=== PATIENT | male | born 1965 | race Caucasian/White ===

== ENCOUNTER 2017-12-05 06:31 | Observation (INO) | payer OTHER ==
[2017-12-05] MEDS ORDERED: LIDOCAINE 1% 2 ML INJ ONE (06:54)
[2017-12-05] MEDS ORDERED: ONDANSETRON 4 MG/2 ML VIAL IVP ONE (07:02)
[2017-12-05] MEDS ORDERED: DEXAMETHASONE 4 MG/ML VIAL IVP ONE (07:02)
[2017-12-05] MEDS ORDERED: ceFAZolin 2 GM/SWFI 2 GM/20 ML SYR IVP ONE (07:02)
[2017-12-05] MEDS ORDERED: LIDOCAINE 1% 2 ML INJ ID PRN (07:47)
[2017-12-05] MEDS: LR 1,000 ML IV SCH ×2 (07:48→11:07)
--- NOTE | 2017-12-05 11:00 | PDHPUP ---
History & Physical Update H&P update statement: This history and physical update is based on an assessment of the patient which was completed after admission or registration (within 24 hours), but prior to the surgery/procedure. H&P update: H&P reviewed & patient examined, no change in patient's condition since H&P completed
--- NOTE | 2017-12-05 11:26 | PDANEPAE ---
ANE Past Medical History - Cardiovascular History Hx Hypertension: No Hx Arrhythmias: No Hx Chest Pain: No Hx Coronary Artery / Peripheral Vascular Disease: No Hx CHF / Valvular Disease: No Hx Palpitations: No - Pulmonary History Hx COPD: No Hx Asthma/Reactive Airway Disease: No Hx Recent Upper Respiratory Infection: No Hx Oxygen in Use at Home: No Hx Sleep Apnea: No Sleep Apnea Screening Result - Last Documented: Negative - Neurologic History Hx Cerebrovascular Accident: No Hx Seizures: No Hx Dementia: No - Endocrine History Hx Diabetes: No - Renal History Hx Renal Disorders: No - Liver History Hx Hepatic Disorders: No - Neurological & Psychiatric Hx Hx Neurological and Psychiatric Disorders: No - Cancer History Hx Cancer: Yes Cancer History Comment: melanoma umbilicus - Congenital Disorder History Hx Congenital Disorders: No - GI History Hx Gastrointestinal Disorders: No - Other Health History Other Health History: lesion umbilicus - Chronic Pain History Chronic Pain: No - Surgical History Prior Surgeries: tonsillectomy age 5 ANE Review of Systems Review of Systems: - Exercise capacity METS (RN): 6 METS ANE Patient History - Allergies Allergies/Adverse Reactions: codeine Allergy (Verified 12/03/17 12:00) "VIOLENT NIGHTMARES" - Home Medications Home Medications: Herbals/Supplements -Info Only 1 ea PO DAILY 12/03/17 [Last Taken Unknown] - NPO status NPO Since - Liquids (Date): 12/05/17 NPO Since - Liquids (Time): 06:00 NPO Since - Solids (Date): 12/04/17 NPO Since - Solids (Time): 19:00 - Smoking Hx Smoking Status: Never smoked - Family Anes Hx Family Hx Anesthesia Complications: none ANE Labs/Vital Signs - Vital Signs Blood Pressure: 122/83 Heart Rate: 69 Respiratory Rate: 12 O2 Sat (%): 92 Height: 182.88 cm Weight: 90.718 kg ANE Physical Exam - Airway Neck exam: FROM Mallampati Score: Class 1 Mouth exam: normal dental/mouth exam - Pulmonary Pulmonary: no respiratory distress - Cardiovascular Cardiovascular: regular rate and rhythym - ASA Status ASA Status: II ANE Anesthesia Plan Anesthesia Plan: general endotracheal anesthesia
[2017-12-05] MEDS ORDERED: BUPIVACAINE 0.25% 30 ML SDV ONE (11:53)
[2017-12-05] MEDS ORDERED: fentaNYL 250 MCG/5 ML INJ ONE (12:11)
[2017-12-05] MEDS ORDERED: MIDAZOLAM 2 MG/2 ML VIAL ONE (12:13)
[2017-12-05] MEDS ORDERED: MIDAZOLAM 2 MG/2 ML VIAL IVP ONE (12:14)
[2017-12-05] MEDS ORDERED: PROPOFOL/EMULSION 500 MG/50 ML BOTTLE IV ONE (12:18)
[2017-12-05] MEDS ORDERED: LIDOCAINE 2% 5 ML SDV ONE (14:05)
[2017-12-05] MEDS ORDERED: ONDANSETRON 4 MG/2 ML VIAL ONE (14:05)
[2017-12-05] MEDS ORDERED: DEXAMETHASONE 4 MG/ML VIAL ONE (14:05)
[2017-12-05] MEDS ORDERED: fentaNYL 100 MCG/2 ML INJ IVP PRN (14:28)
[2017-12-05] MEDS ORDERED: LR 500 ML IV PRN (14:28)
[2017-12-05] MEDS ORDERED: PROMETHAZINE HCL 25 MG/ML INJ IVP PRN (14:28)
[2017-12-05] MEDS ORDERED: OXYCODONE/APAP 5/325 TAB PO PRN ×2 (14:28→14:41)
[2017-12-05] MEDS ORDERED: NALOXONE HCL 0.4 MG/ML INJ IVP PRN (14:28)
--- NOTE | 2017-12-05 14:29 | POSTANESTH ---
Post Anesthetic Evaluation Cardiovascular Status: Normal, Stable Respiratory Status: Normal, Stable Level of Consciousness/Mental Status: Can Participate in Eval Pain Control: Adequate, Prn Tx Ordered Nausea/Vomiting Control: Adequate, Prn Tx Ordered Complications Possibly Related to Anesthesia: None Noted
--- NOTE | 2017-12-05 14:40 | POSTOPPROG ---
Post Op Note Date of Operation: 12/05/17 Surgeon: Alexis Mcdonald (, FACS) Pre-op Diagnosis: T3 melanoma umbilicus Post-op Diagnosis: same Procedure: wide excision/repair ventral hernia/adjacent tissue transfer/R ILND Findings: 2/2 sentinel nodes positive Inf/Abcess present in the surg proc area at time of surgery?: No EBL: Minimal (35ml) Drains: Gurmeet Nielsen Specimen(s): umbilicus with >2cm margins right inguinal sentinel node x 2 superficial right inguinal node dissection
[2017-12-05] MEDS ORDERED: TEMAZEPAM 15 MG CAP PO PRN (14:41)
[2017-12-05] MEDS ORDERED: LR 1,000 ML IV SCH (15:00)
[2017-12-05] MEDS ORDERED: fentaNYL 100 MCG/2 ML INJ ONE (15:15)
[2017-12-05] MEDS: ONDANSETRON 4 MG/2 ML VIAL IVP PRN ×2 (15:49→21:30)
[2017-12-05 20:21] VITALS: RESP 18
[2017-12-06] MEDS ORDERED: ENOXAPARIN 40 MG/0.4 ML SYR SC SCH (09:00)
--- NOTE | 2017-12-06 09:09 | SOAPPROG ---
FRANTZ Progress Note Assessment/Plan: Assessment:s/p wide excision of umbilical melanoma with right inguinal sentinel node biopsy/inguinal lymph node dissection current clinical stage has changed to T4N1 He is recovering after surgery and will be referred to [facility] for further work up (PET-CT) and adjuvant treatment recommendations Plan: we discussed wound care, drain care, activity and pain medications He will call my office Friday if drain output is at or less than 30ml/day for drain removal I will call him with pathology results when they are available 12/06/17 09:06 Subjective: resting comfortably, mild nausea last night Objective: Vital Signs Temp Pulse Resp BP Pulse Ox 36.6 C 78 18 118/62 94 12/06/17 04:07 12/06/17 04:07 12/06/17 04:07 12/06/17 04:07 12/06/17 04:07 12/05/17 12/06/17 12/07/17 05:59 05:59 05:59 Intake Total 2516 Output Total 672 Balance 1844 - Pending Discharge Pending Discharge Within 24 Hours: Yes Pending Discharge Date: 12/06/17 Pending Discharge Time: 13:00 Physical Exam - Physical Exam General Appearance: alert, no apparent distress Cardiac/Chest: regular rate, rhythm Abdomen: normal bowel sounds, soft, other (incisions healing well/EVAN serosanguinous) Extremities: non-tender, other (intact sensation) ICD10 Worksheet Patient Problems: Problems Problem Status Onset Melanoma 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 - ICD10 Problem Qualifiers (1) Melanoma Qualifiers: Melanoma location: torso excluding breast Qualified Code(s): C43.59 - Malignant melanoma of other part of trunk (2) Metastasis to groin lymph node
[2017-12-06] MEDS ORDERED: ACETAMINOPHEN 500 MG TAB PO PRN (09:17)
[2017-12-06] MEDS ORDERED: IBUPROFEN 600 MG TAB PO PRN (09:17)
[2017-12-06 09:18] VITALS: BP 115/70; PULSE 82; TEMP 98; O2SAT 93
[2017-12-06] MEDS ORDERED: oxyCODONE IR 5 MG TAB PO PRN (09:18)
[2017-12-06] MEDS ORDERED: SENNOSIDES/DOCUSATE SODIUM TAB PO SCH (09:30)
--- NOTE | 2017-12-06 10:04 | GOP ---
[f rep st] OPERATIVE REPORT DATE OF OPERATION: 12/05/2017 SURGEON: Alexis Mcdonald MD, FACS ANESTHESIA: General endotracheal. ANESTHESIOLOGIST: Robin Matta MD. 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 POSTOPERATIVE DIAGNOSIS: 1. T4 melanoma of the umbilicus. 2. 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 PROCEDURE PERFORMED: FINDINGS: 2/2 sentinel lymph nodes positive for metastatic melanoma with superficial right inguinal lymph node dissection, submitted for permanent section, including the transitional lymph node of [place]. ESTIMATED BLOOD LOSS: 35 mL. DESCRIPTION OF PROCEDURE: After informed consent was obtained, the patient was brought to the operating room and placed under general anesthesia. The abdomen and both groins were prepped and draped in the usual fashion. The preoperative lymphoscintigram revealed activity in the right groin. Before proceeding, a time-out and identification of the patient were performed. The sentinel nodes were interrogated with the gamma probe and increased activity was noted in the right inguinal region. The point of maximum activity was identified, marked on the skin with a marking pen, and this area was infiltrated with 0.25% Marcaine. An oblique incision was made just above the groin crease and carried through the skin and subcutaneous tissues. The first of 2 sentinel nodes was encountered in the deep subcutaneous plane and measured approximately 1.5 cm. It was dissected from the surrounding fibrofatty tissue of the groin, lymphovascular structures were hemoclipped and divided, and the node was removed from the field. A second sentinel node, measuring approximately 1 cm in maximum diameter, was also identified and retrieved in a similar fashion and submitted as sentinel lymph node #2. Hemostasis appeared secure within the groin. While we were waiting for the results of the sentinel node frozen section, I proceeded with a wide excision of the melanoma as follows. The previously biopsied melanoma was at the superior rim of the umbilicus and 2 cm were marked in all directions from the center point of the melanoma and the planned incision was marked on the abdominal wall to include 4 cm width laterally to create an ellipse. This was infiltrated with 0.25% Marcaine and incised circumferentially in elliptical fashion creating a defect that was approximately 6 x 10 cm. As the dissection was carried out through the subcutaneous tissues using cautery, the umbilical stalk was from the surrounding fascia at the level of the abdominal wall, including the underlying peritoneum. This was excised en bloc and removed from the field. It was tagged for orientation with a short suture superiorly and a long suture laterally. This was submitted for permanent section. The resulting defect left a 2 cm fascial defect in the center of the linea Alba as well as a 6 x 10 cm defect of the skin and subcutaneous tissues. The fascia was closed with 2 layers of interrupted 0 Nurolon sutures to create a transverse repair. The superficial wound was closed with adjacent tissue transfer of subcutaneous fat, elevating a plane of tissue anterior to the fascia circumferential to the defect for a distance of 2 to 3 cm. This allowed for primary closure without significant tension. The deep subcutaneous tissues were approximated with 3-0 Monocryl suture and the skin was closed with 4-0 Monocryl suture followed by ana m. Subsequently, the report of the sentinel nodes came back positive and we proceeded with inguinal lymph node dissection as follows. The contents of the inguinal canal were dissected cephalad to the external ring and external oblique fascia inferiorly to below the saphenofemoral junction medially to the pubic tubercle and laterally well beyond the femoral vein. Dissection was carried out with hemostasis secured with cautery, medium hemoclips, and suture ligatures. The deepest lymph node found at the deep femoral canal overlying the femoral vein was approximately 4 to 5 mm in diameter and was labeled the lymph node of [place]. The specimen was removed from the field and submitted for permanent section. Hemostasis appeared secure within the cavity. A 10 mm flat Gurmeet-Nielsen drain was brought through a separate stab wound and placed into the wound. Subcutaneous tissues were approximated with 3-0 Monocryl suture and the skin was closed with 4-0 Monocryl suture in a subcuticular fashion. Topical and sterile dressings were applied. The patient was returned extubated to the recovery room in satisfactory condition. Needle, sponge, and instrument count were correct. PROCEDURE PERFORMED: 1. Wide excision of umbilical melanoma (embolectomy) and reconstruction with repair of ventral hernial defect and adjacent tissue transfer. 2. [place] lymph node biopsy and subsequent right inguinal lymph node dissection. COMPLICATIONS: None. /[id number]/MODL MTDD
--- NOTE | 2017-12-06 10:19 | ASMTLACE ---
LACE Length of stay for Answers: Less than 1 day current admission Acuity / Level of Answers: No Care: Did the patient have an inpatient admission? Comorbidities - select Answers: Other Notes: melanoma all that apply # of Emergency department Answers: 0 visits in the last 6 months Score: 1 Date Signed: 12/06/2017 10:18 AM Electronically Signed By:LILY Henriquez
--- NOTE | 2017-12-06 11:48 | ASDISCHSUM ---
Discharge Information Plan Status:Home with No Needs Medically Cleared to Leave:12/06/2017 Discharge Date:12/06/2017 CM D/C Disposition:Home, Routine, Self-Care ADT D/C Disposition: Projected Discharge Date:12/06/2017 Transportation at D/C:Family Discharge Delay Reason: Follow-Up Date:12/06/2017 Discharge Slot: Final Diagnosis: Placement Information Patient Contact Information Contact Name:CECILE Relationship: Address:[address] Work Phone: City:[place] Alternate Phone: [facility]/Zip Code:[place] [address] Email: Financial Information Financial Class:[facility] Primary Plan Desc:[employer] OPEN [employer] LOCAL Primary Plan Number:[id number] Secondary Plan Desc: Secondary Plan Number: Assessment Information LACE LACE Length of stay for Answers: Less than 1 day current admission Acuity / Level of Answers: No Care: Did the patient have an inpatient admission? Comorbidities - select Answers: Other Notes: melanoma all that apply # of Emergency department Answers: 0 visits in the last 6 months Score: 1 Date Signed: 12/06/2017 10:18 AM Electronically Signed By:LILY Henriquez Intervention Information
== END 2017-12-06 11:48 | disposition home or self-care (01) ==
LOC: F3E 06:31 → F1N 15:40
PROVIDERS: ADMIT Surgery; ATTEND Surgery
PROC: 0JB80ZZ Excision of Abdomen Subcutaneous Tissue and Fascia, Open Approach (ICD-10-PCS; principal; 2017-12-05 11:00)
PROC: 0JQ80ZZ Repair Abdomen Subcutaneous Tissue and Fascia, Open Approach (ICD-10-PCS; principal; 2017-12-05 11:00)
PROC: 07TH0ZZ Resection of Right Inguinal Lymphatic, Open Approach (ICD-10-PCS; principal; 2017-12-05 11:00)
PROC: 3E0W3HZ Introduction of Radioactive Substance into Lymphatics, Percutaneous Approach (ICD-10-PCS; 2017-12-05 11:00)
DX: C43.59 Malignant melanoma of other part of trunk (principal); C77.4 Secondary and unspecified malignant neoplasm of inguinal and lower limb lymph nodes
CPT/HCPCS: 11606; 12034; 38760; 78195; A9520; G0378; J0690; J1100; J1650; J2250; J2405; J2704; J3010

== ENCOUNTER 2017-12-25 17:19 | Inpatient (IN) | payer OTHER ==
[2017-12-25] MEDS ORDERED: ACETAMINOPHEN 500 MG TAB PO PRN (17:36)
[2017-12-25] MEDS ORDERED: oxyCODONE IR 5 MG TAB PO PRN (17:37)
--- NOTE | 2017-12-25 17:55 | PDGENHP ---
History and Physical - Chief Complaint right groin pain - History of Present Illness 52 y/o male 3 weeks s/p wide excision of umbilical melanoma and right inguinal node dissection. Final stage was T4N1. He has seen Dr. Bragg who recommended chemotherapy. He had his drain removed a week ago and presents today with fever, pain and redness in the right groin. 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 Review of Systems Review of Systems: Constitutional: Reports: chills, fever Physical Exam Physical Exam: Constitutional: uncomfortable Eyes: anicteric sclera Cardiovascular: tachycardia Respiratory: no respiratory distress Gastrointestinal: soft, non-tender abdomen, other (transverse midabdominal incision healing without signs of infection) Skin: other (erythema right groin and anterior medial thigh, incision o.k./12 ml seroma fluid aspirated and sent for culture) Psychiatric: interacting appropriately Lymph, Heme, Immunologic: no cervical LAD Assessment & Plan Assessment: right groin cellulitis Stage T4N1 melanoma s/p wide excision and right inguinal node dissection Plan: Admit [facility] for IV Abx/Hospitalist consult requested and discussed with Dr. Garcia
[2017-12-25] MEDS: VANCOMYCIN HCL/NORMAL SALINE 250 ML IV SCH (19:00)
[2017-12-25] MEDS ORDERED: ONDANSETRON DISINTEGRATING 4 MG TAB PO PRN (19:10)
[2017-12-25] MEDS ORDERED: ONDANSETRON 4 MG/2 ML VIAL IVP PRN (19:10)
[2017-12-25 19:12] LABS: PLATELET COUNT 229 10^3/uL (150-400)
[2017-12-25] MEDS ORDERED: NS 1,000 ML IV ONE ×2 (19:15→21:10)
[2017-12-25 20:03] LABS: INR 1.04 (0.83-1.16); PROTIME(PATIENT) 13.8 SEC (12.0-15.0)
[2017-12-25] MEDS: IBUPROFEN 800 MG TAB PO SCH (21:11)
[2017-12-25] MEDS: ceFAZolin 2 GM/SWFI 2 GM/20 ML SYR IVP SCH (21:11)
[2017-12-25] MEDS ORDERED: cefTRIAXone 2 GM in STERILE WATER INJ 20 ML IV ONE (22:20)
[2017-12-26] MEDS: NS 1,000 ML IV SCH ×4 (00:07→23:32)
--- NOTE | 2017-12-26 04:30 | GCON ---
[f rep st] CONSULTATION DATE OF CONSULTATION: 12/25/2017 REASON FOR CONSULTATION: I was asked by Dr. Mcdonald to see the patient in regard to his right groin valery lulitis. HISTORY OF PRESENT ILLNESS: 52-year-old man with a recent diagnosis of melanoma who underwent an exc ision near his umbilicus on 12/05/2017. He also had sentinel lymph node biopsy with 2 lymph nodes re turning positive for melanoma. He was seen in clinic today by Dr. Mcdonald for a followup. He notes nicanor t this morning he started to feel febrile. He also notes that he was healing very well up until toda y, when he noticed some erythema and pain at the right inguinal node resection site. He has not had any dizziness, lightheadedness, or confusion. He has never had any severe infection before. He was otherwise healthy until finding melanoma. PAST MEDICAL/SURGICAL HISTORY: Melanoma, status post resection very recently. MEDICATIONS: Please see medication reconciliation. ALLERGIES: Codeine. FAMILY HISTORY: No melanoma. SOCIAL HISTORY: He is accompanied by his . He rarely drinks. He does not smoke. REVIEW OF SYSTEMS: Ten-point review of systems is conducted and is negative except per HPI. PHYSICAL EXAM: VITAL SIGNS: Initial blood pressure 106/79, heart rate 108, respiration rate 18, sat urating 90% on room air, temperature 38.6. GENERAL: The patient is a pleasant man who is resting co mfortably. He is not confused. He is in no acute distress. HEENT: Normocephalic, atraumatic. CAR DIOVASCULAR: Tachycardic. There are no murmurs, rubs, or gallops. PULMONARY: Lungs clear to auscu ltation bilaterally. ABDOMEN: Soft, nontender, nondistended. He has a midline horizontal incision that is well healing. His groin exam shows an area of erythema which I marked over the right groin. He has a fluctuant area at the superior aspect of this. The erythema is darker in the intertriginou s area. He has no extension into the perineum or onto the scrotum or penis. It is warm and tender t o palpation. SKIN: No rash. : No [place]. NEUROLOGIC: Alert and oriented x3. He is moving all extremities. PSYCHIATRIC: Normal mood and affect. LABS: White count is 20.1. DATA: 1. I discussed this with Dr. Mcdonald. 2. I reviewed his chart including his brief postop note on 12/05/2017, with a wide excision repair o f ventral hernia, adjacent tissue, right inguinal lymph node dissection. IMPRESSION AND PLAN: 1. Right groin cellulitis: This is at the previous operative site. Suspect that this is a gram-pos itive infection, either streptococcus or staphylococcus. Seroma fluid was aspirated by Dr. Mcdonald, moisés gisell I am not seeing a wound culture at this point. Blood cultures have been drawn. Dr. Mcdonald had o rdered vancomycin, as well as Ancef. I will not stop these, though I am not sure that we need dual g beryl-positive coverage at this point. I placed a call to Dr. Mcdonald. Will attempt to discuss this with him tonight. 2. Sepsis as evidenced by leukocytosis, fever, and tachycardia due to right groin cellulitis: Still awaiting labs to assess for end-organ damage. These have been ordered. I will give him 1 L normal saline bolus now. He does not have any evidence of septic shock. 3. Recent diagnosis of melanoma: He is going to follow with Dr. Bragg for ongoing treatment optio ns. Workup including PET scan and brain MRI are still in progress. Thank you for involving Hospital Medicine in the care of the patient. We will continue to follow sukumar rick. /[id number]/MODL
[2017-12-26 04:37] LABS: PLATELET COUNT 184 10^3/uL (150-400)
[2017-12-26] MEDS: ceFAZolin 2 GM/SWFI 2 GM/20 ML SYR IVP SCH ×2 (05:16→13:52)
[2017-12-26] MEDS: IBUPROFEN 800 MG TAB PO SCH ×3 (05:16→21:30)
[2017-12-26] MEDS: VANCOMYCIN HCL/NORMAL SALINE 250 ML IV SCH (05:52)
--- NOTE | 2017-12-26 10:05 | ASMTCMCOM ---
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 Pt is being followed by Dr Bragg s/p removal of an umbilical melanoma, upon removal of a EVAN drain, pt developed R groin cellulitis. Unclear if will need IV abx, if not, I anticipate pt will dc home w/support of when medically stable. CM available for any changes. DC Plan: Independent Date Signed: 12/26/2017 10:04 AM Electronically Signed By:Jimena Chávez RN
[2017-12-26] MEDS: ACETAMINOPHEN 325 MG TAB PO PRN ×2 (11:55→23:32)
--- NOTE | 2017-12-26 12:03 | SOAPPROG ---
SOAP Progress Note Assessment/Plan: Assessment: Right groin cellulitis/seroma fluid culture pending Plan: continue IV Abx/check culture results supportive care. Hospitalist consult appreciated Cayetano Mcdonald MD, FACS 12/26/17 12:01 Subjective: feeling rigor again/felt better last night Objective: Vital Signs Temp Pulse Resp BP Pulse Ox 37.0 C 101 H 18 146/87 H 95 12/26/17 11:42 12/26/17 11:42 12/26/17 11:42 12/26/17 11:42 12/26/17 11:42 Laboratory Results 12/26/17 04:31 12/26/17 04:31 12/25/17 12/26/17 12/27/17 05:59 05:59 05:59 Intake Total 1851 Balance 1851 PT 13.8 SEC (12.0-15.0) 12/25/17 19:33 INR 1.04 (0.83-1.16) 12/25/17 19:33 - Pending Discharge Pending Discharge Within 24 Hours: No Pending Discharge Within 48 Hours: No Physical Exam - Physical Exam General Appearance: WD/WN, alert, mild distress Skin: other (erythema right groin slightly improved/persistant swelling) ICD10 Worksheet Patient Problems: Problems Problem Status Onset Melanoma 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
--- NOTE | 2017-12-26 16:06 | HOSPPROG ---
Hospitalist Progress Note Assessment/Plan: 52y male with c/o right groin pain. D/W Dr Mcdonald. First encounter, chart reviewed. #Right groin cellulitis -on abx therapy, adjust per ID -sample drawn in clinic, not in lab currently, cont to try to locate- #Sepsis -cont supportive care -ID consulted, D/W Dr Veliz -febrile, tachy, cont ivf #Leukocytosis -improved since yesterday -cont to follow -BC pending #Dispo -unclear -will need cont IV abx therapy and further in hospital treatment -change to inpt status Subjective: Still feeling ill. Shaking and cold. Pain continues. Objective: Vital Signs Temp Pulse Resp BP Pulse Ox 37.1 C 100 14 117/82 H 94 12/26/17 15:12 12/26/17 15:12 12/26/17 15:12 12/26/17 15:12 12/26/17 15:12 Laboratory Results 12/26/17 04:31 12/26/17 04:31 12/25/17 12/26/17 12/27/17 05:59 05:59 05:59 Intake Total 1851 Balance 1851 PT 13.8 SEC (12.0-15.0) 12/25/17 19:33 INR 1.04 (0.83-1.16) 12/25/17 19:33 - Physical Exam Constitutional: appears nourished, uncomfortable, No obese Eyes: PERRL, anicteric sclera, EOMI Ears, Nose, Mouth, Throat: moist mucous membranes, hearing normal, ears appear normal Cardiovascular: tachycardia, No irregularly irregular, No JVD Respiratory: no respiratory distress, no rales or rhonchi, clear to auscultation Gastrointestinal: No tenderness, No ascites, No guarding Skin: warm, erythema, fluctuance Musculoskeletal: no joint effusions, pain with ROM, generalized weakness Neurologic: AAOx3 Psychiatric: interacting appropriately, not anxious, not encephalopathic, thought process linear ICD10 Worksheet Patient Problems: Problems Problem Status Onset Melanoma 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
[2017-12-26] MEDS: VANCOMYCIN 1.5 GM in D5W 250 ML IV SCH (17:47)
--- NOTE | 2017-12-26 18:04 | GCON ---
[f rep st] CONSULTATION DATE OF CONSULTATION: 12/26/2017 REQUESTING PROVIDER: Lise Segura NP. REASON FOR CONSULTATION: Right inguinal cellulitis. HISTORY OF PRESENT ILLNESS: The patient is a 52-year-old male with a recent diagnosis of melanoma, w julio I am asked to see in consultation for right inguinal cellulitis. The patient underwent melanoma excision around the umbilical region with right inguinal lymph node dissection on 12/05/2017. The pa tient subsequently had an inguinal drain in place until approximately 1 week ago. The patient was do ing well until yesterday when he developed onset of pain in the right inguinal region. This was foll owed by development of erythema, fever, and shaking chills. He did not have erythema or tenderness i nvolving the genitalia. He did not note any extension onto the abdominal wall. He did have some mil d nausea, but no vomiting or diarrhea. Prior to his melanoma excision, he did have the area of melan trenton cultured in late October, which showed growth of MSSA and group C strep. He was treated at that time with cephalexin. Based on his clinical symptoms yesterday, he was seen by Dr. Mcdonald in followup , at which point in time he was noted to have a right inguinal cellulitis. The inguinal region was a spirated yielding 12 mL of ceruminous appearing fluid which was sent for culture. Based on his clini isaiah findings, he was referred for admission to [facility]. He has been started empiric ally on vancomycin and received a dose of ceftriaxone yesterday, which was subsequently transitioned to cefazolin today. Blood cultures have been obtained and are currently pending, as is a culture of the patient's groin aspirate. Today, the patient did have some recurrent rigors. Currently, he stat es he feels significantly improved over the last hour. At the time of presentation yesterday, his te mperature was noted to be 38.6. The patient has not noted any spontaneous drainage from his inguinal incision. His umbilical incision has been healing well. Given the above findings, I am now asked t o assist in his ongoing management. PAST MEDICAL HISTORY: Recent diagnosis of melanoma, as outlined above. PAST SURGICAL HISTORY: Melanoma excision and lymph node dissection as above. CURRENT MEDICATIONS: Vancomycin 1 g IV q.12 hours, Ancef 2 g IV q.8 hours, Motrin 800 mg p.o. q.8 ho urs, Oxy IR as needed. ALLERGIES: Codeine associated with [employer] symptoms. SOCIAL HISTORY: Patient does not smoke. He drinks approximately 1 glass of wine or beer per day. N o drug use. 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 Pet dog at home, but no contact with dog at surgical inci sions. FAMILY HISTORY: Diabetes mellitus. REVIEW OF SYSTEMS: Outside that noted in the HPI, the remainder of a 10-system review is unremarkabl e. PHYSICAL EXAMINATION: VITAL SIGNS: Temperature maximum 38.6, temperature current 37.1, heart rate 1 00, respiratory rate 14, blood pressure 117/82, oxygen saturation 94% on room air. GENERAL: Patient is well nourished, well developed, in no acute distress. He appears nontoxic. HEENT: There is no scleral icterus, conjunctival injection, or conjunctival petechiae. Oropharynx shows moist mucous me mbranes without lesions. There is no nasal discharge. There is no tenderness over the frontal, maxi llary or mastoid area. NECK: Supple without palpable lymphadenopathy or thyromegaly. CHEST: Clear to auscultation bilaterally without adventitious sounds. Respiratory effort is normal. CARDIOVASCU LAR: Regular rate and rhythm without murmurs, gallops, or rubs. ABDOMEN: Soft, nontender, nondiste nded. There is no palpable organomegaly. Bowel sounds are present. The periumbilical abdominal inc ision is healing well with faint erythema at the margins, which is consistent with wound healing. Th ere is no drainage present. : The right inguinal region shows edema, erythema, warmth and tendern ess localized over the right inguinal region without significant extension over the abdominal wall; t here is mild extension onto the medial thigh; the penis and scrotum do not show involvement; there is no expressible drainage or palpable fluctuance; there are no areas of necrosis; there are no bulla n oted. MUSCULOSKELETAL: No cyanosis, clubbing, or edema. SKIN: See exam; there are no stigmata of endocarditis. The skin is warm and dry to touch. NEUROLOGIC: The patient is alert and interacts appropriately with examiner. Cranial nerves 2-12 are grossly intact. Muscle tone and bulk are norm al. LYMPHATICS: No cervical or supraclavicular adenopathy. LABORATORY DATA: White blood cell count 14.5, hematocrit 39.7, platelets 184, neutrophils 87%. Seru m creatinine 0.9, bicarbonate 23. Venous lactate is 1.3. Blood cultures x2 sets are pending. Cultu re from the patient's right inguinal region (I think this was a swab obtained of the aspirated seroma tous fluid) is pending in the microbiology lab. IMPRESSION: Right inguinal cellulitis: Clinical findings consistent with right inguinal cellulitis with question of superinfected seroma underlying area of cellulitis. Given the presence of rigors, c oncomitant bacteremia is of consideration. Most likely, this will be due to beta-hemolytic streptoco cci or Staphylococcus aureus. Given recent isolation of methicillin-sensitive Staphylococcus aureus, suspect he will have lower risk of methicillin-resistant Staphylococcus aureus, but given recent ope rative procedure, this does remain consideration. Based on his cellulitis being present in the ingui nal region, microbiologic etiology could also potentially include enteric gram-negative rods, althoug h suspect these will be less likely. Will observe clinical response to antibiotic therapy and review further with Dr. Mcdonald. RECOMMENDATIONS: 1. Agree with empiric vancomycin. Will increase dose to 1.5 g IV q.12 hours based on weight. 2. Ceftriaxone 2 g IV daily. 3. Discontinue cefazolin. 4. Follow up blood and seroma cultures as available. 5. Will review findings with Dr. Mcdonald and follow the patient's clinical exam as antibiotic therapy i s administered. 6. Thank you for this consultation. We will continue to follow the patient with you. /[id number]/MODL
[2017-12-26] MEDS: cefTRIAXone 2 GM in STERILE WATER INJ 20 ML IV SCH (19:34)
[2017-12-27] MEDS: IBUPROFEN 800 MG TAB PO SCH ×3 (05:27→21:00)
[2017-12-27] MEDS: VANCOMYCIN 1.5 GM in D5W 250 ML IV SCH ×2 (05:27→18:33)
--- NOTE | 2017-12-27 07:54 | SOAPPROG ---
SOAP Progress Note Assessment/Plan: Assessment: Right groin cellulitis/seroma fluid culture pending not clinically improving as quickly as I would have expected we discussed possibility of surgical drainage, which I would recommend if the seroma fluid cultures are positive Plan: continue IV Abx/check culture results later today, if positive: to OR for incision and drainage supportive care Hospitalist consult appreciated ID consult appreciated Cayetano Mcdonald MD, FACS 12/26/17 12:01 12/27/17 07:51 12/27/17 08:12 Subjective: feeling better/last fever shortly before midnight Objective: Vital Signs Temp Pulse Resp BP Pulse Ox 36.3 C 83 18 119/84 H 95 12/27/17 07:16 12/27/17 07:16 12/27/17 07:16 12/27/17 07:16 12/27/17 07:16 Laboratory Results 12/26/17 04:31 12/26/17 04:31 12/26/17 12/27/17 12/28/17 05:59 05:59 05:59 Intake Total 1851 4002 Balance 1851 4002 PT 13.8 SEC (12.0-15.0) 12/25/17 19:33 INR 1.04 (0.83-1.16) 12/25/17 19:33 - Pending Discharge Pending Discharge Within 24 Hours: No Pending Discharge Within 48 Hours: No Physical Exam - Physical Exam General Appearance: no apparent distress Abdomen: other (right groin erythema and swelling persist/no extension of erythema-improved anteromedial thigh erythema) ICD10 Worksheet Patient Problems: Problems Problem Status Onset Melanoma 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
[2017-12-27] MEDS: NS 1,000 ML IV SCH ×2 (09:46→18:51)
[2017-12-27] MEDS: cefTRIAXone 2 GM in STERILE WATER INJ 20 ML IV SCH (10:24)
--- NOTE | 2017-12-27 10:27 | SOAPPROG ---
Downtime Inpatient MD Late Entry SOAP Note: Cultures are no growth at 18 hours reported today/I recommended holding off on surgery for now and continuing IV Rocephin and Vanco
--- NOTE | 2017-12-27 11:18 | HOSPPROG ---
Hospitalist Progress Note Assessment/Plan: 52y male with c/o right groin pain. D/W Dr Mcdonald. #Right groin cellulitis -on abx therapy, adjust per ID -cx NGTD x18 hours #Sepsis -resolved -cont supportive care -appreciate ID consult -fever once last night #Leukocytosis -improved -cont to follow -BC pending #Dispo -unclear -will need cont IV abx therapy and further in hospital treatment Subjective: Feeling better today. Slept well. Still having pain. Objective: Vital Signs Temp Pulse Resp BP Pulse Ox 36.3 C 83 18 119/84 H 95 12/27/17 07:16 12/27/17 07:16 12/27/17 07:16 12/27/17 07:16 12/27/17 07:16 Laboratory Results 12/26/17 04:31 12/26/17 04:31 12/26/17 12/27/17 12/28/17 05:59 05:59 05:59 Intake Total 1851 4002 Balance 1851 4002 PT 13.8 SEC (12.0-15.0) 12/25/17 19:33 INR 1.04 (0.83-1.16) 12/25/17 19:33 - Physical Exam Constitutional: no apparent distress, appears nourished, uncomfortable Eyes: PERRL, anicteric sclera, EOMI Ears, Nose, Mouth, Throat: moist mucous membranes, hearing normal, ears appear normal Cardiovascular: No JVD, No tachycardia, No edema Respiratory: no respiratory distress, no rales or rhonchi, reduced air movement Gastrointestinal: normoactive bowel sounds, No tenderness, No ascites Skin: warm, erythema, fluctuance Musculoskeletal: full muscle strength, normal joint ROM, muscular tenderness Neurologic: AAOx3 Psychiatric: interacting appropriately, not anxious, not encephalopathic, thought process linear ICD10 Worksheet Patient Problems: Problems Problem Status Onset Melanoma 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
--- NOTE | 2017-12-27 13:30 | PCMIDPN ---
Assessment/Plan: Assessment/Plan: 1. Right lower abd/inguinal cellulitis with possible superinfected seroma: - cultures from office visit 12/25/17 labeled as 12/26/17 still in progress, but currently ngtd -blood cx ngtd -Currently on Vanco, Ceftriaxone -wbc elevated but had started to trend down. -repeat labs in Am. - updated patient on current cultures. Meds vanco 1.5gm q12- 12/26/17 ceftraixone 2g daily- 12/26/17 Subjective: afebrile now. had temp spike yesterday evening. denies sob, abd pain,or diarrhea. denies scrotal pain or swelling. less pain involving right lower abd, groin since yesterday. still taking ibuprofen. Objective: Vital Signs Temp Pulse Resp BP Pulse Ox 36.7 C 76 15 116/81 H 96 12/27/17 11:18 12/27/17 11:18 12/27/17 11:18 12/27/17 11:18 12/27/17 11:18 Laboratory Results 12/26/17 04:31 12/26/17 04:31 12/26/17 12/27/17 12/28/17 05:59 05:59 05:59 Intake Total 1851 4002 Balance 1851 4002 - Physical Exam General Appearance: alert, no apparent distress Respiratory: lungs clear Cardiac/Chest: regular rate, rhythm Extremities: No swelling Abdomen: normal bowel sounds, soft, No distended Skin: erythema (right lower abdomen, groin with erythema that has receded from lines of demarcation. indurated and tender in spots. 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
[2017-12-27] MEDS: ACETAMINOPHEN 325 MG TAB PO PRN (17:13)
[2017-12-28] MEDS ORDERED: diphenhydrAMINE 25 MG CAP PO PRN (04:51)
[2017-12-28] MEDS: VANCOMYCIN 1.5 GM in D5W 250 ML IV SCH ×2 (04:59→19:13)
[2017-12-28] MEDS: IBUPROFEN 800 MG TAB PO SCH ×3 (05:09→21:11)
[2017-12-28 05:26] LABS: PLATELET COUNT 203 10^3/uL (150-400)
[2017-12-28] MEDS ORDERED: SODIUM CL NASAL 45 ML BTL EACHNARE PRN (05:56)
--- NOTE | 2017-12-28 07:10 | SOAPPROG ---
SOAP Progress Note Assessment/Plan: Assessment: Right groin cellulitis/seroma fluid culture no growth so far clinically worsening erythema past 24 hours Plan: to OR for incision and drain placement informed consent was obtained Cayetano Mcdonald MD, FACS 12/26/17 12:01 12/27/17 07:51 12/27/17 08:12 12/28/17 07:14 Subjective: resting comfortably Objective: Vital Signs Temp Pulse Resp BP Pulse Ox 37.3 C 97 16 122/87 H 94 12/28/17 04:00 12/28/17 04:00 12/28/17 04:00 12/28/17 04:00 12/28/17 04:00 Laboratory Results 12/28/17 04:21 12/28/17 04:21 12/27/17 12/28/17 12/29/17 05:59 05:59 05:59 Intake Total 4002 550 Balance 4002 550 PT 13.8 SEC (12.0-15.0) 12/25/17 19:33 INR 1.04 (0.83-1.16) 12/25/17 19:33 Physical Exam - Physical Exam General Appearance: alert Abdomen: other (area of erythema has doubled overnight/persistant swellling at incision site) ICD10 Worksheet Patient Problems: Problems Problem Status Onset Melanoma 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
[2017-12-28] MEDS ORDERED: oxyCODONE IR 5 MG TAB PO PRN (07:36)
[2017-12-28] MEDS ORDERED: ALBUTEROL 3 ML DEYVIAL IH PRN (07:36)
[2017-12-28] MEDS ORDERED: ONDANSETRON 4 MG/2 ML VIAL IVP PRN (07:36)
[2017-12-28] MEDS ORDERED: HYDROmorphONE/DILAUDID 1 MG/ML INJ IVP PRN (07:36)
[2017-12-28] MEDS ORDERED: NALOXONE HCL 0.4 MG/ML INJ IVP PRN (07:36)
[2017-12-28] MEDS ORDERED: fentaNYL 100 MCG/2 ML INJ IVP PRN (07:36)
--- NOTE | 2017-12-28 07:36 | PDANEPAE ---
ANE History of Present Illness Groin I&D ANE Past Medical History - Cardiovascular History Hx Hypertension: No Hx Arrhythmias: No Hx Chest Pain: No Hx Coronary Artery / Peripheral Vascular Disease: No Hx CHF / Valvular Disease: No Hx Palpitations: No - Pulmonary History Hx COPD: No Hx Asthma/Reactive Airway Disease: No Hx Recent Upper Respiratory Infection: No Hx Oxygen in Use at Home: No Hx Sleep Apnea: No Sleep Apnea Screening Result - Last Documented: Negative - Neurologic History Hx Cerebrovascular Accident: No Hx Seizures: No Hx Dementia: No - Endocrine History Hx Diabetes: No - Renal History Hx Renal Disorders: No - Liver History Hx Hepatic Disorders: No - Neurological & Psychiatric Hx Hx Neurological and Psychiatric Disorders: No - Cancer History Hx Cancer: Yes Cancer History Comment: melanoma umbilicus - Congenital Disorder History Hx Congenital Disorders: No - GI History Hx Gastrointestinal Disorders: No - Other Health History Other Health History: lesion umbilicus - Chronic Pain History Chronic Pain: No - Surgical History Prior Surgeries: tonsillectomy age 5 ANE Review of Systems Review of Systems: - Exercise capacity Exercise capacity: limited by disability ANE Patient History - Allergies Allergies/Adverse Reactions: codeine Allergy (Verified 12/03/17 12:00) "VIOLENT NIGHTMARES" - Home Medications Home Medications: Herbals/Supplements -Info Only 1 ea PO DAILY 12/03/17 [Last Taken Unknown] - NPO status NPO Since - Liquids (Date): 12/28/17 NPO Since - Liquids (Time): 04:00 NPO Since - Solids (Date): 12/27/17 NPO Since - Solids (Time): 20:00 - Smoking Hx Smoking Status: Never smoked - Alcohol Use Alcohol Use: Occasionally - Family Anes Hx Family Hx Anesthesia Complications: none ANE Labs/Vital Signs - Labs Result Diagrams: 12/28/17 04:21 12/28/17 04:21 - Vital Signs Blood Pressure: 122/87 Heart Rate: 97 Respiratory Rate: 16 O2 Sat (%): 94 Height: 182.88 cm Weight: 89.811 kg ANE Physical Exam - Airway Neck exam: FROM Mallampati Score: Class 2 Mouth exam: normal dental/mouth exam - Pulmonary Pulmonary: clear to auscultation - Cardiovascular Cardiovascular: regular rate and rhythym - ASA Status ASA Status: II, E ANE Anesthesia Plan Anesthesia Plan: GA w LMA
[2017-12-28] MEDS ORDERED: BUPIVACAINE 0.25% 30 ML SDV ONE (07:41)
[2017-12-28] MEDS ORDERED: PROPOFOL 200 MG/20 ML VIAL ONE (07:42)
[2017-12-28] MEDS ORDERED: PROPOFOL/EMULSION 500 MG/50 ML BOTTLE IV ONE (07:42)
[2017-12-28] MEDS ORDERED: fentaNYL 100 MCG/2 ML INJ ONE (07:45)
[2017-12-28] MEDS ORDERED: ONDANSETRON 4 MG/2 ML VIAL ONE (07:46)
[2017-12-28] MEDS ORDERED: RANITIDINE 50 MG/2 ML VIAL ONE (07:46)
[2017-12-28] MEDS ORDERED: DEXAMETHASONE 4 MG/ML VIAL ONE (07:46)
[2017-12-28] MEDS ORDERED: METOCLOPRAMIDE 10 MG/2 ML VIAL ONE (07:47)
--- NOTE | 2017-12-28 08:29 | POSTANESTH ---
Post Anesthetic Evaluation Cardiovascular Status: Normal, Stable Respiratory Status: Normal, Stable Level of Consciousness/Mental Status: Can Participate in Eval, Mildly Sleepy, Arousable Pain Control: Adequate, Prn Tx Ordered Nausea/Vomiting Control: Adequate, Prn Tx Ordered Complications Possibly Related to Anesthesia: None Noted
--- NOTE | 2017-12-28 08:29 | POSTOPPROG ---
Post Op Note Date of Operation: 12/28/17 Surgeon: Alexis Mcdonald (, facs) Anesthesiologist: Alex Bird DO Anesthesia: GET(General Endotracheal) Pre-op Diagnosis: right groin infected seroma Post-op Diagnosis: same Procedure: incision and drainage right groin seroma Inf/Abcess present in the surg proc area at time of surgery?: Yes Depth: Deep Incisional (Fascial) EBL: Minimal (5ml) Drains: Gurmeet Nielsen Specimen(s): culture for aerobes, anaerobes, fungi and stat gram stain
--- NOTE | 2017-12-28 08:54 | GOP ---
[f rep st] OPERATIVE REPORT DATE OF OPERATION: 12/28/2017 SURGEON: Alexis Mcdonald MD, FACS ANESTHESIA: General endotracheal. ANESTHESIOLOGIST: Alex Bird D.O. PREOPERATIVE DIAGNOSIS: 1. Stage III melanoma, status post wide excision, right inguinal lymph node dissection, 12/05/2017. 2. Right groin cellulitis/infected seroma. POSTOPERATIVE DIAGNOSIS: 1. Stage III melanoma, status post wide excision, right inguinal lymph node dissection, 12/05/2017. 2. Right groin cellulitis/infected seroma. PROCEDURE PERFORMED: Incision and drainage of right groin seroma. FINDINGS: Cloudy seroma fluid in the right inguinal region, consistent with infected seroma, submitted for aerobes, anaerobes, fungi and stat Gram stain. No foul odor associated with the fluid. No cassandra purulence. ESTIMATED BLOOD LOSS: Less than 10 cc. DESCRIPTION OF PROCEDURE: After informed consent was obtained, the patient was brought to the operating room and placed under general anesthesia. The right groin was prepped and draped in usual fashion. Before proceeding, a time-out and identification of the patient was performed. The old incision was incised and dissection carried out bluntly into the seroma cavity. Approximately 50 mL of fluid was drained that had a slight cloudy tinge to it, but no odor and no cassandra purulence. The seroma cavity was thoroughly irrigated and aspirated, and hemostasis secured along the incision site with cautery. A 10 mm fluted Gurmeet-Nielsen drain was brought through a separate stab wound lateral to the seroma and secured to the skin with 3-0 nylon suture. The subcutaneous tissues were approximated with 3-0 Monocryl suture and the skin was closed with ana m. Sterile dressings were applied. The patient was returned to the recovery room in satisfactory condition. Needle , sponge, and instrument count were correct. COMPLICATIONS: None. /[id number]/MODL MTDD
[2017-12-28] MEDS: cefTRIAXone 2 GM in STERILE WATER INJ 20 ML IV SCH (09:19)
--- NOTE | 2017-12-28 10:44 | HOSPPROG ---
Hospitalist Progress Note Assessment/Plan: 52y male with c/o right groin pain. #POD #0 -right groin I&D -EVAN drain placed #Right groin cellulitis -on abx therapy, adjust per ID -cx NGTD #Sepsis -resolved -cont supportive care -appreciate ID consult #Leukocytosis -improved -cont to follow -BC ngtd #Dispo -unclear -will need cont IV abx therapy and further in hospital treatment Subjective: Feeling a bit better today. Pain 5/10. Objective: Vital Signs Temp Pulse Resp BP Pulse Ox 36.6 C 80 16 110/70 94 12/28/17 10:04 12/28/17 10:04 12/28/17 10:04 12/28/17 10:04 12/28/17 10:04 Microbiology 12/28/17 08:08 Gram Stain - Final Groin - Eswab Laboratory Results 12/28/17 04:21 12/28/17 04:21 12/27/17 12/28/17 12/29/17 05:59 05:59 05:59 Intake Total 4002 550 Balance 4002 550 PT 13.8 SEC (12.0-15.0) 12/25/17 19:33 INR 1.04 (0.83-1.16) 12/25/17 19:33 - Physical Exam Constitutional: no apparent distress, appears nourished, uncomfortable Eyes: PERRL, anicteric sclera, EOMI Ears, Nose, Mouth, Throat: moist mucous membranes, hearing normal, ears appear normal Cardiovascular: No JVD, No tachycardia, No edema Respiratory: no respiratory distress, no rales or rhonchi, clear to auscultation Gastrointestinal: normoactive bowel sounds, No tenderness, No ascites Skin: warm, erythema, No mottled Musculoskeletal: normal joint ROM, no joint effusions, generalized weakness Neurologic: AAOx3 Psychiatric: interacting appropriately, not anxious, not encephalopathic, thought process linear ICD10 Worksheet Patient Problems: Problems Problem Status Onset Melanoma 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
--- NOTE | 2017-12-28 12:37 | PCMIDPN ---
Assessment/Plan: Assessment/Plan: 1. Right lower abd/inguinal cellulitis with possible superinfected seroma: - cultures from office visit 12/25/17 labeled as 12/26/17, but currently ngtd -blood cx ngtd -Cultures from OR today: with GPC on GS., culture pending. Reviewed all culture results with patient. -Currently on Vanco, Ceftriaxone. hope to narrow down atbx soon. -wbc elevated but had started to trend down. -repeat labs in Am. -vanco trough 7.6 - care coordinated with RAYMUNDO. Luzma vanco 1.5gm q12- 12/26/17 ceftraixone 2g daily- 12/26/17 Subjective: afebrile. went to OR today for I & D and drain placement. denies sob, abd pain or diarrhea. had normal stool yesterday. Objective: Vital Signs Temp Pulse Resp BP Pulse Ox 37.1 C 81 14 113/71 93 12/28/17 12:02 12/28/17 12:02 12/28/17 12:02 12/28/17 12:02 12/28/17 12:02 Microbiology 12/28/17 08:08 Gram Stain - Final Groin - Eswab Laboratory Results 12/28/17 04:21 12/28/17 04:21 12/27/17 12/28/17 12/29/17 05:59 05:59 05:59 Intake Total 4002 550 Output Total 700 Balance 4002 550 -700 - Physical Exam General Appearance: alert, no apparent distress Respiratory: lungs clear Cardiac/Chest: regular rate, rhythm Extremities: No swelling Abdomen: normal bowel sounds, soft, other (mild tenderness right lower quadrant just above dressing), No distended Skin: other (right inguinal region with drressing in place and drain. i did not take down dressing given jsut back from OR. no erythema involving scrotum. 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
--- NOTE | 2017-12-28 16:27 | ASMTCMCOM ---
CM Note CM Note Notes: Pt is s/p an I&D today. Spoke with ID - anticipate pt will still be able to transition to po ABX and d/c independent. CM will continue to follow for any change in d/c needs. Date Signed: 12/28/2017 04:27 PM Electronically Signed By:LILY Henriquez
[2017-12-28] MEDS: NS 1,000 ML IV SCH (19:24)
[2017-12-29] MEDS: IBUPROFEN 800 MG TAB PO SCH ×3 (06:13→22:31)
[2017-12-29] MEDS: VANCOMYCIN 1.5 GM in D5W 250 ML IV SCH ×2 (06:14→18:11)
--- NOTE | 2017-12-29 07:36 | SOAPPROG ---
SOAP Progress Note Assessment/Plan: Assessment: s/p incision and drainage right groin seroma clinically improved Plan: check cultures/patient would like to transition to home abx or outpatient infusion/will defer choice of abx to ID discussed activity and wound care Cayetano Mcdonald MD, FACS 12/26/17 12:01 12/27/17 07:51 12/27/17 08:12 12/28/17 07:14 12/29/17 07:33 Subjective: feeling better/mild nausea last night-resolved Objective: Vital Signs Temp Pulse Resp BP Pulse Ox 36.6 C 73 16 120/70 96 12/29/17 04:00 12/29/17 04:00 12/29/17 04:00 12/29/17 04:00 12/29/17 04:00 Microbiology 12/28/17 08:08 Gram Stain - Final Groin - Eswab Laboratory Results 12/28/17 04:21 12/28/17 04:21 12/28/17 12/29/17 12/30/17 05:59 05:59 05:59 Intake Total 550 550 Output Total 740 Balance 550 -190 PT 13.8 SEC (12.0-15.0) 12/25/17 19:33 INR 1.04 (0.83-1.16) 12/25/17 19:33 - Pending Discharge Pending Discharge Within 24 Hours: Yes Pending Discharge Date: 12/30/17 Pending Discharge Time: 11:00 Physical Exam - Physical Exam General Appearance: alert, no apparent distress Abdomen: non-tender, soft, other (right groin erythema improved/seroma drainage sero-sang) Male Genitalia: other (no scrotal swelling/erythema) Rectal: deferred ICD10 Worksheet Patient Problems: Problems Problem Status Onset Melanoma 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
--- NOTE | 2017-12-29 07:58 | HOSPPROG ---
Hospitalist Progress Note Assessment/Plan: # inguinal cellulitis/infected seroma s/p I&D yesterday; GPC on Gram Stain - cont rocephin and vanc - taper abx soon per ID # sepsis (fever, tachycardia, leukocytosis) d/t cellulitis - resolved # malignant melanoma - will follow up with Dr Bragg for outpatient management # dispo - ok for discharge from IM perspective pending decision on abx by ID; no PICC yet Subjective: feels well this morning; afebrile Objective: Vital Signs Temp Pulse Resp BP Pulse Ox 36.6 C 73 16 120/70 96 12/29/17 04:00 12/29/17 04:00 12/29/17 04:00 12/29/17 04:00 12/29/17 04:00 Microbiology 12/28/17 08:08 Gram Stain - Final Groin - Eswab Laboratory Results 12/28/17 04:21 12/28/17 04:21 12/28/17 12/29/17 12/30/17 05:59 05:59 05:59 Intake Total 550 550 Output Total 740 Balance 550 -190 PT 13.8 SEC (12.0-15.0) 12/25/17 19:33 INR 1.04 (0.83-1.16) 12/25/17 19:33 chart reviewed operative note reviewed - Physical Exam Constitutional: no apparent distress, appears nourished Cardiovascular: regular rate and rhythym, no murmur, rub, or gallop Respiratory: no respiratory distress, clear to auscultation Gastrointestinal: normoactive bowel sounds, soft, non-tender abdomen Genitourinary: other (R inguinal cellulitis much improved; ana m and EVAN drain in place) ICD10 Worksheet Patient Problems: Problems Problem Status Onset Melanoma 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
[2017-12-29] MEDS: cefTRIAXone 2 GM in STERILE WATER INJ 20 ML IV SCH (08:53)
--- NOTE | 2017-12-29 14:59 | PCMIDPN ---
Assessment/Plan: Assessment/Plan: * Right inguinal cellulitis/possible infected seroma status post incision and drainage: Cultures remain negative although seroma culture from operative specimen is young. Initial Gram stain read as 2+ GPC now corrected to no organisms. Marked improvement versus exam on 12/26/2017. Think he needs at least another 24 hr of IV antibiotics with possible transition to oral therapy with Augmentin and doxycycline tomorrow to complete course unless additional guidance provided by cultures. Clinical findings and plan reviewed with Drs. Mcdonald and Radha. 12/29/17 14:57 Subjective: Patient feels better with significant decrease in right inguinal pain. Objective: Vital Signs Temp Pulse Resp BP Pulse Ox 36.6 C 83 14 121/83 H 94 12/29/17 08:00 12/29/17 08:00 12/29/17 08:00 12/29/17 08:00 12/29/17 08:00 Microbiology 12/28/17 08:08 Gram Stain - Final Groin - Eswab Laboratory Results 12/28/17 04:21 12/28/17 04:21 12/28/17 12/29/17 12/30/17 05:59 05:59 05:59 Intake Total 550 550 Output Total 740 Balance 550 -190 Vancomycin # 4 Ceftriaxone # 4 Blood and seroma cultures no growth to date - Physical Exam General Appearance: alert, no apparent distress Abdomen: non-tender, No distended Male Genitalia: No erythema, No scrotal edema Skin: other (Right inguinal region with significant decrease in erythema with faint residual and inguinal canal and dependent area of right thigh; bloody output in EVAN drain; tenderness markedly decreased) ICD10 Worksheet Patient Problems: Problems Problem Status Onset Melanoma 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
[2017-12-30 05:28] LABS: PLATELET COUNT 234 10^3/uL (150-400)
[2017-12-30] MEDS: IBUPROFEN 800 MG TAB PO SCH ×2 (06:20→14:14)
[2017-12-30] MEDS: VANCOMYCIN 1.5 GM in D5W 250 ML IV SCH (06:20)
--- NOTE | 2017-12-30 07:34 | PDDCSUM ---
Discharge Summary Discharge Summary: DOA 12/25/17 DOD 01/29/18 DC Dx: right groin cellulitis stage III melanoma (T4N1) s/p wide excision/R ing LN dissection 12/03 Procedures: 12/28/17 incision and drainage right groin seroma Course:Mr Do was admitted on 12/25 with sudden onset of rigors and chills and erythema around his right groin and thigh. A post op drain had been removed the week before and he had a seroma that I drained and submitted for culture before admitting him to the hospital. He was started on Ancef and Vanco and the hospitalist and ID services were consulted. He was switched to Rocephin and Vanco. Cultures remained negative. He had improved initially and then worsened clinically on 12/28 and I recommended formally draining the seroma. After this antibiotics were continued and he began to improve dramatically. His cultures remained no growth at the time of discharge and Dr. Veliz recommended continuing oral Augmentin/Doxycycline as an outpatient. His incision was healing well at the time of discharge and he will follow up in my office in two days for wound and drain check DC Meds: Augmentin 875 #20 Doxycycline 100 #20 med reconciliation completed. Cayetano Mcdonald MD, FACS
--- NOTE | 2017-12-30 08:30 | HOSPPROG ---
Hospitalist Progress Note Assessment/Plan: # inguinal cellulitis/infected seroma s/p I&D 12/28; GS corrected - negative - changed to PO abx today # sepsis (fever, tachycardia, leukocytosis) d/t cellulitis - resolved # malignant melanoma - will follow up with Dr Bragg for outpatient management # dispo - ok for discharge from IM perspective; changing to PO abx Subjective: eating; feels well; feels the infection is improving Objective: Vital Signs Temp Pulse Resp BP Pulse Ox 36.6 C 74 16 133/93 H 95 12/30/17 07:47 12/30/17 07:47 12/30/17 07:47 12/30/17 07:47 12/30/17 07:47 Microbiology 12/28/17 08:08 Gram Stain - Final Groin - Eswab Laboratory Results 12/30/17 04:31 12/30/17 04:31 12/29/17 12/30/17 12/31/17 05:59 05:59 05:59 Intake Total 550 2000 Output Total 740 Balance -190 2000 PT 13.8 SEC (12.0-15.0) 12/25/17 19:33 INR 1.04 (0.83-1.16) 12/25/17 19:33 - Physical Exam Constitutional: no apparent distress, appears nourished Eyes: anicteric sclera Ears, Nose, Mouth, Throat: hearing normal Cardiovascular: No edema Respiratory: no respiratory distress Gastrointestinal: No distension Genitourinary: other (decreased eythema and induration in groin area) Skin: warm Musculoskeletal: full muscle strength Neurologic: AAOx3 ICD10 Worksheet Patient Problems: Problems Problem Status Onset Melanoma 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
[2017-12-30] MEDS ORDERED: AMOXICILLIN/CLAVULANATE POT 875/125 MG TAB PO SCH ×2 (09:00→21:00)
[2017-12-30] MEDS ORDERED: DOXYCYCLINE HYCLATE 100 MG CAP/TAB PO SCH ×2 (09:00→21:00)
[2017-12-30] MEDS: cefTRIAXone 2 GM in STERILE WATER INJ 20 ML IV SCH (09:43)
[2017-12-30 10:59] VITALS: BP 131/88
--- NOTE | 2017-12-30 14:13 | PCMIDPN ---
Assessment/Plan: Assessment/Plan: 1. Right lower abd/inguinal cellulitis with possible superinfected seroma: - cultures from office visit 12/25/17 labeled as 12/26/17, but currently ngtd. -blood cx ngtd -Cultures from OR today:., culture ngtd. Reviewed all culture results with patient. -Currently on Vanco, Ceftriaxone. switch to oral augmentin + doxy x 10 days. Side effects of therapy reviewed with patient. - signs and symptoms to monitor for were reviewed with patient. -wbc improved - will have patient f/u in office next office. - care coordinated with RAYMUNDO. Luzma vanco 1.5gm q12- 12/26/17 ceftraixone 2g daily- 12/26/17 Subjective: afebrile. feels much better. denies sob, diarrhea. Objective: Vital Signs Temp Pulse Resp BP Pulse Ox 36.6 C 78 16 131/88 H 94 12/30/17 10:57 12/30/17 10:57 12/30/17 10:57 12/30/17 10:57 12/30/17 10:57 Microbiology 12/28/17 08:08 Gram Stain - Final Groin - Eswab Laboratory Results 12/30/17 04:31 12/30/17 04:31 12/29/17 12/30/17 12/31/17 05:59 05:59 05:59 Intake Total 550 2000 Output Total 740 25 Balance -190 1999 - Physical Exam General Appearance: alert, no apparent distress Extremities: No swelling Abdomen: non-tender, soft, No distended Skin: erythema (right lower abdomen: ana m noted. erythema noted medial aspect with some swelling and induraiton. mildly tender. not warm. drain noted. 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
--- NOTE | 2018-01-02 15:58 | PQFORM ---
PHYSICIAN QUERY FORM Needs Your Response This query form is being sent to you to assure this patient record is coded properly. Please respond to the question below: [employer]A FOUNTAIN MANAGER QUESTION: Dr Mcdonald Sepsis was listed in the Progress Notes but not listed on the Discharge Summary. Did this patient have Sepsis ? ___ Yes _x__ No ___ Other (Please Specify ) ___ Unable to determine Thank You Anh MANCINI Hemodialysis Technician INSTRUCTIONS FOR RESPONSE: Answer question by clicking on the "Edit Document" button. Move cursor to area below the stars. When complete, hit "Save." Click on the "Sign" button, then click "Sign" again. Type in your PIN and hit "Enter." MTDD
--- NOTE | 2018-01-02 16:00 | PQFORM ---
PHYSICIAN QUERY FORM Needs Your Response This query form is being sent to you to assure this patient record is coded properly. Please respond to the question below: PYROGLAZER QUESTION: INSTRUCTIONS FOR RESPONSE: Dr Mcdonald Do you consider this Patients Cellulitis/Seroma a complication of his previous inguinal node dissection ? __x_ Yes ___ No ___ Other (Please Specify ) ___ Unable to determine Thank You Anh MANCINI Photogrammetrist Answer question by clicking on the "Edit Document" button. Move cursor to area below the stars. When complete, hit "Save." Click on the "Sign" button, then click "Sign" again. Type in your PIN and hit "Enter." MTDD
== END 2017-12-30 14:35 | disposition home or self-care (01) | DRG 920 ==
LOC: F3E 17:51 → OBSVTOIN 17:51 → F3E 12-30 01:30
PROVIDERS: ADMIT Surgery; ATTEND Surgery
PROC: 0Y953ZZ Drainage of Right Inguinal Region, Percutaneous Approach (ICD-10-PCS; principal; 2017-12-28 07:50)
DX: L76.33 Postprocedural seroma of skin and subcutaneous tissue following a dermatologic procedure (principal); L03.314 Cellulitis of groin; Z85.820 Personal history of malignant melanoma of skin
CPT/HCPCS: G0378; J0690; J0696; J1100; J2405; J2704; J2765; J2780; J3010; J3370

== ENCOUNTER → 2018-01-01 | Outpatient (CLI) | payer OTHER ==
[~2018-01-01] MED LIST: GADOBUTROL 10 ML VIAL IVP ONE
== END ==
LOC: FIMAGING 06:44
PROVIDERS: ATTEND Internal Medicine Hematology & Oncology
DX: C43.59 Malignant melanoma of other part of trunk (principal); J01.00 Acute maxillary sinusitis, unspecified
CPT/HCPCS: A9585

== ENCOUNTER → 2018-06-18 | Outpatient (CLI) | payer OTHER | LOC: FIMAGING 12:49 | PROVIDERS: ATTEND Internal Medicine Hematology & Oncology | DX: C43.59 Malignant melanoma of other part of trunk (principal); C77.4 Secondary and unspecified malignant neoplasm of inguinal and lower limb lymph nodes; J01.00 Acute maxillary sinusitis, unspecified | CPT/HCPCS: A9585 ==

== ENCOUNTER 2018-07-12 10:14 | Inpatient (IN) | payer OTHER ==
[2018-07-12] MEDS ORDERED: PROPOFOL/EMULSION 1,000 MG/100 ML BOTTLE IV ONE (12:12)
[2018-07-12] MEDS ORDERED: PROPOFOL/EMULSION 100 ML IV SCH (12:15)
[2018-07-12] MEDS ORDERED: REPL FLUID TYPE D RXY 1 EA, SODIUM CITRATE 4% 375 ML, SODIUM Cl 3% 519 ML in WATER FOR ... DIAL SCH (13:00)
[2018-07-12] MEDS ORDERED: ONDANSETRON DISINTEGRATING 4 MG TAB PO PRN (14:34)
[2018-07-12] MEDS ORDERED: NS 1,000 ML IV SCH (14:45)
[2018-07-12] MEDS: VASOPRESSIN 25 UNIT in D5W 250 ML IV SCH ×2 (14:51→22:19)
[2018-07-12] MEDS: NOREPINEPHRINE BITARTRATE 16 MG in NS 250 ML IV SCH (14:51)
[2018-07-12] MEDS: SODIUM BICARBONATE 150 MEQ in WATER FOR INJECTION,STERILE 1,000 ML IV SCH ×2 (15:15→22:19)
[2018-07-12] MEDS ORDERED: INSULIN REGULAR HUMAN 100 UNIT in NS 100 ML IV SCH (16:00)
[2018-07-12 16:52] LABS: INR 2.18 (0.83-1.16); PROTIME(PATIENT) 24.3 SEC (12.0-15.0)
--- NOTE | 2018-07-12 16:58 | GHP ---
DATE OF ADMISSION: 07/12/2018 CHIEF COMPLAINT: Shock. HISTORY OF PRESENT ILLNESS: This is a 53-year-old man who was transferred from [facility] to [facility] for ongoing shock. History is notable for having malignant melanoma followed by Dr. Bragg. He has been treated with Tafinlar and Mekinist for his melanoma. Since starting Tafinlar, he has had ongoing fevers. He also developed adrenal insufficiency as well as hypothyroid on these medications. Yesterday, he was very confused. He had a small episode of diarrhea. His was unable to get him to the car. Thus, she called the ambulance. He was taken to [facility] and admitted to the ICU there. He was intubated shortly thereafter. He has been treated for septic shock, has been on Levophed as well as vasopressin and broad-spectrum antibiotics. Notably, he also had a troponin which bumped from normal to 9 today. Echocardiogram there showed normal ejection fraction with no wall motion abnormalities. PAST MEDICAL/PAST SURGICAL HISTORY: Malignant melanoma diagnosed this year. MEDICATIONS: Please see medication reconciliation. ALLERGIES: Codeine. FAMILY HISTORY: Reviewed and noncontributory. SOCIAL HISTORY: He is . His is at his bedside. REVIEW OF SYSTEMS: A 10-point review of systems is conducted and is negative except per HPI. PHYSICAL EXAM: VITAL SIGNS: Heart rate 101, blood pressure is about 100/60 on pressors, respiratory rate is 35, saturating at 97% on a humidified ventilator at 40% FiO2. GENERAL: The patient is a sedated man who is intubated. HEENT: Shows him to have an endotracheal tube in place. NECK: Shows him to have a right triple-lumen in place. EXTREMITIES: Shows multiple IVs in his left arm as well as one in his right arm. CARDIOVASCULAR: Shows him to be tachycardic. There are no murmurs, rubs, or gallops. CHEST: Shows a maculopapular rash on his chest. PULMONARY: Shows coarse breath sounds bilaterally. ABDOMEN: Shows him to have very diminished bowel sounds. He has a central surgical scar. He has a soft, nonrigid, nonperitoneal abdominal exam overall. : Shows a Saldivar. SKIN: Shows some mottling in his extremities, as well as a rash as above. PSYCHIATRIC: Unobtainable. NEUROLOGIC: Shows him to be moving all extremities. His pupils are reactive bilaterally. LABS: ABG here shows pH of 7.2, pCO2 of 21, bicarb of 9, PO2 of 97. Labs reviewed from this morning at [facility] show sodium 138, potassium 4.8, chloride 102, bicarb 11, BUN 31, creatinine of 5, with a glucose of 283. White count this morning was 49, hemoglobin 11, platelets are 79. INR was 2.3. DATA: 1. I reviewed his chart from [facility]. 2. His echo showed an EF of 55% with no wall motion abnormalities. 3. Blood cultures have shown no growth to date. 4. Ultrasound of his abdomen showed some nonspecific gallbladder wall thickening. 5. Nuclear stress test from the end of May showed no evidence of ischemia or infarct. 6. EKG, which I personally viewed and interpreted, showed ST elevations in leads V5 and V6. IMPRESSION AND PLAN: A 53-year-old man treated for metastatic melanoma presents with cardiovascular collapse. 1. Shock: Suspect that this is distributive shock. Cannot rule out cardiogenic shock. Mekinist may cause a cardiomyopathy. We will continue treating for septic shock with vancomycin as well as Zosyn. We will check a CT of his abdomen as well as chest to rule out any source for sepsis. He does have a significant amount of disease in his abdomen. Also concerned for cytokine release syndrome. Plan to give tocilizumab per Oncology, which is an anti-IL6 antibody. He currently is on Levophed, as well as vasopressin. Will continue these. Will also provide stress dose steroids given his history of adrenal insufficiency. 2. Renal failure: This is due to shock. Given his severe acidosis, he will get dialysis today. A femoral HD catheter is being placed now. 3. Yzp-EK-cprzznwaf myocardial infarction: His echocardiogram is reassuring. Cardiology will be involved. We will await further recommendations from Dr. Tobin. Certainly catheterization is not possible with his renal failure. 4. Hyperglycemia: This may be steroid induced. We will start him on an insulin drip. 5. Respiratory failure: This is most likely metabolic in nature. He is currently intubated and oxygenating well on the ventilator. 6. Neurologic: He is currently off sedation, though will likely need additional sedation. He was requiring high doses of fentanyl at [facility], [facility]. 7. Metastatic melanoma: Receiving treatment per HPI. Oncology is involved. 8. Coagulopathy: This is due to sepsis. He certainly is a concern for thrombosis. We will provide deep vein thrombosis prophylaxis noting his low platelets at 79, as well as his coagulopathy. This has been discussed with Oncology. I spent 60 minutes of CC time managing multi-organ failure. /[id number]/MODL MTDD
[2018-07-12 17:26] LABS: PLATELET COUNT 53 10^3/uL (150-400)
[2018-07-12] MEDS ORDERED: NS IV ONE ×2 (18:00)
[2018-07-12] MEDS ORDERED: TOCILIZUMAB IV ONE ×2 (18:00)
--- NOTE | 2018-07-12 18:04 | GOP ---
DATE OF OPERATION: 07/12/2018 SURGEON: Alex aSenz MD PREOPERATIVE DIAGNOSIS: Acute renal failure requiring dialysis. POSTOPERATIVE DIAGNOSIS: Acute renal failure requiring dialysis. PROCEDURE PERFORMED: Placement of a 20 cm dialysis catheter in the left femoral vein. FINDINGS: Acute renal failure requiring dialysis. DESCRIPTION OF PROCEDURE: This patient is undergoing chemotherapy for metastatic melanoma. He developed acute renal failure and sepsis. He was admitted to [facility] and transferred to [facility] for dialysis. He has a right supraclavicular triple lumen. I have been asked to place a catheter for dialysis. As I would like to do this as a straight shot in the right subclavian vein , but the triple lumen is in that position and it is needed for pressors, this leaves me only the femoral veins for an approach. He had a right femoral iva dissection. For this reason, I opted to go to the left femoral vein. The left groin was carefully clipped, prepped, and clipped. An ultrasound was used to confirm the location of the left femoral vein. This was carefully marked. The groin was now prepped and draped. A timeout was carried out, and agreed to by the nurse and me. A 22-gauge needle was used as a finder needle. I immediately accessed the vein. I placed the thin wall needle parallel to the finder needle and unfortunately accessed the left femoral artery. I removed the larger catheter and held pressure. A second approach yielded the femoral vein. Guidewire was easily advanced. The needle was removed over the wire. The skin was incised. Dilators were carefully passed over the guidewire. They were removed. The previously flushed dialysis catheter was now carefully passed over the guidewire. Note 2 of the 3 lumens had been flushed. The guidewire was removed. Good blood flow was returned. That third lumen was now capped and flushed. The catheter was sutured in position. A Biopatch was placed. A sterile dressing was applied. /[id number]/MODL MTDD
--- NOTE | 2018-07-12 18:46 | GCON ---
CARDIOLOGY CONSULTATION DATE OF CONSULTATION: 07/12/2018 REFERRING PHYSICIAN: Bandar Benz MD PRIMARY ONCOLOGIST: Dr. Jevon Bragg. CHIEF COMPLAINTS: Positive troponin. Shock. HISTORY OF PRESENT ILLNESS: We were asked by Dr. Benz and Dr. Kurtz to visit with the patient. Th e patient is a 53-year-old male, with no known cardiovascular history. He was diagnosed with an umbi lical melanoma with metastases to inguinal lymph nodes earlier this year. He has had surgical remova l and started on therapy with oral trametinib and dabrafenib, both kinase inhibitors, about 3 or 4 we eks ago. Over the past 4 days, he has had fevers and diarrhea. He presented to [facility] yesterday, fee ling very poorly, with fever of 105. He was hypotensive and required pressor support. He was also i ntubated and admitted to the ICU. Initial troponin was negative, and then, this morning, increased to 9.5. A limited echocardiogram by report shows normal LV systolic function, with no regional wall motion abnormalities. He is also in acute renal failure. Because of his need for renal replacement therapy and further ICU management, he was transferred to [facility]. I have spoken with his at the bedside. The patient is intubated, sedated, and therefore unable to give a history. She corroborates that he has no cardiac problems. He did have a normal stress te st at this hospital last month. He exercises regularly, when he is feeling well, without cardiovascu lar complaints. ALLERGIES: Codeine. REVIEW OF SYSTEMS: As per History of Present Illness, the patient has been having diarrhea and fever s over the past few days. PAST MEDICAL HISTORY: 1. Metastatic melanoma. 2. Hypothyroidism. 3. Pituitary insufficiency. OUTPATIENT MEDICATIONS: Tylenol, dabrafenib, Cortef, Synthroid, trametinib, pantoprazole, niacinamid e. SOCIAL HISTORY: The patient is . His is at bedside. No tobacco use. He is very active . FAMILY HISTORY: Not applicable to the current case. PHYSICAL EXAM: VITAL SIGNS: Current blood pressure 99/60, on Levophed and vasopressin. Heart rate 102. He is on the ventilator. GENERAL: Intubated and sedated. Not responsive at this time. HEART : Regular rate and rhythm, without murmur or gallop. LUNGS: Occasional rhonchi, anteriorly and lat erally. ABDOMEN: Soft, with decreased bowel sounds. No obvious masses or hepatosplenomegaly. EXTR EMITIES: Warm, with 2+ DP pulses bilaterally. His toes are slightly mottled bilaterally. NEUROLOGI C: Intubated and sedated. No posturing. LABORATORY/IMAGING: Reviewed from [facility]. Pertinents are noted to be troponin of 9.5. White count of 49. Creatinine 5.3. INR 2.3. Acidotic with a pH of 7.2. AST 270, ALT 78, and alkaline phosphat ase 137. EKG from yesterday at [facility] reviewed: Sinus rhythm, with minimal inferolateral ST elevation. Chest x-ray, by report, from July 11: Appropriate endotracheal tube placement. No acute cardio pulmonary findings. Echocardiogram, by report, as detailed in History of Present Illness. ASSESSMENT/PLAN: A 53-year-old male with metastatic melanoma, now presents with distributive shock. Differential diagnosis includes infection, chemotherapeutic reaction. Given his normal ejection fra ction, this does not appear to be cardiogenic; however, I am concerned that his elevated troponin may be directly related to his chemotherapy: 1. Shock: Continue supportive care per Dr. Benz's and Dr. Garcia's ICU management. He is on broa d-spectrum antibiotics. Vasopressin and Levophed are appropriate at this point. He is also receivin g stress-dose steroids. Continue bacteriological surveillance, as well. 2. Positive troponin: This is likely related to hypertension and tachycardia, or possibly a direct effect of his chemotherapy. Cycle troponins. Repeat EKG. If he does not clinically improve, low th reshold to repeat echocardiogram. He is not a candidate for coronary angiography given his renal leena lure, elevated INR, nor do I think that coronary angiography is necessary given my low clinical suspi cion that this is related to obstructive coronary disease. 3. Melanoma: He has been seen by Oncology. His primary oncologist is Dr. Bragg. Thank you for allowing me to participate in the patient's care. We will follow with you. Greater than 45 minutes was spent in chart review, patient contact, discussion with family, and discu ssion with Demar Olvera, and Tessie. /[id number]/MODL
[2018-07-12] MEDS: methylPREDNISolone SOD SUCC 125 MG/2 ML VIAL IVP SCH (18:47)
--- NOTE | 2018-07-12 19:55 | ECHO ---
[email or web address] [address] [address] Main: [phone] Fax: Transthoracic Echocardiogram Name: AXEL MARTINEZ MR#: [id number] Study Date: 07/12/2018 Study Time: 06:15 PM Date of : 1965 Age: 53 year(s) Height: 182.9 cm (72 in.) Weight: 97.52 kg (215 lb.) BSA: 2.2 m2 Gender: Male Examination: Echo Indication: Hypotension/increased troponin Image Quality: Good Contrast: Requested by: Bandar Benz BP: / Heart Rate: Rhythm: Indication: Hypotension/increased troponin Procedure Staff Stretcher Helper: Rica Leon [facility] Reading Physician: Dominga Tobin MD Requesting Provider: Conclusions: Normal size left ventricle. No LV hypertrophy. Low normal left ventricular systolic function. The ejection fraction is visually estimated to be 55 %. No regional wall motion abnormality. Mildly dilated right ventricle. Normal RV function. The left atrium is mildly dilated. Moderate to severe mitral regurgitation. Mild tricuspid regurgitation is present. The pulmonary artery pressure is normal. No pericardial effusion. There is no previous echocardiogram for comparison. Measurements: Chambers Valvular Assessment AV/MV Valvular Assessment TV/PV Normal Normal Normal Name Value Range Name Value Range Name Value Range Ao Sabina (MM): 4.2 cm (2.2 cm-3.7 AV Vmax: 0.95 m/s (1 m/s-1.7 TR Vmax: 2.39 mm/s ( - ) cm) m/s) TR PGmax: 23 mmHg ( - ) IVSd (2D): 0.8 cm (0.6 cm-1.1 AV meanP mmHg ( - ) syst. PAP: 28 mmHg ( - ) cm) BARBARA (VTI): 3.2 cm ( - ) LVDd (2D): 5.5 cm (4.2 cm-5.9 MV E Vmax: 0.86 m/s ( - ) cm) MV A Vmax: 0.35 m/s ( - ) LVDs (2D): 3.6 cm (2.1 cm-4 MV E/A: 2.46 ( - ) cm) MV meanP mmHg ( - ) LVPWd (2D): 0.8 cm (0.6 cm-1 cm) MVA (Vmax): 2.4 m/s ( - ) LVOTd 2.3 cm 2.3 cm mm Visual EF: 55 % Patient: AXEL MARTINEZ Study Date: 07/12/2018 Page 1 of 2 06:15 PM Continued Measurements: Chambers Valvular Assessment AV/MV Valvular Assessment TV/PV Name Value Name Value Name Value LADs: 3.7 cm MV Annulus: 3.7 cm CVP (est.): 5 mmHg LADs Lon.9 cm MV E' Septal: 0.08 m/s LA Area: 25.6 cm2 MV E/E' Septal: 10.40 LA Volume: 83 ml MV E/E' Lateral: 9.10 LA Volume Index: 37.7 ml/m2 MV VTI: 18.20 cm MR Vena Contracta: 0.4 cm MR ERO: 0.240 cm2 MR PISA radius: 7 mm MR Reg. Volume: 23 ml MR Reg. Fraction: 12 % Findings: Left Ventricle: Normal size left ventricle. No LV hypertrophy. Low normal left ventricular systolic function. The ejection fraction is visually estimated to be 55 %. No regional wall motion abnormality. Diastolic dysfunction is indeterminate.. Right Ventricle: Mildly dilated right ventricle. Normal RV function. Left Atrium: The left atrium is mildly dilated. Right Atrium: The right atrium is normal in size. Eustachian valve discernible in right atrium. Mitral Valve: The mitral valve is normal in appearance and function. Moderate to severe mitral regurgitation. MR ERO is 0.24cm2.. Aortic Valve: The aortic valve is normal in appearance and function. The aortic valve is tri-leaflet. Mildly calcified NCC of the aortic valve.. Tricuspid Valve: The tricuspid valve is normal in appearance and function. Mild tricuspid regurgitation is present. The pulmonary artery pressure is normal. Pulmonic Valve: The pulmonic valve is normal in appearance and function. Aorta: The aorta is normal. Pericardium: No pericardial effusion. Left side pleural effusion. (No Signature Object) Patient: AXEL MARTINEZ Study Date: 07/12/2018 Page 2 of 2 06:15 PM [id number]
[2018-07-12] MEDS: D5W 1,000 ML IV SCH (19:56)
[2018-07-12] MEDS: B22GK4/0 PRISMASATE 5,000 ML DIAL SCH ×2 (19:57→22:25)
[2018-07-12] MEDS: REPL FLUID TYPE D CAPS 1 EA in WATER FOR INJECTION,STERILE 4,000 ML DIAL SCH ×2 (19:57→22:19)
[2018-07-12] MEDS: NS 1,000 ML MISC SCH (19:58)
[2018-07-12] MEDS: CALCIUM CHLORIDE 5.7 GM in NS 1,000 ML IV SCH (19:58)
[2018-07-12] MEDS: ACCESSORY DRAIN 1 EA BAG MISC PRN ×2 (20:20→20:21)
--- NOTE | 2018-07-12 20:46 | GCON ---
CRITICAL CARE CONSULTATION DATE OF CONSULTATION: 07/12/2018 HPI: This patient is a 53-year-old male who has a recently diagnosed malignant melanoma. He has bee n treated with immunotherapy, including , which was started just a few weeks ago. In the l ast several days, however, he developed a significantly high fever as well as diarrhea, and yesterday his found him to be very lethargic and difficult to arouse so brought him to the emergency depa rtment at [facility]. He was admitted there and was with severe hypotension, requiring multiple pressors, and thought to have septic shock due to a white count of about 12.3. He also had acute ki dney injury thought to be due to his hypotension and was given IV fluids. Because of the severity of the hypotension and respiratory distress associated with the severe acidosis, he was also intubated. Overnight he did get stress dose steroids for a known adrenal insufficiency and chronic hydrocortis one, and his white blood cell count increased to 49,000. His creatinine remained at about 5.3 with a severe metabolic acidosis. He had minor increased transaminitis as well, but because of the need fo r CRRT, was transferred to [facility]. According to his , he did have high fevers at home and the diarrhea but no other abdominal compla ints. Did not have any cough, shortness of breath or hemoptysis, purulent sputum, and no known sick contacts. He did have an admission for chest pain 06/16 where his laboratory values were essentially normal as well as an EKG and a stress test. On arrival here, he was relatively normotensive with a mean arterial pressure of about 74 using an arterial line, was on a ventilator, appeared to be in no distress, was lightly sedated and otherwise without any other obvious abnormalities. REVIEW OF SYSTEMS: Otherwise negative. PAST MEDICAL HISTORY: Includes: 1. Malignant melanoma as described above. 2. Adrenal insufficiency thought to be related to his immunotherapy. 3. Hypothyroidism. PAST SURGICAL HISTORY: Includes a remote lymph node dissection as well as cellulitis. He has had ex cisional biopsies of his abdomen in the past and one again in May of this year. He has had a t onsillectomy in the past as well, moles removed in May from his back. SOCIAL HISTORY: He is a nonsmoker. Occasional alcohol. 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 FAMILY HISTORY: Significant for diabetes and coronary disease. MEDICATIONS: At this time include Pepcid, subcu heparin, hydrocortisone 100 mg IV q.8, Synthroid, ma gnesium, norepinephrine at about 21, Zofran, Zosyn, Protonix, propofol, bicarb drip, vancomycin, vaso pressin. PHYSICAL EXAM: VITAL SIGNS: Here his T-max is 36.4. Blood pressure 91/60 with a MAP of 72. Heart rate 102, sinus tachycardia. Respirations 35. Oxygen saturation 100% on 40% FiO2. GENERAL: He is sedated, in no apparent distress, is not using accessory muscles for breathing. HEENT: Pupils equal ly round, react to light. Nonicteric and noninjected. Mucous membranes are difficult to evaluate, b ut may have had lesions in his mouth by report from the intubation. NECK: Supple without adenopathy or jugular vein distention. LUNGS: Breath sounds are clear to auscultation bilaterally without whe ezes, rubs, or rales. HEART: A regular rate and rhythm without murmurs, rubs, gallops. ABDOMEN: S oft, nontender, nondistended without hepatosplenomegaly. He has clean lateral incisions in his upper abdomen that are well healed. EXTREMITIES: No clubbing, cyanosis, or edema. NEUROLOGICAL: Appear s to be nonfocal. SKIN: Warm and dry without evidence of rash. OBJECTIVE DATA: From today at [facility], his white count was 49,000, hematocrit of 34.5, platelets of 1 20. Sodium was 134, potassium 4.6, chloride 101, bicarb of 9, BUN 30, creatinine 5.2. An arterial b lood gas showed a pH 7.20, PCO2 of 21, PO2 of 74, bicarb of 8, and oxygen saturation 91%. Lipase was 220. INR was 2.3. Lactate went from 8.7 to 11. Troponin went from 0.04 to 9.5. EKG may show some ST elevation in V5 and V6 but only nonspecific changes. LFTs show an AST of 278, ALT 78, alk phos 137, total bili 3.9, albumin 2.0, total protein 4.8. ASSESSMENT/PLAN: 1. 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 The hypotension is quite severe at this time and is likely what may be involved in his renal failure as well. I think at this point both a cytokine release syndrome as well as sepsis have to be treated co ncurrently. Oncology is involved, and he will be getting tocilizumab shortly from the farner. Kamini rodriguez is getting stress dose steroids as well, which, of course, is appropriate. Some literature suggest s concomitant treatment with high-dose Solu-Medrol as well at 2 mg/kg per day. His stress dose stero ids are only producing 60 mg of Solu-Medrol daily, and a discussion with Oncology is pending at this time considering adding additional Solu-Medrol given the severity of his illness at this time. For t he septic shock, however, he is getting broad-spectrum antibiotics, which we certainly will continue at this time; and a CT of his chest, abdomen, and pelvis without contrast is also pending and I think is important to look for potential infectious sources. Serial lactates as well as the rest of the s epsis protocol is certainly important at this time though difficult to interpret in the setting of hi s acute kidney injury. 2. Acute kidney injury. He had normal kidneys previously but has a very high creatinine and refract ory acidosis with hypotension. I agree with dialysis. Renal consult has already been obtained, and a dialysis catheter has been placed in his groin at this time, and we will proceed with continuous re nal replacement therapy. 3. Respiratory failure with hypoxemia. I think this is due to the metabolic issues that he is faced with and less from an infectious perspective. His chest x-ray looks stable at this time. The endot elder tube is in a reasonable position. We will look at the CT once that is done and proceed from there. The ventilator settings are appropriate in doing what we can to help with the pH. Once the b icarbonate returns closer to normal, we will have to change the ventilator settings to avoid a respir atory alkalosis. 4. Elevated troponins in the setting of hypotension and renal failure. The change in troponin is qu ite dramatic, and there are some subtle changes on the EKG. An echocardiogram was performed at [facility] that suggested an ejection fraction of 55% with mild to moderate mitral regurgitation but no wall m otion abnormalities. Cardiology has been consulted as well, and I will continue to follow those trop onins, though he is at somewhat low risk. There is no obvious direct cardiomyopathy or pericarditis related to his monoclonal antibody therapy either. 5. His adrenal insufficiency again related to the chemotherapy that he previously received. He is g etting stress dose steroids for this, and that ought to be adequate to cover that component of it. A total of about 90 minutes of critical care time was required, of which at least 50% was at the beds stacey. I discussed this case in detail with the hospitalist, the patient's family, nursing staff, the small parts shaper operator at [facility], as well as multiple other physicians involved. /[id number]/MODL
--- NOTE | 2018-07-12 21:03 | PDMN ---
Medical Necessity Medical necessity: MCG: GRG resp failure, M326 ARF, M160 sepsis and other febrile illness-- pt t-fered from [facility]- shock- suspect distributive shock, adrenal insufficiency. , currently intubated, and in need of Dialysis, Non STEMI , hyperglycemia, Pt with PMH Met. Melanoma,
[2018-07-12] MEDS: FAMOTIDINE 20 MG/NACL 50 ML IV SCH (21:40)
[2018-07-12] MEDS: PIPERACILLIN/TAZO 2.25 GM/DEX 50 ML IV SCH (22:22)
[2018-07-12] MEDS: HEPARIN 5,000 UNIT/0.5 ML INJ SC SCH (22:22)
[2018-07-12] MEDS: CHLORHEXIDINE GLUCONATE 15 ML UDL PO SCH (22:30)
[2018-07-12] MEDS: HYDROCORTISONE 100 MG/2 ML VIAL IVP SCH (22:32)
[2018-07-12] MEDS: MAGNESIUM SULF 2 GM/WATER 50 ML IV PRN (23:30)
--- NOTE | 2018-07-12 23:59 | SOAPPROG ---
SOAP Progress Note Assessment/Plan: Assessment: See consultation done earlier today at [facility]. Labs reviewed. Hemodynamics stable. On CRRT and bicarb drip. Monitoring q 4h labs. 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
[2018-07-13] MEDS: methylPREDNISolone SOD SUCC 125 MG/2 ML VIAL IVP SCH ×4 (00:20→17:49)
[2018-07-13] MEDS: NS 1,000 ML MISC SCH ×5 (01:00→22:24)
[2018-07-13] MEDS: B22GK4/0 PRISMASATE 5,000 ML DIAL SCH ×6 (02:13→21:47)
[2018-07-13] MEDS: REPL FLUID TYPE D CAPS 1 EA in WATER FOR INJECTION,STERILE 4,000 ML DIAL SCH ×6 (02:13→22:23)
[2018-07-13 04:28] LABS: PLATELET COUNT 45 10^3/uL (150-400)
[2018-07-13] MEDS: HEPARIN 5,000 UNIT/0.5 ML INJ SC SCH (04:34)
[2018-07-13 04:40] LABS: INR 1.65 (0.83-1.16); PROTIME(PATIENT) 19.6 SEC (12.0-15.0)
[2018-07-13] MEDS: PIPERACILLIN/TAZO 2.25 GM/DEX 50 ML IV SCH ×3 (05:43→21:46)
[2018-07-13] MEDS: HYDROCORTISONE 100 MG/2 ML VIAL IVP SCH ×3 (05:43→21:46)
[2018-07-13] MEDS ORDERED: LEVOTHYROXINE 150 MCG TAB PO SCH (06:00)
[2018-07-13] MEDS ORDERED: SODIUM CL 0.9% IVP SCH (06:00)
[2018-07-13] MEDS ORDERED: LEVOTHYROXINE IVP SCH (06:00)
[2018-07-13] MEDS: CALCIUM CHLORIDE 5.7 GM in NS 1,000 ML IV SCH ×2 (06:27→18:02)
[2018-07-13] MEDS: SODIUM BICARBONATE 150 MEQ in WATER FOR INJECTION,STERILE 1,000 ML IV SCH (06:27)
[2018-07-13] MEDS ORDERED: SODIUM BICARBONATE 150 MEQ in WATER FOR INJECTION,STERILE 1,000 ML IV SCH (07:00)
[2018-07-13] MEDS: NOREPINEPHRINE BITARTRATE 16 MG in NS 250 ML IV SCH (07:48)
[2018-07-13] MEDS: FAMOTIDINE 20 MG/NACL 50 ML IV SCH (08:12)
--- NOTE | 2018-07-13 08:33 | SOAPPROG ---
SOAP Progress Note Assessment/Plan: [facility] overnight Dr Clemons to see pt today Dr Bragg aware of pt's admission 07/13/18 08:31 07/13/18 08:32 Objective: Vital Signs Temp Pulse Resp BP Pulse Ox 36.6 C 98 27 H 94/65 L 100 07/13/18 08:00 07/13/18 08:00 07/13/18 08:00 07/13/18 08:00 07/13/18 08:00 Laboratory Results 07/13/18 04:00 07/13/18 07:50 07/12/18 07/13/18 07/14/18 05:59 05:59 05:59 Intake Total 607.3 Output Total 215 Balance 392.3 PT 19.6 SEC (12.0-15.0) H 07/13/18 04:00 INR 1.65 (0.83-1.16) H 07/13/18 04:00 ICD10 Worksheet Patient Problems: Problems Problem Status Onset Melanoma 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
[2018-07-13] MEDS ORDERED: PANTOPRAZOLE SODIUM 40 MG TAB PO SCH (09:00)
--- NOTE | 2018-07-13 09:14 | SOAPPROG ---
SOAP Progress Note Assessment/Plan: Assessment/Plan: 53 y/o M with metastatic melanoma on chemotherapy with sepsis transfer from [facility] for CONSUELO requiring CRRT. CONSUELO on CRRT -on CVVHDF with citrate protocol -currently 1.5/1.5, net even -monitor ionized calciums -still oliguric, paz in place -avoid nephrotoxins/contrast (getting CT head today) Septic shock -unclear source -keep MAP>65, currently on 2 pressors -renally dose abx for CRRT per pharmacy Metabolic acidosis -may be lactic as well as MARIANA given diarrhea x 3 days -bicarb still <20 -gtt at 75cc/hr, if SOB or increased FiO2 would hold drip -may turn off once bicarb >18 Leukocytosis and thrombocytopenia -likely 2/2 to chemo -oncology following -no acute indication for TPE at this time however trop >18 (await cardiology input) -holding heparin BMD -monitor phos -NPO -calciums as above 07/13/18 10:22 Subjective: Patient off sedation and still unresponsive. at bedside. No current issues with CRRT per nursing. Objective: Vital Signs Temp Pulse Resp BP Pulse Ox 36.6 C 96 22 H 84/57 L 100 07/13/18 08:00 07/13/18 09:00 07/13/18 09:00 07/13/18 09:00 07/13/18 09:00 Laboratory Results 07/13/18 04:00 07/13/18 07:50 07/12/18 07/13/18 07/14/18 05:59 05:59 05:59 Intake Total 607.3 Output Total 215 Balance 392.3 PT 19.6 SEC (12.0-15.0) H 07/13/18 04:00 INR 1.65 (0.83-1.16) H 07/13/18 04:00 Physical Exam - Physical Exam General Appearance: WD/WN, unresponsive EENT: PERRL/EOMI Neck: non-tender, full range of motion, supple Respiratory: chest non-tender, lungs clear, normal breath sounds, other ( intubated) Cardiac/Chest: normal peripheral pulses, regular rate, rhythm Abdomen: normal bowel sounds, non-tender, soft Skin: normal color, warm/dry, other (fingers cyanotic) Neuro/Psych: no motor/sensory deficits ICD10 Worksheet Patient Problems: Problems Problem Status Onset Melanoma 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
--- NOTE | 2018-07-13 09:22 | PDCARPN ---
Cardiology Progress Note Assessment/Plan: Assessment/plan: 53-year-old male with metastatic melanoma transferred from a [place] yesterday with shock, positive troponin, acute renal failure. On echo he has low normal ejection fraction without regional wall motion abnormalities and moderate to severe mitral regurgitation. 1. Shock. Clinically this is most likely distributive shock related to his oral chemotherapy with kinase inhibitors. He is being seen by Oncology. He did receive IL-6 blockade last night. Cardiogenic seems much less likely given his preserved ejection fraction. However, his mitral regurgitation may be contributing. Depending on the results of his head CT this morning we will proceed with AVELINA. Risks benefits alternatives were discussed with the patient' s who is at the bedside. 2. Positive troponin. His peak is 20. He also has inferolateral ST elevation. My clinical suspicion is that he may have a focal myocarditis and probably not obstructive coronary disease. There is also some component of troponin LINQ simply related to his hypotension and renal failure. He is being treated with steroids. Coronary angiogram is contraindicated at this time given his renal failure. 3. Acute renal failure: He is now on CRRT. 4. Moderate to severe MR: AVELINA as per #1. Need to understand if this is hemodynamically mediated vs a primary mitral valve problem. 5. Melanoma: Per Oncology. Greater than 30 min spent in chart review, patient contact, discussion with other physicians and the patient's . 07/13/18 09:24 Subjective: Intubated. Not responding. Reviewed/Discussed With: hospitalist, other (Dr. Benz and Dr. Kurtz) Objective: Vital Signs (8 Hrs) Temp Pulse Resp BP Pulse Ox 07/13/18 08:00 36.6 C 98 27 H 94/65 L 100 07/13/18 07:37 97 31 H 100 07/13/18 07:00 97 28 H 88/60 L 100 07/13/18 06:00 97 27 H 87/59 L 100 07/13/18 05:00 98 27 H 84/60 L 100 07/13/18 04:00 37.5 C 97 25 H 88/63 L 100 07/13/18 03:00 97 27 H 88/62 L 100 07/13/18 02:00 97 30 H 96/68 L 100 07/13/18 01:00 97 32 H 102/71 100 Intake/Output (24 Hrs) 07/12/18 07/13/18 07/14/18 05:59 05:59 05:59 Intake Total 607.3 Output Total 215 Balance 392.3 Intake: IV Infused (ml) 607.3 Norepinephrine Bitartrate 89.3 16 mg In Ns 250 ml @ Per Protocol IV CONT MEG Rx# :[id number] Sodium Bicarbonate 150 505 meq In Water For Injection,Sterile 1,000 ml @ 150 mls/hr IV AD MEG Rx#:[id number] Vasopressin 25 unit In 13 D5w 250 ml @ 24 mls/hr IV CONT MEG Rx#:[id number] Output: Urine (ml) 115 Catheter 115 Liquid Stool (ml) 50 Incontinence 50 Dialysis Fluid Removed 0 OG Tube Output (ml) 50 Large Bore (>12 German) 50 Non-weighted Stomach Haywood Sump Other: Weight 96.9 kg Number of Stools Incontinence 1 Intubated. Not responding. Regular rate and rhythm without murmur rub or gallop Lungs clear anteriorly and laterally Abdomen soft. Positive bowel sounds Acrocyanosis. Extremities are warm. 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
[2018-07-13] MEDS: CHLORHEXIDINE GLUCONATE 15 ML UDL PO SCH ×2 (09:35→21:47)
--- NOTE | 2018-07-13 09:57 | ASMTCMCOM ---
CM Note CM Note Notes: 53yo male admitted from [facility] for Severe sepsis, Melanoma, Mets to groin lymph node. He has been being tx for CA which has caused fevers, adrenal insufficiency and hypothyroid. Patient is presently vented. Patient lives with his . CM to follow for possible discharge needs. Date Signed: 07/13/2018 09:56 AM Electronically Signed By:Mariel Mariano LCSW
[2018-07-13] MEDS: VASOPRESSIN 25 UNIT in D5W 250 ML IV SCH ×2 (10:34→21:57)
[2018-07-13] MEDS: MAGNESIUM SULF 2 GM/WATER 50 ML IV PRN (10:38)
--- NOTE | 2018-07-13 10:40 | PDINTPN ---
Fine Artist Progress Note Assessment/Plan: 53 M with relatively recent diagnosis of malignant melanoma, treated with Tafinlar and Mekinist oral chemotherapy complicated by fever and diarrhea. He was admitted to [facility] 07/11/18 with severe lethargy as well as CONSUELO with severe hypotension requiring pressors (levophed, alhaji, vasopressin) and intubation after arrival in the ICU. The intubation was reported as difficult, requiring at first a small airway followed by upsizing the ETT to 7.5 with a tube exchanger. He was also treated with multiple antibiotics including both po and IV vanco, Zosyn, micafungin, and flagyl. He was reportedly aggressively hydrated with up to 8 liters of IVF, but his renal function and acidosis remained severely abnormal so he was transferred to [facility] for CRRT. He was sedated on a versed drip prior to transfer as well, but this was not continued as he was quite sedated. An HD catheter was placed in the right CFV by surgery without complication and a CT of his chest/abdomen/pelvis did not reveal any significant pathology. Concern was raised by heme/onc about possible cytokine release syndrome, which has been documented with various newer generation chemo agents. * Severe septic shock- presumed diagnosis since his echocardiograms have not shown WMAs and his syndrome reflects sepsis. No organism has been identified to date, and blood and urine cultures from [facility] (drawn 07/11) remain negative as of this writing. Will continue with sepsis protocol including abx (IV vanco and Zosyn). C. Diff was negative and diarrhea is a common side effect of his chemo. Cytokine release syndrome is another possibility and requires specific treatment including Tacilizumab and high dose solumedrol. As a result he is getting both solumedrol and hydrocortisone to treat both CRS and adrenal insufficiency- he was on hydrocortisone as an outpatient. Levophed is down to 11 mcg today which is reduced compared to 07/12. WBC peaked at 54; down to 51. * CONSUELO presumably related to hypotensive related ATN and/or his chemo. Tolerating CRRT and HCO3 drip with subsequent rise in serum HC3. Would favor continuing drip overnight since no evidence of pulmonary edema and serum only at 15. Discussed with renal. Citrate used for CRRT (instead of heparin). Potassium normalized. Some, as opposed to none, UOP * Troponin- peaked at 20, down to [address] elevation in inferior/lateral leads. Doubt CAD with few CRFs and cath contraindicated at this time given CONSUELO and low yield. MR is moderate to severe on echo from [facility] so cards considering AVELINA. No evidence of endocarditis, but may have myocarditis. No Takotsubo and EF 55% * Altered MS- he has very little movement today though his exam is non focal. I suspect toxic-metabolic ecephalopathy, but will check non contrast head CT today. RAAS is -4 at the moment but should continue to hold sedation for now. If needed, use propofol alone and monitor pain scales. * Acute respiratory failure with hypoxia- he has minimal bilateral lower lobe atelectasis and pleural effusion which are not consistent with acute PNA in my opinion. No BAL indicated at this time. Continue vent support today and as acidosis continues to improve can try PS weans * Pericholic fluid- abdominal US shows some GB sludge and GB thickening without stones. Doubt this is the source of sepsis and no PCT indicated. Continue to follow LFTs which are more reflective of his chemo and/or shock liver. * Cyanosis- likely related to high dose pressors, complicated by right radial art line. DC art line and apply topical NTG in attempt to spare his digits. Check NICOM though I suspect he had an adequate volume resuscitation. * Thrombocytopenia- likely related to sepsis/DIC. Holding SC heparin and monitor. No obvious bleeding. Doubt HIT * INR reduced from 2.18 to 1.65 * DVT/GI prophylaxis- on SCDs and pepcid (change to PPI 2/2 low chance H2 is effecting platelets). * DNR status- full code. * * critical care time 65 minutes Subjective: stabilized overnight with CRRT and reduced pressor requirement Objective: Vital Signs Temp Pulse Resp BP Pulse Ox 36.6 C 96 22 H 84/57 L 100 07/13/18 08:00 07/13/18 09:00 07/13/18 09:00 07/13/18 09:00 07/13/18 09:00 Laboratory Results 07/13/18 04:00 07/13/18 07:50 07/12/18 07/13/18 07/14/18 05:59 05:59 05:59 Intake Total 607.3 Output Total 215 Balance 392.3 PT 19.6 SEC (12.0-15.0) H 07/13/18 04:00 INR 1.65 (0.83-1.16) H 07/13/18 04:00 Physical Exam - Physical Exam General Appearance: no apparent distress, obtunded EENT: ET tube, other (2-3 mm equal pupils with minimal response), No scleral icterus (R), No scleral icterus (L) Neck: supple, No lymphadenopathy (R), No lymphadenopathy (L), No thyromegaly Respiratory: lungs clear, normal breath sounds, decreased breath sounds, No respiratory distress, No accessory muscle use, No rales, No rhonchi, No wheezing Cardiac/Chest: regular rate, rhythm, No edema, No gallop Abdomen: non-tender, soft, No organomegaly, No distended, No guarding, No rebound Skin: normal color, warm/dry, other (severe distal cyanosis in all extremities, worst in RUE), No cyanosis, No jaundice, No rash, No embolic lesions Extremities: normal inspection, No pedal edema, No swelling Neuro/Psych: no motor/sensory deficits, cognition abnormalities, other (slugish corneal reflexes), No abnormal manager management II-XII ICD10 Worksheet Patient Problems: Problems Problem Status Onset Melanoma 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
--- NOTE | 2018-07-13 11:14 | HOSPPROG ---
Hospitalist Progress Note Assessment/Plan: # shock - likely distributive from cytokine release syndrome; also consider cardiogenic vs septic vs HLH - cont pressor support; check nicom today to optimize vol status # possible cytokine release syndrome - onc following - received tocilizumab, cont high dose steroids # acute renal failure - d/t shock - currently on CRRT # neuro - not responding, off sedation - suspect metabolic; will check CT head today # cardiac - severe MR, markedly elevated trop and abn ECG - not a candidate for cath given renal failure - consider AVELINA at some point # [facility], resp failure from metabolic abnormalities # endo - hyperglycemic, had AI from melanoma tx - insulin gtt - hydrocort # metastatic melanoma - treated with Taflinar and Mekinist # dvt ppx - hold with low plts today Subjective: received CRRT overnight; very little movement, has not awakened Objective: Vital Signs Temp Pulse Resp BP Pulse Ox 36.6 C 98 30 H 92/74 L 99 07/13/18 08:00 07/13/18 11:00 07/13/18 11:00 07/13/18 11:00 07/13/18 11:00 Laboratory Results 07/13/18 04:00 07/13/18 07:50 07/12/18 07/13/18 07/14/18 05:59 05:59 05:59 Intake Total 607.3 Output Total 215 Balance 392.3 PT 19.6 SEC (12.0-15.0) H 07/13/18 04:00 INR 1.65 (0.83-1.16) H 07/13/18 04:00 60 mins CC time - Physical Exam Constitutional: other (non-responsive) Cardiovascular: regular rate and rhythym, no murmur, rub, or gallop Respiratory: no respiratory distress, no rales or rhonchi Gastrointestinal: soft, non-tender abdomen, no palpable masses, No guarding, No rebound, No distension Neurologic: other (bilat pinpointpupils; delayed corneal; non-responsive) ICD10 Worksheet Patient Problems: Problems Problem Status Onset Melanoma 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
[2018-07-13] MEDS: PANTOPRAZOLE SODIUM 40 MG VIAL IVP SCH (11:26)
[2018-07-13] MEDS: NITROGLYCERIN 2% 1 GM PACKET TP SCH ×2 (11:26→17:49)
--- NOTE | 2018-07-13 11:35 | SOAPPROG ---
SOAP Progress Note Assessment/Plan: Assessment: 1. Metastatic melanoma, responding to BRAF inhibitor 2. Multiorgan failure, characterized by acute renal failure, hypotension, altered mental status, fever, abnormal LFTs (t bili 6.0) 3. Severe neutrophilia Pt with acute critical illness of unclear etiology. Sepsis certainly a possibility though no focal findings of infection. Cytokine release syndrome ( SRS) has been described after Rx with BRAF inhibitors but is more typically associated with T cell therapy. His symptoms do fit that condition, however. Hemophagocytic lymphohistiocytosis (HLH) is another possibility - he meets some criteria (splenomegaly, fever) and has some typical findings (altered mental status) but lacks other features (most notably cytopenia in 2-3 lines). Plan: - continue high dose steroids - got tocilizumab (for CRS) last night; can consider another dose tomorrow if no improvement - consider MRI brain and LP if his condition stabilizes but still altered 45 min spent w/ patient and in coordination of care. D/w Kyleigh Sellers and Demar (ICU). 07/13/18 11:31 Subjective: pt intubated, sedated Objective: gen: on gentilator Lungs CTAB CV RRR no MGR Abd: +BS NT nD Ext: 1+ edema Skin; no petechie, purpura Neuro: not responsive Vital Signs Temp Pulse Resp BP Pulse Ox 36.6 C 98 30 H 92/74 L 99 07/13/18 08:00 07/13/18 11:00 07/13/18 11:00 07/13/18 11:00 07/13/18 11:00 Laboratory Results 07/13/18 04:00 07/13/18 07:50 07/12/18 07/13/18 07/14/18 05:59 05:59 05:59 Intake Total 607.3 Output Total 215 Balance 392.3 PT 19.6 SEC (12.0-15.0) H 07/13/18 04:00 INR 1.65 (0.83-1.16) H 07/13/18 04:00 ICD10 Worksheet Patient Problems: Problems Problem Status Onset Melanoma 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
[2018-07-13] MEDS: SODIUM CITRATE 4% 5 ML in SYRINGE 0 ML DIAL PRN ×2 (11:42→11:53)
[2018-07-13] MEDS ORDERED: VANCOMYCIN 1 GM in NS 250 ML IV ONE (12:30)
[2018-07-13] MEDS ORDERED: VANCOMYCIN HCL/NORMAL SALINE 250 ML IV SCH (12:30)
[2018-07-13] MEDS ORDERED: VANCOMYCIN HCL/NORMAL SALINE 250 ML IV ONE (12:30)
[2018-07-14] MEDS: methylPREDNISolone SOD SUCC 125 MG/2 ML VIAL IVP SCH ×4 (00:20→18:32)
[2018-07-14] MEDS: NITROGLYCERIN 2% 1 GM PACKET TP SCH ×4 (00:20→18:34)
[2018-07-14] MEDS: MAGNESIUM SULF 2 GM/WATER 50 ML IV PRN (00:57)
[2018-07-14] MEDS: PROPOFOL/EMULSION 100 ML IV SCH ×2 (01:29→22:51)
[2018-07-14] MEDS: CALCIUM CHLORIDE 5.7 GM in NS 1,000 ML IV SCH ×2 (02:55→09:30)
[2018-07-14] MEDS ORDERED: LEVOTHYROXINE IVP SCH (06:00)
[2018-07-14] MEDS ORDERED: SODIUM CL 0.9% IVP SCH (06:00)
[2018-07-14] MEDS: PIPERACILLIN/TAZO 2.25 GM/DEX 50 ML IV SCH ×2 (07:31→18:34)
[2018-07-14] MEDS: HYDROCORTISONE 100 MG/2 ML VIAL IVP SCH ×3 (07:31→21:20)
--- NOTE | 2018-07-14 07:31 | PDINTPN ---
Trace Clerk Progress Note Assessment/Plan: 53 M with relatively recent diagnosis of malignant melanoma, treated with Tafinlar and Mekinist oral chemotherapy complicated by fever and diarrhea. He was admitted to [facility] 07/11/18 with severe lethargy as well as CONSUELO with severe hypotension requiring pressors (levophed, alhaji, vasopressin) and intubation after arrival in the ICU. The intubation was reported as difficult, requiring at first a small airway followed by upsizing the ETT to 7.5 with a tube exchanger. He was also treated with multiple antibiotics including both po and IV vanco, Zosyn, micafungin, and flagyl. He was reportedly aggressively hydrated with up to 8 liters of IVF, but his renal function and acidosis remained severely abnormal so he was transferred to [facility] for CRRT. He was sedated on a versed drip prior to transfer as well, but this was not continued as he was quite sedated. An HD catheter was placed in the right CFV by surgery without complication and a CT of his chest/abdomen/pelvis did not reveal any significant pathology. Concern was raised by heme/onc about possible cytokine release syndrome, which has been documented with various newer generation chemo agents. * Severe septic shock- presumed diagnosis since his echocardiograms have not shown WMAs and his syndrome reflects sepsis. No organism has been identified to date, and blood and urine cultures from [facility] (drawn 07/11) remain negative as of 10 AM. Will continue with sepsis protocol including abx (IV vanco and Zosyn). C. Diff was negative and diarrhea is a common side effect of his chemo. Cytokine release syndrome is another possibility and requires specific treatment including Tacilizumab and high dose solumedrol. As a result he is getting both solumedrol and hydrocortisone to treat both CRS and adrenal insufficiency- he was on hydrocortisone as an outpatient. Levophed dose continues to fall. WBC peaked at 54; todays CBC pending. HLH is also in the differential but lack of cytopenias on admission makes this less likely. * CONSUELO presumably related to hypotensive related ATN and/or his chemo. Tolerating CRRT and HCO3 drip with subsequent rise in serum HC3. Citrate used for CRRT (instead of heparin). Potassium normalized. Some, as opposed to none, UOP. DC HCO3 drip today * Troponin- peaked at 20, down to [address] elevation in inferior/lateral leads. Doubt CAD with few CRFs and cath contraindicated at this time given CONSUELO and low yield. MR is moderate to severe on echo from [facility] so cards considering AVELINA. No evidence of endocarditis, but may have focal myocarditis. No Takotsubo and EF 55% * Altered MS- I suspect toxic-metabolic ecephalopathy, and his head CT shows only improved sinusitis compared to MRI on 06/18/18 (which was normal except sinusitis). * Acute respiratory failure with hypoxia- he has minimal bilateral lower lobe atelectasis and pleural effusion which are not consistent with acute PNA in my opinion. No BAL indicated at this time. Continue vent support. Propofol held this AM and should attempt PS weans today. * LFTs- pericholic fluid- abdominal US shows some GB sludge and GB thickening without stones. Doubt this is the source of sepsis and no PCT indicated. Continue to follow LFTs which are more reflective of his chemo and/or shock liver. Recheck in AM * Cyanosis- likely related to high dose pressors, complicated by right radial art line. DC art line and apply topical NTG in attempt to spare his digits. Check NICOM though I suspect he had an adequate volume resuscitation. Iscemia looks much better though not normal yet. Continue current therapy and titration of drips as tolerated. * Thrombocytopenia- likely related to sepsis/DIC. Platelets were normal 06/01/18 and 120 on admission at [facility]. Holding SC heparin and monitor. No obvious bleeding. Doubt HIT. Today's repeat pending at this time * INR reduced from 2.18 to 1.65 * DVT/GI prophylaxis- on SCDs and pepcid (change to PPI 2/2 low chance H2 is effecting platelets). * DNR status- full code. * * critical care time 45 minutes 07/14/18 07:21 Subjective: Stable overnight with increased wakening and required propofol. Objective: Vital Signs Temp Pulse Resp BP Pulse Ox 35.9 C L 78 17 87/71 L 99 07/13/18 22:00 07/14/18 05:00 07/14/18 05:00 07/14/18 05:00 07/14/18 05:00 Laboratory Results 07/13/18 04:00 07/14/18 04:10 07/13/18 07/14/18 07/15/18 05:59 05:59 05:59 Intake Total 607.3 250 Output Total 215 134 Balance 392.3 116 PT 19.6 SEC (12.0-15.0) H 07/13/18 04:00 INR 1.65 (0.83-1.16) H 07/13/18 04:00 Physical Exam - Physical Exam General Appearance: no apparent distress, obtunded, unresponsive, other ( minimal spontaneous movement, but propofol off about 20 minutes) EENT: PERRL/EOMI, ET tube, No scleral icterus (R), No scleral icterus (L) Neck: supple, No lymphadenopathy (R), No lymphadenopathy (L) Respiratory: lungs clear, normal breath sounds, decreased breath sounds, No respiratory distress, No accessory muscle use, No rales, No rhonchi, No wheezing Cardiac/Chest: regular rate, rhythm, No edema, No JVD Abdomen: non-tender, soft, No organomegaly, No distended, No guarding, No rebound, No rigid, No ascites Skin: warm/dry, cyanosis (improved cyanosis, especially right hand), No diaphoresis, No jaundice, No rash Lymphatic: no adenopathy Extremities: No pedal edema Neuro/Psych: no motor/sensory deficits, cognition abnormalities ICD10 Worksheet Patient Problems: Problems Problem Status Onset Melanoma 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
[2018-07-14] MEDS ORDERED: PANTOPRAZOLE SODIUM 40 MG VIAL IVP SCH (09:00)
--- NOTE | 2018-07-14 09:16 | SOAPPROG ---
SOAP Progress Note Assessment/Plan: Assessment: 1. Metastatic melanoma, responding to BRAF inhibitor 2. Multiorgan failure, characterized by acute renal failure, hypotension, altered mental status, fever, abnormal LFTs (t bili 6.0) 3. Severe neutrophilia Apparent cytokine release syndrome. This has been described in patients who received anti-PD1 therapy followed by BRAF/MEK inhibitors for melanoma. Pt still critically ill but improving. Recs: - continue high dose steroids - as patient is improving (lowering pressor requirement, etc) can hold off on an additional dose of tocilizumab for now - consider brain MRI / LP if neurological status is not improving 30 min spent w/ pt and in coordination of care. Subjective: unresponsive. 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
--- NOTE | 2018-07-14 09:21 | SOAPPROG ---
SOAP Progress Note Assessment/Plan: Assessment/Plan: 53 y/o M with metastatic melanoma on chemotherapy with sepsis transfer from [facility] for CONSUELO requiring CRRT. CONSUELO on CRRT -on CVVHDF with citrate protocol -currently 1.5/1.5, net even but may start to pull fluid once off pressors if needed to wean vent -monitor ionized calciums, repletion this am -still oliguric, paz in place -avoid nephrotoxins/contrast Shock -likely cytokine storm 2/2 to chemotherapy -cultures negative -keep MAP>65, weaning pressors -renally dose abx for CRRT per pharmacy Metabolic acidosis -may be lactic as well as MARIANA given diarrhea x 3 days -bicarb up to 21, stop gtt -continue to monitor Leukocytosis and thrombocytopenia -likely 2/2 to chemo -oncology following -no acute indication for TPE, CT negative and troponin trending down BMD -monitor phos for goal>3 on CRRT -NPO 07/14/18 10:34 Subjective: Patient starting to get agitated. Weaning off pressors. at bedside. Still < 20cc UO overnight. Objective: Vital Signs Temp Pulse Resp BP Pulse Ox 35.5 C L 85 12 99/74 L 99 07/14/18 06:00 07/14/18 08:00 07/14/18 08:00 07/14/18 06:00 07/14/18 08:00 Laboratory Results 07/14/18 08:20 07/13/18 07/14/18 07/15/18 05:59 05:59 05:59 Intake Total 607.3 250 Output Total 215 134 Balance 392.3 116 PT 19.6 SEC (12.0-15.0) H 07/13/18 04:00 INR 1.65 (0.83-1.16) H 07/13/18 04:00 Physical Exam - Physical Exam General Appearance: mild distress, unresponsive EENT: PERRL/EOMI Neck: non-tender, full range of motion, supple Respiratory: chest non-tender, decreased breath sounds Cardiac/Chest: normal peripheral pulses, regular rate, rhythm Abdomen: normal bowel sounds, non-tender, soft Skin: warm/dry, cyanosis (fingers) Extremities: normal range of motion, non-tender (agitated) ICD10 Worksheet Patient Problems: Problems Problem Status Onset Melanoma 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
[2018-07-14] MEDS: VASOPRESSIN 25 UNIT in D5W 250 ML IV SCH (09:30)
[2018-07-14 09:59] LABS: INR 1.48 (0.83-1.16); PROTIME(PATIENT) 18.1 SEC (12.0-15.0)
[2018-07-14 10:13] LABS: PLATELET COUNT 33 10^3/uL (150-400)
[2018-07-14] MEDS ORDERED: BISACODYL 10 MG SUPP PR PRN (10:28)
[2018-07-14] MEDS ORDERED: LACTULOSE 20 GM/30 ML UDCUP PO PRN (10:28)
[2018-07-14] MEDS ORDERED: POLYETHYLENE GLYCOL 3350 17 GM PKT PO PRN (10:28)
[2018-07-14] MEDS: REPL FLUID TYPE D CAPS 1 EA in WATER FOR INJECTION,STERILE 4,000 ML DIAL SCH ×3 (10:30→22:18)
[2018-07-14] MEDS: SODIUM CL 0.9% IVP SCH (10:50)
[2018-07-14] MEDS: CHLORHEXIDINE GLUCONATE 15 ML UDL PO SCH ×2 (10:50→21:19)
[2018-07-14] MEDS: D5W 1,000 ML IV SCH (10:50)
[2018-07-14] MEDS: LEVOTHYROXINE IVP SCH (10:50)
[2018-07-14] MEDS: POTASSIUM Cl (KCl) 50 ML IV PRN ×4 (10:51→22:19)
[2018-07-14] MEDS: PANTOPRAZOLE SODIUM 40 MG VIAL IVP SCH (10:51)
[2018-07-14] MEDS ORDERED: LACTULOSE 20 GM/30 ML UDCUP TUBE PRN (11:30)
[2018-07-14] MEDS ORDERED: ONDANSETRON DISINTEGRATING 4 MG TAB TUBE PRN (11:30)
[2018-07-14] MEDS ORDERED: POLYETHYLENE GLYCOL 3350 17 GM PKT TUBE PRN (11:30)
[2018-07-14] MEDS ORDERED: VANCOMYCIN 1.25 GM in NS 250 ML IV ONE (11:30)
[2018-07-14] MEDS: B22GK4/0 PRISMASATE 5,000 ML DIAL SCH ×3 (12:00→22:18)
--- NOTE | 2018-07-14 12:43 | PDCARPN ---
Cardiology Progress Note Assessment/Plan: Assessment/plan: 53-year-old male with metastatic melanoma transferred from [facility] 07/12 with shock, positive troponin, acute renal failure. On echo he has low normal ejection fraction without regional wall motion abnormalities and moderate to severe mitral regurgitation. 1. Shock. Overall improving, on less pressor support. Clinically this is most likely distributive shock related to his oral chemotherapy with kinase inhibitors/cytokine release. He is being seen by Oncology. He did receive IL- 6 blockade 07/12. Cardiogenic seems much less likely given his preserved ejection fraction. However, his mitral regurgitation may be contributing. Holding off on AVELINA as hemodynamics are improving and he does not have pulmonary edema or evidence of endocarditis. 2. Positive troponin. His peak is 20. He also has inferolateral ST elevation. My clinical suspicion is that he may have a focal myocarditis and probably not obstructive coronary disease. There is also some component of troponin leak related to his hypotension, renal failure. and cytokine mediated picture. He is being treated with steroids. Coronary angiogram is contraindicated at this time given his renal failure. 3. Acute renal failure: He is now on CRRT. 4. Moderate to severe MR: AVELINA could be performed at any time for further evaluation. Likely will improve as his hemodynamics improve. 5. Melanoma: Per Oncology. Discussed on ICU multidisciplinary rounds and patient's . 07/14/18 12:40 Subjective: Intubated and sedated. He is apparently responding to family. Reviewed/Discussed With: multidisciplinary team Objective: Vital Signs (8 Hrs) Temp Pulse Resp BP Pulse Ox 07/14/18 11:52 88 21 H 91 L 07/14/18 11:20 90 87/61 L 07/14/18 11:00 35.8 C L 90 20 98/59 L 92 07/14/18 10:00 90 22 H 101/75 92 07/14/18 09:00 89 18 96/70 L 07/14/18 08:00 35.5 C L 89 18 101/77 96 07/14/18 06:00 35.5 C L 85 22 H 99/74 L 100 07/14/18 05:00 78 17 87/71 L 99 Intake/Output (24 Hrs) 07/13/18 07/14/18 07/15/18 05:59 05:59 05:59 Intake Total 607.3 250 Output Total 215 134 Balance 392.3 116 Intake: IV Infused (ml) 607.3 Norepinephrine Bitartrate 89.3 16 mg In Ns 250 ml @ Per Protocol IV CONT MEG Rx# :[id number] Sodium Bicarbonate 150 505 meq In Water For Injection,Sterile 1,000 ml @ 150 mls/hr IV AD MEG Rx#:[id number] Vasopressin 25 unit In 13 D5w 250 ml @ 24 mls/hr IV CONT MEG Rx#:[id number] Tube Feeding (ml) 150 Tube Flush (ml) 100 Output: Urine (ml) 115 68 Catheter 115 53 Incontinence 15 Liquid Stool (ml) 50 10 Incontinence 50 10 Dialysis Fluid Removed 0 6 OG Tube Output (ml) 50 50 Large Bore (>12 Thai) 50 50 Non-weighted Stomach Tariq Harden Other: Weight 96.9 kg 101.4 kg Number of Stools Catheter 1 Incontinence 1 1 Intubated and sedated. He is moving spontaneously. Regular rate and rhythm without murmur or gallop Lungs clear anterior and laterally Decreased bowel sounds abdomen is soft Acrocyanosis. No significant edema Result Diagrams: 07/14/18 08:20 07/14/18 12:05 Cardiac Labs: Cardiac Lab Results (72 Hrs) 07/14/18 07/13/18 07/12/18 08:20 07:50 22:00 Troponin I 5.790 H 18.200 H 20.100 H 07/12/18 15:45 Troponin I 17.000 H Telemetry: Sinus rhythm. Occasional ventricular triplets. 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
[2018-07-14] MEDS: SENNOSIDES 17.6 MG/10 ML UDL TUBE SCH ×2 (13:37→21:19)
--- NOTE | 2018-07-14 15:59 | ASMTCMCOM ---
CM Note CM Note Notes: Met with , brother and [id number] for "Family Meeting". Patient is an avid outdoors person. Loves to bike, ski. 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 Patient is to Marissa and they have 3 children 17, 14, and 11. They have been very grateful for the communication with the MD's and think that the RN's have been excellent in their care. Patient continues on the vent hasn't started working with therapies as yet. Date Signed: 07/14/2018 03:59 PM Electronically Signed By:Mariel Mariano LCSW
[2018-07-14] MEDS ORDERED: SODIUM CITRATE 4% 5 ML in SYRINGE 0 ML DIAL PRN (18:00)
[2018-07-14] MEDS: SODIUM CITRATE 4% 5 ML in SYRINGE 0 ML DIAL PRN (18:01)
[2018-07-14] MEDS: DEXMEDETOMIDINE HCL 400 MCG in NS 100 ML IV SCH ×2 (19:24→22:16)
[2018-07-14] MEDS ORDERED: SENNOSIDES/DOCUSATE SODIUM TAB PO SCH (21:00)
[2018-07-14] MEDS: NS 1,000 ML MISC SCH (22:19)
--- NOTE | 2018-07-14 22:50 | HOSPPROG ---
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 Per Onc, anti-PD1 therapy followed by BRAF /MEK inhibitors can result in multisystem organ failure from diffuse inflammatory mechanism of action -s/p tocilizumab, cont current high dose hydrocortisone q8 -appreciate ongoing oncology consult -d/w family, they are concerned b/c patient received significant response from his melanoma tx prior to onset and they are wondering about his possible therapeutic options for melanoma if he is to recover # Ischemic digits. Acute, 2/2 pressors, cont nitro paste # Shock. Likely distributive from cytokine release syndrome, but, given severity of illness, cover for potential septic shock w/ IV Abx -cont Levo, off Vaso -cont Vanc/Zosyn, all Cx data negative thus far -hold on further IVF given overt CHF # ATN. 2/2 shock, resulting in hypervolemia from anuria -cont CRRT w/ goal of slow volume removal -appreciate ongoing renal consult # Acute metabolic encephalopathy. Evidenced by poor cog response when sedation weaned, likely 2/2 metabolic effects of uremia and acidosis -HCT unremarkable, will get brain MRI if remains unresponsive after metabolic derangements resolved # NSTEMI. Suspect Type II w/ trop 20, but no focal wall motion abnl on Echo -hold on cath given renal failure and unclear whether he will have recoverable functional status -will require cardiac risk strat prior to DC if he otherwise recovers # Severe mitral regurgitation. Recommend repeat Echo after recovery from critical illness # Acute metabolic acidosis. 2/2 lactic acid (shock) and uremia (ATN), stopped bicarb gtt now that he is on CRRT # Acute diastolic CHF exacerbation. Evidenced by bilat pleural effusion on CXR, visible hypervolemia s/p IVF resuscitation -cont vol removal w/ CRRT # Hyperglycemia. 2/2 stress response from above, will d/w Dr. Kurtz stopping insulin gtt/D5 and placing on ISS q6 to reduce total volume infusion # Acute hypoxic respiratory failure. 2/2 shock and metabolic derangements above w/ resultant effusions, currently requiring vent support # Metastatic melanoma. S/p Taflinar and Mekinist, currently holding given current condition Diet. TF tolerated PPx. High risk, hep SC Code. Full Dispo. ADD uncertain, remains critically ill 30 minutes of critical care time spent w/ patient at bedside, on team rounds w/ family, and coordinating care w/ Drs. Kurtz/Crista, specifically addressing his ongoing shock, renal failure, CHF, and NSTEMI as above, which render him critically ill w/ high risk for worsening morbidity and mortality. Subjective: patient sedated, intubated Objective: Vital Signs Temp Pulse Resp BP Pulse Ox 36.7 C 90 27 H 93/57 L 95 07/14/18 20:30 07/14/18 22:00 07/14/18 22:00 07/14/18 22:00 07/14/18 22:00 Laboratory Results 07/14/18 08:20 07/14/18 20:20 07/13/18 07/14/18 07/15/18 05:59 05:59 05:59 Intake Total 607.3 250 Output Total 215 134 99 Balance 392.3 116 -99 PT 18.1 SEC (12.0-15.0) H 07/14/18 09:40 INR 1.48 (0.83-1.16) H 07/14/18 09:40 - Physical Exam Constitutional: no apparent distress, not in pain, No uncomfortable Eyes: icteric sclera, other (constricted pupils) Cardiovascular: systolic murmur (III/ at apex), JVD, edema (1+ bilat LE), other (2+ bilat dorsalis pedis pulses), No irregularly irregular Respiratory: reduced air movement (bilat bases), inspiratory crackles (bilat bases laterally), other (on vent), No expiratory wheeze, No bronchial breath sounds Skin: other (mottled bilat LE digits, dusky/necrotic bilat UE digitis) ICD10 Worksheet Patient Problems: Problems Problem Status Onset Melanoma 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
[2018-07-14] MEDS: PRE-DILUTION FILTER SET 100 MISC PRN (23:00)
[2018-07-15] MEDS: ACCESSORY DRAIN 1 EA BAG MISC PRN ×2 (00:43→22:06)
[2018-07-15] MEDS: PIPERACILLIN/TAZO 2.25 GM/DEX 50 ML IV SCH ×4 (00:47→17:31)
[2018-07-15] MEDS: methylPREDNISolone SOD SUCC 125 MG/2 ML VIAL IVP SCH ×4 (00:47→17:31)
[2018-07-15] MEDS: NITROGLYCERIN 2% 1 GM PACKET TP SCH ×4 (00:47→17:31)
[2018-07-15] MEDS: CALCIUM CHLORIDE 5.7 GM in NS 1,000 ML IV SCH ×3 (01:09→13:00)
[2018-07-15] MEDS: REPL FLUID TYPE D CAPS 1 EA in WATER FOR INJECTION,STERILE 4,000 ML DIAL SCH ×8 (01:51→21:26)
[2018-07-15] MEDS: B22GK4/0 PRISMASATE 5,000 ML DIAL SCH ×7 (02:45→20:28)
[2018-07-15 04:51] LABS: INR 1.43 (0.83-1.16); PROTIME(PATIENT) 17.6 SEC (12.0-15.0)
[2018-07-15] MEDS: NS 1,000 ML MISC SCH ×4 (05:14→22:15)
[2018-07-15] MEDS: HYDROCORTISONE 100 MG/2 ML VIAL IVP SCH ×3 (05:14→21:17)
[2018-07-15] MEDS: NOREPINEPHRINE BITARTRATE 16 MG in NS 250 ML IV SCH (05:15)
[2018-07-15 06:57] LABS: PLATELET COUNT 32 10^3/uL (150-400)
--- NOTE | 2018-07-15 07:13 | PDINTPN ---
[employer] Progress Note Assessment/Plan: 53 M with relatively recent diagnosis of malignant melanoma, treated with Tafinlar and Mekinist oral chemotherapy complicated by fever and diarrhea. He was admitted to [facility] 07/11/18 with severe lethargy as well as CONSUELO with severe hypotension requiring pressors (levophed, alhaji, vasopressin) and intubation after arrival in the ICU. The intubation was reported as difficult, requiring at first a small airway followed by upsizing the ETT to 7.5 with a tube exchanger. He was also treated with multiple antibiotics including both po and IV vanco, Zosyn, micafungin, and flagyl. He was reportedly aggressively hydrated with up to 8 liters of IVF, but his renal function and acidosis remained severely abnormal so he was transferred to [facility] for CRRT. He was sedated on a versed drip prior to transfer as well, but this was not continued as he was quite sedated. An HD catheter was placed in the right CFV by surgery without complication and a CT of his chest/abdomen/pelvis did not reveal any significant pathology. Concern was raised by heme/onc about possible cytokine release syndrome, which has been documented with various newer generation chemo agents. * Severe septic shock- presumed diagnosis since his echocardiograms have not shown WMAs and his syndrome reflects sepsis. No organism has been identified to date, and blood and urine cultures from [facility] (drawn 07/11) remain negative as of 07/14 AM. Cytokine release syndrome is another possibility and requires specific treatment including Tacilizumab and high dose solumedrol. HLH is also in the differential but lack of cytopenias on admission makes this less likely. Will continue with sepsis protocol including abx (IV vanco and Zosyn). C. Diff was negative and diarrhea is a common side effect of his chemo. As a result he is getting both solumedrol and hydrocortisone to treat both CRS and adrenal insufficiency- he was on hydrocortisone as an outpatient. Levophed dose continues to fall but remains at 5 mcg this am. WBC peaked at 54; and continues to fall slowly. Trial of albumin boluses today in effort to spare significant digit ischemia by reducing levophed dose. * CONSUELO presumably related to hypotensive related ATN and/or his chemo. Tolerating CRRT. Citrate used for CRRT (instead of heparin). 5-10/hr UOP per night RN. * Troponin- peaked at 20, down to [address] elevation in inferior/lateral leads. Doubt CAD with few CRFs and cath contraindicated at this time given CONSUELO and low yield. MR is moderate to severe on echo from [facility] so cards considering AVELINA, but waiting for now. No evidence of endocarditis, but may have focal myocarditis. No Takotsubo and EF 55% * Altered MS- I suspect toxic-metabolic ecephalopathy, and his head CT shows only improved sinusitis compared to MRI on 06/18/18 (which was normal except sinusitis). Continue efforts to normalize sleep-wake cycle and avoid benzos. * Acute respiratory failure with hypoxia- he has minimal bilateral lower lobe atelectasis and pleural effusion which are not consistent with acute PNA in my opinion. No BAL indicated at this time. Continue vent support. Pleural effusions were minimal and not a significant contributor to his respiratory failure. Therefore would NOT pursue aggressive volume removal and keep even given state of his digits and current success with weaning. Wean today 10/5 as tolerated. * LFTs- pericholic fluid- abdominal US shows some GB sludge and GB thickening without stones. Doubt this is the source of sepsis and no PCT indicated. Continue to follow LFTs which are more reflective of his chemo and/or shock liver. Continues to improve as does coagulopathy * Cyanosis- likely related to high dose pressors, complicated by right radial art line. Continue to apply topical NTG in attempt to spare his digits.See above concerning albumin. RUE still looks concerning distally * Thrombocytopenia- likely related to sepsis/DIC. Platelets were normal 06/01/18 and 120 on admission at [facility]. Holding SC heparin and monitor. No obvious bleeding. Doubt HIT. Still in low 30's but appears to have reached a plateau. * INR reduced from 2.18 to 1.65 to 1.43 * DVT/GI prophylaxis- on SCDs and protonix * DNR status- full code. * * critical care time 45 minutes, including discussion with both night and day shift nursing staff, charge nurse, and RT. Discussed with at bedside last PM 07/14/18 07:21 07/15/18 07:04 Subjective: more awake yesterday and required sedation. Attempted precedex at RN request, but this was unsuccessful so changed back to propofol overnight. He slept well and is slightly agitated this AM on minimal propofol. Started wean at 0530 on PS 10 and tolerating well. Still on 5 levophed. Objective: Vital Signs Temp Pulse Resp BP Pulse Ox 36.7 C 92 28 H 110/63 95 07/15/18 05:00 07/15/18 06:00 07/15/18 06:00 07/15/18 06:00 07/15/18 06:00 Laboratory Results 07/15/18 04:20 07/15/18 04:20 07/14/18 07/15/18 07/16/18 05:59 05:59 05:59 Intake Total 250 Output Total 134 99 Balance 116 -99 PT 17.6 SEC (12.0-15.0) H 07/15/18 04:20 INR 1.43 (0.83-1.16) H 07/15/18 04:20 Physical Exam - Physical Exam General Appearance: mild distress, obtunded EENT: PERRL/EOMI, ET tube, No scleral icterus (R), No scleral icterus (L) Neck: supple Respiratory: lungs clear, normal breath sounds, No respiratory distress, No accessory muscle use, No rales, No rhonchi, No wheezing Cardiac/Chest: regular rate, rhythm, edema, No JVD Abdomen: non-tender, soft, No organomegaly, No distended, No guarding, No rebound, No rigid Skin: normal color, warm/dry, cyanosis (all four extremities but clearly worse in RUE) Lymphatic: no adenopathy Extremities: No pedal edema, No calf tenderness Neuro/Psych: no motor/sensory deficits, cognition abnormalities, No abnormal tipple greaser II-XII ICD10 Worksheet Patient Problems: Problems Problem Status Onset Melanoma 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
[2018-07-15] MEDS: ALBUMIN 5% 250 ML IV SCH ×2 (08:00→08:29)
[2018-07-15] MEDS: PANTOPRAZOLE SODIUM 40 MG VIAL IVP SCH (08:31)
[2018-07-15] MEDS: CHLORHEXIDINE GLUCONATE 15 ML UDL PO SCH ×2 (08:31→21:17)
[2018-07-15] MEDS: SENNOSIDES 17.6 MG/10 ML UDL TUBE SCH ×2 (08:31→18:29)
[2018-07-15] MEDS: LEVOTHYROXINE IVP SCH (08:51)
[2018-07-15] MEDS: SODIUM CL 0.9% IVP SCH (08:51)
--- NOTE | 2018-07-15 08:57 | SOAPPROG ---
SOAP Progress Note Assessment/Plan: Assessment: CONSUELO due to shock from sepsis-vs- cytokine storm after chemotherapy respiratory failure on vent shock, continues to require pressors for bp support metastatic melanoma, s/p chemotherapy edema, mild/mod volume up Plan: continue CRRT continue antibiotics continue vent support, FiO2 0.4 try for some volume removal, will start at 50cc/hr net off and see how things go discussed with staff discussed with who was at bedside, all questions answered 07/15/18 08:51 Subjective: not communicative remains sedated on vent discussed situation with pt Objective: Vital Signs Temp Pulse Resp BP Pulse Ox 36.7 C 94 35 H 109/70 91 L 07/15/18 05:00 07/15/18 07:00 07/15/18 07:00 07/15/18 07:00 07/15/18 07:00 Laboratory Results 07/15/18 04:20 07/15/18 08:00 07/14/18 07/15/18 07/16/18 05:59 05:59 05:59 Intake Total 250 Output Total 134 99 Balance 116 -99 PT 17.6 SEC (12.0-15.0) H 07/15/18 04:20 INR 1.43 (0.83-1.16) H 07/15/18 04:20 Physical Exam - Physical Exam General Appearance: other (sedated on vent) Respiratory: other (coarse bs bilaterally, on vent, occas wh) Cardiac/Chest: regular rate, rhythm, edema, No gallop, No friction rub Abdomen: other (quiet, nt,nd, soft) Skin: other (ischemic appearing digits) Neuro/Psych: other (sedated) ICD10 Worksheet Patient Problems: Problems Problem Status Onset Melanoma 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
[2018-07-15] MEDS: POTASSIUM Cl (KCl) 50 ML IV PRN ×4 (09:02→19:44)
[2018-07-15] MEDS ORDERED: D50W 25 GM/50 ML SYR IVP PRN (10:20)
[2018-07-15] MEDS ORDERED: INSULIN REGULAR HUMAN 100 UNIT/ML UNIT SC SCH (10:30)
--- NOTE | 2018-07-15 11:20 | SOAPPROG ---
SOAP Progress Note Assessment/Plan: Assessment: 1. Metastatic melanoma, responding to BRAF inhibitor 2. Multiorgan failure, characterized by acute renal failure, hypotension, altered mental status, fever, abnormal LFTs (t bili 6.0) 3. Severe neutrophilia Apparent cytokine release syndrome. This has been described in patients who received anti-PD1 therapy followed by BRAF/MEK inhibitors for melanoma. Pt still critically ill but improving. Recs: - continue high dose steroids - as patient is improving (lowering pressor requirement, etc) can hold off on an additional dose of tocilizumab for now 07/15/18 11:20 Subjective: sedated. Objective: exam: intubated, sedated Lungs CTAB CV RRR no mGR abd: +BS NT ND Ext: 1+ edema. 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
--- NOTE | 2018-07-15 12:29 | PDCARPN ---
Cardiology Progress Note Assessment/Plan: Assessment/plan: 53-year-old male with metastatic melanoma transferred from [facility] 07/12 with shock, positive troponin, acute renal failure. On echo he has low normal ejection fraction without regional wall motion abnormalities and moderate to severe mitral regurgitation. 1. Shock. Overall improving, on less pressor support. Clinically this is most likely distributive shock related to his oral chemotherapy with kinase inhibitors/cytokine release. He is being seen by Oncology. He did receive IL- 6 blockade 07/12. Cardiogenic seems much less likely given his preserved ejection fraction. However, his mitral regurgitation may be contributing. Holding off on AVELINA as hemodynamics are improving and he does not have pulmonary edema or evidence of endocarditis. 2. Positive troponin. His peak is 20. He also has inferolateral ST elevation. My clinical suspicion is that he may have a focal myocarditis and probably not obstructive coronary disease. There is also some component of troponin leak related to his hypotension, renal failure, and cytokine mediated picture. In May he was treated with an immune checkpoint inhibitor, but this would be very late onset to be attributed to myocarditis specifically related to immune checkpoint inhibitor therapy. He is being treated with steroids. Coronary angiogram is contraindicated at this time given his renal failure. 3. Acute renal failure: He is now on CRRT. 4. Moderate to severe MR: AVELINA could be performed at any time for further evaluation. Likely will improve as his hemodynamics improve. Recommend repeat transthoracic echo once he is off pressors. 5. Elevated white count, low platelets, low hematocrit: No active bleeding. 6. Acrocyanosis: Related to pressors. Topical nitroglycerin. 7. Melanoma: Per Oncology. 07/15/18 12:26 Subjective: Intubated and sedated. Family reports that he was responding to them yesterday Reviewed/Discussed With: family, multidisciplinary team, other (Dr. Kurtz) Objective: Vital Signs (8 Hrs) Temp Pulse Resp BP Pulse Ox 07/15/18 11:00 95 27 H 114/77 96 07/15/18 10:00 36.1 C 98 24 H 112/67 95 07/15/18 09:00 92 21 H 101/66 96 07/15/18 08:00 93 25 H 103/62 95 07/15/18 07:00 94 35 H 109/70 91 L 07/15/18 06:00 92 28 H 110/63 95 07/15/18 05:20 87 96 07/15/18 05:00 36.7 C 87 28 H 97/68 L 96 Intake/Output (24 Hrs) 07/14/18 07/15/18 07/16/18 05:59 05:59 05:59 Intake Total 250 Output Total 134 99 Balance 116 -99 Intake: Tube Feeding (ml) 150 Tube Flush (ml) 100 Output: Urine (ml) 68 Catheter 53 Incontinence 15 Liquid Stool (ml) 10 Incontinence 10 Dialysis Fluid Removed 6 99 OG Tube Output (ml) 50 Large Bore (>12 Amharic) 50 Non-weighted Stomach [place] Sump Other: Weight 101.4 kg Number of Stools Catheter 1 Incontinence 1 1 Intubated and sedated. Is moving spontaneously. Regular rate and rhythm with soft early diastolic murmur at the left lower sternal border. No rub or gallop Lungs clear anteriorly and laterally Abdomen is soft. Positive bowel sounds Cyanosis of digits in all 4 extremities. Extremities are warm. 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
[2018-07-15] MEDS: PROPOFOL/EMULSION 100 ML IV SCH ×2 (13:17→19:42)
[2018-07-15] MEDS: INSULIN REGULAR HUMAN 100 UNIT/ML UNIT SC SCH ×3 (13:22→20:33)
[2018-07-15] MEDS: SODIUM PHOS 20 MM in D5W 250 ML IV PRN (15:29)
--- NOTE | 2018-07-15 21:01 | HOSPPROG ---
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 Per Onc, anti-PD1 therapy followed by BRAF /MEK inhibitors can result in multisystem organ failure from diffuse inflammatory mechanism of action -s/p tocilizumab, cont current high dose hydrocortisone q8 -appreciate ongoing oncology consult # Ischemic digits. Acute, 2/2 pressors, cont nitro paste # Shock. Likely distributive from cytokine release syndrome, but, given severity of illness, cover for potential septic shock w/ IV Abx -cont Levo, off Vaso -cont Vanc/Zosyn given critical illenss, all Cx data negative thus far -hold on further IVF given overt CHF, did receive two doses of albumin today in an effort to wean pressors # ATN. 2/2 shock, resulting in hypervolemia from anuria -cont CRRT w/ goal of slow volume removal, currently 70ml/hr -appreciate ongoing renal consult # Acute metabolic encephalopathy. Evidenced by poor cog response when sedation weaned, likely 2/2 metabolic effects of uremia and acidosis -HCT unremarkable, will get brain MRI if remains unresponsive after metabolic derangements resolved -counseled family that sedation lingers w/ ATN, but will continue to lighten and gauge effect # NSTEMI. Suspect Type II w/ trop 20, but no focal wall motion abnl on Echo -hold on cath given renal failure and unclear whether he will have recoverable functional status -will require cardiac risk strat prior to DC if he otherwise recovers # Severe mitral regurgitation. Recommend repeat Echo after recovery from critical illness # Acute metabolic acidosis. 2/2 lactic acid (shock) and uremia (ATN), on CRRT # Acute diastolic CHF exacerbation. Evidenced by bilat pleural effusion on CXR and worsening air space disease on today's CXR -cont vol removal w/ CRRT # Hyperglycemia. 2/2 stress response from above, stopped insulin gtt and ordered q4h checks # Acute hypoxic respiratory failure. 2/2 shock and metabolic derangements above w/ resultant effusions, currently requiring vent support -with worsening air space disease on CXR, unlikely to safely wean today # Diarrhea. Check CDiff PCR # Metastatic melanoma. S/p Taflinar and Mekinist, currently holding given current condition Diet. TF w/ residual on rounds, holding PPx. High risk, hep SC Code. Full Dispo. ADD uncertain, remains critically ill 35 minutes of critical care time spent w/ patient at bedside, on team rounds w/ family, and coordinating care w/ Dr. Kurtz, specifically addressing his ongoing shock, renal failure, CHF w/ resp failure as above, which render him critically ill w/ high risk for worsening morbidity and mortality. Subjective: moving head when sedation lightened, not opening eyes Objective: Vital Signs Temp Pulse Resp BP Pulse Ox 36.7 C 106 H 28 H 98/55 L 94 07/15/18 18:00 07/15/18 20:00 07/15/18 20:00 07/15/18 20:00 07/15/18 20:00 Laboratory Results 07/15/18 04:20 07/15/18 20:25 07/14/18 07/15/18 07/16/18 05:59 05:59 05:59 Intake Total 250 0 Output Total 134 99 731 Balance 116 -99 -731 PT 17.6 SEC (12.0-15.0) H 07/15/18 04:20 INR 1.43 (0.83-1.16) H 07/15/18 04:20 - Physical Exam Constitutional: no apparent distress, not in pain, No uncomfortable Eyes: other (constricted pupils) Cardiovascular: systolic murmur (I/ at all valves), edema (1+ biltal LE), other (2+ pulses bilat radialis/dorsalis pedis), No irregularly irregular Respiratory: reduced air movement (bilat bases), inspiratory crackles (mid lateral segs), other (on vent) Gastrointestinal: normoactive bowel sounds, No distension Genitourinary: paz in urethra Skin: other (dusky/necrotic fingers bilat) Psychiatric: other (non-responsive to tactile stimuli) ICD10 Worksheet Patient Problems: Problems Problem Status Onset Melanoma 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
[2018-07-15] MEDS: MAGNESIUM SULF 2 GM/WATER 50 ML IV PRN (21:16)
[2018-07-16] MEDS: B22GK4/0 PRISMASATE 5,000 ML DIAL SCH ×5 (00:10→22:28)
[2018-07-16] MEDS: REPL FLUID TYPE D CAPS 1 EA in WATER FOR INJECTION,STERILE 4,000 ML DIAL SCH ×8 (00:10→22:30)
[2018-07-16] MEDS: PIPERACILLIN/TAZO 2.25 GM/DEX 50 ML IV SCH ×5 (00:13→23:25)
[2018-07-16] MEDS: NITROGLYCERIN 2% 1 GM PACKET TP SCH ×5 (00:14→23:25)
[2018-07-16] MEDS: methylPREDNISolone SOD SUCC 125 MG/2 ML VIAL IVP SCH ×5 (00:15→23:25)
[2018-07-16] MEDS: INSULIN REGULAR HUMAN 100 UNIT/ML UNIT SC SCH ×6 (01:20→22:45)
[2018-07-16] MEDS: POTASSIUM Cl (KCl) 50 ML IV PRN ×4 (01:37→19:19)
[2018-07-16] MEDS: fentaNYL 100 MCG/2 ML INJ IVP PRN ×4 (01:39→16:54)
[2018-07-16] MEDS: SODIUM PHOS 20 MM in D5W 250 ML IV PRN (01:57)
[2018-07-16] MEDS: PROPOFOL/EMULSION 100 ML IV SCH ×3 (02:00→22:29)
[2018-07-16] MEDS: CALCIUM CHLORIDE 5.7 GM in NS 1,000 ML IV SCH ×4 (02:00→22:29)
[2018-07-16] MEDS: NS 1,000 ML MISC SCH ×4 (02:21→22:30)
[2018-07-16] MEDS: SODIUM CITRATE 4% 5 ML in SYRINGE 0 ML DIAL PRN (05:05)
[2018-07-16] MEDS: HYDROCORTISONE 100 MG/2 ML VIAL IVP SCH ×3 (05:20→22:45)
[2018-07-16 06:02] LABS: PLATELET COUNT 36 10^3/uL (150-400)
[2018-07-16] MEDS: PRE-DILUTION FILTER SET 100 MISC PRN ×2 (07:13→22:28)
[2018-07-16] MEDS: SENNOSIDES 17.6 MG/10 ML UDL TUBE SCH ×2 (07:17→22:16)
[2018-07-16] MEDS: PANTOPRAZOLE SODIUM 40 MG VIAL IVP SCH (08:23)
[2018-07-16] MEDS: CHLORHEXIDINE GLUCONATE 15 ML UDL PO SCH ×2 (08:23→22:46)
[2018-07-16] MEDS: ACCESSORY DRAIN 1 EA BAG MISC PRN (08:28)
[2018-07-16] MEDS: LEVOTHYROXINE IVP SCH (08:50)
[2018-07-16] MEDS: SODIUM CL 0.9% IVP SCH (08:50)
--- NOTE | 2018-07-16 09:00 | CPEKG ---
Test Reason : OPEN Blood Pressure : / mmHG Vent. Rate : 099 BPM Atrial Rate : 097 BPM P-R Int : 172 ms QRS Dur : 100 ms QT Int : 375 ms P-R-T Axes : 014 066 031 degrees QTc Int : 482 ms Sinus rhythm Low voltage, extremity leads ST elevation, consider lateral injury Borderline prolonged QT interval Confirmed by Jevon Main ([id number]) on 07/16/2018 8:59:54 AM Referred By: Confirmed By:Jevon Main
--- NOTE | 2018-07-16 09:05 | CPEKG ---
Test Reason : OPEN Blood Pressure : / mmHG Vent. Rate : 098 BPM Atrial Rate : 098 BPM P-R Int : 164 ms QRS Dur : 083 ms QT Int : 379 ms P-R-T Axes : 046 069 000 degrees QTc Int : 484 ms Sinus rhythm Lateral infarct, acute (LAD) Confirmed by Jevon Main ([id number] on 07/16/2018 9:04:48 AM Referred By: Confirmed By:Jevon Main
[2018-07-16] MEDS ORDERED: FUROSEMIDE 40 MG/4 ML VIAL IVP ONE ×2 (09:36→13:17)
--- NOTE | 2018-07-16 10:37 | SOAPPROG ---
SOAP Progress Note Assessment/Plan: Assessment: 1. Metastatic melanoma, responding to BRAF inhibitor 2. Multiorgan failure, characterized by acute renal failure, hypotension, altered mental status, fever, abnormal LFTs (t bili 6.0) 3. Severe neutrophilia Apparent cytokine release syndrome. This has been described in patients who received anti-PD1 therapy followed by BRAF/MEK inhibitors for melanoma. Pt still critically ill but improving. Off pressors, making urine, LFTs trending down. Still with significant encephalopathy. Recs: - continue high dose steroids - no need for further tocilizumab right now, as that drug does not penetrate the EQUIPMENT INSPECTOR well, and the encephalopathy is the only organ system where there does not appear to be major improvement - consider LP +/- MRI if neurological condition does not improve. Although this syndrome seems more consistent w/ cytokine release (rather than hemophagocytic lymphohistiocytosis), there is some overlap, and one could consider EQUIPMENT INSPECTOR-directed therapy (eg intrathecal methotrexate) if there are EQUIPMENT INSPECTOR findings indicative of HLH. 35 min spent w/ pt and in coordination of care. 07/15/18 11:20 07/16/18 10:34 Subjective: sedated. Objective: exam: intubated, sedated lungs CTAB CV RRR no MGR Abd: quiet BS. 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
[2018-07-16] MEDS: PETROLAT,WHT/MIN OIL/SOD CHL 3.5 GM OPHT.OINT EACHEYE PRN ×2 (11:07→22:46)
[2018-07-16] MEDS ORDERED: VANCOMYCIN 1.25 GM in NS 250 ML IV ONE (12:30)
--- NOTE | 2018-07-16 12:31 | PDINTPN ---
Behavioral Therapist Progress Note Assessment/Plan: 53 M with relatively recent diagnosis of malignant melanoma, treated with Tafinlar and Mekinist oral chemotherapy complicated by fever and diarrhea. He was admitted to [facility] 07/11/18 with severe lethargy as well as CONSUELO with severe hypotension requiring pressors (levophed, alhaji, vasopressin) and intubation after arrival in the ICU. The intubation was reported as difficult, requiring at first a small airway followed by upsizing the ETT to 7.5 with a tube exchanger. He was also treated with multiple antibiotics including both po and IV vanco, Zosyn, micafungin, and flagyl. He was reportedly aggressively hydrated with up to 8 liters of IVF, but his renal function and acidosis remained severely abnormal so he was transferred to [facility] for CRRT. He was sedated on a versed drip prior to transfer as well, but this was not continued as he was quite sedated. An HD catheter was placed in the right CFV by surgery without complication and a CT of his chest/abdomen/pelvis did not reveal any significant pathology. Concern was raised by heme/onc about possible cytokine release syndrome, which has been documented with various newer generation chemo agents. * Severe septic shock- presumed diagnosis since his echocardiograms have not shown WMAs and his syndrome reflects sepsis. No organism has been identified to date, and blood and urine cultures from [facility] (drawn 07/11) remain negative as of 10 AM. Cytokine release syndrome is another possibility and requires specific treatment including Tacilizumab and high dose solumedrol. HLH is also in the differential but lack of cytopenias on admission makes this less likely. Will continue with sepsis protocol including abx (IV vanco and Zosyn). C. Diff was negative and diarrhea is a common side effect of his chemo. As a result he is getting both solumedrol and hydrocortisone to treat both CRS and adrenal insufficiency- he was on hydrocortisone as an outpatient. Levophed off. WBC peaked at 54; and continues to fall slowly. CRP falling as well and aferile. Lungs are clearly worse by CXR which may indicate PNA. Check sputum cx (low yield) but no bronch for now. * CONSUELO presumably related to hypotensive related ATN and/or his chemo. Tolerating CRRT. Citrate used for CRRT (instead of heparin). substatial increase in UOP today before lasix * Troponin- peaked at 20, down to [address] elevation in inferior/lateral leads. Doubt CAD with few CRFs and cath contraindicated at this time given CONSUELO and low yield. MR is moderate to severe on echo from [facility] so cards considering AVELINA, but waiting for now. No evidence of endocarditis, but may have focal myocarditis. No Takotsubo and EF 55% * Altered MS- I suspect toxic-metabolic ecephalopathy, and his head CT shows only improved sinusitis compared to MRI on 06/18/18 (which was normal except sinusitis). Continue efforts to normalize sleep-wake cycle and avoid benzos. * Acute respiratory failure with hypoxia- significant change in CXR infiltrates - PNA vs CHF and/or capillary leak related to CRS. Responded well to lasix 40 mg this am- likely to repeat this afternoon despite slight rise in Creatinine. Await renal input. * LFTs- pericholic fluid- abdominal US shows some GB sludge and GB thickening without stones. Doubt this is the source of sepsis and no PCT indicated. Continue to follow LFTs which are more reflective of his chemo and/or shock liver. Continues to improve as does coagulopathy * Cyanosis- likely related to high dose pressors, complicated by right radial art line. Continue to apply topical NTG in attempt to spare his digits.See above concerning albumin. RUE still looks concerning distally. Continue NTG topical * Thrombocytopenia- likely related to sepsis/DIC. Platelets were normal 06/01/18 and 120 on admission at [facility]. Holding SC heparin and monitor. No obvious bleeding. Doubt HIT. Still in low 30's but appears to have reached a plateau and rising * INR reduced from 2.18 to 1.65 to 1.43 * DVT/GI prophylaxis- on SCDs and protonix * DNR status- full code. * * critical care time 45 minutes, including discussion with both night and day shift nursing staff, charge nurse, and RT. Discussed with at bedside Subjective: stable overnight, ps weans for about 3 hours Objective: Vital Signs Temp Pulse Resp BP Pulse Ox 36.5 C 80 23 H 98/64 L 95 07/16/18 07:00 07/16/18 12:00 07/16/18 12:00 07/16/18 12:00 07/16/18 12:00 Laboratory Results 07/16/18 04:15 07/15/18 07/16/18 07/17/18 05:59 05:59 05:59 Intake Total 301 Output Total 99 2124 Balance -99 -1823 PT 17.6 SEC (12.0-15.0) H 07/15/18 04:20 INR 1.43 (0.83-1.16) H 07/15/18 04:20 Physical Exam - Physical Exam General Appearance: mild distress EENT: PERRL/EOMI, ET tube Neck: supple Respiratory: decreased breath sounds, rhonchi, No respiratory distress, No accessory muscle use Cardiac/Chest: regular rate, rhythm, edema Abdomen: non-tender, soft, No distended Skin: normal color, warm/dry, cyanosis Lymphatic: no adenopathy Extremities: No pedal edema Neuro/Psych: cognition abnormalities ICD10 Worksheet Patient Problems: Problems Problem Status Onset Melanoma 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
--- NOTE | 2018-07-16 13:27 | SOAPPROG ---
SOAP Progress Note Assessment/Plan: Assessment: CONSUELO due to shock like from cytokine storm after chemotherapy respiratory failure on vent shock, now off pressors metastatic melanoma, s/p chemotherapy volume up on exam and significant pulmonary edema on CXR UOP has increased, so may be starting to have some renal recovery though do not think patient is having any significant renal clearance at this point with Cr still 2.4 despite CRRT Plan: -continue CRRT until morning. Once clots in the morning will plan to stop, monitor for renal recovery, and then do iHD as needed -will increase UF rate on CRRT 10 100-150mL/hr, discussed with nursing, if BP drops or UOP decreases (has picked up), will plan to back off -patient responded to dose of 40mg IV lasix this morning, fine with giving another dose this afternoon (order placed) -RLE more edematous than LLE, discussed with Dr. Kurtz, will continue to monitor and consider dopplers if persists -should consider transitioning to IJ temp catheter if continues to need dialysis >1 week after femoral line placement Discussed with Dr. Kurtz and bedside nursing Subjective: Off pressors, has started making some urine. Remains on low vent settings but CXR with significant pulmonary edema. Cultures remain negative. Objective: Vital Signs Temp Pulse Resp BP Pulse Ox 36.5 C 80 23 H 98/64 L 95 07/16/18 07:00 07/16/18 12:00 07/16/18 12:00 07/16/18 12:00 07/16/18 12:00 Laboratory Results 07/16/18 04:15 07/16/18 11:50 07/15/18 07/16/18 07/17/18 05:59 05:59 05:59 Intake Total 301 Output Total 99 2124 Balance -99 -1823 PT 17.6 SEC (12.0-15.0) H 07/15/18 04:20 INR 1.43 (0.83-1.16) H 07/15/18 04:20 Exam: General- intubated, sedated HEENT: ET tube in place, MMM Pulm: intubated on ventilator, anterior lung tong clear CV: NRRR, no g/m/r Abd: soft, non-tender, non-distended Extrem: 2+ RLE edema, trace-1+ LLE, L femoral temp dialysis catheter Skin: ischemic-appearing digits, otherwise no rashes or bruises Psych: sedated ICD10 Worksheet Patient Problems: Problems Problem Status Onset Melanoma 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
[2018-07-16] MEDS ORDERED: IOPAMIDOL (ISOVUE-300) 100 ML BTL ONE (16:05)
--- NOTE | 2018-07-16 17:52 | PDCARPN ---
Cardiology Progress Note Assessment/Plan: Assessment/plan: 53-year-old male with metastatic melanoma transferred from [facility] 07/12 with shock, positive troponin, acute renal failure. On echo he has low normal ejection fraction without regional wall motion abnormalities and moderate to severe mitral regurgitation. 1. Shock. Overall improving, now off pressors. Clinically this is most likely distributive shock related to his oral chemotherapy with kinase inhibitors/ cytokine release. He is being seen by Oncology. He did receive IL-6 blockade 07/12. Cardiogenic seems much less likely given his preserved ejection fraction. However, his mitral regurgitation may be contributing. Holding off on AVELINA as hemodynamics are improving and he does not have pulmonary edema or evidence of endocarditis. Will repeat TTE tomorrow 2. Positive troponin. His peak is 20. He also has inferolateral ST elevation. My clinical suspicion is that he may have a focal myocarditis and probably not obstructive coronary disease. There is also some component of troponin leak related to his hypotension, renal failure, and cytokine mediated picture. In May he was treated with an immune checkpoint inhibitor, but this would be very late onset to be attributed to myocarditis specifically related to immune checkpoint inhibitor therapy. He is being treated with steroids. Coronary angiogram is contraindicated at this time given his renal failure. 3. Acute renal failure: He is now on CRRT. Did have some urine output today in response to Lasix. 4. Moderate to severe MR: Likely will improve as his hemodynamics improve. TTE tomorrow 5. Elevated white count, low platelets, low hematocrit: No active bleeding. 6. Acrocyanosis: Related to pressors. Topical nitroglycerin. 7. Melanoma: Per Oncology. 8. Abnormal CXR: CHF vs pna. On abx. Lasix given today with good UOP 07/16/18 17:53 Subjective: Intubated and sedated. Family reports that he did turn his head when his name was called. Reviewed/Discussed With: family, multidisciplinary team Objective: Vital Signs (8 Hrs) Temp Pulse Resp BP Pulse Ox 07/16/18 17:00 77 21 H 98/66 L 96 07/16/18 16:00 77 29 H 97/66 L 100 07/16/18 15:30 75 20 98 07/16/18 15:00 79 25 H 99/68 L 99 07/16/18 14:00 36.0 C 79 21 H 99/60 L 99 07/16/18 13:00 35.9 C L 78 23 H 97/66 L 97 07/16/18 12:00 80 23 H 98/64 L 95 07/16/18 11:45 84 29 H 95 07/16/18 11:00 83 32 H 103/68 96 07/16/18 10:00 77 20 99/66 L 99 Intake/Output (24 Hrs) 07/15/18 07/16/18 07/17/18 05:59 05:59 05:59 Intake Total 301 Output Total 99 2124 Balance -99 -1828 Intake: IV Intake (ml) 56 IV Infused (ml) 245 Calcium Chloride 5.7 gm 64 In Ns 1,000 ml @ Per Protocol IV AD MEG Rx#: [id number] D5w 1,000 ml @ 25 mls/hr 0 IV CONT MEG Rx#: [id number] Insulin Regular Human 100 0 unit In Ns 100 ml @ Per Protocol IV CONT MEG Rx#: [id number] Norepinephrine Bitartrate 0 16 mg In Ns 250 ml @ Per Protocol IV CONT MEG Rx# :[id number] POTASSIUM Cl (KCl) 50 ml 45 @ 25 mls/hr IV PRN PRN Rx #:[id number] Propofol/Emulsion 100 ml 24 @ Titrate IV CONT MEG Rx# :[id number] Sodium Phos 20 mm In D5w 112 250 ml @ 64.167 mls/hr IV PRN PRN Rx#:[id number] Output: Urine (ml) 525 Catheter 525 Liquid Stool (ml) 300 Incontinence 300 Dialysis Fluid Removed 99 1299 Other: Number of Stools Incontinence 1 2 Intubated and sedated Regular rate and rhythm without obvious murmur Diffuse rhonchi Absent bowel sounds Ongoing acrocyanosis. 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
--- NOTE | 2018-07-16 18:08 | HOSPPROG ---
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 Per Onc, anti-PD1 therapy followed by BRAF /MEK inhibitors can result in multisystem organ failure from diffuse inflammatory mechanism of action -s/p tocilizumab, cont current high dose hydrocortisone q8 -appreciate ongoing oncology consult # Ischemic digits. Acute, 2/2 pressors, cont nitro paste # Shock. Likely distributive from cytokine release syndrome, but, given severity of illness, cover for potential septic shock w/ IV Abx -off pressors -cont Vanc/Zosyn given critical illenss, all Cx data negative thus far # ATN. 2/2 shock, resulting in hypervolemia from anuria -ongoing CRRT, experiencing some e/o renal recovery today w/ 400ml UOP s/p lasix , cont dosing -monitor lytes closely as may begin experiencing post-ATN diuresis -appreciate ongoing renal consult # Acute metabolic encephalopathy. Evidenced by poor cog response when sedation weaned, likely 2/2 metabolic effects of uremia and acidosis -HCT unremarkable, will get brain MRI if remains unresponsive after metabolic derangements resolved -counseled family that sedation lingers w/ ATN, but will continue to intermittently lighten and gauge effect # NSTEMI. Suspect Type II w/ trop 20, but no focal wall motion abnl on Echo -hold on cath given renal failure and unclear whether he will have recoverable functional status -will require cardiac risk strat prior to DC if he otherwise recovers # Severe mitral regurgitation. Recommend repeat Echo after recovery from critical illness # Acute metabolic acidosis. 2/2 lactic acid (shock) and uremia (ATN), on CRRT # Acute diastolic CHF exacerbation. Evidenced by bilat pleural effusion on CXR and worsening air space disease on today's CXR -cont CRRT w/ increase in vol removal 2/2 worsening infiltrates on CXR # Hyperglycemia. 2/2 stress response from above, stopped insulin gtt and ordered q4h checks # Acute hypoxic respiratory failure. 2/2 shock and metabolic derangements above w/ resultant effusions, currently requiring vent support -1hr wean trial demonstrating tachypnea w/ RR 30s, expected w/ his degree of pulmonary vascular congestion # Diarrhea. Neg CDiff # Metastatic melanoma. S/p Taflinar and Mekinist, currently holding given current condition Diet. TF w/ residual on rounds, holding PPx. High risk, hep SC Code. Full Dispo. ADD uncertain, remains critically ill 30 minutes of critical care time spent w/ patient at bedside, on team rounds w/ family, and coordinating care w/ Dr. Kurtz, specifically addressing his ongoing shock, renal failure, CHF w/ resp failure as above, which render him critically ill w/ high risk for worsening morbidity and mortality. Subjective: TF w/ residuals, rectal tube placed for ongoing stool output Objective: Vital Signs Temp Pulse Resp BP Pulse Ox 36.0 C 77 21 H 98/66 L 96 07/16/18 14:00 07/16/18 17:00 07/16/18 17:00 07/16/18 17:00 07/16/18 17:00 Microbiology 07/16/18 15:30 - Final Sputum, Expectorated Laboratory Results 07/16/18 04:15 07/16/18 15:45 07/15/18 07/16/18 07/17/18 05:59 05:59 05:59 Intake Total 301 Output Total 99 2124 550 Balance -99 -1823 -550 PT 17.6 SEC (12.0-15.0) H 07/15/18 04:20 INR 1.43 (0.83-1.16) H 07/15/18 04:20 - Physical Exam Constitutional: not in pain, No uncomfortable Eyes: other (constricted pupils) Cardiovascular: systolic murmur (II/ at base), edema (trace all extremities), other (2+ radialis/dorsalis pedis), No irregularly irregular, No tachycardia Respiratory: inspiratory crackles (bilat but improved air movement from day prior), No expiratory wheeze, No bronchial breath sounds, No respiratory distress Gastrointestinal: other (rectal tube in place), No normoactive bowel sounds ( hypoactive bowel sounds), No distension Skin: other (necrosis bilat fingers) Psychiatric: other (sedated) ICD10 Worksheet Patient Problems: Problems Problem Status Onset Melanoma 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
[2018-07-16] MEDS: MAGNESIUM SULF 2 GM/WATER 50 ML IV PRN (22:45)
[2018-07-17] MEDS: REPL FLUID TYPE D CAPS 1 EA in WATER FOR INJECTION,STERILE 4,000 ML DIAL SCH ×5 (00:03→13:57)
[2018-07-17] MEDS: NS 1,000 ML MISC SCH ×3 (00:03→09:45)
[2018-07-17] MEDS: B22GK4/0 PRISMASATE 5,000 ML DIAL SCH ×6 (00:03→17:25)
[2018-07-17] MEDS: INSULIN REGULAR HUMAN 100 UNIT/ML UNIT SC SCH ×6 (01:01→21:41)
[2018-07-17] MEDS: PROPOFOL/EMULSION 100 ML IV SCH ×2 (03:20→05:59)
[2018-07-17 04:09] LABS: PLATELET COUNT 76 10^3/uL (150-400)
[2018-07-17] MEDS: NITROGLYCERIN 2% 1 GM PACKET TP SCH ×3 (06:03→17:22)
[2018-07-17] MEDS: CALCIUM CHLORIDE 5.7 GM in NS 1,000 ML IV SCH (06:04)
[2018-07-17] MEDS: HYDROCORTISONE 100 MG/2 ML VIAL IVP SCH ×3 (06:04→21:26)
[2018-07-17] MEDS: methylPREDNISolone SOD SUCC 125 MG/2 ML VIAL IVP SCH ×3 (06:04→17:22)
[2018-07-17] MEDS: PIPERACILLIN/TAZO 2.25 GM/DEX 50 ML IV SCH ×3 (06:04→19:15)
--- NOTE | 2018-07-17 08:47 | SOAPPROG ---
SOAP Progress Note Assessment/Plan: A/P: 1. Metastatic melanoma, responding to BRAF inhibitor. 2. Multiorgan failure, characterized by acute renal failure, hypotension, altered mental status, fever, abnormal LFTs. 3. Severe neutrophilia Apparent cytokine release syndrome. This has been described in patients who received anti-PD1 therapy followed by BRAF/MEK inhibitors for melanoma. Pt still critically ill but improving. Off pressors, mental status showing signs of improvement. Tocilizumab received 07/13. Recs: - continue high dose steroids (hydrocortisone, methylpred) - no indication for additional tocilizumab right now (does not have good HELP DESK ADMINISTRATOR penetration and encephalopathy is the remaining issue to show improvement) - consider LP +/- MRI if mental status does not continue to improve. Although this syndrome seems more consistent w/ CRS (cytokine release syndrome), there is some overlap with HLH ((rather than hemophagocytic lymphohistiocytosis), and one could consider HELP DESK ADMINISTRATOR-directed therapy (eg intrathecal methotrexate) if there are HELP DESK ADMINISTRATOR findings indicative of HLH. Reviewed with family, Dr. Kurtz, RN, and pharmacy 07/17/18 08:43 Subjective: Intubated, sedated. improving MS per nursing. O: VS reviewed. >900 cc UO Gen: intubated, sedated. Lungs: mechanical BS. CV: RRR, diffuse edema. Abd: soft. Ext: vascular changes toes (likely post-pressor), good perfusion. Neuro: sedated. Labs: Laboratory Tests 07/15/18 07/17/18 07/17/18 21:56 04:00 04:00 WBC 19.71 H Hgb 9.0 L Plt Count 76 L Sodium 137 Potassium 3.9 Chloride 106 Carbon Dioxide 22 BUN 43 H Creatinine 2.0 H Glucose 131 H C. 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
--- NOTE | 2018-07-17 09:23 | SOAPPROG ---
SOAP Progress Note Assessment/Plan: Assessment: CONSUELO due to ATN (cytokine storm after chemotherapy causing shock) -has been on CRRT and tolerating 150cc/hour net negative currently-- plans to transition to intermittent HD later this afternoon or early am (will continue CRRT this morning- ok to stop when clots or this evening whichever first). While his UOP is increasing, I want to get more volume off to help with resp status and thus will HD tonight or in morning. -if still needing HD by Friday, we should ask IR to place new line (has femoral line in now) Acute hypoxic respiratory failure on vent- pulm edema and pleural effusion on CXR, on 40%FIO2 -volume up and continue to UF on dialysis as tolerates shock, now off pressors metastatic melanoma, s/p chemotherapy I discussed with ICU MD/RN and family and manager of learning Dr. Tejeda business development professional for weekend Marissa Patiño MD [facility] pager [phone] 07/17/18 10:14 Subjective: Seen on CRRT- getting 150 cc net off per hour and tolerating well. Remains off pressors. On 40% FIO2, CXR improved. Awake. UOP picking up. Family at bedside and I updated them on status. Objective: Vital Signs Temp Pulse Resp BP Pulse Ox 36.2 C 80 28 H 121/90 H 100 07/17/18 07:00 07/17/18 07:47 07/17/18 07:47 07/17/18 07:00 07/17/18 07:47 Microbiology 07/16/18 15:30 - Final Sputum, Expectorated Laboratory Results 07/17/18 04:00 07/17/18 08:20 07/16/18 07/17/18 07/18/18 05:59 05:59 05:59 Intake Total 301 Output Total 2124 1870 1722 Balance -1823 -1870 -1722 PT 17.6 SEC (12.0-15.0) H 07/15/18 04:20 INR 1.43 (0.83-1.16) H 07/15/18 04:20 Physical Exam - Physical Exam General Appearance: other (intubated, awake) Respiratory: other (coarse bs on vent bilat) Cardiac/Chest: regular rate, rhythm, other (no rub) Abdomen: normal bowel sounds, non-tender, soft Skin: warm/dry Extremities: other (+edema, +mottling of toes bilat) Neuro/Psych: other (awake) ICD10 Worksheet Patient Problems: Problems Problem Status Onset Melanoma 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
[2018-07-17] MEDS: fentaNYL 100 MCG/2 ML INJ IVP PRN ×2 (09:40→21:26)
[2018-07-17] MEDS: SODIUM CL 0.9% IVP SCH (09:45)
[2018-07-17] MEDS: CHLORHEXIDINE GLUCONATE 15 ML UDL PO SCH ×2 (09:45→21:27)
[2018-07-17] MEDS: PANTOPRAZOLE SODIUM 40 MG VIAL IVP SCH (09:45)
[2018-07-17] MEDS: LEVOTHYROXINE IVP SCH (09:45)
[2018-07-17] MEDS ORDERED: FUROSEMIDE 40 MG/4 ML VIAL IVP ONE ×2 (10:17→15:21)
[2018-07-17] MEDS: SENNOSIDES 17.6 MG/10 ML UDL TUBE SCH (11:04)
--- NOTE | 2018-07-17 12:40 | PDCARPN ---
Cardiology Progress Note Assessment/Plan: Assessment/plan: 53-year-old male with metastatic melanoma transferred from [facility] 07/12 with shock, positive troponin, acute renal failure. Echo with mildly reduced ejection fraction, subtle inferior hypokinesis and moderate mitral regurgitation. 1. Shock. Overall improving, now off pressors. Clinically this is most likely distributive shock related to his oral chemotherapy with kinase inhibitors/ cytokine release. He is being seen by Oncology. He did receive IL-6 blockade 07/12. Cardiogenic seems much less likely. However, his mitral regurgitation may be contributing. Holding off on AVELINA as hemodynamics are improving and he is now responding to lasix. 2. Positive troponin. His peak is 20. He also has inferolateral ST elevation. My clinical suspicion is that he may have a focal myocarditis (with possible papillary muscle involvement and resultant MR) and probably not obstructive coronary disease. There is also some component of troponin leak related to his hypotension, renal failure, and cytokine mediated picture. In May he was treated with an immune checkpoint inhibitor, but this would be very late onset to be attributed to myocarditis specifically related to immune checkpoint inhibitor therapy. He is being treated with steroids. Coronary angiogram is contraindicated at this time given his renal failure. 3. Acute renal failure: He is now on CRRT, but this will likely be stopped this evening. Good UOP with lasix. 4. Moderate MR: maybe papillary muscle dysfunction combined with volume overload. Follow with TTE. No clinical evidence of endocarditis. 5. Elevated white count, low platelets, low hematocrit: No active bleeding. 6. Acrocyanosis: Related to pressors. Topical nitroglycerin. 7. Melanoma: Per Oncology. 8. Abnormal CXR: CHF vs pna. On abx. Agree with continued lasix. 07/17/18 12:36 Subjective: Intubated. Reviewed/Discussed With: family (Dr. Kurtz), multidisciplinary team Objective: Vital Signs (8 Hrs) Temp Pulse Resp BP Pulse Ox 07/17/18 12:00 35.9 C L 74 20 114/95 H 98 07/17/18 11:00 82 28 H 126/79 H 99 07/17/18 10:00 75 20 116/74 98 07/17/18 09:00 82 24 H 124/84 H 100 07/17/18 07:47 80 28 H 100 07/17/18 07:00 36.2 C 83 32 H 121/90 H 100 07/17/18 06:00 36.5 C 79 29 H 118/84 H 100 07/17/18 05:00 74 21 H 112/81 H 100 07/17/18 04:50 80 30 H 100 Intake/Output (24 Hrs) 07/16/18 07/17/18 07/18/18 05:59 05:59 05:59 Intake Total 301 Output Total 0415 3048 9706 Balance -4560 -3221 -6921 Intake: IV Intake (ml) 56 IV Infused (ml) 245 Calcium Chloride 5.7 gm 64 In Ns 1,000 ml @ Per Protocol IV AD MEG Rx#: [id number] D5w 1,000 ml @ 25 mls/hr 0 IV CONT MEG Rx#: [id number] Insulin Regular Human 100 0 unit In Ns 100 ml @ Per Protocol IV CONT MEG Rx#: [id number] Norepinephrine Bitartrate 0 16 mg In Ns 250 ml @ Per Protocol IV CONT MEG Rx# :[id number] POTASSIUM Cl (KCl) 50 ml 45 @ 25 mls/hr IV PRN PRN Rx #:[id number] Propofol/Emulsion 100 ml 24 @ Titrate IV CONT MEG Rx# :[id number] Sodium Phos 20 mm In D5w 112 250 ml @ 64.167 mls/hr IV PRN PRN Rx#:[id number] Output: Urine (ml) 525 900 Catheter 525 900 Liquid Stool (ml) 300 Incontinence 300 Dialysis Fluid Removed 2589 952 3805 Other: Weight 96.9 kg Number of Stools Incontinence 2 Turns had an open size when his name is said. 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
--- NOTE | 2018-07-17 14:01 | PDINTPN ---
Aviation Safety Officer Progress Note Assessment/Plan: 53 M with relatively recent diagnosis of malignant melanoma, treated with Tafinlar and Mekinist oral chemotherapy complicated by fever and diarrhea. He was admitted to [facility] 07/11/18 with severe lethargy as well as CONSUELO with severe hypotension requiring pressors (levophed, alhaji, vasopressin) and intubation after arrival in the ICU. The intubation was reported as difficult, requiring at first a small airway followed by upsizing the ETT to 7.5 with a tube exchanger. He was also treated with multiple antibiotics including both po and IV vanco, Zosyn, micafungin, and flagyl. He was reportedly aggressively hydrated with up to 8 liters of IVF, but his renal function and acidosis remained severely abnormal so he was transferred to [facility] for CRRT. He was sedated on a versed drip prior to transfer as well, but this was not continued as he was quite sedated. An HD catheter was placed in the right CFV by surgery without complication and a CT of his chest/abdomen/pelvis did not reveal any significant pathology. Concern was raised by heme/onc about possible cytokine release syndrome, which has been documented with various newer generation chemo agents. * Severe septic shock versus cytokine release syndrome (vs HLH variant)- he is clearly better from most perspectives today- his mental status is dramatically better with following commands, etc. His respiratory status has imp[roved with diuresis and his renal function appears to be recovering with good oup. I have found no clear guidelines about tapering steroids for this disease, other than "as quickly as possible." He is getting 240 mg/d of solumedrol at this point, so I would taper this over about a week- eg reduce to 60 bid for about 2 days, then 60/d x 2, then 40 x2, then 20 x 2, then dc. His adrenal insufficiency will be well covered by the hydrocortisone, which I would reduce to his outpatient dose at the completion of the taper. * * CONSUELO presumably related to hypotensive related ATN and/or his chemo. his uop has picked up quite a bit, perhaps from lasix but suspect recovery. Agree with renal plans for transition to intermittent HD and hope to avoid additional catheter. * * Troponin- peaked at 20, down to [address] elevation in inferior/lateral leads. Doubt CAD with few CRFs and cath contraindicated at this time given CONSUELO and low yield. is moderate to severe on echo from [facility] so cards considering AVELINA, but waiting for now. No evidence of endocarditis, but may have focal myocarditis. No Takotsubo and EF 55%. Repeat TTE results pending. * * Altered MS- I suspect toxic-metabolic ecephalopathy, and his head CT shows only improved sinusitis compared to MRI on 06/18/18 (which was normal except sinusitis). MUCH better today. Doubt LP or intrathecal therapy is needed * * Acute respiratory failure with hypoxia- significant change in CXR infiltrates - PNA vs CHF and/or capillary leak related to CRS. Responded well to lasix 40 mg. Agree with ongoing diuresis as tolerated. Creatinine down and CXR better. * * LFTs- pericholic fluid- abdominal US shows some GB sludge and GB thickening without stones. Doubt this is the source of sepsis and no PCT indicated. Continue to follow LFTs which are more reflective of his chemo and/or shock liver. Continues to improve as does coagulopathy * * Cyanosis- likely related to high dose pressors, complicated by right radial art line. Continue to apply topical NTG in attempt to spare his digits.See above concerning albumin. RUE still looks concerning distally and feet look a bit worse today. Continue NTG topical * * Thrombocytopenia- likely related to sepsis/DIC. Platelets were normal 06/01/18 and 120 on admission at [facility]. Holding SC heparin and monitor. No obvious bleeding. Doubt HIT. Continues to improve. * * INR reduced from 2.18 to 1.65 to 1.43 * DVT/GI prophylaxis- on SCDs and protonix * DNR status- full code. * * critical care time 35 minutes, including discussion with both night and day shift nursing staff, charge nurse, and RT. Discussed with at bedside. Dr. Kurtz will assume primary critical care attending as of 07/18/18. 07/17/18 13:43 Subjective: Stable overnight with improved mental status Objective: Vital Signs Temp Pulse Resp BP Pulse Ox 35.9 C L 76 27 H 124/82 H 96 07/17/18 12:00 07/17/18 13:00 07/17/18 13:00 07/17/18 13:00 07/17/18 13:00 Microbiology 07/16/18 15:30 - Final Sputum, Expectorated Laboratory Results 07/17/18 04:00 07/16/18 07/17/18 07/18/18 05:59 05:59 05:59 Intake Total 301 Output Total 6204 4916 1725 Balance -1823 -1870 -1722 PT 17.6 SEC (12.0-15.0) H 07/15/18 04:20 INR 1.43 (0.83-1.16) H 07/15/18 04:20 Physical Exam - Physical Exam General Appearance: alert, no apparent distress EENT: PERRL/EOMI, ET tube Neck: supple Respiratory: lungs clear, normal breath sounds, decreased breath sounds, No respiratory distress, No accessory muscle use, No rhonchi Cardiac/Chest: regular rate, rhythm, edema Abdomen: non-tender, soft, No distended Skin: warm/dry, cyanosis (RUE about the same, but bilateral LE cyanosis a bit worse) Lymphatic: no adenopathy Extremities: pedal edema Neuro/Psych: alert, cognition abnormalities, No abnormal colored liquid plastic applier II-XII ICD10 Worksheet Patient Problems: Problems Problem Status Onset Melanoma 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
--- NOTE | 2018-07-17 15:45 | ECHO ---
[email or web address] [address] [address] Main: [phone] Fax: Transthoracic Echocardiogram Name: AXEL MARTINEZ MR#: [id number] Study Date: 07/17/2018 Study Time: 07:58 AM Date of : 1965 Age: 53 year(s) Height: 182.9 cm (72 in.) Weight: 101.15 kg (223 lb.) BSA: 2.23 m2 Gender: Male Examination: Echo Indication: re-evaluate LV systolic function and MR Image Quality: Adequate Contrast: Requested by: Dominga Tobin BP: 126 mmHg/82 mmHg Heart Rate: Rhythm: Indication: re-evaluate LV systolic function and MR Procedure Staff Diagrammer And Seamer: Estefania Horne [facility] Reading Physician: Dominga Tobin MD Requesting Provider: Conclusions: Left ventricle upper limits of normal. No LV hypertrophy. Mildly reduced systolic LV function. EF is 42 %. Subtle inferior hypokinesis. Normal size right ventricle. Normal RV function. The left atrium is normal in size. The right atrium is borderline dilated. Moderate mitral valve regurgitation is present. Trivial to mild tricuspid valve regurgitation. Right ventricular systolic pressure measures 34mmHg. Mild pulmonic valve regurgitation is noted. Compared directly to prior study dated 07/12/2018 LV systolic function is slightly reduced. Subtle inferior hypokinesis is more pronounced. Degree of mitral regurgitation is mildly improved. Measurements: Chambers Valvular Assessment AV/MV Valvular Assessment TV/PV Normal Normal Normal Name Value Range Name Value Range Name Value Range Ao Sabina (MM): 3.8 cm (2.2 cm-3.7 AV Vmax: 0.81 m/s (1 m/s-1.7 TR Vmax: 2.45 mm/s ( - ) cm) m/s) TR PGmax: 24 mmHg ( - ) IVSd (2D): 1.0 cm (0.6 cm-1.1 AV maxP mmHg ( - ) syst. PAP: 34 mmHg ( - ) cm) AV meanP mmHg ( - ) PV Vmax: 0.65 m/s (0.6 m/s-0.9 LVDd (2D): 5.6 cm (4.2 cm-5.9 BARBARA (VTI): 2.7 cm ( - ) m/s) cm) MV E Vmax: 0.76 m/s ( - ) PV PGmax: 2 mmHg ( - ) LVDs (2D): 4.3 cm (2.1 cm-4 MV A Vmax: 0.41 m/s ( - ) cm) MV E/A: 1.85 ( - ) LVPWd (2D): 1.2 cm (0.6 cm-1 cm) MV meanP mmHg ( - ) MVA (Vmax): 5.2 m/s ( - ) Patient: AXEL MARTINEZ Study Date: 07/17/2018 Page 1 of 2 07:58 AM LVOTd 2.3 cm 2.3 cm mm LVEF (BP): 42 % (>=55 %) RVDd(2D): 3.9 cm (1.9 cm-3.8 cmmm) Continued Measurements: Chambers Valvular Assessment AV/MV Valvular Assessment TV/PV Name Value Name Value Name Value LADs: 3.4 cm MV Annulus: 3.9 cm CVP (est.): 10 mmHg LADs Lon.7 cm MV DecTime: 141 m/s LA Area: 24.1 cm2 MV E' Septal: 0.06 m/s LA Volume: 60 ml MV E/E' Septal: 11.90 LA Volume Index: 26.9 ml/m2 MV E/E' Lateral: 8.30 TAPSE: 2.2 cm MV VTI: 9.42 cm RA Area: 18.8 cm2 MR Vena Contracta: 0.5 cm MR ERO: 0.200 cm2 MR PISA radius: 7 mm MR Reg. Volume: 35 ml MR Reg. Fraction: 31 % Findings: Left Ventricle: Left ventricle upper limits of normal. No LV hypertrophy. Mildly reduced systolic LV function. EF is 42 %. Subtle inferior hypokinesis. Right Ventricle: Normal size right ventricle. Normal RV function. Left Atrium: The left atrium is normal in size. Right Atrium: The right atrium is borderline dilated. Mitral Valve: There is mild thickening of the mitral valve leaflets. Moderate mitral valve regurgitation is present. No mitral stenosis is present. ERO = .20cm2 Aortic Valve: The aortic valve is tri-leaflet. There is mild thickening of the aortic cusps. Trivial aortic valve regurgitation. No aortic valve stenosis is present. Tricuspid Valve: The tricuspid valve is normal in appearance and function. Trivial to mild tricuspid valve regurgitation. Right ventricular systolic pressure measures 34mmHg. The pulmonary artery pressure is normal. Pulmonic Valve: Pulmonary valve not well visualized. Mild pulmonic valve regurgitation is noted. Aorta: Normal size aortic root measuring 3.8 cm. Ascending aorta not well visualized. IVC: The IVC is dilated. Patient is on a ventilator. (No Signature Object) Patient: AXEL MARTINEZ Study Date: 07/17/2018 Page 2 of 2 07:58 AM [id number]
--- NOTE | 2018-07-17 16:58 | HOSPPROG ---
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 Per Onc, anti-PD1 therapy followed by BRAF /MEK inhibitors can result in multisystem organ failure from diffuse inflammatory mechanism of action -s/p tocilizumab, cont current high dose hydrocortisone q8 -appreciate ongoing oncology consult # Acute diastolic CHF exacerbation. Evidenced by bilat pleural effusion on CXR, improving w/ increased CRRT vol removal (150/hr o/n) + diuresis -cont vol removal on HD # Acute hypoxic respiratory failure. 2/2 shock, dCHF, and cytokine release -air movement on exam improving today w/ net neg 1.9 o/n -mentation also improving, will cont trial weans and lightened sedation daily # Shock. Likely distributive from cytokine release syndrome, but, given severity of illness, cover for potential septic shock w/ IV Abx -cont Vanc/Zosyn given critical illenss, all Cx data negative thus far # ATN. 2/2 shock, resulting in hypervolemia from anuria, demonstrating e/o renal recovery w/ increasing UOP -appreciate ongoing renal consult, recommending finish CRRT today and adjust to HD given stable BPs off pressors -cont dosing IV lasix # NSTEMI. Suspect Type II w/ trop 20, per Dr. Tobin, subtle wall motion abnl on Echo, does not recommend cath (given ATN) -will require cardiac risk strat prior to DC if he otherwise recovers # Acute metabolic encephalopathy. 2/2 metabolic effects of uremia and acidosis, improving today when sedation lightened w/ some directability # Ischemic digits. Acute, 2/2 pressors, cont nitro paste # Moderate mitral regurgitation. TTE d/w Dr. Tobin, does not recommend AVELINA given that his hemodynamics are currently responding to lasix # Acute metabolic acidosis. 2/2 lactic acid (shock) and uremia (ATN), on CRRT # Hyperglycemia. 2/2 stress response from above, stopped insulin gtt and ordered q4h checks # Diarrhea. Neg CDiff, rectal tube in, getting CT abd today to eval for ileus, may start reglan if (+) # Metastatic melanoma. S/p Taflinar and Mekinist, currently holding given current condition Diet. Holding TF, planning extubation over next 24-48hrs PPx. High risk, hep SC Code. Full Dispo. ADD uncertain, remains critically ill 35 minutes of critical care time spent w/ patient at bedside, on team rounds w/ family, and coordinating care w/ Dr. Kurtz, specifically addressing his ongoing shock, renal failure, CHF w/ resp failure as above, which render him critically ill w/ high risk for worsening morbidity and mortality. Subjective: patient tracking some when sedation lightened Objective: Vital Signs Temp Pulse Resp BP Pulse Ox 36.1 C 82 24 H 114/75 97 07/17/18 14:00 07/17/18 15:57 07/17/18 15:57 07/17/18 15:00 07/17/18 15:57 Microbiology 07/16/18 15:30 - Final Sputum, Expectorated Laboratory Results 07/17/18 04:00 07/16/18 07/17/18 07/18/18 05:59 05:59 05:59 Intake Total 301 Output Total 2124 1870 1722 Balance -1823 -1870 -1722 PT 17.6 SEC (12.0-15.0) H 07/15/18 04:20 INR 1.43 (0.83-1.16) H 07/15/18 04:20 - Physical Exam Constitutional: not in pain, No uncomfortable Eyes: other (spontaneously opening eyes, pupils less constricted) Cardiovascular: systolic murmur (I/ at base), edema (trace bilat LE), No irregularly irregular, No tachycardia Respiratory: inspiratory crackles (bilat, with better air movment than day prior ), other (on vent), No expiratory wheeze, No bronchial breath sounds, No respiratory distress Gastrointestinal: No normoactive bowel sounds (hypoactive), No tenderness, No distension Skin: other (dusky/necrosing bilat fingers) Neurologic: other (follows some one-step commands w/ hand squeeze) Psychiatric: other (sedated, somnolent, but arousable to tactile stimuli) ICD10 Worksheet Patient Problems: Problems Problem Status Onset Melanoma 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
[2018-07-17] MEDS: SODIUM CITRATE 4% 5 ML in SYRINGE 0 ML DIAL PRN (17:21)
[2018-07-17] MEDS: POTASSIUM Cl (KCl) 50 ML IV PRN (17:21)
[2018-07-18] MEDS: methylPREDNISolone SOD SUCC 125 MG/2 ML VIAL IVP SCH ×5 (00:51→23:31)
[2018-07-18] MEDS: NITROGLYCERIN 2% 1 GM PACKET TP SCH ×3 (00:51→12:24)
[2018-07-18] MEDS: PROPOFOL/EMULSION 100 ML IV SCH (00:52)
[2018-07-18] MEDS: PIPERACILLIN/TAZO 2.25 GM/DEX 50 ML IV SCH ×5 (00:52→23:32)
[2018-07-18] MEDS: INSULIN REGULAR HUMAN 100 UNIT/ML UNIT SC SCH ×4 (01:06→12:25)
[2018-07-18 05:31] LABS: PLATELET COUNT 133 10^3/uL (150-400)
[2018-07-18] MEDS: HYDROCORTISONE 100 MG/2 ML VIAL IVP SCH ×3 (06:29→21:30)
--- NOTE | 2018-07-18 08:26 | PDINTPN ---
Route Delivery Driver Progress Note Assessment/Plan: Assessment/plan: 53 M with relatively recent diagnosis of malignant melanoma, treated with Tafinlar and Mekinist oral chemotherapy complicated by fever and diarrhea. He was admitted to [facility] 07/11/18 with severe lethargy as well as CONSUELO with severe hypotension requiring pressors (levophed, alhaji, vasopressin) and intubation after arrival in the ICU. The intubation was reported as difficult, requiring at first a small airway followed by upsizing the ETT to 7.5 with a tube exchanger. He was also treated with multiple antibiotics including both po and IV vanco, Zosyn, micafungin, and flagyl. He was reportedly aggressively hydrated with up to 8 liters of IVF, but his renal function and acidosis remained severely abnormal so he was transferred to [facility] for CRRT. He was sedated on a versed drip prior to transfer as well, but this was not continued as he was quite sedated. An HD catheter was placed in the right CFV by surgery without complication and a CT of his chest/abdomen/pelvis did not reveal any significant pathology. Concern was raised by heme/onc about possible cytokine release syndrome, which has been documented with various newer generation chemo agents. * Severe septic shock versus cytokine release syndrome (vs HLH variant)- he is clearly better from most perspectives today- his mental status is dramatically better with following commands, etc. His respiratory status has improved with diuresis and his renal function appears to be recovering with good oup. I have found no clear guidelines about tapering steroids for this disease, other than "as quickly as possible." He is getting 240 mg/d of solumedrol at this point, we will taper over about a week to 60 bid for about 2 days, then 60/d x 2, then 40 x2, then 20 x 2, then dc. His adrenal insufficiency will be well covered by the hydrocortisone, which I would reduce to his outpatient dose at the completion of the taper. * CONSUELO presumably related to hypotensive related ATN and/or his chemo. his uop has picked up quite a bit, perhaps from lasix but suspect recovery. -Now on hemodialysis. * Troponin- peaked at 20, down to [address] elevation in inferior/lateral leads. Doubt CAD with few CRFs and cath contraindicated at this time given CONSUELO and low yield. MR is moderate to severe on echo from [facility] so cards considering AVELINA, but waiting for now. No evidence of endocarditis, but may have focal myocarditis. No Takotsubo and EF 55%. Repeat TTE results pending. * Altered MS- awake and alert * Acute respiratory failure with hypoxia- chest x-ray continues to improve with fluid removal from dialysis as well as Lasix -will likely extubate later on this morning * Abdominal distention/diarrhea-no evidence of ileus or obstruction on CT scan. Output per NG tube is diminished. Diarrhea has diminished as well. * Nutrition-will hold off until after extubation * LFTs- pericholic fluid- abdominal US shows some GB sludge and GB thickening without stones. Doubt this is the source of sepsis and no PCT indicated. Continue to follow LFTs which are more reflective of his chemo and/or shock liver. Gallbladder is increased in distension on recent CT scan -follow * Cyanosis- likely related to high dose pressors, complicated by right radial art line. Continue to apply topical NTG in attempt to spare his digits. RUE still looks concerning distally and feet look a bit worse today. Continue NTG topical -consider hand consult * Thrombocytopenia- resolved * INR -improving * DVT/GI prophylaxis- on SCDs and protonix * DNR status- full code. Overall markedly improved. 07/18/18 08:28 Subjective: Awake and alert. Answering yes and no questions. Comfortable on mechanical ventilation. Objective: Vital Signs Temp Pulse Resp BP Pulse Ox 36.5 C 79 22 H 116/81 H 96 07/18/18 07:00 07/18/18 07:00 07/18/18 07:00 07/18/18 07:00 07/18/18 07:00 Microbiology 07/16/18 15:30 - Final Sputum, Expectorated Laboratory Results 07/18/18 04:45 07/18/18 04:45 07/17/18 07/18/18 07/19/18 05:59 05:59 05:59 Intake Total 309 Output Total 1630 1522 Balance -1870 -4399 PT 17.6 SEC (12.0-15.0) H 07/15/18 04:20 INR 1.43 (0.83-1.16) H 07/15/18 04:20 - Time Spent With Patient Time Spent With Patient: 45 min of critical care time spent with patient Case discussed with respiratory therapy and nursing. Physical Exam - Physical Exam General Appearance: alert, no apparent distress EENT: PERRL/EOMI, ET tube Neck: non-tender, full range of motion, supple Respiratory: crackles (Bilateral), No respiratory distress, No wheezing Cardiac/Chest: systolic murmur Abdomen: normal bowel sounds, non-tender, soft Male Genitalia: deferred Rectal: deferred Skin: cyanosis, other ( tips of fingers right greater than left and toes equally. 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
[2018-07-18] MEDS ORDERED: SODIUM CITRATE 4% 4 ML in SYRINGE 0 ML DIAL ONE (08:30)
--- NOTE | 2018-07-18 09:17 | PDCARPN ---
Cardiology Progress Note Chief Complaint: No cardiovascular complaints this morning, however, possible mild chest discomfort is noted. Assessment/Plan: Assessment: Patient is a 53 y/o male with metastatic melanoma s/p chemotherapy (kinase inhibitors) with presentation from OSH in shock (thought secondary to therapies and cytokine release), with mild reduction in LVEF noted (echocardiography from JUL 09 estimating LVEF to 42%) and moderate mitral regurgitation. Troponin peak to 20, at the time of transfer with inferolateral ST elevation, which is now thought to be a focal myocarditis (which aligns, albeit late presentation, with immune checkpoint inhibitor use). Acute renal insufficiency noted, and initial treatment was CRRT. This treatment reportedly ended last night, and at present, the patient is undergoing HD with intent to remove 2 liters of fluid. Further plans, per staff report, for extubation later today. Pressors have been stopped (this has also allowed the removal of excess fluids by HD). Staff reporting that the patient is more responsive than he has been (this being my first day on service with the patient). Digital necrosis is noted secondary to pressor need given hypotension in shock presentation. Patient has not been taken to the cardiac labor and employment paralegal given the more pressing need for supportive measures and the acute renal insufficiency necessitating CRRT and HD. Plan: (1) From a cardiovascular perspective, no procedures are currently indicated (2) Would continue with plans for fluid dialysis and hopeful extubation (3) Cardiology will continue to follow patient with hospitalization (4) Further discussion with patient, family, and ashlyn care team, about what further information (coronary artery assessment) would be of use, without compromising the patient's forward momentum Subjective: Patient is awake and communicative (as much as possible with ET tube in place). Mild chest discomfort (?) is noted. Overall, patient is feeling fair. Reviewed/Discussed With: family, hospitalist, multidisciplinary team Objective: Vital Signs (8 Hrs) Temp Pulse Resp BP Pulse Ox 07/18/18 08:00 80 20 117/78 95 07/18/18 07:00 36.5 C 79 22 H 116/81 H 96 07/18/18 06:00 82 126/76 H 07/18/18 04:20 89 96 07/18/18 04:00 92 18 121/82 H 98 07/18/18 02:00 85 18 119/70 98 Intake/Output (24 Hrs) 07/17/18 07/18/18 07/19/18 05:59 05:59 05:59 Intake Total 309 Output Total 1870 4743 Balance -0750 -2508 Intake: IV Intake (ml) 309 Output: Urine (ml) 900 1200 Catheter 900 1200 Liquid Stool (ml) 100 Catheter 100 Dialysis Fluid Removed 970 3158 Emesis (ml) 150 OG Tube Output (ml) 100 Large Bore (>12 Cambodian) 100 Non-weighted Stomach [place] Sump Other: Weight 96.9 kg Result Diagrams: 07/18/18 04:45 07/18/18 04:45 Telemetry: normal sinus rhythm at 70-75 bpm Echocardiogram: LVEF at 42% with moderate MR - Physical Exam Constitutional: other (Intubated and with relative comfort. No cassandra pains noted) Eyes: PERRL, EOMI Ears, Nose, Mouth, Throat: moist mucous membranes Cardiovascular: regular rate and rhythm, systolic murmur, pulses symmetric bilat , No jugular vein distention Peripheral Pulses: 2+: dorsalis-pedis (R), dorsalis-pedis (L) Respiratory: other (course breath sounds. 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
--- NOTE | 2018-07-18 09:30 | HOSPPROG ---
Hospitalist Progress Note Assessment/Plan: # shock - likely distributive from cytokine release syndrome; also consider cardiogenic vs septic vs HLH - off pressors - will wean abx today as septic seems less likely - mild increaser in leukocytosis - otherwise clinically improving # likely cytokine release syndrome, possible HLH - received tocilizumab, cont high dose steroids (weaning plan per Dr Benz's note) # acute renal failure - d/t shock; making urine - on intermittent HD # neuro, toxic metabolic encephalopathy - much improved # ischemic digits - d/t hypotension, pressors # cardiac - severe MR, markedly elevated trop and abn ECG - no procedures currently planned # pulm - remains intubated - wean today, possible extubation # endo - hyperglycemic, had AI from melanoma tx - currently on SC insulin - hydrocort # metastatic melanoma - treated with Taflinar and Mekinist # dvt ppx - start heparin sc Subjective: alert, responding appropriately Objective: Vital Signs Temp Pulse Resp BP Pulse Ox 36.5 C 80 20 117/78 95 07/18/18 07:00 07/18/18 08:00 07/18/18 08:00 07/18/18 08:00 07/18/18 08:00 Microbiology 07/16/18 15:30 - Final Sputum, Expectorated Laboratory Results 07/18/18 04:45 07/18/18 04:45 07/17/18 07/18/18 07/19/18 05:59 05:59 05:59 Intake Total 309 Output Total 1870 4708 Balance -1870 -4399 PT 17.6 SEC (12.0-15.0) H 07/15/18 04:20 INR 1.43 (0.83-1.16) H 07/15/18 04:20 40 mins CC time - Physical Exam Constitutional: other (intubated) Ears, Nose, Mouth, Throat: hearing normal Cardiovascular: regular rate and rhythym, no murmur, rub, or gallop Respiratory: no rales or rhonchi, clear to auscultation Gastrointestinal: soft, non-tender abdomen, no palpable masses, No guarding, No rebound, No distension ICD10 Worksheet Patient Problems: Problems Problem Status Onset Melanoma 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
[2018-07-18] MEDS: CHLORHEXIDINE GLUCONATE 15 ML UDL PO SCH ×2 (09:52→21:00)
--- NOTE | 2018-07-18 10:54 | SOAPPROG ---
SOAP Progress Note Assessment/Plan: Assessment/Plan: 53 y/o M with metastatic melanoma on chemotherapy with sepsis transfer from [facility] for CONSUELO requiring CRRT. CONSUELO due to ATN (cytokine storm after chemotherapy causing shock) -off CRRT and did iHD today -continue to monitor UO, 1200ml yesterday -hoping for renal recovery, continue daily assessment -would pull groin catheter, will get IR to place new one if still needs Friday -keep MAP>65, avoid nephrotoxins Acute hypoxic respiratory failure- -extubated -UF as above -would hold diuretics for now BMD -phos low -monitor ionized calcium and replete as needed -renal diet once taking po Acidosis -bicarb stable post HD -continue to monitor Will continue to follow, please contact with ?'s #[phone]. 07/18/18 11:47 Subjective: Patient awake! Family at bedside. States he is doing better. Pulled 2L on HD today. Objective: Vital Signs Temp Pulse Resp BP Pulse Ox 36.4 C 80 22 H 118/81 H 96 07/18/18 10:00 07/18/18 10:50 07/18/18 10:00 07/18/18 10:00 07/18/18 10:50 Microbiology 07/16/18 15:30 - Final Sputum, Expectorated Laboratory Results 07/18/18 04:45 07/18/18 04:45 07/17/18 07/18/18 07/19/18 05:59 05:59 05:59 Intake Total 309 Output Total 1870 4708 Balance -1870 -4399 PT 17.6 SEC (12.0-15.0) H 07/15/18 04:20 INR 1.43 (0.83-1.16) H 07/15/18 04:20 Physical Exam - Physical Exam General Appearance: WD/WN, alert, mild distress EENT: PERRL/EOMI Neck: non-tender, full range of motion, supple Respiratory: decreased breath sounds Cardiac/Chest: regular rate, rhythm Abdomen: normal bowel sounds, non-tender, soft Skin: warm/dry, other (digits necrotic) Extremities: normal range of motion, non-tender Neuro/Psych: normal mood/affect, oriented x 3 ICD10 Worksheet Patient Problems: Problems Problem Status Onset Melanoma 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
[2018-07-18] MEDS: SODIUM CL 0.9% IVP SCH (11:11)
[2018-07-18] MEDS: PANTOPRAZOLE SODIUM 40 MG VIAL IVP SCH (11:11)
[2018-07-18] MEDS: LEVOTHYROXINE IVP SCH (11:11)
--- NOTE | 2018-07-18 11:21 | SOAPPROG ---
SOAP Progress Note Assessment/Plan: Assessment: 1) Metastatic melanoma with recent therapuetic change (immunotherapy ---> BRAF/ MEK inhibition) 2) Cytokine release syndrome Tocilizumab given 07/13 3) Septic shock 4) Acute renal failure 5) Resp failure-- now extubated. Plan: Patient has clearly improved. He is now off of pressors, and was succesfully extubated this AM. His mental status is clearing. He answers simple questions appropriately and is oriented. I agree with Dr. Kurtz, that there are no real guidelines in terms of tapering the methylprednisilone. I think that a taper could be initiated tomorrow. He is on 60 mg Q 6. Perhaps this could be lowered to 40 mg Q6 tomorrow. No indication for a second dose of Tocilizumab given the improvement. Continue supportive care. Intermittant dialysis per renal service. Care plan d/w patient and family. Questions answered. 07/18/18 11:17 07/18/18 11:21 Subjective: Extubated this AM. Family (, brother, sister in law) at bedside. Objective: Vital Signs Temp Pulse Resp BP Pulse Ox 36.4 C 80 22 H 118/81 H 96 07/18/18 10:00 07/18/18 10:50 07/18/18 10:00 07/18/18 10:00 07/18/18 10:50 Microbiology 07/16/18 15:30 - Final Sputum, Expectorated Laboratory Results 07/18/18 04:45 07/18/18 04:45 07/17/18 07/18/18 07/19/18 05:59 05:59 05:59 Intake Total 309 Output Total 1870 1591 Balance -1870 -4399 PT 17.6 SEC (12.0-15.0) H 07/15/18 04:20 INR 1.43 (0.83-1.16) H 07/15/18 04:20 - Time Spent With Patient Time Spent With Patient: 25 minutes Physical Exam - Physical Exam General Appearance: alert EENT: PERRL/EOMI Abdomen: non-tender, soft Extremities: other (several finger tips with evidence of ischemic change) Neuro/Psych: other (Answeres simple questions. 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
[2018-07-18] MEDS ORDERED: NS 1,000 ML IV SCH (12:30)
--- NOTE | 2018-07-18 13:10 | PDCONSULT ---
Milk Route Deliverer Note: Surgery consult requested by Dr. Kurtz 53 y/o male with metastatic melanoma admitted with MSOF felt due to cytokine release syndrome. He was intubated and started on dialysis and required pressors for hemodynamic support. He developed thrombocytopenia which is now resolving. He has developed infarcts of several digits on his hands and feet and surgical consult was requested. PMH: stage III melanoma umbilicus, s/p wide excision and right inguinal lymph node dissection 2018 subsequent local and distant recurrence while on Novilimab non-smoker, non-diabetic no hx vascular disease SH: to [place], 3 sons living at home PE: ill appearing male/recently extubated extemities: ischemia of tips of the index and long finger left hand and index finger right hand distal to the DIP ischemia of several toes both feet without skin break down radial, ulnar, posterior tibial and dorsalis pedis arterial pulses +2/+2 and symmetrical Imp: ischemic infarcts multiple upper/lower extremity digits embolic vs. ischemia due to vasoconstriction, HIT less likely Rec: symptomatic care ASA 325 mg po/pr daily avoid debridement unless infected superficial skin will likely demarcate in the next few weeks protect from cold
[2018-07-18] MEDS: ASPIRIN RECTAL 300 MG SUPP PR SCH (13:53)
[2018-07-18] MEDS: HEPARIN 5,000 UNIT/0.5 ML INJ SC SCH ×2 (14:34→21:30)
--- NOTE | 2018-07-18 15:45 | ASMTCMCOM ---
CM Note CM Note Notes: 07/18/2018 Case Management Note Discussed pt during rounds this morning. Family was present. Planning for extubation today. Pt has been unable to participate in PT or OT yet. Case Management d/c poc: to be determined. Case Management to follow. Date Signed: 07/18/2018 03:44 PM Electronically Signed By:Chantale Her RN
[2018-07-18] MEDS ORDERED: LORazepam 2 MG/ML INJ IVP ONE (23:28)
[2018-07-19 04:12] LABS: PLATELET COUNT 144 10^3/uL (150-400)
[2018-07-19 04:20] LABS: INR 1.55 (0.83-1.16); PROTIME(PATIENT) 18.7 SEC (12.0-15.0)
[2018-07-19] MEDS: methylPREDNISolone SOD SUCC 125 MG/2 ML VIAL IVP SCH ×2 (05:42→20:33)
[2018-07-19] MEDS: HYDROCORTISONE 100 MG/2 ML VIAL IVP SCH ×3 (05:44→20:33)
[2018-07-19] MEDS: PIPERACILLIN/TAZO 2.25 GM/DEX 50 ML IV SCH (05:47)
[2018-07-19] MEDS: HEPARIN 5,000 UNIT/0.5 ML INJ SC SCH ×3 (05:48→20:36)
[2018-07-19] MEDS: PANTOPRAZOLE SODIUM 40 MG VIAL IVP SCH (08:36)
--- NOTE | 2018-07-19 08:56 | SOAPPROG ---
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 Plan: Patient has clearly improved. He is now off of pressors, and was successfully extubated yesterday. His mental status seems near baseline this morning. He answers simple questions appropriately and is oriented. Case d/w Dr. Kurtz. Will begin steroid taper today as was outlined by Dr. Benz in a recent note. During the tapering process, a recurrent fever would represent a concern, and may be an indication to raise the steroid dose. No indication for a second dose of Tocilizumab given the improvement. Continue supportive care. Intermittent dialysis per renal service. Platelets now normal. Overall clinical picture is not c/w HIT. Care plan d/w patient and . Case d/w Dr. Kurtz. Questions answered. Subjective: Mental status improved today. Answers questions appropriately. at bedside. Digital ischemia evaluated by surgery yesterday. Supportive care recommended. Objective: Vital Signs Temp Pulse Resp BP Pulse Ox 36.8 C 73 21 H 112/86 H 93 07/19/18 07:55 07/19/18 07:55 07/19/18 07:55 07/19/18 07:55 07/19/18 07:55 Microbiology 07/16/18 15:30 - Final Sputum, Expectorated Laboratory Results 07/19/18 04:00 07/19/18 04:00 07/18/18 07/19/18 07/20/18 05:59 05:59 05:59 Intake Total 309 1408 Output Total 4708 550 Balance -4399 858 PT 18.7 SEC (12.0-15.0) H 07/19/18 04:00 INR 1.55 (0.83-1.16) H 07/19/18 04:00 - Time Spent With Patient Time Spent With Patient: 25 minutes Physical Exam - Physical Exam General Appearance: alert, no apparent distress EENT: PERRL/EOMI Respiratory: lungs clear Cardiac/Chest: regular rate, rhythm Abdomen: non-tender, soft Skin: other (digital ischemic changes affecting right index finger primarily, and other digits to a lesser degree) Neuro/Psych: alert, other (Answeres questions appropriately) ICD10 Worksheet Patient Problems: Problems Problem Status Onset Melanoma 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
[2018-07-19] MEDS: ASPIRIN RECTAL 300 MG SUPP PR SCH (09:09)
[2018-07-19] MEDS: CHLORHEXIDINE GLUCONATE 15 ML UDL PO SCH (09:09)
--- NOTE | 2018-07-19 09:09 | PDINTPN ---
Plating And Point Assembly Supervisor Progress Note Assessment/Plan: Assessment/plan: 53 M with relatively recent diagnosis of malignant melanoma, treated with Tafinlar and Mekinist oral chemotherapy complicated by fever and diarrhea. He was admitted to [facility] 07/11/18 with severe lethargy as well as CONSUELO with severe hypotension requiring pressors (levophed, alhaji, vasopressin) and intubation after arrival in the ICU. The intubation was reported as difficult, requiring at first a small airway followed by upsizing the ETT to 7.5 with a tube exchanger. He was also treated with multiple antibiotics including both po and IV vanco, Zosyn, micafungin, and flagyl. He was reportedly aggressively hydrated with up to 8 liters of IVF, but his renal function and acidosis remained severely abnormal so he was transferred to [facility] for CRRT. He was sedated on a versed drip prior to transfer as well, but this was not continued as he was quite sedated. An HD catheter was placed in the right CFV by surgery without complication and a CT of his chest/abdomen/pelvis did not reveal any significant pathology. Concern was raised by heme/onc about possible cytokine release syndrome, which has been documented with various newer generation chemo agents. * Severe septic shock versus cytokine release syndrome (vs HLH variant)- mostly resolved. I have found no clear guidelines about tapering steroids for this disease, other than "as quickly as possible." He is getting 240 mg/d of solumedrol at this point, we will taper over about a week to 60 bid for about 2 days, then 60/d x 2, then 40 x2, then 20 x 2, then dc. His adrenal insufficiency will be well covered by the hydrocortisone, which I would reduce to his outpatient dose at the completion of the taper. * CONSUELO presumably related to hypotensive related ATN and/or his chemo. his uop has picked up quite a bit, perhaps from lasix but suspect recovery. BUN creatinine up today -Now on hemodialysis. * Troponin- peaked at 20, down to [address] elevation in inferior/lateral leads. Doubt CAD with few CRFs and cath contraindicated at this time given CONSUELO and low yield. MR is moderate to severe on echo from [facility] so cards considering AVELINA, but waiting for now. No evidence of endocarditis, but may have focal myocarditis. No Takotsubo and EF 55%. Repeat TTE results pending. * Altered MS- awake and alert * Acute respiratory failure with hypoxia- stable off mechanical ventilation * Abdominal distention/diarrhea-no evidence of ileus or obstruction on CT scan. -DC rectal tube * Nutrition-speech to see. Anticipate regular diet today * LFTs- pericholic fluid- abdominal US shows some GB sludge and GB thickening without stones. Doubt this is the source of sepsis and no PCT indicated. Continue to follow LFTs which are more reflective of his chemo and/or shock liver. Gallbladder is increased in distension on recent CT scan -follow * Cyanosis- likely related to high dose pressors, complicated by right radial art line. Continue to apply topical NTG in attempt to spare his digits. RUE still looks concerning distally and feet look a bit worse today. Continue NTG topical -consider hand consult this week -aspirin added yesterday * PT/OT * Thrombocytopenia- resolved * INR -improving * DVT/GI prophylaxis- on SCDs and protonix * DNR status- full code. Continues to improve Subjective: Sitting up in bed. Awake and alert. Comfortable. Hungry. Affect a little flat. Objective: Vital Signs Temp Pulse Resp BP Pulse Ox 36.8 C 73 21 H 112/86 H 93 07/19/18 07:55 07/19/18 07:55 07/19/18 07:55 07/19/18 07:55 07/19/18 07:55 Microbiology 07/16/18 15:30 - Final Sputum, Expectorated Laboratory Results 07/19/18 04:00 07/19/18 04:00 07/18/18 07/19/18 07/20/18 05:59 05:59 05:59 Intake Total 309 1408 Output Total 4708 550 Balance -4399 858 PT 18.7 SEC (12.0-15.0) H 07/19/18 04:00 INR 1.55 (0.83-1.16) H 07/19/18 04:00 Chest [id number] by myself. Marked improvement in pulmonary edema after dialysis. Central line in good position. Some basilar atelectasis on the right. - Time Spent With Patient Time Spent With Patient: 35 min of time spent with patient, over 1/2 involved with coordination of care or counseling. Case discussed with Nursing and Oncology Physical Exam - Physical Exam General Appearance: alert, no apparent distress EENT: PERRL/EOMI Neck: non-tender, full range of motion, supple, normal inspection Respiratory: chest non-tender, lungs clear, normal breath sounds Cardiac/Chest: normal peripheral pulses, regular rate, rhythm Abdomen: normal bowel sounds, non-tender, soft Male Genitalia: deferred Rectal: deferred Skin: cyanosis, other (Digital infarction) Lymphatic: no adenopathy Extremities: normal range of motion, non-tender, normal inspection, normal capillary refill Neuro/Psych: alert, oriented x 3, No normal mood/affect (Flat affect) ICD10 Worksheet Patient Problems: Problems Problem Status Onset Melanoma 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
--- NOTE | 2018-07-19 09:17 | PDCARPN ---
Cardiology Progress Note Chief Complaint: Patient doing well today. Extubation yesterday. No complaints of pains, but mild generalized discomfort is noted. Assessment/Plan: Assessment: 07-19-18 Patient doing better today. Mild throat discomfort noted (and unexpected given the intubation period). No cassandra cardiovascular complaints were voiced today. Ongoing awareness of moderate mitral regurgitation and mild reduction in LVEF ( 40-45%). Further elevation in renal function is being noted, and decisions on dialysis being made by nephrology (actively following the patient). Patient is much more awake and alert today. Surgery saw the patient yesterday for ischaemic digits. 07-18-18 Patient is a 53 y/o male with metastatic melanoma s/p chemotherapy (kinase inhibitors) with presentation from OSH in shock (thought secondary to therapies and cytokine release), with mild reduction in LVEF noted (echocardiography from JUL 09 estimating LVEF to 42%) and moderate mitral regurgitation. Troponin peak to 20, at the time of transfer with inferolateral ST elevation, which is now thought to be a focal myocarditis (which aligns, albeit late presentation, with immune checkpoint inhibitor use). Acute renal insufficiency noted, and initial treatment was CRRT. This treatment reportedly ended last night, and at present, the patient is undergoing HD with intent to remove 2 liters of fluid. Further plans, per staff report, for extubation later today. Pressors have been stopped (this has also allowed the removal of excess fluids by HD). Staff reporting that the patient is more responsive than he has been (this being my first day on service with the patient). Digital necrosis is noted secondary to pressor need given hypotension in shock presentation. Patient has not been taken to the cardiac brine room laborer given the more pressing need for supportive measures and the acute renal insufficiency necessitating CRRT and HD. Plan: (1) Would continue with supportive measures as at present (2) Ongoing steroid taper (3) Would repeat echocardiography with changes in status (4) Would not, at this point, perform AVELINA on this patient (5) Consideration for addition of low dose ACEi and beta blockers given the mild LVEF suppression noted (6) Cardiology will continue to follow this patient while in house Subjective: No cardiovascular complaints. Reviewed/Discussed With: family, hospitalist, multidisciplinary team Objective: Vital Signs (8 Hrs) Temp Pulse Resp BP Pulse Ox 07/19/18 07:55 36.8 C 73 21 H 112/86 H 93 07/19/18 07:00 78 13 112/86 H 95 07/19/18 06:00 72 18 118/87 H 07/19/18 05:00 36.4 C 76 22 H 122/74 H 93 07/19/18 04:00 80 115/80 07/19/18 03:00 36.6 C 79 22 H 114/72 93 07/19/18 02:00 76 18 121/87 H 96 Intake/Output (24 Hrs) 07/18/18 07/19/18 07/20/18 05:59 05:59 05:59 Intake Total 309 1408 Output Total 4708 550 Balance -4399 858 Intake: Oral (ml) 250 IV Intake (ml) 309 735 IV Infused (ml) 423 Ns 1,000 ml @ 75 mls/hr 423 IV CONT MEG Rx#: [id number] Output: Urine (ml) 1200 550 Catheter 1200 550 Liquid Stool (ml) 100 Catheter 100 Dialysis Fluid Removed 3158 Emesis (ml) 150 OG Tube Output (ml) 100 Large Bore (>12 Persian) 100 Non-weighted Stomach Hardy Sump Other: Output Comment Catheter had HD today Result Diagrams: 07/19/18 04:00 07/19/18 04:00 Telemetry: sinus rhythm - Physical Exam Constitutional: no apparent distress, other (patient appears ill) Eyes: PERRL, EOMI Ears, Nose, Mouth, Throat: dry mucous membranes Cardiovascular: regular rate and rhythm, systolic murmur, pulses symmetric bilat , No jugular vein distention Peripheral Pulses: 2+: dorsalis-pedis (R), dorsalis-pedis (L) Respiratory: clear to auscultate bilat, other (course breath sounds continue to be noted) Gastrointestinal: no tenderness Skin: other (digital ischaemia noted) Neurologic: AAOx3, CN II-XII grossly intact Psychiatric: cooperative, interactive, following commands ICD10 Worksheet Patient Problems: Problems Problem Status Onset Melanoma 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
--- NOTE | 2018-07-19 09:35 | HOSPPROG ---
Hospitalist Progress Note Assessment/Plan: 53M presented with shock to [facility]. Suspect d/t cytokine release syndrome. Overall significantly improved. # shock - likely distributive from cytokine release syndrome; also consider cardiogenic vs septic vs HLH - off pressors - would like to continue to wean abx - mild increaser in leukocytosis - otherwise clinically improving # likely cytokine release syndrome, possible HLH - received tocilizumab, cont high dose steroids (weaning plan per Dr Benz's note) # acute renal failure - d/t shock; making urine - on intermittent HD per renal # diarrhea - persistent, dc rectal tube today - start questran today # neuro, toxic metabolic encephalopathy - much improved # ischemic digits - d/t hypotension, pressors - asa started today # cardiac - severe MR, EF 42%, markedly elevated trop and abn ECG - no procedures currently planned - would like to repeat TTE in a few days # pulm - s/p extubation # endo - hyperglycemic, had AI from melanoma tx - currently on SC insulin - hydrocort # metastatic melanoma - treated with Taflinar and Mekinist # dvt ppx - start heparin sc # dispo - SDU today Subjective: s/p extubation yesterday; comfortable Objective: Vital Signs Temp Pulse Resp BP Pulse Ox 36.8 C 73 21 H 112/86 H 93 07/19/18 07:55 07/19/18 07:55 07/19/18 07:55 07/19/18 07:55 07/19/18 07:55 Microbiology 07/16/18 15:30 - Final Sputum, Expectorated Laboratory Results 07/19/18 04:00 07/19/18 04:00 07/18/18 07/19/18 07/20/18 05:59 05:59 05:59 Intake Total 309 1408 Output Total 4708 550 Balance -4399 858 PT 18.7 SEC (12.0-15.0) H 07/19/18 04:00 INR 1.55 (0.83-1.16) H 07/19/18 04:[address] Kurtz CXR personally reviewed - Physical Exam Constitutional: uncomfortable Cardiovascular: regular rate and rhythym, no murmur, rub, or gallop Respiratory: no respiratory distress, no rales or rhonchi, clear to auscultation Gastrointestinal: soft, non-tender abdomen, no palpable masses, No guarding, No rebound, No distension ICD10 Worksheet Patient Problems: Problems Problem Status Onset Melanoma 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
[2018-07-19] MEDS ORDERED: OXYCODONE/APAP 5/325 TAB PO PRN (10:40)
[2018-07-19] MEDS: LEVOTHYROXINE IVP SCH (10:56)
[2018-07-19] MEDS: SODIUM CL 0.9% IVP SCH (10:56)
[2018-07-19] MEDS ORDERED: POLYETHYLENE GLYCOL 3350 17 GM PKT PO PRN (11:00)
[2018-07-19] MEDS ORDERED: ONDANSETRON DISINTEGRATING 4 MG TAB PO PRN (11:00)
[2018-07-19] MEDS ORDERED: LACTULOSE 20 GM/30 ML UDCUP PO PRN (11:00)
[2018-07-19] MEDS: ASPIRIN 325 MG TAB PO SCH (11:12)
[2018-07-19] MEDS: LEVOTHYROXINE 150 MCG TAB PO SCH (11:12)
--- NOTE | 2018-07-19 11:30 | POSTOPPROG ---
Post Op Note Date of Operation: 07/19/18 Surgeon: Ishmael Smith Anesthesia: Local (Specify) (1% lido) Pre-op Diagnosis: kidney failure Post-op Diagnosis: same Procedure: R IJ temp dialysis cath placement Findings: CXR: appropriate placement, no complications. Line was hep locked Inf/Abcess present in the surg proc area at time of surgery?: No EBL: Minimal
[2018-07-19] MEDS: CHOLESTYRAMINE/SUCROSE 4 GM PKT PO SCH ×3 (13:13→20:36)
--- NOTE | 2018-07-19 13:34 | GOP ---
DATE OF OPERATION: 07/19/2018 SURGEON: Ishmael Smith MD DEFENSIVE LINE COACH: None. ANESTHESIA: 1% lidocaine. PREOPERATIVE DIAGNOSIS: Kidney failure. POSTOPERATIVE DIAGNOSIS: Kidney failure. PROCEDURE PERFORMED: Right internal jugular temporary dialysis catheter placement. FINDINGS: Catheter flushed and withdrew appropriately. Postplacement chest x-ray showed appropriate positioning without any apparent complication. SPECIMENS: None. ESTIMATED BLOOD LOSS: 5 cc. DESCRIPTION OF PROCEDURE: The patient was greeted in the intensive care unit. After explaining the risks, benefits, and alternatives to him and his , the consent was signed. After performing a [employer] time-out, the right neck was prepped and draped in typical sterile fashion. The previous triple-lumen catheter was trimmed appropriately and prepped, the remainder of it prepped in. I commenced the procedure by threading my guidewire through one of the lumens of the triple-lumen int o the vein. The previous catheter was then withdrawn and passed off. I did have some ectopy with wi re placement. I anesthetized the area with 1% lidocaine. I then serially dilated and placed a Mahur ankush catheter. Once successfully in the vein, all 3 ports successfully withdrew and flushed appropria tely. All of them were heparin locked to the appropriately volumes at the end of the procedure. The catheter was then attached to the skin with interrupted nylon sutures. A BioPatch and sterile dress ing were placed. A chest x-ray was performed, which showed appropriate placement. Patient tolerated the procedure well without any apparent complications. DRAINS: None. /[id number]/MODL
--- NOTE | 2018-07-19 14:50 | SOAPPROG ---
SOAP Progress Note Assessment/Plan: Assessment/Plan: 53 y/o M with metastatic melanoma on chemotherapy with sepsis transfer from [facility] for CONSUELO requiring CRRT. CONSUELO due to ATN (cytokine storm after chemotherapy causing shock) -off CRRT, last iHD 07/17 -continue to monitor UO with paz -hoping for renal recovery however Cr and BUN still trending up -will dialyze tomorrow, surgery appreciated for new line -keep MAP>65, avoid nephrotoxins Acute hypoxic respiratory failure- -extubated -UF on HD -may decrease fluids if increasing O2 requirements BMD -phos low -give IV calcium today, d/w nursing -renal diet once taking po Acidosis -bicarb >20 -will modulate with HD Will continue to follow, please contact with ?'s #[phone]. 07/19/18 14:49 Subjective: Patient had temp IJ HD catheter placed today. UO decreased but still >500cc. Objective: Vital Signs Temp Pulse Resp BP Pulse Ox 36.8 C 77 18 116/89 H 95 07/19/18 07:55 07/19/18 12:00 07/19/18 12:00 07/19/18 12:00 07/19/18 12:00 Microbiology 07/16/18 15:30 - Final Sputum, Expectorated Sputum Culture - Final [facility] [place] Laboratory Results 07/19/18 04:00 07/19/18 04:00 07/18/18 07/19/18 07/20/18 05:59 05:59 05:59 Intake Total 309 1408 Output Total 4708 550 Balance -4399 858 PT 18.7 SEC (12.0-15.0) H 07/19/18 04:00 INR 1.55 (0.83-1.16) H 07/19/18 04:00 Physical Exam - Physical Exam General Appearance: mild distress EENT: PERRL/EOMI Neck: non-tender, supple Respiratory: accessory muscle use, decreased breath sounds Cardiac/Chest: regular rate, rhythm Abdomen: normal bowel sounds, non-tender, soft Extremities: normal range of motion, non-tender, other (necrotic fingers, IJ in place) Neuro/Psych: depressed affect ICD10 Worksheet Patient Problems: Problems Problem Status Onset Melanoma 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
[2018-07-19] MEDS: MELATONIN 3 MG TAB PO SCH (22:00)
[2018-07-19] MEDS: fentaNYL 100 MCG/2 ML INJ IVP PRN (22:38)
[2018-07-20] MEDS: HEPARIN 5,000 UNIT/0.5 ML INJ SC SCH ×3 (04:48→20:26)
[2018-07-20] MEDS: HYDROCORTISONE 100 MG/2 ML VIAL IVP SCH ×3 (04:48→20:25)
[2018-07-20] MEDS: LEVOTHYROXINE 150 MCG TAB PO SCH (04:51)
[2018-07-20 04:56] LABS: PLATELET COUNT 139 10^3/uL (150-400)
[2018-07-20] MEDS ORDERED: CALCIUM GLUCONATE 1 GM in D5W 50 ML IV ONE (07:00)
--- NOTE | 2018-07-20 09:15 | PDINTPN ---
Poultry Sexer Progress Note Assessment/Plan: Assessment/plan: 53 M with relatively recent diagnosis of malignant melanoma, treated with Tafinlar and Mekinist oral chemotherapy complicated by fever and diarrhea. He was admitted to [facility] 07/11/18 with severe lethargy as well as CONSUELO with severe hypotension requiring pressors (levophed, alhaji, vasopressin) and intubation after arrival in the ICU. The intubation was reported as difficult, requiring at first a small airway followed by upsizing the ETT to 7.5 with a tube exchanger. He was also treated with multiple antibiotics including both po and IV vanco, Zosyn, micafungin, and flagyl. He was reportedly aggressively hydrated with up to 8 liters of IVF, but his renal function and acidosis remained severely abnormal so he was transferred to [facility] for CRRT. He was sedated on a versed drip prior to transfer as well, but this was not continued as he was quite sedated. * Cytokine release syndrome (vs HLH variant)- mostly resolved. I have found no clear guidelines about tapering steroids for this disease, other than "as quickly as possible." He is getting 240 mg/d of solumedrol at this point, we will taper over about a week to 60 bid for about 2 days, then 60/d x 2, then 40 x2, then 20 x 2, then dc. His adrenal insufficiency will be well covered by the hydrocortisone, which I would reduce to his outpatient dose at the completion of the taper. * CONSUELO presumably related to hypotensive related ATN and/or his chemo. his uop has picked up quite a bit, perhaps from lasix but suspect recovery. BUN creatinine up today -Now on hemodialysis. * Troponin- peaked at 20, down to [address] elevation in inferior/lateral leads. Doubt CAD with few CRFs and cath contraindicated at this time given CONSUELO and low yield. MR is moderate No evidence of endocarditis, but may have focal myocarditis. * Altered MS- resolved. Awake and alert * Acute respiratory failure with hypoxia- stable off mechanical ventilation -will wean FiO2 as tolerated * Atelectasis-encourage incentive spirometry * Abdominal distention/diarrhea-resolved * Nutrition-on regular diet. Appetite slowly returning. * LFTs- pericholic fluid- abdominal US shows some GB sludge and GB thickening without stones. Doubt this is the source of sepsis and no PCT indicated. Continue to follow LFTs which are more reflective of his chemo and/or shock liver. Gallbladder is increased in distension on recent CT scan -recheck in morning * Cyanosis- likely related to high dose pressors, complicated by right radial art line. -consider hand consult this week -continue aspirin -will discontinue nitropaste * PT/OT-still very weak. * Thrombocytopenia- resolved * INR -improving * DVT/GI prophylaxis- on SCDs and protonix * DNR status- full code. * Disposition-stable for transfer to oncology floor Continues to improve Subjective: Resting comfortably. He denies any pain or discomfort. Appetite has been improving slowly. He is concerned about his level of weakness. Objective: Vital Signs Temp Pulse Resp BP Pulse Ox 37 C 72 20 130/89 H 96 07/20/18 07:42 07/20/18 07:42 07/20/18 07:42 07/20/18 07:42 07/20/18 07:42 Microbiology 07/16/18 15:30 - Final Sputum, Expectorated Sputum Culture - Final Pat [facility] Laboratory Results 07/20/18 04:45 07/20/18 04:45 07/19/18 07/20/18 07/21/18 05:59 05:59 05:59 Intake Total 1408 2100 Output Total 550 400 350 Balance 858 1700 -350 PT 18.7 SEC (12.0-15.0) H 07/19/18 04:00 INR 1.55 (0.83-1.16) H 07/19/18 04:00 - Time Spent With Patient Time Spent With Patient: 35 min of time spent with patient, over 1/2 involved with coordination of care counseling. Case discussed with nursing and physical therapy Physical Exam - Physical Exam General Appearance: WD/WN, alert, no apparent distress EENT: PERRL/EOMI, normal ENT inspection Neck: non-tender, full range of motion, supple, normal inspection Respiratory: rhonchi (Few in bases), No respiratory distress, No wheezing Cardiac/Chest: normal peripheral pulses, regular rate, rhythm Peripheral Pulses: 2+: carotid (R), carotid (L), femoral (R), femoral (L), dorsalis-pedis (R), dorsalis-pedis (L) Abdomen: normal bowel sounds, non-tender, soft Male Genitalia: deferred Rectal: deferred Skin: normal color, warm/dry, other (Digital ischemia unchanged) Extremities: non-tender, normal inspection Neuro/Psych: no motor/sensory deficits, alert, normal mood/affect, oriented x 3 ICD10 Worksheet Patient Problems: Problems Problem Status Onset Melanoma 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
[2018-07-20] MEDS: PANTOPRAZOLE SODIUM 40 MG TAB PO SCH (09:43)
[2018-07-20] MEDS: methylPREDNISolone SOD SUCC 125 MG/2 ML VIAL IVP SCH ×2 (09:43→20:26)
[2018-07-20] MEDS: ASPIRIN 325 MG TAB PO SCH (09:43)
--- NOTE | 2018-07-20 11:02 | PDCARPN ---
Cardiology Progress Note Chief Complaint: No cardiovascular complaints this morning. Patient was sitting up in chair, eating breakfast Assessment/Plan: Assessment: 07-20-18 No cardiovascular complaints this morning. Patient was sitting up in chair. Surgery with right IJ dialysis catheter placement yesterday, and nephrology with plans for dialysis today. No chest pains or pressure. Mild digit discomfort voiced this morning. 07-19-18 Patient doing better today. Mild throat discomfort noted (and unexpected given the intubation period). No cassandra cardiovascular complaints were voiced today. Ongoing awareness of moderate mitral regurgitation and mild reduction in LVEF ( 40-45%). Further elevation in renal function is being noted, and decisions on dialysis being made by nephrology (actively following the patient). Patient is much more awake and alert today. Surgery saw the patient yesterday for ischaemic digits. 07-18-18 Patient is a 53 y/o male with metastatic melanoma s/p chemotherapy (kinase inhibitors) with presentation from OSH in shock (thought secondary to therapies and cytokine release), with mild reduction in LVEF noted (echocardiography from JUL 09 estimating LVEF to 42%) and moderate mitral regurgitation. Troponin peak to 20, at the time of transfer with inferolateral ST elevation, which is now thought to be a focal myocarditis (which aligns, albeit late presentation, with immune checkpoint inhibitor use). Acute renal insufficiency noted, and initial treatment was CRRT. This treatment reportedly ended last night, and at present, the patient is undergoing HD with intent to remove 2 liters of fluid. Further plans, per staff report, for extubation later today. Pressors have been stopped (this has also allowed the removal of excess fluids by HD). Staff reporting that the patient is more responsive than he has been (this being my first day on service with the patient). Digital necrosis is noted secondary to pressor need given hypotension in shock presentation. Patient has not been taken to the cardiac screedman/laborer given the more pressing need for supportive measures and the acute renal insufficiency necessitating CRRT and HD. Plan: (1) Would continue with supportive measures as at present (2) Ongoing steroid taper (3) Pressures noted today would support the addition of Coreg (3.125 mg twice per day), but would add with caution given patient's schedule for HD today - would also consider low dose ACEi therapy, but given ongoing renal issues, hold on this addition is recommended - cardiology is wanting to have Coreg and Lisinopril additions as allowable by both blood pressures and renal functioning (4) OT/PT (5) Would repeat echocardiography this week (Tomorrow/Friday) as improvements continue to be noted, to determine if there has been any improvement in noted systolic function and/or degree of mitral regurgitation Subjective: No cardiovascular complaints Reviewed/Discussed With: family, hospitalist Objective: Vital Signs (8 Hrs) Temp Pulse Resp BP Pulse Ox 07/20/18 07:42 37 C 72 20 130/89 H 96 07/20/18 03:53 36.9 C 70 22 H 134/88 H 95 Intake/Output (24 Hrs) 07/19/18 07/20/18 07/21/18 05:59 05:59 05:59 Intake Total 1408 2100 240 Output Total 550 400 350 Balance 858 1700 -110 Intake: Oral (ml) 250 700 240 IV Intake (ml) 735 900 IV Infused (ml) 423 500 Ns 1,000 ml @ 75 mls/hr 423 500 IV CONT MEG Rx#: [id number] Output: Urine (ml) 550 400 350 Catheter 550 400 350 Other: Output Comment Catheter had HD today Number of Stools Bedside Commode 1 Bladder Scan Volume (ml) Catheter 409 Result Diagrams: 07/20/18 04:45 07/20/18 04:45 Telemetry: Sinus rhythm - Physical Exam Constitutional: WDWN, no apparent distress Eyes: PERRL, EOMI Ears, Nose, Mouth, Throat: moist mucous membranes Cardiovascular: regular rate and rhythm, systolic murmur, pulses symmetric bilat , No jugular vein distention Peripheral Pulses: 2+: dorsalis-pedis (R), dorsalis-pedis (L) Respiratory: clear to auscultate bilat, no crackles Gastrointestinal: normoactive bowel sounds Skin: other (digital ischaemia) Neurologic: AAOx3, CN II-XII grossly intact Psychiatric: cooperative, interactive, following commands ICD10 Worksheet Patient Problems: Problems Problem Status Onset Melanoma 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
--- NOTE | 2018-07-20 11:44 | SOAPPROG ---
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 Plan: Patient has clearly improved. He is now off of pressors, and was successfully extubated. His mental status seems near baseline this morning. He answers simple questions appropriately and is oriented. Starting steroid taper as was outlined by Dr. Benz in a recent note. During the tapering process, a recurrent fever would represent a concern, and may be an indication to raise the steroid dose. No indication for a second dose of Tocilizumab given the improvement. Continue supportive care. Plan is for dialysis. Platelets now normal. Overall clinical picture is not c/w HIT. Care plan d/w patient and Questions answered. 07/20/18 11:42 Subjective: Tired, oriented Objective: Vital Signs Temp Pulse Resp BP Pulse Ox 98.6 F 72 20 130/89 H 96 07/20/18 07:42 07/20/18 07:42 07/20/18 07:42 07/20/18 07:42 07/20/18 07:42 Microbiology 07/16/18 15:30 - Final Sputum, Expectorated Sputum Culture - Final Pat [facility] Laboratory Results 07/20/18 04:45 07/20/18 04:45 07/19/18 07/20/18 07/21/18 05:59 05:59 05:59 Intake Total 1408 2100 240 Output Total 550 400 350 Balance 858 1700 -110 PT 18.7 SEC (12.0-15.0) H 07/19/18 04:00 INR 1.55 (0.83-1.16) H 07/19/18 04:00 ICD10 Worksheet Patient Problems: Problems Problem Status Onset Melanoma 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
--- NOTE | 2018-07-20 11:54 | SOAPPROG ---
SOAP Progress Note Assessment/Plan: Assessment/Plan: 53 y/o M with metastatic melanoma on chemotherapy with sepsis transfer from [facility] for CONSUELO requiring CRRT. CONSUELO due to ATN (cytokine storm after chemotherapy causing shock) -off CRRT, last iHD 07/17 -continue to monitor UO may remove paz and do PVRs qshift -hoping for renal recovery however Cr and BUN still trending up -will dialyze today, continue daily assessment -IJ line per surgery appreciated -keep MAP>65, avoid nephrotoxins Acute hypoxic respiratory failure- -extubated -UF on HD -may decrease fluids if increasing O2 requirements BMD -phos low -give IV calcium today, d/w nursing and will also use 3.0Ca bath -renal diet once taking po Acidosis -bicarb 16 today, will modulate with HD -ABG prn Will continue to follow, please contact with ?'s #[phone]. 07/20/18 11:46 07/20/18 11:47 Subjective: UO <500 yesterday. BP's holding. Objective: Vital Signs Temp Pulse Resp BP Pulse Ox 37 C 72 20 130/89 H 96 07/20/18 07:42 07/20/18 07:42 07/20/18 07:42 07/20/18 07:42 07/20/18 07:42 Microbiology 07/16/18 15:30 - Final Sputum, Expectorated Sputum Culture - Final Pat [facility] Laboratory Results 07/20/18 04:45 07/20/18 04:45 07/19/18 07/20/18 07/21/18 05:59 05:59 05:59 Intake Total 1408 2100 240 Output Total 550 400 350 Balance 858 1700 -110 PT 18.7 SEC (12.0-15.0) H 07/19/18 04:00 INR 1.55 (0.83-1.16) H 07/19/18 04:00 Physical Exam - Physical Exam General Appearance: mild distress, cachetic EENT: PERRL/EOMI Neck: non-tender, supple Respiratory: decreased breath sounds Cardiac/Chest: regular rate, rhythm Abdomen: normal bowel sounds, non-tender, soft Skin: pallor Extremities: other (necrotic fingers) Neuro/Psych: oriented x 3 ICD10 Worksheet Patient Problems: Problems Problem Status Onset Melanoma 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
[2018-07-20] MEDS: CHOLESTYRAMINE/SUCROSE 4 GM PKT PO SCH ×3 (13:05→20:26)
--- NOTE | 2018-07-20 16:58 | HOSPPROG ---
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 Per Onc, anti-PD1 therapy followed by BRAF /MEK inhibitors can result in multisystem organ failure from diffuse inflammatory mechanism of action -s/p tocilizumab, cont current high dose hydrocortisone q8 + methylpred taper q12 -appreciate ongoing oncology consult # Acute diastolic CHF exacerbation. Evidenced by bilat pleural effusion on CXR, improving on most recent CXR (personally interpreted), improved w/ vol removal -cont vol removal on HD today # Acute hypoxic respiratory failure. 2/2 shock, dCHF, and cytokine release -air movement on exam improving today w/ net neg 1kg LOS -cont on 2lpm NC # Shock. Likely distributive from cytokine release syndrome, off Abx now # ATN. 2/2 shock, resulting in hypervolemia from anuria, demonstrating e/o renal recovery w/ increasing UOP -appreciate ongoing renal consult, recommending repeat HD today given repeat rise of Cr/BUN -hold lasix # Acute urinary retention. Requiring straight cath o/n and today, will hold on placing paz unless ongoing retention tonight # NSTEMI. Suspect Type II w/ trop 20, subtle wall motion abnl on Echo, does not recommend cath (given ATN) -will require cardiac risk strat prior to DC if he otherwise recovers # Acute metabolic encephalopathy. 2/2 metabolic effects of uremia and acidosis, improved # Ischemic digits. Acute, 2/2 pressors, cont to monitor # Moderate mitral regurgitation. Dr. Tobin, does not recommend AVELINA given that his hemodynamics are currently responding to lasix, repeat once euvolemic # Acute metabolic acidosis. 2/2 lactic acid (shock) and uremia (ATN), HD today # Hyperglycemia. 2/2 stress response from above, stopped insulin gtt and ordered ACHS checks # Diarrhea. Cont questran, gauge effect # Metastatic melanoma. S/p Taflinar and Mekinist, currently holding given current condition Diet. As todd PPx. High risk, hep SC Code. Full Dispo. ADD uncertain, remains severely ill High-level medical complexity, high risk for worsening morbidity and/or mortality secondary to the issues as outlined above. Subjective: lethargic s/p working w/ therapy this AM Objective: Vital Signs Temp Pulse Resp BP Pulse Ox 36.6 C 76 24 H 127/92 H 2 L 07/20/18 11:56 07/20/18 11:56 07/20/18 11:56 07/20/18 11:56 07/20/18 11:56 Microbiology 07/16/18 15:30 - Final Sputum, Expectorated Sputum Culture - Final Pat [facility] Laboratory Results 07/20/18 04:45 07/20/18 04:45 07/19/18 07/20/18 07/21/18 05:59 05:59 05:59 Intake Total 1408 2100 240 Output Total 550 400 950 Balance 858 1700 -710 PT 18.7 SEC (12.0-15.0) H 07/19/18 04:00 INR 1.55 (0.83-1.16) H 07/19/18 04:00 - Physical Exam Constitutional: no apparent distress, not in pain, chronically ill appearing, No uncomfortable Cardiovascular: systolic murmur (II/ at apex), No irregularly irregular, No tachycardia, No edema Respiratory: reduced air movement (bilat bases), inspiratory crackles (bilat bases), No expiratory wheeze, No bronchial breath sounds Gastrointestinal: distension (mild), No normoactive bowel sounds (hypoactive bowel sounds), No tenderness, No guarding ICD10 Worksheet Patient Problems: Problems Problem Status Onset Melanoma 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
[2018-07-20] MEDS: MELATONIN 3 MG TAB PO SCH (20:27)
[2018-07-20] MEDS ORDERED: CARBOXYMETHYLCELLULOSE 1% 0.4 ML DROPERETTE EACHEYE PRN (21:09)
[2018-07-20] MEDS: SODIUM CITRATE 4% 4 ML in SYRINGE 0 ML DIAL PRN (23:50)
[2018-07-21 04:13] LABS: PLATELET COUNT 143 10^3/uL (150-400)
[2018-07-21] MEDS: LEVOTHYROXINE 150 MCG TAB PO SCH (06:53)
[2018-07-21] MEDS: HYDROCORTISONE 100 MG/2 ML VIAL IVP SCH ×3 (06:53→22:03)
[2018-07-21] MEDS: HEPARIN 5,000 UNIT/0.5 ML INJ SC SCH ×3 (06:53→21:00)
[2018-07-21] MEDS: ASPIRIN 325 MG TAB PO SCH (08:50)
[2018-07-21] MEDS: methylPREDNISolone SOD SUCC 125 MG/2 ML VIAL IVP SCH ×2 (08:50→21:00)
[2018-07-21] MEDS: PANTOPRAZOLE SODIUM 40 MG TAB PO SCH (08:50)
--- NOTE | 2018-07-21 11:02 | SOAPPROG ---
FRANTZ Progress Note Assessment/Plan: Assessment: 1) Metastatic melanoma with recent therapeutic change (immunotherapy ---> BRAF/ MEK inhibition) 2) Cytokine release syndrome --Tocilizumab given 07/13 3) Septic shock 4) Acute renal failure, status post dialysis. urine output seems to be improving 5) Resp failure-- now extubated. Plan: Patient has clearly improved. He is now off of pressors, and was successfully extubated. His mental status seems near baseline this morning. He answers simple questions appropriately and is oriented. Starting steroid taper as was outlined by Dr. Benz in a recent note. During the tapering process, a recurrent fever would represent a concern, and may be an indication to raise the steroid dose. No indication for a second dose of Tocilizumab given the improvement. Continue supportive care. Plan is for dialysis, urine output better Platelets now normal. Overall clinical picture is not c/w HIT. Care plan d/w patient and Questions answered. 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
--- NOTE | 2018-07-21 11:32 | SOAPPROG ---
SOAP Progress Note Assessment/Plan: Assessment/Plan: 53 y/o M with metastatic melanoma on chemotherapy with sepsis transfer from [facility] for CONSUELO requiring dialysis. CONSUELO due to ATN (cytokine storm after chemotherapy causing shock) -off CRRT, last iHD 07/20 -continue to monitor UO, paz out -hoping for renal recovery, will assess daily -may consider dialysis tomorrow, elevated BUN likely catabolic 2/2 to steroids -IJ line per surgery appreciated -keep MAP>65, avoid nephrotoxins Acute hypoxic respiratory failure- -extubated -UF on HD -holding fluids BMD -phos now >8, started binder -checking uric acid -dialyzed on 3.0Ca bath, continue to replete IV as well -renal diet once taking po Acidosis -bicarb 18 today -started oral supplement and will modulate with HD -ABG prn Will continue to follow, please contact with ?'s #[phone]. 07/21/18 11:31 07/21/18 11:32 Subjective: Tolerated HD ok. Made more urine >1L yesterday. Mental status stable. Objective: Vital Signs Temp Pulse Resp BP Pulse Ox 37.1 C 87 20 135/95 H 94 07/21/18 07:51 07/21/18 09:09 07/21/18 07:51 07/21/18 07:51 07/21/18 07:51 Laboratory Results 07/21/18 04:05 07/21/18 04:05 07/20/18 07/21/18 07/22/18 05:59 05:59 05:59 Intake Total 2100 1540 350 Output Total 400 1450 Balance 1700 90 350 PT 18.7 SEC (12.0-15.0) H 07/19/18 04:00 INR 1.55 (0.83-1.16) H 07/19/18 04:00 Physical Exam - Physical Exam General Appearance: WD/WN, mild distress EENT: PERRL/EOMI Neck: non-tender, full range of motion, supple Respiratory: chest non-tender, lungs clear Cardiac/Chest: normal peripheral pulses, regular rate, rhythm Abdomen: normal bowel sounds, non-tender, soft Skin: pallor Neuro/Psych: alert, normal mood/affect, oriented x 3 ICD10 Worksheet Patient Problems: Problems Problem Status Onset Melanoma 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
[2018-07-21] MEDS: CHOLESTYRAMINE/SUCROSE 4 GM PKT PO SCH ×3 (11:47→22:03)
[2018-07-21] MEDS: CALCIUM ACETATE 667 MG CAP PO SCH ×2 (13:31→18:21)
--- NOTE | 2018-07-21 14:29 | ASMTCMCOM ---
CM Note CM Note Notes: When patient is ready for Acute rehab and still needs dialysis he will need to go to a facilitty that can do both. [facility] Acute rehab does not do dialysis. Patient reports that he still tires easily. Date Signed: 07/21/2018 02:28 PM Electronically Signed By:Mariel Mariano LCSW
--- NOTE | 2018-07-21 14:41 | ASMTCMCOM ---
CM Note CM Note Notes: Called and left message for Amy Greenberg friend in [place] [phone]. She was going to see if she could locate some of his family for the purposes of making medical decisions. Amy has not called back at this time. Date Signed: 07/21/2018 02:40 PM Electronically Signed By:Mariel Mariano LCSW
--- NOTE | 2018-07-21 15:58 | HOSPPROG ---
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 Per Onc, anti-PD1 therapy followed by BRAF /MEK inhibitors can result in multisystem organ failure from diffuse inflammatory mechanism of action -s/p tocilizumab, cont current high dose hydrocortisone + methylpred taper, will d/w oncology re: duration -WBC 22,000, persistent leukocytosis likely 2/2 ongoing steroids # Acute diastolic CHF exacerbation. Evidenced by bilat pleural effusion on CXR, improving on most recent CXR, improved w/ vol removal -likely vol removal w/ HD tomorrow, remains hypervolemic # Acute hypoxic respiratory failure. 2/2 shock, dCHF, and cytokine release -cont on 2lpm NC # Shock. Likely distributive from cytokine release syndrome, off Abx now # ATN. 2/2 shock, resulting in hypervolemia from anuria, demonstrating e/o renal recovery w/ UOP -appreciate ongoing renal consult, recommending likely HD tomorrow -hold lasix -UOP 1.45L o/n # Acute urinary retention. Requiring replacement of paz o/n, continue, receiving accurate I/O # NSTEMI. Suspect Type II w/ trop 20, subtle wall motion abnl on Echo, does not recommend cath (given ATN) -will require cardiac risk strat prior to DC if he otherwise recovers # Acute metabolic encephalopathy. 2/2 metabolic effects of uremia and acidosis, mentating at baseline # Ischemic digits. Acute, 2/2 pressors, ongoing paresthesias # Moderate mitral regurgitation. Dr. Tobin, does not recommend AVELINA given that his hemodynamics are currently responding to lasix, repeat once euvolemic # Acute metabolic acidosis. 2/2 lactic acid (shock) and uremia (ATN),PO bicarb started # Hyperglycemia. 2/2 stress response from above, stopped insulin gtt and ordered ACHS checks # Diarrhea. Cont questran, gauge effect # Metastatic melanoma. S/p Taflinar and Mekinist, currently holding given current condition Diet. As todd PPx. High risk, hep SC Code. Full Dispo. ADD uncertain, remains severely ill High-level medical complexity, high risk for worsening morbidity and/or mortality secondary to the issues as outlined above. Subjective: patient getting a shave, ongoing fatigue, 2 BMs Objective: Vital Signs Temp Pulse Resp BP Pulse Ox 37.1 C 77 18 127/90 H 95 07/21/18 07:51 07/21/18 11:55 07/21/18 11:55 07/21/18 11:55 07/21/18 11:55 Laboratory Results 07/21/18 04:05 07/21/18 04:05 07/20/18 07/21/18 07/22/18 05:59 05:59 05:59 Intake Total 2100 1540 350 Output Total 400 1450 Balance 1700 90 350 PT 18.7 SEC (12.0-15.0) H 07/19/18 04:00 INR 1.55 (0.83-1.16) H 07/19/18 04:00 - Physical Exam Constitutional: no apparent distress, not in pain, No uncomfortable, No cachectic Cardiovascular: regular rate and rhythym, no murmur, rub, or gallop, edema ( trace bilat LE/UE) Respiratory: inspiratory crackles (bilat lateral tong), No reduced air movement, No expiratory wheeze, No bronchial breath sounds, No respiratory distress Gastrointestinal: normoactive bowel sounds, soft, non-tender abdomen, distension (mild) Skin: other (necrosis distal fingers bilat w/ prox blanching redness, non-tender , no ulcerations or flaking) Neurologic: AAOx3 Psychiatric: interacting appropriately, not anxious, not encephalopathic, thought process linear ICD10 Worksheet Patient Problems: Problems Problem Status Onset Melanoma 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
[2018-07-21] MEDS: SODIUM BICARBONATE 650 MG TAB PO SCH (19:31)
[2018-07-21] MEDS: MELATONIN 3 MG TAB PO SCH (21:00)
[2018-07-22 04:31] LABS: PLATELET COUNT 132 10^3/uL (150-400)
[2018-07-22] MEDS: LEVOTHYROXINE 150 MCG TAB PO SCH (06:16)
[2018-07-22] MEDS: HEPARIN 5,000 UNIT/0.5 ML INJ SC SCH (06:16)
[2018-07-22] MEDS: HYDROCORTISONE 100 MG/2 ML VIAL IVP SCH ×3 (06:16→22:08)
[2018-07-22] MEDS: methylPREDNISolone SOD SUCC 125 MG/2 ML VIAL IVP SCH (09:09)
[2018-07-22] MEDS: ASPIRIN 325 MG TAB PO SCH (09:26)
[2018-07-22] MEDS: CALCIUM ACETATE 667 MG CAP PO SCH ×3 (09:26→19:21)
[2018-07-22] MEDS: PANTOPRAZOLE SODIUM 40 MG TAB PO SCH (09:26)
[2018-07-22] MEDS: SODIUM BICARBONATE 650 MG TAB PO SCH ×2 (09:27→20:35)
[2018-07-22] MEDS: CHOLESTYRAMINE/SUCROSE 4 GM PKT PO SCH ×3 (09:27→22:10)
--- NOTE | 2018-07-22 09:38 | ECHO ---
[email or web address] [address] [address] Main: [phone] Fax: Transthoracic Echocardiogram Name: AXEL MARTINEZ MR#: [id number] Study Date: 07/22/2018 Study Time: 09:06 AM Date of : 1965 Age: 53 year(s) Height: 182.9 cm (72 in.) Weight: 89.81 kg (198 lb.) BSA: 2.12 m2 Gender: Male Examination: Limited Echo Indication: reassessment of both systolic function and degree of mitral regurgitation Image Quality: Adequate Contrast: Requested by: Jevon Main BP: 130 mmHg/95 mmHg Heart Rate: Rhythm: Indication: reassessment of both systolic function and degree of mitral regurgitation Procedure Staff Package Dye Stand Loader: Isa Blas [facility] Reading Physician: Jevon Main MD Requesting Provider: Conclusions: Normal size left ventricle. Mildly reduced systolic LV function. EF is 51 %. The mitral valve is normal in appearance and function. Mild mitral valve regurgitation is present. Measurements: Chambers Valvular Assessment AV/MV Valvular Assessment TV/PV Normal Normal Normal Name Value Range Name Value Range Name Value Range LVEF (BP): 51 % (>=55 %) Continued Measurements: Findings: Left Ventricle: Normal size left ventricle. Mildly reduced systolic LV function. EF is 51 %. Right Ventricle: Normal size right ventricle. Normal RV function. Mitral Valve: The mitral valve is normal in appearance and function. Mild mitral valve regurgitation is present. No mitral stenosis is present. Pericardium: No pericardial effusion. Exam Comments: Unable to position patient -- echo done with patient sitting upright in a chair and cannot move due to neck bleed that will not stop. Patient: AXEL MARTINEZ Study Date: 07/22/2018 Page 1 of 2 09:06 AM (No Signature Object) Patient: AXEL MARTINEZ Study Date: 07/22/2018 Page 2 of 2 09:06 AM [id number]
--- NOTE | 2018-07-22 10:26 | PDCARPN ---
Cardiology Progress Note Chief Complaint: No cardiovascular complaints this morning. Issues with IJ site bleeding this morning. Limited echo was performed. Assessment/Plan: Assessment: 07-22-18 Limited echocardiography this morning with low normal LVEF (50-55%), and trace/ mild mitral regurgitation noted. No cardiovascular complaints of chest pains or pressure. was at bedside this morning, and patient was sitting up in chair. BUN and creatinine continue to rise. Nephrology is following patient. Hyperkalemia noted today. Suspect that HD will be performed given the numbers that are noted. 07-20-18 No cardiovascular complaints this morning. Patient was sitting up in chair. Surgery with right IJ dialysis catheter placement yesterday, and nephrology with plans for dialysis today. No chest pains or pressure. Mild digit discomfort voiced this morning. 07-19-18 Patient doing better today. Mild throat discomfort noted (and unexpected given the intubation period). No cassandra cardiovascular complaints were voiced today. Ongoing awareness of moderate mitral regurgitation and mild reduction in LVEF ( 40-45%). Further elevation in renal function is being noted, and decisions on dialysis being made by nephrology (actively following the patient). Patient is much more awake and alert today. Surgery saw the patient yesterday for ischaemic digits. 07-18-18 Patient is a 53 y/o male with metastatic melanoma s/p chemotherapy (kinase inhibitors) with presentation from OSH in shock (thought secondary to therapies and cytokine release), with mild reduction in LVEF noted (echocardiography from JUL 09 estimating LVEF to 42%) and moderate mitral regurgitation. Troponin peak to 20, at the time of transfer with inferolateral ST elevation, which is now thought to be a focal myocarditis (which aligns, albeit late presentation, with immune checkpoint inhibitor use). Acute renal insufficiency noted, and initial treatment was CRRT. This treatment reportedly ended last night, and at present, the patient is undergoing HD with intent to remove 2 liters of fluid. Further plans, per staff report, for extubation later today. Pressors have been stopped (this has also allowed the removal of excess fluids by HD). Staff reporting that the patient is more responsive than he has been (this being my first day on service with the patient). Digital necrosis is noted secondary to pressor need given hypotension in shock presentation. Patient has not been taken to the cardiac cath lab tech given the more pressing need for supportive measures and the acute renal insufficiency necessitating CRRT and HD. Plan: (1) Await nephrology input today (2) Would attempt Coreg therapy, contingent on patient's pressures and need for hemodialysis (3) In the outpatient setting, would have patient seen by cardiology 5-7 days post discharge (4) OT/PT work with patient (5) Cardiology will continue to follow patient while in house Subjective: No cardiovascular complaints today. Issues with bleeding from IJ site this morning Objective: Vital Signs (8 Hrs) Temp Pulse Resp BP Pulse Ox 07/22/18 08:00 36.7 C 72 16 130/95 H 95 07/22/18 04:00 37.1 C 72 18 127/87 H 94 Intake/Output (24 Hrs) 07/21/18 07/22/18 07/23/18 05:59 05:59 05:59 Intake Total 1540 1650 Output Total 1450 920 Balance 90 730 Intake: Oral (ml) 1240 1650 IV Infused (ml) 300 Ns 1,000 ml @ 75 mls/hr 300 IV CONT MEG Rx#: [id number] Output: Urine (ml) 1450 920 Catheter 1450 920 Other: Weight 90.1 kg Intake Quantity Yes Sufficient Number of Stools Bedside Commode 1 1 Catheter 0 Toilet 1 Bladder Scan Volume (ml) Bedside Commode 230 Catheter 350 Result Diagrams: 07/22/18 04:15 07/22/18 04:15 Telemetry: Sinus rhythm - Physical Exam Constitutional: no apparent distress Eyes: PERRL, EOMI Ears, Nose, Mouth, Throat: moist mucous membranes Cardiovascular: regular rate and rhythm, no murmurs, pulses symmetric bilat, No jugular vein distention Peripheral Pulses: 2+: dorsalis-pedis (R), dorsalis-pedis (L) Respiratory: clear to auscultate bilat, no crackles Skin: erythema, induration Neurologic: AAOx3, CN II-XII grossly intact Psychiatric: cooperative, interactive, following commands ICD10 Worksheet Patient Problems: Problems Problem Status Onset Melanoma 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
--- NOTE | 2018-07-22 10:46 | WOCRNPDOC ---
WOCRN Advanced Assessment Note - Skin Integrity Problem, Advanced Assess Forehead Dressing Type: Open to Air Exudate Amount: None Дмитрий Wound Tissue: Erythema (mild to 0.2 cm дмитрий wound ) Wound Bed Color: Black Wound Bed Constitution: Stable Eschar Site Measurement - Head-to-Toe Length X Width X Depth (cm): 0.5x0.3xraised eschar Skin Integrity Problem Comment: Unknown cause. May have been a burn. Unclear how O2 probe could cause a pressure injury so likely the latter. Does not appear to be a skin tear. Ok to leave LENORE. Wound care will sign off.
--- NOTE | 2018-07-22 11:28 | SOAPPROG ---
SOAP Progress Note Assessment/Plan: Assessment/Plan: R temp IJ dialysis catheter - oozing around catheter this am. Held direct pressure and applied surgicel x 30 minutes. Oozing ceased. 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
[2018-07-22 11:30] LABS: HEPATITIS B SURFACE ANTIGEN NEGATIVE (NEGATIVE)
[2018-07-22 11:46] LABS: HEPATITIS B CORE AB IGM NEGATIVE (NEGATIVE)
--- NOTE | 2018-07-22 11:58 | SOAPPROG ---
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 urine output seems to be improving 5) Resp failure-- now extubated. Plan: Patient has clearly improved. He is now off of pressors, and was successfully extubated. He answers questions appropriately and is oriented. Starting steroid taper as was outlined by Dr. Benz in a recent note. During the tapering process, a recurrent fever would represent a concern, and may be an indication to raise the steroid dose. No indication for a second dose of Tocilizumab given the improvement. Continue supportive care. Plan is for dialysis, urine output better, but bun/cr / uric acid po4/k elevated Platelets now normal. Overall clinical picture is not c/w HIT. Will need to consider if he can be rechallenged , difficult decision with little data, there are other BRAF/MEK inhibitor combinations, unclear if they would have the same risk 07/20/18 11:42 07/21/18 11:00 07/22/18 11:43 Subjective: awake, alert Objective: Vital Signs Temp Pulse Resp BP Pulse Ox 98.1 F 72 16 130/95 H 95 07/22/18 08:00 07/22/18 08:00 07/22/18 08:00 07/22/18 08:00 07/22/18 08:00 Laboratory Results 07/22/18 04:15 07/21/18 07/22/18 07/23/18 05:59 05:59 05:59 Intake Total 1540 1650 Output Total 1450 920 Balance 90 730 PT 18.7 SEC (12.0-15.0) H 07/19/18 04:00 INR 1.55 (0.83-1.16) H 07/19/18 04:00 ICD10 Worksheet Patient Problems: Problems Problem Status Onset Melanoma 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
--- NOTE | 2018-07-22 12:57 | ASMTCMCOM ---
CM Note CM Note Notes: Met with patient and his Raquel - they are under the impression that patient might stay at [facility] for the duration of his dialysis. If this is the case, then perhaps he can go to inpatient rehab. If he needs dialysis as an outpatient, he may need other services (SNF v home PT), but it's hard to say at this point. Case Management will continue to follow. Date Signed: 07/22/2018 12:56 PM Electronically Signed By:Bharati Escudero RN
[2018-07-22 13:07] LABS: INR 1.34 (0.83-1.16); PROTIME(PATIENT) 16.8 SEC (12.0-15.0)
--- NOTE | 2018-07-22 13:16 | SOAPPROG ---
SOAP Progress Note Assessment/Plan: Assessment/Plan: 53 y/o M with metastatic melanoma on chemotherapy with sepsis transfer from [facility] [place] for CONSUELO requiring dialysis. CONSUELO due to ATN (cytokine storm after chemotherapy causing shock) -off CRRT since 07/17 -continue to monitor UO, paz replaced due to urinary retention -hoping for renal recovery, will assess daily -plan for dialysis today -keep MAP>65, avoid nephrotoxins -mild oozing at IJ site, however do not think patient is overtly uremic and BUN> 100 2/2 to steroids -coags per primary team and will monitor (no heparin on HD) Acute hypoxic respiratory failure -resolved -UF 1-2 on HD -holding fluids for now, taking decent po BMD -phos now >8, started binder -uric acid >12, consider starting allopurinol vs rasburicase (will d/w hospitalist) -dialyzed on 3.0Ca bath, continue to replete IV as well -renal diet Acidosis -bicarb 16 today -increased oral supplement and will modulate with HD -ABG prn Will continue to follow, please contact with ?'s #[phone]. 07/22/18 13:15 Subjective: Patient up to chair with at bedside. Feeling pretty well and UO>1L yesterday. Having some oozing from IJ catheter this am. Objective: Vital Signs Temp Pulse Resp BP Pulse Ox 36.7 C 72 16 130/95 H 95 07/22/18 08:00 07/22/18 08:00 07/22/18 08:00 07/22/18 08:00 07/22/18 08:00 Laboratory Results 07/22/18 12:45 07/22/18 04:15 07/21/18 07/22/18 07/23/18 05:59 05:59 05:59 Intake Total 1540 1650 Output Total 1450 920 Balance 90 730 PT 16.8 SEC (12.0-15.0) H 07/22/18 12:45 INR 1.34 (0.83-1.16) H 07/22/18 12:45 Physical Exam - Physical Exam General Appearance: WD/WN, alert, thin EENT: PERRL/EOMI Neck: non-tender, supple Respiratory: chest non-tender, normal breath sounds Cardiac/Chest: normal peripheral pulses, regular rate, rhythm, edema Abdomen: normal bowel sounds, non-tender, soft Extremities: normal range of motion, non-tender, pedal edema, other (minoo) Neuro/Psych: no motor/sensory deficits, alert, normal mood/affect, oriented x 3 ICD10 Worksheet Patient Problems: Problems Problem Status Onset Melanoma 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
--- NOTE | 2018-07-22 17:34 | HOSPPROG ---
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 Plan: # Acute hemorrhage. Emergently called to bedside this AM for persistent bleeding at R IJ despite pressure -d/w Dr. Smith, surg to see, will eval whether needs more pressure vs. suturing -d/w Dr. Tejeda, likely 2/2 platelet dysfunction in setting of uremia, will hold on plts/ffp unless does not respond to above -checking Hgb, BP currently 120 # ATN. 2/2 shock, resulting in hypervolemia from anuria, demonstrating e/o renal recovery w/ UOP 900ml 24hrs -d/w Dr. Tejeda, will arrange for urgent HD today -hold lasix # Acute diastolic CHF exacerbation. Evidenced by bilat pleural effusion on CXR, improving on most recent CXR -vol removal w/ HD tomorrow, remains hypervolemic # Possible cytokine release syndrome. Per Onc, anti-PD1 therapy followed by BRAF /MEK inhibitors can result in multisystem organ failure from diffuse inflammatory mechanism of action -s/p tocilizumab -plan to adjust from high dose hydrocortisone to home dosage (PO 20/10) if no hypotension w/ methylpred taper -taper methylpred w/ 60 daily x 2 days, then 40mg daily (starting 07/24), then 20mg daily (starting 07/26), then off -WBC 17,500, persistent leukocytosis likely 2/2 ongoing steroids # NSTEMI. Suspect Type II w/ trop 20, subtle wall motion abnl on Echo, does not recommend cath (given ATN) -will require cardiac risk strat prior to DC if he otherwise recovers # Acute hypoxic respiratory failure. 2/2 shock, dCHF, and cytokine release -extubated, weaned to RA # Shock. Likely distributive from cytokine release syndrome, off Abx now # Acute urinary retention. Requiring replacement of paz o/n, continue, receiving accurate I/O # Acute metabolic encephalopathy. 2/2 metabolic effects of uremia and acidosis, mentating at baseline # Ischemic digits. Acute, 2/2 pressors, ongoing paresthesias # Moderate mitral regurgitation. Dr. Tobin, does not recommend AVELINA given that his hemodynamics are currently responding to lasix, repeat once euvolemic # Acute metabolic acidosis. 2/2 lactic acid (shock) and uremia (ATN),PO bicarb started # Hyperglycemia. 2/2 stress response from above, stopped insulin gtt and ordered ACHS checks # Diarrhea. Cont questran, gauge effect # Metastatic melanoma. S/p Taflinar and Mekinist, currently holding given current condition Diet. As todd PPx. High risk, hold hep SC, SCDs Code. Full Dispo. ADD uncertain, remains severely ill 35 minutes of critical care time spent with this patient/family, specifically addressing his acute hemorrhaging emergently as above, which render him critically ill w/ high risk for worsening morbidity/mortality in setting of high severity of illness outlined above. Subjective: bleeding from R IJ since 7 a.m. this AM, not dizzy Objective: Vital Signs Temp Pulse Resp BP Pulse Ox 36.7 C 72 16 130/95 H 95 07/22/18 08:00 07/22/18 08:00 07/22/18 08:00 07/22/18 08:00 07/22/18 08:00 Laboratory Results 07/22/18 12:45 07/22/18 04:15 07/21/18 07/22/18 07/23/18 05:59 05:59 05:59 Intake Total 1540 1650 Output Total 1450 920 Balance 90 730 PT 16.8 SEC (12.0-15.0) H 07/22/18 12:45 INR 1.34 (0.83-1.16) H 07/22/18 12:45 - Physical Exam Constitutional: not in pain, No uncomfortable Ears, Nose, Mouth, Throat: other (neck wrapped) Cardiovascular: systolic murmur (III/ at apex), edema (trace bilat UE), No irregularly irregular, No tachycardia Respiratory: inspiratory crackles (bilat bases), other (good air movement in neck/upper airway), No reduced air movement, No expiratory wheeze, No bronchial breath sounds, No respiratory distress Gastrointestinal: normoactive bowel sounds, soft, non-tender abdomen, No distension Skin: other (ongoing bleeding R neck) Neurologic: AAOx3 Psychiatric: not encephalopathic, thought process linear, anxious, No agitated ICD10 Worksheet Patient Problems: Problems Problem Status Onset Melanoma 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
[2018-07-22] MEDS: MELATONIN 3 MG TAB PO SCH (20:35)
[2018-07-23] MEDS: HYDROCORTISONE 100 MG/2 ML VIAL IVP SCH ×2 (05:03→20:58)
[2018-07-23] MEDS: LEVOTHYROXINE 150 MCG TAB PO SCH (05:03)
[2018-07-23 05:30] LABS: PLATELET COUNT 131 10^3/uL (150-400)
[2018-07-23] MEDS: ALLOPURINOL 100 MG TAB PO SCH (08:15)
[2018-07-23] MEDS: PANTOPRAZOLE SODIUM 40 MG TAB PO SCH (08:15)
[2018-07-23] MEDS: SODIUM BICARBONATE 650 MG TAB PO SCH ×2 (08:15→20:57)
[2018-07-23] MEDS: CALCIUM ACETATE 667 MG CAP PO SCH ×3 (08:16→20:57)
[2018-07-23] MEDS: methylPREDNISolone SOD SUCC 125 MG/2 ML VIAL IVP SCH (08:17)
--- NOTE | 2018-07-23 09:47 | HOSPPROG ---
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 Plan: # ATN. 2/2 shock, resulting in hypervolemia from anuria, demonstrating e/o renal recovery w/ UOP 1025 ml 24hrs -Nephrology following patient, Dr. Tejeda, s/p HD yesterday, will f/u recommendations -holding lasix # Acute diastolic CHF exacerbation. Evidenced by bilat pleural effusion on CXR, improving on most recent CXR -vol removal s/p HD yesterday, remains hypervolemic, HD per nephrology # Possible cytokine release syndrome. Per Onc, anti-PD1 therapy followed by BRAF /MEK inhibitors can result in multisystem organ failure from diffuse inflammatory mechanism of action -s/p tocilizumab -plan to adjust from high dose hydrocortisone to home dosage (PO 11/07) if no hypotension w/ methylpred taper, will decrease to 100 mg BID today -taper methylpred w/ 60 daily x 2 days, then 40mg daily (starting 07/24), then 20mg daily (starting 07/26), then off -WBC 17,500, persistent leukocytosis likely 2/2 ongoing steroids # NSTEMI. Suspect Type II w/ trop 20, subtle wall motion abnl on Echo, does not recommend cath (given ATN) -will require cardiac risk strat prior to DC if he otherwise recovers # Acute hypoxic respiratory failure. 2/2 shock, dCHF, and cytokine release -extubated, weaned to RA # Acute hemorrhage. Bleeding at R IJ yesterday - Resolved yesterday with pressure and surgicel, however oozing this AM - Surgery to see today # Shock. Likely distributive from cytokine release syndrome, off Abx now # Acute urinary retention. Requiring replacement of paz o/n, receiving accurate I/O, paz d/c today # Acute metabolic encephalopathy. 2/2 metabolic effects of uremia and acidosis, mentating at baseline # Ischemic digits. Acute, 2/2 pressors, ongoing paresthesias # Moderate mitral regurgitation. Dr. Tobin, does not recommend AVELINA given that his hemodynamics are currently responding to lasix, repeat once euvolemic # Acute metabolic acidosis. 2/2 lactic acid (shock) and uremia (ATN),PO bicarb started # Hyperglycemia. 2/2 stress response from above, stopped insulin gtt and ordered ACHS checks # Diarrhea. Will d/c questran, Imodium prn # Metastatic melanoma. S/p Taflinar and Mekinist, currently holding given current condition Diet. As todd PPx. High risk, hold hep SC, SCDs Code. Full Dispo. ADD uncertain, remains severely ill Subjective: Patient reports that he has some more energy this AM Objective: Vital Signs Temp Pulse Resp BP Pulse Ox 37.2 C 78 16 139/95 H 96 07/23/18 07:56 07/23/18 07:56 07/23/18 07:56 07/23/18 07:56 07/23/18 07:56 Laboratory Results 07/23/18 05:05 07/23/18 05:05 07/22/18 07/23/18 07/24/18 05:59 05:59 05:59 Intake Total 1650 1000 Output Total 920 2024 Balance 730 -1025 PT 16.8 SEC (12.0-15.0) H 07/22/18 12:45 INR 1.34 (0.83-1.16) H 07/22/18 12:45 - Physical Exam Constitutional: chronically ill appearing Eyes: PERRL Ears, Nose, Mouth, Throat: dry mucous membranes Cardiovascular: regular rate and rhythym Respiratory: no respiratory distress Gastrointestinal: soft, non-tender abdomen Skin: warm, other (Necrosis at finger tips) Musculoskeletal: generalized weakness Neurologic: AAOx3 Psychiatric: interacting appropriately ICD10 Worksheet Patient Problems: Problems Problem Status Onset Melanoma 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
[2018-07-23] MEDS: CHOLESTYRAMINE/SUCROSE 4 GM PKT PO SCH (10:23)
--- NOTE | 2018-07-23 12:08 | PDCARPN ---
Cardiology Progress Note Chief Complaint: Patient feeling well today. No cardiovascular complaints. Assessment/Plan: Assessment: 07-23-18 Patient doing well today. Dialysis yesterday, and improvement in both BUN and creatinine have been noted. Patient was sitting up in chair today. was at bedside. No Coreg therapy has been started, and would not start/trial ACEi therapy given the renal function noted. 07-22-18 Limited echocardiography this morning with low normal LVEF (50-55%), and trace/ mild mitral regurgitation noted. No cardiovascular complaints of chest pains or pressure. was at bedside this morning, and patient was sitting up in chair. BUN and creatinine continue to rise. Nephrology is following patient. Hyperkalemia noted today. Suspect that HD will be performed given the numbers that are noted. 07-20-18 No cardiovascular complaints this morning. Patient was sitting up in chair. Surgery with right IJ dialysis catheter placement yesterday, and nephrology with plans for dialysis today. No chest pains or pressure. Mild digit discomfort voiced this morning. 07-19-18 Patient doing better today. Mild throat discomfort noted (and unexpected given the intubation period). No cassandra cardiovascular complaints were voiced today. Ongoing awareness of moderate mitral regurgitation and mild reduction in LVEF ( 40-45%). Further elevation in renal function is being noted, and decisions on dialysis being made by nephrology (actively following the patient). Patient is much more awake and alert today. Surgery saw the patient yesterday for ischaemic digits. 07-18-18 Patient is a 53 y/o male with metastatic melanoma s/p chemotherapy (kinase inhibitors) with presentation from OSH in shock (thought secondary to therapies and cytokine release), with mild reduction in LVEF noted (echocardiography from JUL 09 estimating LVEF to 42%) and moderate mitral regurgitation. Troponin peak to 20, at the time of transfer with inferolateral ST elevation, which is now thought to be a focal myocarditis (which aligns, albeit late presentation, with immune checkpoint inhibitor use). Acute renal insufficiency noted, and initial treatment was CRRT. This treatment reportedly ended last night, and at present, the patient is undergoing HD with intent to remove 2 liters of fluid. Further plans, per staff report, for extubation later today. Pressors have been stopped (this has also allowed the removal of excess fluids by HD). Staff reporting that the patient is more responsive than he has been (this being my first day on service with the patient). Digital necrosis is noted secondary to pressor need given hypotension in shock presentation. Patient has not been taken to the cardiac clinical laboratory director given the more pressing need for supportive measures and the acute renal insufficiency necessitating CRRT and HD. Plan: (1) Await nephrology input today (2) Would attempt Coreg therapy, contingent on patient's pressures and need for hemodialysis (3) In the outpatient setting, would have patient seen by cardiology 5-7 days post discharge (4) OT/PT work with patient (5) Cardiology will continue to follow patient while in house Subjective: No cardiovascular complaints Reviewed/Discussed With: family, multidisciplinary team Objective: Vital Signs (8 Hrs) Temp Pulse Resp BP Pulse Ox 07/23/18 07:56 37.2 C 78 16 139/95 H 96 Intake/Output (24 Hrs) 07/22/18 07/23/18 07/24/18 05:59 05:59 05:59 Intake Total 1650 1000 Output Total 920 2025 180 Balance 730 -1025 -180 Intake: Oral (ml) 1650 1000 Output: Urine (ml) 920 1025 180 Catheter 920 1025 180 Dialysis Fluid Removed 1000 Other: Weight 86 kg Intake Quantity Yes Sufficient Number of Voids Toilet 1 Number of Stools Bedside Commode 1 Toilet 1 1 Result Diagrams: 07/23/18 05:05 07/23/18 05:05 Telemetry: sinus rhythm - Physical Exam Constitutional: WDWN, healthy appearing, no apparent distress Eyes: PERRL, EOMI Ears, Nose, Mouth, Throat: moist mucous membranes Cardiovascular: regular rate and rhythm, no murmurs, no rubs, pulses symmetric bilat, No jugular vein distention Peripheral Pulses: 2+: dorsalis-pedis (R), dorsalis-pedis (L) Respiratory: clear to auscultate bilat, no crackles Gastrointestinal: normoactive bowel sounds Skin: other (digit ischaemia) Musculoskeletal: no muscular tenderness Neurologic: AAOx3, CN II-XII grossly intact Psychiatric: cooperative, interactive, following commands ICD10 Worksheet Patient Problems: Problems Problem Status Onset Melanoma 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
--- NOTE | 2018-07-23 12:22 | SOAPPROG ---
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 urine output seems to be improving 5) Resp failure-- now extubated. 6) digital ischemia, possibly secondary to pressors Plan: Patient has clearly improved. He is now off of pressors, and was successfully extubated. He answers questions appropriately and is oriented. Starting steroid taper as was outlined by Dr. Benz in a recent note. During the tapering process, a recurrent fever would represent a concern, and may be an indication to raise the steroid dose. No indication for a second dose of Tocilizumab given the improvement. Continue supportive care. Plan is for dialysis, urine output better, but bun/cr / uric acid po4/k elevated, now on allopurinol Platelets now normal. Overall clinical picture is not c/w HIT. Will need to consider if he can be rechallenged , difficult decision with little data, there are other BRAF/MEK inhibitor combinations, unclear if they would have the same risk 07/20/18 11:42 07/21/18 11:00 07/22/18 11:43 07/23/18 12:20 Subjective: awake alert Objective: Vital Signs Temp Pulse Resp BP Pulse Ox 98.9 F 78 16 139/95 H 96 07/23/18 07:56 07/23/18 07:56 07/23/18 07:56 07/23/18 07:56 07/23/18 07:56 Laboratory Results 07/23/18 05:05 07/23/18 05:05 07/22/18 07/23/18 07/24/18 05:59 05:59 05:59 Intake Total 1650 1000 Output Total 920 2025 180 Balance 730 -1025 -180 PT 16.8 SEC (12.0-15.0) H 07/22/18 12:45 INR 1.34 (0.83-1.16) H 07/22/18 12:45 ICD10 Worksheet Patient Problems: Problems Problem Status Onset Melanoma 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
--- NOTE | 2018-07-23 13:19 | SOAPPROG ---
SOAP Progress Note Assessment/Plan: Assessment: CONSUELO due to shock from sepsis-vs- cytokine storm after chemotherapy respiratory failure off vent, talking and walking metastatic melanoma, s/p chemotherapy edema, mild/mod volume up Plan: HD today HD tomorrow UOP more than a liter today, I expect renal recovery continue therapies/nutrition encouraged up and around with help paz out today discussed with patient and who was at bedside, all questions answered 07/15/18 08:51 07/23/18 13:15 Subjective: up to chair spirits good at bedside no cp sob nausea or vomiting energy slowly improving appetite getting better sleeping OK strength better every day Objective: Vital Signs Temp Pulse Resp BP Pulse Ox 37.2 C 78 16 139/95 H 96 07/23/18 07:56 07/23/18 07:56 07/23/18 07:56 07/23/18 07:56 07/23/18 07:56 Laboratory Results 07/23/18 05:05 07/23/18 05:05 07/22/18 07/23/18 07/24/18 05:59 05:59 05:59 Intake Total 1650 1000 Output Total 920 2024 180 Balance 730 -1025 -180 PT 16.8 SEC (12.0-15.0) H 07/22/18 12:45 INR 1.34 (0.83-1.16) H 07/22/18 12:45 Physical Exam - Physical Exam General Appearance: alert, thin Neck: normal inspection Respiratory: No rhonchi, No wheezing Cardiac/Chest: regular rate, rhythm, edema (trace) Abdomen: normal bowel sounds, non-tender, soft Extremities: other (mild edema, ischemic digits hands and feet) Neuro/Psych: alert, normal mood/affect, oriented x 3 ICD10 Worksheet Patient Problems: Problems Problem Status Onset Melanoma 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
[2018-07-23] MEDS: HEPARIN 5,000 UNIT/0.5 ML INJ SC SCH (15:19)
--- NOTE | 2018-07-23 15:49 | SOAPPROG ---
FRANTZ Progress Note Assessment/Plan: Assessment: 53yo M s/p R IJ Rolandurkar placement for temp dialysis - evaluated yesterday by my partner, bleeding abated with prolonged pressure - bled again this AM, less so - on eval today the dressing placed at 10AM is clean, there is some shadowing but the area is not bleeding. Anticipate that bleeding 2/2 underlying uremia and will resolve with HD which is planned today and tomorrow which I am in agreement with - if continued to bleed would need to explore, but site like is at the IJ stick site and will tamponade with appropriate platelet function. - will monitor. 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
[2018-07-23] MEDS: SODIUM CITRATE 4% 4 ML in SYRINGE 0 ML DIAL PRN (20:09)
[2018-07-23] MEDS: MELATONIN 3 MG TAB PO SCH (20:58)
[2018-07-24] MEDS: LEVOTHYROXINE 150 MCG TAB PO SCH (05:09)
[2018-07-24 05:30] LABS: PLATELET COUNT 113 10^3/uL (150-400)
[2018-07-24] MEDS: HEPARIN 5,000 UNIT/0.5 ML INJ SC SCH ×3 (05:51→23:29)
[2018-07-24] MEDS ORDERED: methylPREDNISolone SOD SUCC 125 MG/2 ML VIAL IVP SCH (08:10)
[2018-07-24] MEDS: SODIUM BICARBONATE 650 MG TAB PO SCH (08:58)
[2018-07-24] MEDS: HYDROCORTISONE 100 MG/2 ML VIAL IVP SCH ×2 (08:58→23:55)
[2018-07-24] MEDS: CALCIUM ACETATE 667 MG CAP PO SCH ×3 (08:58→19:37)
[2018-07-24] MEDS: PANTOPRAZOLE SODIUM 40 MG TAB PO SCH (08:58)
[2018-07-24] MEDS: ASPIRIN 325 MG TAB PO SCH (08:58)
[2018-07-24] MEDS: ALLOPURINOL 100 MG TAB PO SCH (08:58)
[2018-07-24] MEDS: methylPREDNISolone SOD SUCC 40 MG/ML VIAL IVP SCH (09:01)
--- NOTE | 2018-07-24 10:39 | SOAPPROG ---
SOAP Progress Note Assessment/Plan: Assessment: 1) Metastatic melanoma with recent therapeutic change (immunotherapy ---> BRAF/ MEK inhibition) 2) Cytokine release syndrome --Tocilizumab given 07/13 3) Septic shock 4) Acute renal failure, status post dialysis. urine output remains ok 5) Resp failure-- now extubated. 6) digital ischemia, possibly secondary to pressors Plan: Patient has clearly improved. He is now off of pressors, and was successfully extubated. He answers questions appropriately and is oriented. Starting steroid taper as was outlined by Dr. Benz in a recent note. During the tapering process, a recurrent fever would represent a concern, and may be an indication to raise the steroid dose. No indication for a second dose of Tocilizumab given the improvement. Continue supportive care. Plan is for dialysis, urine output better, but bun/cr / uric acid po4/k elevated, now on allopurinol, recheck uric acid today Platelets now normal. Overall clinical picture is not c/w HIT. Will need to consider if he can be rechallenged , difficult decision with little data, there are other BRAF/MEK inhibitor combinations, unclear if they would have the same risk 07/20/18 11:42 07/21/18 11:00 07/22/18 11:43 07/23/18 12:20 07/24/18 10:35 Subjective: rough night, some bleeding from catheter Objective: Vital Signs Temp Pulse Resp BP Pulse Ox 98.8 F 82 16 124/88 H 93 07/24/18 08:00 07/24/18 08:00 07/24/18 08:00 07/24/18 08:00 07/24/18 08:00 Laboratory Results 07/24/18 05:10 07/24/18 05:10 07/23/18 07/24/18 07/25/18 05:59 05:59 05:59 Intake Total 1000 1700 Output Total 2024 2079 200 Balance -1025 -380 -200 PT 16.8 SEC (12.0-15.0) H 07/22/18 12:45 INR 1.34 (0.83-1.16) H 07/22/18 12:45 Physical Exam - Physical Exam General Appearance: alert, no apparent distress Respiratory: normal breath sounds Cardiac/Chest: regular rate, rhythm Abdomen: normal bowel sounds, non-tender Extremities: other (Digital ischemia) ICD10 Worksheet Patient Problems: Problems Problem Status Onset Melanoma 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
--- NOTE | 2018-07-24 11:51 | HOSPPROG ---
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 Plan: # ATN. 2/2 shock, resulting in hypervolemia from anuria, demonstrating e/o renal recovery w/ UOP 980 ml 24hrs -Nephrology following patient, Dr. Tejeda, s/p HD yesterday, plan for HD today -holding lasix # Acute diastolic CHF exacerbation. Evidenced by bilat pleural effusion on CXR, improving on most recent CXR -vol removal s/p HD yesterday, HD per nephrology -Followed by cardiology, recommending starting Coreg, will start low dose this evening # Possible cytokine release syndrome. Per Onc, anti-PD1 therapy followed by BRAF /MEK inhibitors can result in multisystem organ failure from diffuse inflammatory mechanism of action -s/p tocilizumab -plan to adjust from high dose hydrocortisone to home dosage (PO 11/07) if no hypotension w/ methylpred taper, decreased to 100 mg BID yesterday, will continue today and make 100 qd tomorrow then d/c -taper methylpred w/ 60 daily x 2 days, then 40mg daily (starting 07/24), then 20mg daily (starting 07/26), then off -WBC 11.4 this AM, persistent leukocytosis likely 2/2 ongoing steroids # NSTEMI. Suspect Type II w/ trop 20, subtle wall motion abnl on Echo, does not recommend cath (given ATN) -followed by cardiology, recommending f/u for further risk stratification 5-7 days after d/c # Acute hypoxic respiratory failure. 2/2 shock, dCHF, and cytokine release -extubated, weaned to RA # Acute hemorrhage. Bleeding at R IJ yesterday - Resolved yesterday with pressure and surgicel, however continued to ooze overnight - Surgery following, no suture placed, recommend treating underlying uremia to help platelet function # Shock. Likely distributive from cytokine release syndrome, off Abx now # Acute urinary retention. Requiring replacement of paz o/n, receiving accurate I/O, paz d/c yesterday # Acute metabolic encephalopathy. 2/2 metabolic effects of uremia and acidosis, mentating at baseline # Ischemic digits. Acute, 2/2 pressors, ongoing paresthesias # Moderate mitral regurgitation. Dr. Tobin, does not recommend AVELINA, repeat once euvolemic # Acute metabolic acidosis. 2/2 lactic acid (shock) and uremia (ATN),PO bicarb started # Hyperglycemia. 2/2 stress response from above, stopped insulin gtt and ordered ACHS checks # Diarrhea. D/c questran, Imodium prn # Metastatic melanoma. S/p Taflinar and Mekinist, currently holding given current condition Diet. As todd PPx. High risk, hold hep SC, SCDs Code. Full Dispo. ADD uncertain, remains severely ill Subjective: Patient reports oozing from [facility] site overnight Objective: Vital Signs Temp Pulse Resp BP Pulse Ox 37.1 C 82 16 124/88 H 93 07/24/18 08:00 07/24/18 08:00 07/24/18 08:00 07/24/18 08:00 07/24/18 08:00 Laboratory Results 07/24/18 05:10 07/24/18 05:10 07/23/18 07/24/18 07/25/18 05:59 05:59 05:59 Intake Total 1000 1700 Output Total 2024 2079 200 Balance -1025 -380 -200 PT 16.8 SEC (12.0-15.0) H 07/22/18 12:45 INR 1.34 (0.83-1.16) H 07/22/18 12:45 - Physical Exam Constitutional: no apparent distress, chronically ill appearing Eyes: PERRL Ears, Nose, Mouth, Throat: moist mucous membranes Cardiovascular: regular rate and rhythym Respiratory: no respiratory distress Gastrointestinal: No distension Genitourinary: No paz in urethra Skin: other (necrotic changes in fingertips b/l) Musculoskeletal: generalized weakness Neurologic: AAOx3 Psychiatric: interacting appropriately ICD10 Worksheet Patient Problems: Problems Problem Status Onset Melanoma 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
--- NOTE | 2018-07-24 14:16 | SOAPPROG ---
SOAP Progress Note Assessment/Plan: Assessment: CONSUELO due to shock like from cytokine storm after chemotherapy c/b multiorgan failure, now off pressors and extubated. Making urine but no significant renal clearance yesterday. 1. Had HD on 07/23 and again 07/24 due to concern that uremic platelet dysfunction could be contributing to oozing around temp dialysis catheter 2. Plan to hold off on further dialysis over the weekend (tentatively next HD planned for 07/27 if still no signs of renal recovery). Watch UOP and delta Cr over the weekend 3. 1.5L UF with HD on 07/23 and will get another 2.5L UF with HD on 07/24. Making >1L urine. If feel like needs more volume off over the weekend, can try lasix. 4. Expect that patient will recover renal function. Discussed with patient that this could days to weeks to even months. Would keep patient in hospital for now , but discussed with patient that if he doesn't have renal recovery in the next days to week, would plan to start working on outpatient CONSUELO dialysis arrangements 5. Continue renal diet for now. Would limit to 1.5L fluid per day 07/24/18 14:20 Subjective: Issues with continued oozing from dialysis catheter overnight. Patient feeling ok today. He is still weak but feels like he is slowly getting his strength back. Breathing is not too bad but still a little short of breath. He has been getting up and walking around. Continues to have numbness of ischemic digits but feels like the area of ischemia is decreasing. Saw patient on dialysis. Tolerating treatment well. BP has stayed up, increased UF goal to net negative 2.5L. Dialysis catheter is positional. Objective: Vital Signs Temp Pulse Resp BP Pulse Ox 37.1 C 82 16 124/88 H 93 07/24/18 08:00 07/24/18 08:00 07/24/18 08:00 07/24/18 08:00 07/24/18 08:00 Laboratory Results 07/24/18 05:10 07/24/18 05:10 07/23/18 07/24/18 07/25/18 05:59 05:59 05:59 Intake Total 1000 1700 Output Total 2024 2079 200 Balance -1025 -380 -200 PT 16.8 SEC (12.0-15.0) H 07/22/18 12:45 INR 1.34 (0.83-1.16) H 07/22/18 12:45 General- awake, alert, well-appearing, NAD, sitting up in chair on dialysis Eyes- anicteric sclera, no conjunctival injection HEENT- MMM, no gross oral lesions Neck- RIJ temp dialysis catheter with exit site covered by dressing Pulm- Anterior lung tong CTAB, no wheezes or rales CV- NRRR, no g/m/r Abd- soft, non-tender, non-distended, +BS Extrem- ischemia of digits of upper extremities, R hand worst, some improvement over time Psych- pleasant, answers questions appropriately, good insight - Time Spent With Patient Time Spent With Patient: >30min spent on the care of this patient with >50% of time spent on counseling and coordination of care ICD10 Worksheet Patient Problems: Problems Problem Status Onset Melanoma 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
--- NOTE | 2018-07-24 15:14 | ASMTCMCOM ---
CM Note CM Note Notes: Patient had an acute hemorrhage, bleeding at R IJ yesterday, resolved with pressure and surgical. However, the wound continued to ooze overnight. Patient remains severely ill. Discharge plan still uncertain. If patient can complete dialysis, he might be able to pursue inpatient rehab. D/C plan TBD. CM will follow. Date Signed: 07/24/2018 03:14 PM Electronically Signed By:Patricia Madera LCSW
[2018-07-24] MEDS: CARVEDILOL 3.125 MG TAB PO SCH (19:35)
[2018-07-24] MEDS ORDERED: HEPARIN 50,000 UNIT/10 ML VIAL ONE (20:07)
[2018-07-24 22:38] LABS: PLATELET COUNT 110 10^3/uL (150-400)
[2018-07-24] MEDS: MELATONIN 3 MG TAB PO SCH (23:31)
--- NOTE | 2018-07-25 00:10 | SOAPPROG ---
SOAP Progress Note Assessment/Plan: Assessment/Plan: Called to bedside for intractable bleeding at Rt IJ dialysis catheter site Previous notes reviewed. D/W Dr Hernandes Digital pressure over 10 min with sterile gloves insufficient. Area cleansed with Chlorhexidine, 1% lido/0.5% marcaine w/epi infused Double purse string with 3-0 nylon controlled bleeding. Sterile dressing reapplied. 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
[2018-07-25] MEDS: HEPARIN 5,000 UNIT/0.5 ML INJ SC SCH ×3 (01:28→23:01)
[2018-07-25] MEDS: LEVOTHYROXINE 150 MCG TAB PO SCH (04:56)
[2018-07-25] MEDS ORDERED: GUAIFENESIN/DM 10 ML UDCUP PO PRN (05:39)
[2018-07-25] MEDS ORDERED: CEPACOL LOZENGE PO PRN (05:39)
--- NOTE | 2018-07-25 09:52 | SOAPPROG ---
SOAP Progress Note Assessment/Plan: Assessment: continues to bleed from temporary dialysis catheter placement in R neck. Seems to ooze or have overt bleeding more than it is stopped. Ordered ultrasound. May need venogram. May need cutdown. Patient also asked to speak with Dr. Mcdonald with whom he has a longstanding relationship. 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
--- NOTE | 2018-07-25 10:16 | SOAPPROG ---
SOAP Progress Note Assessment/Plan: Assessment: 1. Metastatic melanoma, responding to BRAF inhibitor 2. Cytokine release syndrome, resolved 3. Renal failure, acute. Cr/BUn remain elevaed but making urine 4. R IJ clot associated with dialysis catheter Recs: - no Rx for melanoma right now - may consider rechallenge w/ BRAF inhibitor in the future - no dialysis this weekend - nephrology cautiously optimistic about renal recovery - will refer management of IJ catheter to surgery. I would favor removal of the catheter and continuing low dose lovenox for now (eg not increasing dose to therapeutic given risk of bleeding) 25 min spent w/ pt and in coordination of care. Subjective: feels well aside from persistent bleeding issues from R IJ dialysis catheter. 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
[2018-07-25] MEDS: ALLOPURINOL 100 MG TAB PO SCH (10:42)
[2018-07-25] MEDS: ASPIRIN 325 MG TAB PO SCH (10:43)
[2018-07-25] MEDS: CALCIUM ACETATE 667 MG CAP PO SCH ×3 (10:43→18:40)
[2018-07-25] MEDS: CARVEDILOL 3.125 MG TAB PO SCH ×2 (10:43→18:40)
[2018-07-25] MEDS: HYDROCORTISONE 100 MG/2 ML VIAL IVP SCH (11:13)
[2018-07-25] MEDS: methylPREDNISolone SOD SUCC 40 MG/ML VIAL IVP SCH (11:13)
--- NOTE | 2018-07-25 11:46 | HOSPPROG ---
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 Plan: # ATN. 2/2 shock, resulting in hypervolemia from anuria, demonstrating e/o renal recovery w/ UOP 980 ml 24hrs -Nephrology following patient, Dr. Tejeda, s/p HD yesterday, plan to hold dialysis over the weekend -holding lasix, restart per nephrology for fluid overload over the weekend in abscence of HD - Continue to monitor I/O, BMP qd # Acute diastolic CHF exacerbation. Evidenced by bilat pleural effusion on CXR, improving on most recent CXR -vol removal s/p HD yesterday, HD per nephrology -Followed by cardiology, recommended starting Coreg, 3.125 mg BID started on 07/24 # Possible cytokine release syndrome. Per Onc, anti-PD1 therapy followed by BRAF /MEK inhibitors can result in multisystem organ failure from diffuse inflammatory mechanism of action -s/p tocilizumab -plan to adjust from high dose hydrocortisone to home dosage (PO 11/07) if no hypotension w/ methylpred taper, decreased to 100 mg BID on 07/23, will make 100 qd today then d/c -taper methylpred w/ 60 daily x 2 days, then 40mg daily (starting 07/24), then 20mg daily (starting 07/26), then off -WBC 13.3 this AM, persistent leukocytosis likely 2/2 ongoing steroids # NSTEMI. Suspect Type II w/ trop 20, subtle wall motion abnl on Echo, does not recommend cath (given ATN) -followed by cardiology, recommending f/u for further risk stratification 5-7 days after d/c # Acute hypoxic respiratory failure. 2/2 shock, dCHF, and cytokine release -extubated, weaned to RA # Acute hemorrhage. Bleeding at R IJ yesterday - Continues to ooze overnight, H/H remains stable - Surgery following, plan for vascular study, intervention today #RIJ - Head/Neck U/S performed this AM shows thrombosis of RIJ - Surgery/IR consulted for intervention - Per Hematology, recommend continuing prophylactic anticoagulation to avoid increased bleeding with therapeutic dosing # Shock. Likely distributive from cytokine release syndrome, off Abx now # Acute urinary retention. Requiring replacement of paz o/n, receiving accurate I/O, paz d/c yesterday # Acute metabolic encephalopathy. 2/2 metabolic effects of uremia and acidosis, mentating at baseline # Ischemic digits. Acute, 2/2 pressors, ongoing paresthesias # Moderate mitral regurgitation. Dr. Tobin, does not recommend AVELINA, repeat once euvolemic # Acute metabolic acidosis. 2/2 lactic acid (shock) and uremia (ATN),PO bicarb started # Hyperglycemia. 2/2 stress response from above, stopped insulin gtt and ordered ACHS checks # Diarrhea. D/c questran, Imodium prn # Metastatic melanoma. S/p Taflinar and Mekinist, currently holding given current condition Diet. As todd PPx. High risk, hold hep SC, SCDs Code. Full Dispo. ADD uncertain, remains severely ill Subjective: Patient reports neck discomfort Objective: Vital Signs Temp Pulse Resp BP Pulse Ox 36.5 C 85 16 140/97 H 93 07/25/18 07:51 07/25/18 10:43 07/25/18 07:51 07/25/18 10:43 07/25/18 07:51 Laboratory Results 07/25/18 04:45 07/25/18 04:45 07/24/18 07/25/18 07/26/18 05:59 05:59 04:59 Intake Total 1700 550 Output Total 2080 3900 400 Balance -380 -3350 -400 PT 16.8 SEC (12.0-15.0) H 07/22/18 12:45 INR 1.34 (0.83-1.16) H 07/22/18 12:45 - Physical Exam Constitutional: chronically ill appearing Eyes: PERRL Ears, Nose, Mouth, Throat: moist mucous membranes Cardiovascular: regular rate and rhythym Respiratory: no respiratory distress Gastrointestinal: soft, non-tender abdomen Genitourinary: No paz in urethra Skin: warm Musculoskeletal: generalized weakness Neurologic: AAOx3 Psychiatric: interacting appropriately ICD10 Worksheet Patient Problems: Problems Problem Status Onset Melanoma 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
[2018-07-25] MEDS ORDERED: GLUCAGON HCL 1 MG VIAL IVP PRN (12:00)
[2018-07-25] MEDS ORDERED: FLUMAZENIL 0.5 MG/5 ML MDV IVP PRN (12:00)
[2018-07-25] MEDS ORDERED: HEPARIN 10,000 UNIT/10 ML MDV (1,000 UNIT/ML) IVP PRN (12:00)
[2018-07-25] MEDS ORDERED: NALOXONE HCL 0.4 MG/ML INJ IVP PRN (12:00)
[2018-07-25] MEDS ORDERED: fentaNYL 100 MCG/2 ML INJ IVP PRN (12:00)
[2018-07-25] MEDS ORDERED: NS 1,000 ML IV SCH ×2 (12:00→21:30)
[2018-07-25] MEDS ORDERED: ALTEPLASE 2 MG VIAL IVP PRN (12:00)
[2018-07-25] MEDS ORDERED: MIDAZOLAM 2 MG/2 ML VIAL IVP PRN (12:00)
[2018-07-25] MEDS ORDERED: MEPERIDINE 25 MG/ML SYR IVP PRN (12:00)
[2018-07-25] MEDS ORDERED: PROTAMINE SULFATE 50 MG/5 ML VIAL IVP PRN (12:00)
[2018-07-25] MEDS ORDERED: IOPAMIDOL (ISOVUE-300) 100 ML BTL ONE ×2 (12:20→12:39)
[2018-07-25] MEDS ORDERED: LIDOCAINE 1% 300 MG/30 ML SDV ONE (12:20)
[2018-07-25] MEDS ORDERED: NALOXONE HCL 0.4 MG/ML INJ ONE (13:08)
--- NOTE | 2018-07-25 13:08 | PDCONSULT ---
Senior Cobol Developer Note: Ash has persistent bleeding from around a right IJ dialysis catheter. Dressing was changed. Angio shows no AVF and no IJ thrombosis If bleeding persists will need surgical exploration and repair of vein. Cayetano Mcdonald MD, FACS
[2018-07-25] MEDS ORDERED: MIDAZOLAM 2 MG/2 ML VIAL ONE (13:09)
[2018-07-25] MEDS ORDERED: fentaNYL 100 MCG/2 ML INJ ONE (13:09)
[2018-07-25] MEDS ORDERED: FLUMAZENIL 0.5 MG/5 ML MDV IVP ONE (13:09)
[2018-07-25] MEDS: PANTOPRAZOLE SODIUM 40 MG TAB PO SCH (13:21)
--- NOTE | 2018-07-25 14:39 | PDPROPOC ---
Sedation Plan of Care ASA Classification: ASA 2 Mallampati Score: Class 2 Mallampati Reference Image:
--- NOTE | 2018-07-25 14:41 | PDRADPN ---
Radiology Procedure Note Date of Procedure: 07/25/18 Radiologist: Amilcar Palmer Anesthesia: IV Sedation Pre-op Diagnosis: oozing IJ line Post-op Diagnosis: same Procedure: right carotid angiogram Finding(s): no AVF seen, delayed phase injection performed which showed no flow limiting stenosis in the jugular. Contrast seen extending to the SVC with some stenosis at the IJ line. Inf/Abcess present in the surg proc area at time of surgery?: No
[2018-07-25 16:57] LABS: PLATELET COUNT 108 10^3/uL (150-400)
[2018-07-25] MEDS: MELATONIN 3 MG TAB PO SCH (23:00)
[2018-07-26] MEDS: LEVOTHYROXINE 150 MCG TAB PO SCH (04:14)
[2018-07-26 04:42] LABS: PLATELET COUNT 117 10^3/uL (150-400)
[2018-07-26] MEDS ORDERED: BUPIVACAINE 0.25% 30 ML SDV ONE (07:40)
[2018-07-26] MEDS ORDERED: BACITRACIN ZINC 14.2 GM OINTTUBE TP ONE (07:40)
[2018-07-26] MEDS ORDERED: THROMBIN (BOVINE) 5,000 UNIT VIAL TP ONE (07:40)
[2018-07-26] MEDS: HEPARIN 5,000 UNIT/0.5 ML INJ SC SCH ×3 (07:53→20:52)
--- NOTE | 2018-07-26 08:00 | PDANEPAE ---
ANE History of Present Illness bleeding around dialysis catheter ANE Past Medical History - Cardiovascular History Hx Hypertension: No Hx Arrhythmias: No Hx Chest Pain: No Hx Coronary Artery / Peripheral Vascular Disease: No Hx CHF / Valvular Disease: Yes Hx Palpitations: No - Pulmonary History Hx COPD: No Hx Asthma/Reactive Airway Disease: No Hx Recent Upper Respiratory Infection: No Hx Oxygen in Use at Home: No Hx Sleep Apnea: No Sleep Apnea Screening Result - Last Documented: Negative - Neurologic History Hx Cerebrovascular Accident: No Hx Seizures: No Hx Dementia: No - Endocrine History Hx Diabetes: No Obesity: no - Renal History Hx Renal Disorders: Yes - Liver History Hx Hepatic Disorders: No - Neurological & Psychiatric Hx Hx Neurological and Psychiatric Disorders: No - Cancer History Hx Cancer: Yes Cancer History Comment: melanoma umbilicus - Congenital Disorder History Hx Congenital Disorders: No - GI History Hx Gastrointestinal Disorders: No - Other Health History Other Health History: lesion umbilicus - Chronic Pain History Chronic Pain: No - Surgical History Prior Surgeries: tonsillectomy age 5 ANE Review of Systems Review of systems is: negative Review of Systems: - Exercise capacity Exercise capacity: <4 METS ANE Patient History - Allergies Allergies/Adverse Reactions: codeine Allergy (Verified 12/03/17 12:00) "VIOLENT NIGHTMARES" - Home Medications Home medications: home medication list seen and reviewed Home Medications: Acetaminophen [Mapap] 1,000 mg PO Q8H PRN 07/12/18 [Last Taken Unknown] Dabrafenib Mesylate [Tafinlar] 75 mg PO HS 07/12/18 [Last Taken Unknown] Dabrafenib Mesylate [Tafinlar] 150 mg PO DAILY 07/12/18 [Last Taken Unknown] Hydrocortisone [Cortef 10 mg (*)] 10 mg PO DAILY@14 07/12/18 [Last Taken Unknown ] Hydrocortisone [Cortef 10 mg (*)] 20 mg PO DAILY 07/12/18 [Last Taken Unknown] Levothyroxine [Synthroid 150 mcg (*)] 150 mcg PO DAILY06 07/12/18 [Last Taken Unknown] Niacinamide 500 mg PO DAILY@18 07/12/18 [Last Taken Unknown] Pantoprazole Sodium [Protonix 40mg (*)] 40 mg PO DAILY 07/12/18 [Last Taken Unknown] Trametinib Dimethyl Sulfoxide [Mekinist] 2 mg PO DAILY 10/21/18 [Last Taken Unknown] - NPO status NPO Since - Liquids (Date): 07/26/18 NPO Since - Liquids (Time): 00:00 NPO Since - Solids (Date): 07/26/18 NPO Since - Solids (Time): 00:00 - Anes Hx Anes Hx: post operative nausea - Smoking Hx Smoking Status: Never smoked - Family Anes Hx Family Hx Anesthesia Complications: none ANE Labs/Vital Signs - Labs Result Diagrams: 07/26/18 04:24 07/26/18 04:24 - Vital Signs Blood Pressure: 117/81 Heart Rate: 79 Respiratory Rate: 15 O2 Sat (%): 96 Height: 182.88 cm Weight: 83.1 kg ANE Physical Exam - Airway Neck exam: FROM Mallampati Score: Class 2 Mouth exam: normal dental/mouth exam - Pulmonary Pulmonary: no respiratory distress - Cardiovascular Cardiovascular: regular rate and rhythym - ASA Status ASA Status: III ANE Anesthesia Plan Anesthesia Plan: GA with mask
[2018-07-26] MEDS ORDERED: MIDAZOLAM 2 MG/2 ML VIAL IVP ONE (08:01)
[2018-07-26] MEDS ORDERED: MIDAZOLAM 2 MG/2 ML VIAL ONE (08:02)
[2018-07-26] MEDS ORDERED: PROPOFOL/EMULSION 500 MG/50 ML BOTTLE IV ONE (08:12)
[2018-07-26] MEDS ORDERED: fentaNYL 100 MCG/2 ML INJ ONE (08:12)
[2018-07-26] MEDS ORDERED: LIDOCAINE 2% 5 ML SDV ONE (08:13)
[2018-07-26] MEDS ORDERED: ceFAZolin 1 GM VIAL ONE ×2 (08:35)
[2018-07-26] MEDS ORDERED: ACETAMINOPHEN 500 MG TAB PO PRN (08:46)
[2018-07-26] MEDS ORDERED: HYDROmorphONE/DILAUDID 2 MG/ML INJ IVP PRN (08:46)
[2018-07-26] MEDS ORDERED: ALBUTEROL 3 ML DEYVIAL IH PRN (08:46)
[2018-07-26] MEDS ORDERED: ONDANSETRON 4 MG/2 ML VIAL IVP PRN (08:46)
[2018-07-26] MEDS ORDERED: oxyCODONE IR 5 MG TAB PO PRN (08:46)
[2018-07-26] MEDS ORDERED: fentaNYL 100 MCG/2 ML INJ IVP PRN (08:46)
[2018-07-26] MEDS ORDERED: NALOXONE HCL 0.4 MG/ML INJ IVP PRN (08:46)
[2018-07-26] MEDS ORDERED: HYDROCODONE/APAP 5/325 TAB PO PRN (08:46)
[2018-07-26] MEDS ORDERED: ENOXAPARIN 40 MG/0.4 ML SYR SC SCH (09:00)
--- NOTE | 2018-07-26 09:14 | POSTOPPROG ---
Post Op Note Date of Operation: 07/26/18 Surgeon: Alexis Mcdonald (, FACS) Anesthesiologist: Willie Munguia MD Anesthesia: Other (Specify) (IVG) Pre-op Diagnosis: bleeding right IJ dialysis cath Post-op Diagnosis: same Procedure: exploration and control of bleeding Findings: deep subcutaneous arterial bleeder Inf/Abcess present in the surg proc area at time of surgery?: No Complications: none
--- NOTE | 2018-07-26 10:13 | SOAPPROG ---
SOAP Progress Note Assessment/Plan: Assessment: CONSUELO due to shock like from cytokine storm after chemotherapy c/b multiorgan failure, now off pressors and extubated. 1. CONSUELO - Had HD on 07/23 and again 07/24 due to concern that uremic platelet dysfunction could be contributing to oozing around temp dialysis catheter -Non-oliguric but remains azotemic -Plan for next HD in AM -Vince replaced due to ongoing oozing, concern for AVF but none found in IR, now with hemostasis 2. Anemia - -Some ABL from oozing around cath and R fem access site, now s/p vessel repair, with hemostasis -To get pRBCs today Plan: 07/26/18 10:08 07/26/18 10:10 Subjective: Pt went to OR this morning for continued bleeding from IJ catheter site. Cath replaced. Hemostasis achieved. Pt stable now, no bleeding, no complaints. Objective: Vital Signs Temp Pulse Resp BP Pulse Ox 36.6 C 68 11 L 108/84 H 100 07/26/18 09:02 07/26/18 09:22 07/26/18 09:40 07/26/18 09:33 07/26/18 09:40 Laboratory Results 07/26/18 04:24 07/26/18 04:24 07/25/18 07/26/18 07/27/18 06:59 05:59 05:59 Intake Total 100 Output Total 5 Balance 95 PT 16.8 SEC (12.0-15.0) H 07/22/18 12:45 INR 1.34 (0.83-1.16) H 07/22/18 12:45 Physical Exam - Physical Exam General Appearance: other (mildly sedated from procedure sedation, NAD) Neck: other (R IJ vince in place, dressing with small amount of blood contained) Respiratory: lungs clear Cardiac/Chest: regular rate, rhythm Abdomen: non-tender, soft Extremities: No swelling ICD10 Worksheet Patient Problems: Problems Problem Status Onset Melanoma 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
--- NOTE | 2018-07-26 11:18 | HOSPPROG ---
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 Plan: # ATN. 2/2 shock, resulting in hypervolemia from anuria, demonstrating e/o renal recovery w/ UOP 800 ml 24hrs -Nephrology following patient, Dr. Tejeda, s/p HD on 07/24, plan to hold dialysis over the weekend -holding lasix, restart per nephrology for fluid overload over the weekend in abscence of HD - Continue to monitor I/O, BMP qd # Acute diastolic CHF exacerbation. 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 Per Onc, anti-PD1 therapy followed by BRAF /MEK inhibitors can result in multisystem organ failure from diffuse inflammatory mechanism of action -s/p tocilizumab -plan to adjust from high dose hydrocortisone to home dosage (PO 11/07) if no hypotension w/ methylpred taper, decreased to 100 mg BID on 07/23, then 100 qd on 07/25, then place back on home dose tomorrow -taper methylpred w/ 60 daily x 2 days, then 40mg daily (starting 07/24), then 20mg daily (starting 07/26), then off -WBC 13.3 this AM, persistent leukocytosis likely 2/2 ongoing steroids # NSTEMI. Suspect Type II w/ trop 20, subtle wall motion abnl on Echo, does not recommend cath (given ATN) -followed by cardiology, recommending f/u for further risk stratification 5-7 days after d/c # Acute hypoxic respiratory failure. 2/2 shock, dCHF, and cytokine release -extubated, weaned to RA # Acute hemorrhage. Bleeding at R IJ - Continued to ooze overnight - Neck U/S yesterday showed RIJ thrombosis - IR consulted who performed venogram yesterday which did not show any clot - Surgery took to OR today for vein repair and replaced vasc catheter - H/H decreased to 7.6 this AM, will give 1 unit PRBCs and trend H/H - Will hold AC in setting of bleed # Shock. Likely distributive from cytokine release syndrome, off Abx now # Acute urinary retention. Requiring replacement of paz o/n, receiving accurate I/O, paz d/c yesterday # Acute metabolic encephalopathy. 2/2 metabolic effects of uremia and acidosis, mentating at baseline # Ischemic digits. Acute, 2/2 pressors, ongoing paresthesias # Moderate mitral regurgitation. Dr. Tobin, does not recommend AVELINA, repeat once euvolemic # Acute metabolic acidosis. 2/2 lactic acid (shock) and uremia (ATN),PO bicarb started # Hyperglycemia. 2/2 stress response from above, stopped insulin gtt and ordered ACHS checks # Diarrhea. D/c questran, Imodium prn # Metastatic melanoma. S/p Taflinar and Mekinist, currently holding given current condition Diet. As todd PPx. High risk, hold hep SC, SCDs Code. Full Dispo. ADD uncertain, remains severely ill Subjective: Patient sleepy after procedure, denies complaints Objective: Vital Signs Temp Pulse Resp BP Pulse Ox 35.9 C L 67 11 L 121/87 H 100 07/26/18 10:26 07/26/18 10:26 07/26/18 10:26 07/26/18 10:26 07/26/18 10:26 Laboratory Results 07/26/18 04:24 07/26/18 04:24 07/25/18 07/26/18 07/27/18 06:59 05:59 05:59 Intake Total 100 Output Total 5 Balance 95 PT 16.8 SEC (12.0-15.0) H 07/22/18 12:45 INR 1.34 (0.83-1.16) H 07/22/18 12:45 - Physical Exam Constitutional: chronically ill appearing Eyes: anicteric sclera Ears, Nose, Mouth, Throat: dry mucous membranes Cardiovascular: regular rate and rhythym Respiratory: no respiratory distress Gastrointestinal: soft, non-tender abdomen Skin: warm, normal color Musculoskeletal: generalized weakness Neurologic: AAOx3 Psychiatric: interacting appropriately ICD10 Worksheet Patient Problems: Problems Problem Status Onset Melanoma 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
[2018-07-26] MEDS: HYDROCORTISONE 100 MG/2 ML VIAL IVP SCH (11:25)
[2018-07-26] MEDS: methylPREDNISolone SOD SUCC 40 MG/ML VIAL IVP SCH (11:25)
[2018-07-26] MEDS ORDERED: methylPREDNISolone SOD SUCC 40 MG/ML VIAL IVP SCH (11:36)
[2018-07-26] MEDS: CALCIUM ACETATE 667 MG CAP PO SCH ×3 (11:50→18:08)
[2018-07-26] MEDS: ALLOPURINOL 100 MG TAB PO SCH (11:56)
[2018-07-26] MEDS: PANTOPRAZOLE SODIUM 40 MG TAB PO SCH ×2 (11:56→13:23)
[2018-07-26] MEDS: CARVEDILOL 3.125 MG TAB PO SCH ×2 (11:56→18:08)
[2018-07-26] MEDS: ONDANSETRON 4 MG/2 ML VIAL IVP PRN (14:07)
--- NOTE | 2018-07-26 15:51 | GOP ---
DATE OF OPERATION: 07/26/2018 SURGEON: Alexis Mcdonald MD, FACS ANESTHESIA: IV general. ANESTHESIOLOGIST: Willie Munguia MD. PREOPERATIVE DIAGNOSIS: Bleeding from right internal jugular dialysis catheter. POSTOPERATIVE DIAGNOSIS: Bleeding from right internal jugular dialysis catheter. PROCEDURE PERFORMED: Exploration and control of bleeding right internal jugular dialysis catheter. FINDINGS: Deep subcutaneous arterial bleeder controlled with cautery. No evidence of venous bleeding from the deep tunnel leading to the jugular vein. ESTIMATED BLOOD LOSS: 10 cc for the procedure. DESCRIPTION OF PROCEDURE: After informed consent was obtained, the patient was brought to the operating room and placed supine with the right arm tucked. The neck was prepped and draped in the usual fashion after removing the dressings around the dialysis catheter. The patient was placed under IV general and maintained his airway and was breathing spontaneously during the operation. Before proceeding, a time-out and identification of the patient was performed. 0.25% Marcaine was used to infiltrate the skin and subcutaneous tissues around the dialysis catheter entry site, which entered the neck approximately 3 cm above the clavicle and posterior to the sternocleidomastoid muscle. Bleeding appeared to be coming from the anterior portion of the wound. The skin was incised for a distance of approximately 1 cm anterior to the catheter entry site and in the deep subcutaneous tissues, an arterial bleeder was identified and cauterized. The wound was further explored to ensure that this was the only source of bleeding. The patient was placed in Trendelenburg position to increase venous pressure in the jugular vein and there was no blood coming up from the course of the catheter through the sternocleidomastoid muscle. Having been satisfied that the bleeding was coming from this deep subcutaneous bleeder , I proceeded to close the wound in layers. The deep subcutaneous tissues were approximated with interrupted 4-0 Monocryl suture. Skin was closed with 4-0 Prolene suture and the catheter was resecured to the skin with 4-0 Prolene suture. An antibiotic catheter disk was placed on the exit site followed by sterile dressings. Patient was returned extubated to the recovery room in satisfactory condition. Needle, sponge, and instrument count were correct. COMPLICATIONS: None. /[id number]/MODL MTDD
[2018-07-26] MEDS ORDERED: MBX SOLN 30 ML BOTTLE PO PRN (18:09)
[2018-07-26] MEDS: MELATONIN 3 MG TAB PO SCH (20:52)
[2018-07-27] MEDS: LEVOTHYROXINE 150 MCG TAB PO SCH (06:40)
[2018-07-27] MEDS: HEPARIN 5,000 UNIT/0.5 ML INJ SC SCH ×3 (06:40→20:18)
--- NOTE | 2018-07-27 07:21 | PDCONSULT ---
Exercise Physiologist Certified Note: Ash feels better this AM post transfusion No further bleeding from right IJ cath site/pending HD this AM discussed possible need for additional access or AV fistula Cayetano Mcdonald MD, FACS
--- NOTE | 2018-07-27 10:04 | SOAPPROG ---
SOAP Progress Note Assessment/Plan: Assessment/Plan: 53 y/o M with metastatic melanoma on chemotherapy with sepsis transfer from [facility] for CONSUELO still requiring dialysis. CONSUELO due to ATN (cytokine storm after chemotherapy causing shock) -off CRRT since 07/17, has been on iHD -continue to monitor UO daily -hoping for renal recovery, will assess daily -plan for dialysis today -avoid contrast and nephrotoxins HTN/vol: -will UF on HD -BP's controlled and saturating well on RA -keep MAP>65 BMD -phos 9.1, unclear if some TLS vs CONSUELO -increased binder to 1300mg po TID -uric acid >12, on low dose allopurinol as d/w oncology -renal diet Acidosis -bicarb at goal 21 today -continue oral supplement and HD -ABG prn Anemia -s/p cauterization and 1U PRBC -new cathether appreciated -monitor CBC, holding heparin on HD Will continue to follow, please contact with ?'s #[phone]. 07/27/18 10:04 Subjective: Went to OR and found deep subq arterial bleed now s/p cauterization and transfusion. On for HD today. Still making >500ml UO yesterday. Objective: Vital Signs Temp Pulse Resp BP Pulse Ox 36.6 C 76 14 128/77 H 96 07/26/18 16:00 07/27/18 04:00 07/27/18 04:00 07/27/18 04:00 07/27/18 04:00 Laboratory Results 07/27/18 06:45 07/27/18 06:45 07/26/18 07/27/18 07/28/18 05:59 05:59 05:59 Intake Total 1252 Output Total 705 Balance 547 PT 16.8 SEC (12.0-15.0) H 07/22/18 12:45 INR 1.34 (0.83-1.16) H 07/22/18 12:45 Physical Exam - Physical Exam General Appearance: WD/WN, alert, no apparent distress EENT: PERRL/EOMI Neck: non-tender, full range of motion, supple Respiratory: chest non-tender, lungs clear, normal breath sounds Cardiac/Chest: normal peripheral pulses, regular rate, rhythm Abdomen: normal bowel sounds, non-tender, soft Skin: pallor Extremities: normal range of motion, non-tender, pedal edema Neuro/Psych: alert, normal mood/affect, oriented x 3 ICD10 Worksheet Patient Problems: Problems Problem Status Onset Melanoma 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
--- NOTE | 2018-07-27 11:27 | ASMTCMCOM ---
CM Note CM Note Notes: Patient still needing dialysis. Will be unable to get dialysis in Acute rehab. Date Signed: 07/27/2018 11:25 AM Electronically Signed By:Mariel Mariano LCSW
[2018-07-27] MEDS: CALCIUM ACETATE 667 MG CAP PO SCH ×3 (11:48→18:32)
[2018-07-27] MEDS: CARVEDILOL 3.125 MG TAB PO SCH ×2 (11:57→18:32)
[2018-07-27] MEDS: ALLOPURINOL 100 MG TAB PO SCH (11:57)
[2018-07-27] MEDS: HYDROCORTISONE 10 MG TAB PO SCH ×2 (11:57→20:18)
[2018-07-27] MEDS: PANTOPRAZOLE SODIUM 40 MG TAB PO SCH (11:57)
--- NOTE | 2018-07-27 12:16 | HOSPPROG ---
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 2/2 shock, resulting in hypervolemia from anuria, demonstrating e/o renal recovery w/ UOP 700 ml 24hrs -Nephrology following patient, Dr. Tejeda, s/p HD on 07/24, HD was held over the weekend with uptrending BUN/Cr - Restarted on HD per Nephrology today - Continue to monitor I/O, BMP qd # Acute diastolic CHF exacerbation. 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 Per Onc, anti-PD1 therapy followed by BRAF /MEK inhibitors can result in multisystem organ failure from diffuse inflammatory mechanism of action -s/p tocilizumab -plan to adjust from high dose hydrocortisone to home dosage (PO 20/10) if no hypotension w/ methylpred taper, decreased to 100 mg BID on 07/23, then 100 qd on 07/25, placee back on home dose today (20 qam, 10 mg qpm) -taper methylpred w/ 60 daily x 2 days, then 40mg daily (starting 07/24), then 20mg daily (starting 07/26), then off -WBC 13.3 this AM, persistent leukocytosis likely 2/2 ongoing steroids # NSTEMI. Suspect Type II w/ trop 20, subtle wall motion abnl on Echo, does not recommend cath (given ATN) -followed by cardiology, recommending f/u for further risk stratification 5-7 days after d/c # Acute hypoxic respiratory failure. 2/2 shock, dCHF, and cytokine release -extubated, weaned to RA # Acute hemorrhage. Bleeding at R IJ - Surgery took to OR on 07/26 for vein repair and replaced vasc catheter - Neck U/S on 07/25 showed RIJ thrombosis, IR consulted who performed venogram which did not show any clot - H/H decreased to 7.6 yesterday, s/p 1 unit PRBCs - Continue to trend H/H - Will hold AC in setting of bleed # Shock. Likely distributive from cytokine release syndrome, off Abx now # Acute urinary retention. Requiring replacement of paz o/n, receiving accurate I/O, paz d/c yesterday # Acute metabolic encephalopathy. 2/2 metabolic effects of uremia and acidosis, mentating at baseline # Ischemic digits. Acute, 2/2 pressors, ongoing paresthesias # Moderate mitral regurgitation. Dr. Tobin, does not recommend AVELINA, repeat once euvolemic # Acute metabolic acidosis. 2/2 lactic acid (shock) and uremia (ATN),PO bicarb started # Hyperglycemia. 2/2 stress response from above, stopped insulin gtt and ordered ACHS checks # Diarrhea. D/c questran, Imodium prn # Metastatic melanoma. S/p Taflinar and Mekinist, currently holding given current condition Diet. As todd PPx. High risk, hold hep SC, SCDs Code. Full Dispo. ADD uncertain, remains severely ill Subjective: Patient reports fatigue after HD session today Objective: Vital Signs Temp Pulse Resp BP Pulse Ox 36.6 C 76 14 128/77 H 96 07/26/18 16:00 07/27/18 04:00 07/27/18 04:00 07/27/18 04:00 07/27/18 04:00 Laboratory Results 07/27/18 06:45 07/27/18 06:45 07/26/18 07/27/18 07/28/18 05:59 05:59 05:59 Intake Total 1252 Output Total 705 Balance 547 PT 16.8 SEC (12.0-15.0) H 07/22/18 12:45 INR 1.34 (0.83-1.16) H 07/22/18 12:45 - Physical Exam Constitutional: chronically ill appearing Eyes: PERRL Ears, Nose, Mouth, Throat: moist mucous membranes Cardiovascular: regular rate and rhythym Respiratory: no respiratory distress Gastrointestinal: soft, non-tender abdomen Genitourinary: No paz in urethra Skin: warm, other (Necrotic changes in b/l fingertips ) Musculoskeletal: generalized weakness Neurologic: AAOx3 Psychiatric: interacting appropriately ICD10 Worksheet Patient Problems: Problems Problem Status Onset Melanoma 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
[2018-07-27] MEDS ORDERED: HEPARIN 50,000 UNIT/10 ML VIAL ONE (12:42)
[2018-07-27] MEDS: MELATONIN 3 MG TAB PO SCH (20:18)
[2018-07-27] MEDS ORDERED: MAGNESIUM HYDROXIDE 30 ML UDCUP PO PRN (20:38)
[2018-07-27] MEDS ORDERED: BISACODYL 10 MG SUPP PR PRN (20:38)
[2018-07-27] MEDS ORDERED: POLYETHYLENE GLYCOL 3350 17 GM PKT PO PRN (20:38)
[2018-07-27] MEDS ORDERED: LACTULOSE 20 GM/30 ML UDCUP PO PRN (20:38)
[2018-07-27] MEDS: SENNOSIDES/DOCUSATE SODIUM TAB PO SCH (20:45)
[2018-07-28] MEDS: LEVOTHYROXINE 150 MCG TAB PO SCH (06:06)
[2018-07-28] MEDS: HEPARIN 5,000 UNIT/0.5 ML INJ SC SCH ×3 (06:06→21:24)
[2018-07-28] MEDS: CALCIUM ACETATE 667 MG CAP PO SCH ×3 (07:57→18:45)
[2018-07-28] MEDS: HYDROCORTISONE 10 MG TAB PO SCH ×2 (07:58→21:24)
[2018-07-28] MEDS: PANTOPRAZOLE SODIUM 40 MG TAB PO SCH (07:58)
[2018-07-28] MEDS: CARVEDILOL 3.125 MG TAB PO SCH ×2 (07:58→18:45)
[2018-07-28] MEDS: ALLOPURINOL 100 MG TAB PO SCH (07:58)
[2018-07-28] MEDS: SENNOSIDES/DOCUSATE SODIUM TAB PO SCH ×2 (08:02→21:30)
--- NOTE | 2018-07-28 09:32 | HOSPPROG ---
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 2/2 shock, resulting in hypervolemia from anuria, demonstrating e/o renal recovery w/ UOP 1.475 ml 24hrs - Nephrology following patient, Dr. Tejeda, s/p HD on 07/24, HD was held over the weekend with uptrending BUN/Cr - Restarted on HD per Nephrology yesterday with improvement of BUN/Cr - Continue to monitor I/O, BMP qd # Acute diastolic CHF exacerbation. 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 Per Onc, anti-PD1 therapy followed by BRAF /MEK inhibitors can result in multisystem organ failure from diffuse inflammatory mechanism of action -s/p tocilizumab -plan to adjust from high dose hydrocortisone to home dosage (PO 11/07) if no hypotension w/ methylpred taper, decreased to 100 mg BID on 07/23, then 100 qd on 07/25, placed back on home dose yesterday (20 qam, 10 mg qpm) -taper methylpred w/ 60 daily x 2 days, then 40mg daily (starting 07/24), then 20mg daily (starting 07/26), then off -WBC 12.1 this AM, persistent leukocytosis likely 2/2 ongoing steroids # NSTEMI. Suspect Type II w/ trop 20, subtle wall motion abnl on Echo, does not recommend cath (given ATN) -followed by cardiology, recommending f/u for further risk stratification 5-7 days after d/c # Acute hypoxic respiratory failure. 2/2 shock, dCHF, and cytokine release -extubated, weaned to RA # Acute hemorrhage. Bleeding at R IJ - Surgery took to OR on 07/26 for vein repair and replaced vasc catheter - Neck U/S on 07/25 showed RIJ thrombosis, IR consulted who performed venogram which did not show any clot - H/H decreased to 7.6 yesterday, s/p 1 unit PRBCs - Continue to trend H/H - Will hold AC in setting of bleed # Shock. Likely distributive from cytokine release syndrome, off Abx now # Acute urinary retention. Requiring replacement of paz o/n, receiving accurate I/O, paz d/c yesterday # Acute metabolic encephalopathy. 2/2 metabolic effects of uremia and acidosis, mentating at baseline # Ischemic digits. Acute, 2/2 pressors, ongoing paresthesias # Moderate mitral regurgitation. Dr. Tobin, does not recommend AVELINA, repeat once euvolemic # Acute metabolic acidosis. 2/2 lactic acid (shock) and uremia (ATN),PO bicarb started # Hyperglycemia. 2/2 stress response from above, stopped insulin gtt and ordered ACHS checks # Diarrhea. D/c questran, Imodium prn # Metastatic melanoma. S/p Taflinar and Mekinist, currently holding given current condition Diet. As todd PPx. High risk, hold hep SC, SCDs Code. Full Dispo. ADD uncertain, remains severely ill Subjective: Patient up walking the halls this morning Objective: Vital Signs Temp Pulse Resp BP Pulse Ox 37.1 C 80 16 128/77 H 97 07/28/18 07:23 07/28/18 07:23 07/28/18 07:23 07/28/18 07:23 07/28/18 07:23 Laboratory Results 07/28/18 06:10 07/28/18 06:10 07/27/18 07/28/18 07/29/18 05:59 05:59 05:59 Intake Total 1252 750 Output Total 705 1475 Balance 547 -725 PT 16.8 SEC (12.0-15.0) H 07/22/18 12:45 INR 1.34 (0.83-1.16) H 07/22/18 12:45 - Physical Exam Constitutional: no apparent distress, chronically ill appearing Eyes: PERRL Ears, Nose, Mouth, Throat: dry mucous membranes Cardiovascular: regular rate and rhythym Respiratory: no respiratory distress Gastrointestinal: soft, non-tender abdomen Skin: warm, other (necrotic changes in fingertips b/l ) Musculoskeletal: generalized weakness Neurologic: AAOx3 Psychiatric: interacting appropriately ICD10 Worksheet Patient Problems: Problems Problem Status Onset Melanoma 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
--- NOTE | 2018-07-28 10:03 | SOAPPROG ---
SOAP Progress Note Assessment/Plan: Assessment: 1. CONSUELO HD yesterday. UO gradually increasing. Will assess daily for additional dialysis needs. 2. Severe Sepsis Syndrome Thought to be cytokine storm relating to chemo agent. This has resolved. 3. Anemia Better following transfusion. 4. Line site No further bleeding since intervention by Dr. Mcdonald. Subjective: Alert. in good spirits Objective: Vital Signs Temp Pulse Resp BP Pulse Ox 37.1 C 80 16 128/77 H 97 07/28/18 07:23 07/28/18 07:23 07/28/18 07:23 07/28/18 07:23 07/28/18 07:23 Laboratory Results 07/28/18 06:10 07/28/18 06:10 07/27/18 07/28/18 07/29/18 05:59 05:59 05:59 Intake Total 1252 750 Output Total 705 1475 Balance 547 -725 PT 16.8 SEC (12.0-15.0) H 07/22/18 12:45 INR 1.34 (0.83-1.16) H 07/22/18 12:45 Physical Exam - Physical Exam General Appearance: no apparent distress Neck: other (line site and dsg ok) Respiratory: lungs clear Cardiac/Chest: regular rate, rhythm Extremities: other (Trace pedal edema. Distal digital ischemia noted. 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
[2018-07-28] MEDS: MELATONIN 3 MG TAB PO SCH (21:24)
[2018-07-29] MEDS: ACETAMINOPHEN 325 MG TAB PO PRN ×4 (00:38→22:18)
[2018-07-29 04:58] LABS: PLATELET COUNT 92 10^3/uL (150-400)
[2018-07-29] MEDS: LEVOTHYROXINE 150 MCG TAB PO SCH (06:35)
[2018-07-29] MEDS ORDERED: FUROSEMIDE 20 MG/2 ML VIAL IVP ONE (07:28)
--- NOTE | 2018-07-29 07:32 | SOAPPROG ---
SOAP Progress Note Assessment/Plan: Assessment: CONSUELO due to shock from sepsis-vs- cytokine storm after chemotherapy, still needs intermittant HD, UOP good respiratory failure off vent, talking and walking metastatic melanoma, s/p chemotherapy edema, mild/mod volume up Plan: CXR today Hold on HD today Assess need for HD tomorrow UOP more than a liter today, I expect renal recovery, hopefully soon continue therapies/nutrition encouraged up and around with help discussed with patient and who was at bedside, all questions answered 07/15/18 08:51 07/23/18 13:15 07/29/18 07:29 Subjective: tired eating OK some cough, not productive temp 99.5 earlier no cp nausea or vomiting mild SOB Objective: Vital Signs Temp Pulse Resp BP Pulse Ox 37.2 C 80 16 125/80 H 94 07/29/18 04:39 07/29/18 04:39 07/29/18 04:39 07/29/18 04:39 07/29/18 04:39 Laboratory Results 07/29/18 04:48 07/29/18 04:48 07/28/18 07/29/18 07/30/18 05:59 05:59 05:59 Intake Total 750 925 Output Total 1475 730 Balance -725 195 PT 16.8 SEC (12.0-15.0) H 07/22/18 12:45 INR 1.34 (0.83-1.16) H 07/22/18 12:45 Physical Exam - Physical Exam General Appearance: alert Neck: normal inspection Respiratory: No respiratory distress, No rhonchi, No wheezing, No pleural rub Cardiac/Chest: regular rate, rhythm, No gallop, No friction rub Abdomen: normal bowel sounds, non-tender, soft Skin: warm/dry Extremities: No swelling Neuro/Psych: alert, normal mood/affect, oriented x 3 ICD10 Worksheet Patient Problems: Problems Problem Status Onset Melanoma 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
[2018-07-29] MEDS: HEPARIN 5,000 UNIT/0.5 ML INJ SC SCH ×3 (08:00→22:18)
[2018-07-29] MEDS: CALCIUM ACETATE 667 MG CAP PO SCH ×3 (09:45→19:06)
[2018-07-29] MEDS: PANTOPRAZOLE SODIUM 40 MG TAB PO SCH (09:45)
[2018-07-29] MEDS: ALLOPURINOL 100 MG TAB PO SCH (09:45)
[2018-07-29] MEDS: HYDROCORTISONE 10 MG TAB PO SCH (09:45)
[2018-07-29] MEDS: SENNOSIDES/DOCUSATE SODIUM TAB PO SCH ×2 (09:45→22:18)
[2018-07-29] MEDS: CARVEDILOL 3.125 MG TAB PO SCH ×2 (09:49→19:06)
[2018-07-29 10:04] LABS: PLATELET COUNT 107 10^3/uL (150-400)
--- NOTE | 2018-07-29 11:05 | HOSPPROG ---
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 2/2 shock, resulting in hypervolemia from anuria, demonstrating e/o renal recovery w/ UOP 1>1L ml 24hrs - Nephrology following patient, s/p HD on 07/24, HD was held over the weekend with uptrending BUN/Cr - Restarted on HD per Nephrology 07/27 with improvement of BUN/Cr - Nephrology holding HD today, f/u recommendations - Continue to monitor I/O, BMP qd # Acute diastolic CHF exacerbation. 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 Per Onc, anti-PD1 therapy followed by BRAF /MEK inhibitors can result in multisystem organ failure from diffuse inflammatory mechanism of action -s/p tocilizumab -Adjusted from high dose hydrocortisone to home dosage (PO 11/07) if no hypotension w/ methylpred taper, decreased to 100 mg BID on 07/23, then 100 qd on 07/25, placed back on home dose on 07/27 (20 qam, 10 mg qpm) -taper methylpred w/ 60 daily x 2 days, then 40mg daily (starting 07/24), then 20mg daily (starting 07/26), then off -WBC 12.1 this AM, persistent leukocytosis likely 2/2 ongoing steroids, patient did have temp 37.8 this AM, discussed with on-call oncology, Dr. Anne, who recommended holding off on increasing steroids until >38.0. CXR performed this morning which showed possible PNA vs atelectasis in L base. If patient febrile will likely start abx, and obtain cultures in setting of possible hospital acquired infection # NSTEMI. Suspect Type II w/ trop 20, subtle wall motion abnl on Echo, does not recommend cath (given ATN) -followed by cardiology, recommending f/u for further risk stratification 5-7 days after d/c # Acute hypoxic respiratory failure. 2/2 shock, dCHF, and cytokine release -extubated, weaned to RA # Acute hemorrhage. Bleeding at R IJ - Surgery took to OR on 07/26 for vein repair and replaced vasc catheter, s/p 1 unit PRBC - Neck U/S on 07/25 showed RIJ thrombosis, IR consulted who performed venogram which did not show any clot - H/H decreased to 7.0 this AM, repeat 8.0 - Continue to trend H/H # Shock. Likely distributive from cytokine release syndrome, off Abx now # Acute urinary retention. Requiring replacement of paz o/n, receiving accurate I/O, paz d/c yesterday # Acute metabolic encephalopathy. 2/2 metabolic effects of uremia and acidosis, mentating at baseline # Ischemic digits. Acute, 2/2 pressors, ongoing paresthesias # Moderate mitral regurgitation. Dr. Tobin, does not recommend AVELINA, repeat once euvolemic # Acute metabolic acidosis. 2/2 lactic acid (shock) and uremia (ATN),PO bicarb started # Hyperglycemia. 2/2 stress response from above, stopped insulin gtt and ordered ACHS checks # Diarrhea. D/c questran, Imodium prn # Metastatic melanoma. S/p Taflinar and Mekinist, currently holding given current condition Diet. As todd PPx. High risk, hold hep SC, SCDs Code. Full Dispo. ADD uncertain, remains severely ill Subjective: Patient reports low grade fever this morning Objective: Vital Signs Temp Pulse Resp BP Pulse Ox 36.8 C 104 H 20 118/67 95 07/29/18 10:39 07/29/18 07:42 07/29/18 07:42 07/29/18 09:49 07/29/18 07:42 Laboratory Results 07/29/18 09:50 07/29/18 04:48 07/28/18 07/29/18 07/30/18 05:59 05:59 05:59 Intake Total 750 925 450 Output Total 1475 730 475 Balance -725 195 -25 PT 16.8 SEC (12.0-15.0) H 07/22/18 12:45 INR 1.34 (0.83-1.16) H 07/22/18 12:45 - Physical Exam Constitutional: no apparent distress, chronically ill appearing Eyes: PERRL Ears, Nose, Mouth, Throat: dry mucous membranes Cardiovascular: regular rate and rhythym Respiratory: no respiratory distress Gastrointestinal: soft, non-tender abdomen Skin: warm, other (necrotic changes in fingertips b/l ) Neurologic: AAOx3 Psychiatric: interacting appropriately ICD10 Worksheet Patient Problems: Problems Problem Status Onset Melanoma 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
[2018-07-29] MEDS ORDERED: LIDOCAINE 2% VISCOUS 15 ML UDCUP PO PRN (13:04)
[2018-07-29] MEDS ORDERED: PETROLATUM,WHITE 28.35 GM TUBE TP PRN (13:30)
--- NOTE | 2018-07-29 13:40 | SOAPPROG ---
SOAP Progress Note Assessment/Plan: A/P: Assessment: * Metastatic melanoma, responding to BRAF inhibitor * Cytokine release syndrome, resolved * Renal failure, acute. ATN, recovering. Assessing need for HD daily. 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 * Low grade fever. * ?R IJ clot associated with dialysis catheter - angiogram negative. Recs: - No Rx for melanoma right now - may consider rechallenge w/ BRAF inhibitor in the future. - Steroids tapering. - Dialysis prn - nephrology cautiously optimistic about renal recovery. - Will treat empirically for oral HSV. Disc antiviral dosing with ID. Will use PO given concern re: IV and renal dysfunction. Oral swab (post. pharynx) sent for PCR. Aggressive mouth care, analgesics. - Single low grade fever: CXR with likely LLL atelectasis. Follow for recurrent fever. Disc with pt, , RN. 07/29/18 13:44 Subjective: S: Good day yesterday. Not feeling great today. Significant mouth pain. O: VS reviewed. RN reports Tm 100.1 but I do not see charted. Gen: alert, uncomfortable appearing. HEENT: numerous circular lip lesions, crusted. Posterior palate with multiple erythematous lesions, no vesicles. No exudate, thrush. Lungs: breathing comfortably. Laboratory Tests 07/29/18 07/29/18 04:48 09:50 WBC 11.72 H Hgb 8.0 L Plt Count 107 L Sodium 132 L Potassium 4.4 Chloride 99 Carbon Dioxide 25 BUN 75 H Creatinine 6.8 H Estimated GFR 9 Portable CXR: linear small infiltrate LLL, ?atelectasis. 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
[2018-07-29] MEDS: valACYclovir 500 MG TAB PO SCH (14:33)
[2018-07-29] MEDS ORDERED: NS 2,400 ML IV ONE (15:57)
[2018-07-29] MEDS ORDERED: VANCOMYCIN 1.25 GM in NS 250 ML IV ONE (16:30)
[2018-07-29] MEDS: PIPERACILLIN/TAZO 2.25 GM/DEX 50 ML IV SCH ×2 (16:58→23:24)
[2018-07-29] MEDS ORDERED: DOPamine/DEXTROSE 400 MG/250 ML BAG IV ONE (17:39)
[2018-07-29] MEDS: NOREPINEPHRINE BITARTRATE 4 MG in NS 500 ML IV SCH (17:40)
[2018-07-29] MEDS ORDERED: HYDROCORTISONE 100 MG/2 ML VIAL ONE (17:48)
[2018-07-29] MEDS ORDERED: PIPERACILLIN/TAZO 4.5 GM/DEX 100 ML IV SCH (18:00)
[2018-07-29] MEDS ORDERED: ALBUMIN 5% 250 ML IV ONE (18:01)
[2018-07-29] MEDS ORDERED: ALTEPLASE 2 MG VIAL IVP PRN (18:03)
[2018-07-29] MEDS: HYDROCORTISONE 100 MG/2 ML VIAL IVP SCH (18:03)
[2018-07-29] MEDS: VASOPRESSIN 25 UNIT in NS 250 ML IV SCH (18:10)
[2018-07-29] MEDS: methylPREDNISolone SOD SUCC 125 MG/2 ML VIAL IVP SCH (18:18)
[2018-07-29 19:00] LABS: PLATELET COUNT 87 10^3/uL (150-400)
[2018-07-29] MEDS: MELATONIN 3 MG TAB PO SCH (22:17)
--- NOTE | 2018-07-29 22:24 | ECHO ---
[email or web address] [address] [address] Main: [phone] Fax: Transthoracic Echocardiogram Name: AXEL MARTINEZ MR#: [id number] Study Date: 07/29/2018 Study Time: 07:47 PM Date of : 1965 Age: 53 year(s) Height: 182.9 cm (72 in.) Weight: 80.74 kg (178 lb.) BSA: 2.03 m2 Gender: Male Examination: Echo Indication: sepsis, hypotension Image Quality: Adequate Contrast: Requested by: Sarath Kurtz BP: 115 mmHg/78 mmHg Heart Rate: Rhythm: Indication: sepsis, hypotension Procedure Staff Linux Unix Administrator: Isa Blas RDCS Reading Physician: Sean Schaefer MD Requesting Provider: Conclusions: Normal global systolic LV function. EF is 61 %. No regional wall motion abnormality. Normal diastolic LV function. Mild mitral valve regurgitation is present. Mild aortic cusp calcification is noted. Measurements: Chambers Valvular Assessment AV/MV Valvular Assessment TV/PV Normal Normal Normal Name Value Range Name Value Range Name Value Range Ao Sabina (2D): 3.7 cm (1.4 cm-2.6 AV Vmax: 1.44 m/s (1 m/s-1.7 PV Vmax: 0.95 m/s (0.6 m/s-0.9 cm) m/s) m/s) IVSd (2D): 1.2 cm (0.6 cm-1.1 AV maxP mmHg ( - ) PV PGmax: 4 mmHg ( - ) cm) AV meanP mmHg ( - ) LVDd (2D): 5.0 cm (4.2 cm-5.9 BARBARA (VTI): 3.5 cm ( - ) cm) MV E Vmax: 0.62 m/s ( - ) LVDs (2D): 3.0 cm (2.1 cm-4 MV A Vmax: 0.76 m/s ( - ) cm) MV E/A: 0.82 ( - ) LVPWd (2D): 1.2 cm (0.6 cm-1 cm) MV PHT: 0.060 s ( - ) LVOTd 2.2 cm 2.2 cm mm MVA (PHT): 3.7 s ( - ) LVEF (BP): 61 % (>=55 %) RVDd(2D): 3.3 cm (1.9 cm-3.8 cmmm) Continued Measurements: Chambers Valvular Assessment AV/MV Name Value Name Value Patient: AXEL MARTINEZ Study Date: 07/29/2018 Page 1 of 2 07:47 PM LADs: 3.3 cm MV DecTime: 201 m/s LADs Lon.1 cm MV E' Septal: 0.10 m/s LA Area: 17.9 cm2 MV E/E' Septal: 6.50 LA Volume: 52 ml MV E/E' Lateral: 5.10 LA Volume Index: 25.6 ml/m2 RA Area: 22.3 cm2 Additional Vessels Name Value Ao Ascendin.4 cm Inferior Vena Cava: 1.7 cm Findings: Left Ventricle: Normal size left ventricle. No LV hypertrophy. Normal global systolic LV function. EF is 61 %. No regional wall motion abnormality. Normal diastolic LV function. Right Ventricle: Normal size right ventricle. Normal RV function. Left Atrium: The left atrium is normal in size. Right Atrium: The right atrium is mildly dilated. Mitral Valve: The mitral valve is normal in appearance and function. Mild mitral valve regurgitation is present. No mitral stenosis is present. Aortic Valve: The aortic valve is tri-leaflet. Mild aortic cusp calcification is noted. There is no significant aortic valve regurgitation. No aortic valve stenosis is present. Tricuspid Valve: The tricuspid valve is normal in appearance and function. Trivial tricuspid valve regurgitation. Pulmonic Valve: The pulmonic valve is normal in appearance and function. Trivial pulmonic valve regurgitation. Aorta: The aorta is normal. Normal size aortic root measuring 3.7 cm. Normal size ascending aorta measuring 3.4 cm. IVC: The IVC is normal sized. Pericardium: Trivial pericardial effusion. No pleural effusion. (No Signature Object) Patient: AXEL MARTINEZ Study Date: 07/29/2018 Page 2 of 2 07:47 PM [id number]
[2018-07-30] MEDS: oxyCODONE IR 5 MG TAB PO PRN ×3 (00:09→18:16)
[2018-07-30] MEDS: methylPREDNISolone SOD SUCC 125 MG/2 ML VIAL IVP SCH ×4 (00:09→18:14)
[2018-07-30] MEDS: HEPARIN 5,000 UNIT/0.5 ML INJ SC SCH ×4 (01:41→19:47)
[2018-07-30] MEDS: HYDROCORTISONE 100 MG/2 ML VIAL IVP SCH ×3 (02:43→18:14)
[2018-07-30 03:50] LABS: PLATELET COUNT 72 10^3/uL (150-400)
[2018-07-30] MEDS: PIPERACILLIN/TAZO 2.25 GM/DEX 50 ML IV SCH ×4 (06:06→22:20)
[2018-07-30] MEDS: LEVOTHYROXINE 150 MCG TAB PO SCH (06:06)
--- NOTE | 2018-07-30 08:53 | SOAPPROG ---
SOAP Progress Note Assessment/Plan: Assessment: CONSUELO due to shock from sepsis-vs- cytokine storm after chemotherapy, still needs intermittant HD, UOP good respiratory failure off vent, sleeping today metastatic melanoma, s/p chemotherapy edema, mild/mod volume up hyperkalemia septic picture yesterday, on Zosyn, off pressors today, was on Vaso and Norepi Plan: HD today Assess need for HD tomorrow UOP dropped with septi-looking picture yesterday continue therapies/nutrition 07/15/18 08:51 07/23/18 13:15 07/29/18 07:29 07/30/18 08:50 Subjective: sleeping, asked not to wake him and I think that is a good idea Objective: Vital Signs Temp Pulse Resp BP Pulse Ox 36.8 C 72 22 H 106/55 L 98 07/30/18 07:00 07/30/18 07:00 07/30/18 07:00 07/30/18 07:00 07/30/18 07:00 Laboratory Results 07/30/18 03:40 07/30/18 03:40 07/29/18 07/30/18 07/31/18 05:59 05:59 05:59 Intake Total 925 4150 Output Total 730 815 Balance 195 3335 PT 16.8 SEC (12.0-15.0) H 07/22/18 12:45 INR 1.34 (0.83-1.16) H 07/22/18 12:45 Physical Exam - Physical Exam General Appearance: other (resting) Neck: normal inspection Respiratory: No rhonchi, No wheezing Cardiac/Chest: regular rate, rhythm, edema (mild), No friction rub Abdomen: normal bowel sounds, non-tender, soft Skin: warm/dry (dome edema) Neuro/Psych: other (letting him rest this morning, had a long, difficult day yesterday) ICD10 Worksheet Patient Problems: Problems Problem Status Onset Melanoma 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
[2018-07-30] MEDS: SENNOSIDES/DOCUSATE SODIUM TAB PO SCH ×2 (09:53→22:20)
[2018-07-30] MEDS: CALCIUM ACETATE 667 MG CAP PO SCH ×4 (09:53→19:47)
[2018-07-30] MEDS: CARVEDILOL 3.125 MG TAB PO SCH ×2 (09:54→18:17)
[2018-07-30] MEDS: ALLOPURINOL 100 MG TAB PO SCH (09:54)
[2018-07-30] MEDS: PANTOPRAZOLE SODIUM 40 MG TAB PO SCH (09:54)
[2018-07-30] MEDS: valACYclovir 500 MG TAB PO SCH (09:54)
--- NOTE | 2018-07-30 12:30 | HOSPPROG ---
Hospitalist Progress Note Assessment/Plan: Assessment: 53 yo M p/w possible cytokine release syndrome 2/2 melanoma therapy , resulting in acute hypoxic respiratory failure and ATN # ATN. 2/2 shock, resulting in hypervolemia from anuria, demonstrating e/o renal recovery w/ UOP 1>1L ml 24hrs - Nephrology following patient, s/p HD on 07/24, HD was held over the weekend with uptrending BUN/Cr - Restarted on HD per Nephrology 07/27 with improvement of BUN/Cr - Continue to monitor I/O, BMP qd # Acute diastolic CHF exacerbation. 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 Per Onc, anti-PD1 therapy followed by BRAF /MEK inhibitors can result in multisystem organ failure from diffuse inflammatory mechanism of action -s/p tocilizumab -hydrocortisone and Methylpred. # NSTEMI. Suspect Type II w/ trop 20, subtle wall motion abnl on Echo, does not recommend cath (given ATN) -followed by cardiology, recommending f/u for further risk stratification 5-7 days after d/c -TTE with LVEF of 60%. No wall motion abnormalities # Acute hypoxic respiratory failure. 2/2 shock, dCHF, and cytokine release -extubated, weaned to RA # Acute hemorrhage. Bleeding at R IJ - Surgery took to OR on 07/26 for vein repair and replaced vasc catheter, s/p 1 unit PRBC - Neck U/S on 07/25 showed RIJ thrombosis, IR consulted who performed venogram which did not show any clot - H/H decreased to 7.0 this AM, repeat 8.0 - Continue to trend H/H # Shock. Likely distributive from cytokine release syndrome. ?Infection #Hyperkalemia # Acute urinary retention. Requiring replacement of paz o/n, receiving accurate I/O, paz d/c yesterday # Acute metabolic encephalopathy. 2/2 metabolic effects of uremia and acidosis, mentating at baseline # Ischemic digits. Acute, 2/2 pressors, ongoing paresthesias # Moderate mitral regurgitation. Dr. Tobin, does not recommend AVELINA at this time # Acute metabolic acidosis. 2/2 lactic acid (shock) and uremia (ATN),PO bicarb started # Hyperglycemia. 2/2 stress response from above, stopped insulin gtt and ordered ACHS checks # Diarrhea. D/c questran, Imodium prn # Metastatic melanoma. S/p Taflinar and Mekinist, currently holding given current condition Diet. As todd PPx. High risk, hold hep SC, SCDs Code. Full Dispo. ADD uncertain, remains severely ill Plan: -cont dual abx (Zosyn/Vanco) today. unclear infectious etiology. BCx's pending. check PC -cont dual steroids -Has weaned off NE, Vasopressin. Will monitor off. -Hold Coreg, can restart tomorrow -Cont oral antiviral -HD today -monitor K total critical care time is 35 min in mgmt of this pt with ongoing HD needs, hyperkalemia, and pressors which have been weaned today Subjective: BP is better. Afebrile. Feels slightly better. Objective: Vital Signs Temp Pulse Resp BP Pulse Ox 37 C 75 18 99/63 L 94 07/30/18 12:00 07/30/18 12:00 07/30/18 12:00 07/30/18 12:00 07/30/18 12:00 Laboratory Results 07/30/18 03:40 07/30/18 03:40 07/29/18 07/30/18 07/31/18 05:59 05:59 05:59 Intake Total 925 4150 Output Total 730 815 Balance 195 3335 PT 16.8 SEC (12.0-15.0) H 07/22/18 12:45 INR 1.34 (0.83-1.16) H 07/22/18 12:45 - Physical Exam Constitutional: no apparent distress Eyes: PERRL Ears, Nose, Mouth, Throat: moist mucous membranes, hearing normal Cardiovascular: regular rate and rhythym, No edema Respiratory: reduced air movement Gastrointestinal: normoactive bowel sounds, soft, non-tender abdomen Skin: warm Neurologic: AAOx3 Psychiatric: interacting appropriately, not anxious Lymph, Heme, Immunologic: No petechiae ICD10 Worksheet Patient Problems: Problems Problem Status Onset Melanoma 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
--- NOTE | 2018-07-30 13:20 | ASMTCMCOM ---
CM Note CM Note Notes: Patient going for dialysis again today. He remains critically ill with cautious optimism for renal recovery. Patient's Marissa states she feels well informed and does not need a family meeting at this time. CM will follow. Date Signed: 07/30/2018 01:20 PM Electronically Signed By:Patricia Madera LCSW
--- NOTE | 2018-07-30 15:25 | SOAPPROG ---
SOAP Progress Note Assessment/Plan: Assessment: SOAP Progress Note Assessment/Plan: A/P: Assessment: Events from yesterday noted, acute hypotensive, febrile event. Started back on high dose steroids. Cultures thus far negative. May be secondary to steroid taper. * Metastatic melanoma, responding to BRAF inhibitor * Cytokine release syndrome -resolved. Some question as to whether acute event yesterday represents some flare of CRS. with significant improvement today, this appears less likely. * Renal failure, acute. ATN, recovering. Assessing need for HD daily. 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 * ?R IJ clot associated with dialysis catheter - angiogram negative. Recs: - no additional tocilizumab for now. We can acquire if necessary. - No Rx for melanoma right now - may consider rechallenge w/ BRAF inhibitor in the future. - Stress dose steroids for now - Dialysis prn - nephrology cautiously optimistic about renal recovery. - Treat empirically for oral HSV. Aggressive mouth care, analgesics. Subjective: getting dialysis, Objective: Vital Signs Temp Pulse Resp BP Pulse Ox 35.9 C L 76 18 94/73 L 96 07/30/18 14:00 07/30/18 14:00 07/30/18 14:00 07/30/18 14:00 07/30/18 14:00 Microbiology 07/29/18 13:10 Herpes Simplex Virus I (PCR) - Final Oral - Mouth Hsv-1 Dna Detected Herpes Simplex Virus II (PCR) - Final Hsv-2 Dna Not Detected HSV/VZV PCR Additional Information - Final Laboratory Results 07/30/18 03:40 07/30/18 03:40 07/29/18 07/30/18 07/31/18 05:59 05:59 05:59 Intake Total 925 4150 Output Total 730 815 Balance 195 3335 PT 16.8 SEC (12.0-15.0) H 07/22/18 12:45 INR 1.34 (0.83-1.16) H 07/22/18 12:45 Physical Exam - Physical Exam General Appearance: other (getting dialysis) Neck: other (right neck with dialysis catheter) Abdomen: soft Extremities: other (necrotic finger tips) Neuro/Psych: alert ICD10 Worksheet Patient Problems: Problems Problem Status Onset Melanoma 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
--- NOTE | 2018-07-30 16:34 | PDINTPN ---
[employer] Progress Note Assessment/Plan: 53 M with relatively recent diagnosis of malignant melanoma, treated with Tafinlar and Mekinist oral chemotherapy complicated by fever and diarrhea. He was admitted to [facility] 07/11/18 with severe lethargy as well as CONSUELO with severe hypotension requiring pressors (levophed, alhaji, vasopressin) and intubation after arrival in the ICU. The intubation was reported as difficult, requiring at first a small airway followed by upsizing the ETT to 7.5 with a tube exchanger. He was also treated with multiple antibiotics including both po and IV vanco, Zosyn, micafungin, and flagyl. He was reportedly aggressively hydrated with up to 8 liters of IVF, but his renal function and acidosis remained severely abnormal so he was transferred to [facility] for CRRT. He was sedated on a versed drip prior to transfer as well, but this was not continued as he was quite sedated. An HD catheter was placed in the right CFV by surgery without complication and a CT of his chest/abdomen/pelvis did not reveal any significant pathology. Concern was raised by heme/onc about possible cytokine release syndrome, which has been documented with various newer generation chemo agents. * Severe septic shock versus cytokine release syndrome (vs HLH variant)on admission- he received tocilizumab on admission and high dose steroids with excellent recovery, and was actively undergoing a steroid taper. 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 Last pm he was restarted on stress dose hydrocortisone ( for adrenal disease) in addition to solumedrol (for presumed CRS). If CRP and ferritin can serve as indirect markers of IL6 levels, then the likelihood of recurrent CRS is low. Sepsis is another possibility given fever, though his wbc has ot changed much from its baseline 10-12 and blood cultures remain negative. His hyponatremia and hyperkalemia could indicate adrenal insufficiency, though his HD dependency complicates that evaluation. Low level troponin is insignificant and his echo shows an well-functioning heart and MV. Leave steroids alone today as well as antibiotics and if he remains stable (and off pressors) will taper solmedrol and leave hydrocortisone at stress levels. Discuss with Dr. Cooper today as well as family and staff in detail. . * * CONSUELO presumably related to hypotensive related ATN and/or his chemo. he still requires intermittent dialysis, including today. * * Troponin- peaked at 20 at admission and 0.16 today. see above. * * Altered MS- I suspect toxic-metabolic encephalopathy, and his head CT shows only improved sinusitis compared to MRI on 06/18/18 (which was normal except sinusitis). Essentially resolved compared to 2-3 weeks ago. * * Acute respiratory failure with hypoxia- extubated and no current issue. Some atelectasis- continue O2, IS * * LFTs- had shock liver- now resolved. * * Digital ischemia in all four extremities likely the result from high dose pressors on admission. They all appear dry today and I expect eventual auto- amputation of tips, but no clear infection source at the moment. * * Thrombocytopenia- likely related to sepsis/DIC. Platelets were normal 06/01/18 and 120 on admission at [facility]. platelets improved initially, but are now reduced to 70s. Follow closely. * * Right IJ catheter bleeding- s/p surgical exploration with repair of arterial bleeding. This looks quite stable to me and I see no evidence of ongoing bleeding at the moment. His Hct was 18 yesterday when he was hypotensive, but responded well to one unit RBC. Continue to follow HCT. 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 No evidence to support disseminated HSV. Continue vatrex * DNR status- full code. * * critical care time 45 minutes 07/30/18 16:34 Subjective: transferred back to ICU 07/29 2/2 hypotension in setting of steroid taper. Objective: Vital Signs Temp Pulse Resp BP Pulse Ox 36.8 C 74 16 95/76 L 93 07/30/18 16:00 07/30/18 16:00 07/30/18 16:00 07/30/18 16:00 07/30/18 16:00 Microbiology 07/29/18 13:10 Herpes Simplex Virus I (PCR) - Final Oral - Mouth Hsv-1 Dna Detected Herpes Simplex Virus II (PCR) - Final Hsv-2 Dna Not Detected HSV/VZV PCR Additional Information - Final Laboratory Results 07/30/18 03:40 07/30/18 03:40 07/29/18 07/30/18 07/31/18 05:59 05:59 05:59 Intake Total 925 4150 Output Total 730 815 Balance 195 3335 PT 16.8 SEC (12.0-15.0) H 10/31/18 12:45 INR 1.34 (0.83-1.16) H 07/22/18 12:45 Physical Exam - Physical Exam General Appearance: alert, no apparent distress EENT: PERRL/EOMI, other (perioral lesions), No scleral icterus (R), No scleral icterus (L) Neck: supple, normal inspection, other (Right IJ catheter without hematoma) Respiratory: lungs clear, normal breath sounds, decreased breath sounds, No respiratory distress, No accessory muscle use Cardiac/Chest: regular rate, rhythm, No edema Abdomen: normal bowel sounds, non-tender, soft, No distended, No guarding, No rebound Skin: warm/dry, other (distal digits with dry gangrene in all four extremities, RUE worse) Lymphatic: no adenopathy Extremities: No pedal edema Neuro/Psych: alert, normal mood/affect, oriented x 3, 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
[2018-07-30] MEDS: SODIUM CITRATE 4% 4 ML in SYRINGE 0 ML DIAL PRN (17:36)
[2018-07-30] MEDS: MELATONIN 3 MG TAB PO SCH (22:21)
[2018-07-30] MEDS ORDERED: VANCOMYCIN 1.25 GM in NS 250 ML IV ONE (23:00)
[2018-07-31] MEDS: methylPREDNISolone SOD SUCC 125 MG/2 ML VIAL IVP SCH ×4 (00:29→17:32)
[2018-07-31] MEDS: HEPARIN 5,000 UNIT/0.5 ML INJ SC SCH ×3 (02:05→21:08)
[2018-07-31] MEDS: HYDROCORTISONE 100 MG/2 ML VIAL IVP SCH ×3 (02:06→17:32)
[2018-07-31] MEDS: LEVOTHYROXINE 150 MCG TAB PO SCH (05:17)
[2018-07-31] MEDS: PIPERACILLIN/TAZO 2.25 GM/DEX 50 ML IV SCH ×3 (05:17→21:08)
[2018-07-31 05:29] LABS: PLATELET COUNT 94 10^3/uL (150-400)
[2018-07-31] MEDS: VASOPRESSIN 25 UNIT in NS 250 ML IV SCH (08:17)
--- NOTE | 2018-07-31 09:40 | SOAPPROG ---
SO[employer] Progress Note Assessment/Plan: Assessment: CONSUELO due to shock from sepsis-vs- cytokine storm after chemotherapy, still needs intermittant HD, UOP reasonable respiratory failure off vent, talkative today metastatic melanoma, s/p chemotherapy edema, mild/mod volume up, seen on HD hyperkalemia, better today hypotension, on Zosyn, generally off pressors today, vaso for low bp on HD Plan: HD today Assess need for HD tomorrow UOP dropped with septi-looking picture yesterday, remains marginal continue therapies/nutrition 07/15/18 08:51 07/23/18 13:15 07/29/18 07:29 07/30/18 08:50 07/31/18 09:20 Subjective: spirits good today no cp sob nausea or vomiting looks much better rested today denies cp or sob asking good questions about prognosis/therapies all questions answered to his satisfaction Objective: Vital Signs Temp Pulse Resp BP Pulse Ox 36.7 C 74 19 105/71 96 07/31/18 08:27 07/31/18 08:27 07/31/18 08:27 07/31/18 08:27 07/31/18 08:27 Microbiology 07/29/18 13:10 Herpes Simplex Virus I (PCR) - Final Oral - Mouth Hsv-1 Dna Detected Herpes Simplex Virus II (PCR) - Final Hsv-2 Dna Not Detected HSV/VZV PCR Additional Information - Final Laboratory Results 07/31/18 05:00 07/31/18 05:00 07/30/18 07/31/18 08/01/18 05:59 05:59 05:59 Intake Total 4150 900 Output Total 815 385 Balance 3335 515 PT 16.8 SEC (12.0-15.0) H 07/22/18 12:45 INR 1.34 (0.83-1.16) H 07/22/18 12:45 Physical Exam - Physical Exam General Appearance: alert Neck: other (RIJ temp HD cath) Respiratory: No rhonchi, No wheezing Cardiac/Chest: regular rate, rhythm, edema, No friction rub Abdomen: normal bowel sounds, non-tender Extremities: pedal edema, other (ischemic digits distally; hands and feet) Neuro/Psych: alert, normal mood/affect, oriented x 3 ICD10 Worksheet Patient Problems: Problems Problem Status Onset Melanoma 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
[2018-07-31] MEDS: NOREPINEPHRINE BITARTRATE 4 MG in NS 500 ML IV SCH (10:51)
[2018-07-31] MEDS: CALCIUM ACETATE 667 MG CAP PO SCH ×3 (11:33→17:32)
[2018-07-31] MEDS: ALLOPURINOL 100 MG TAB PO SCH (11:34)
[2018-07-31] MEDS: CARVEDILOL 3.125 MG TAB PO SCH ×2 (11:34→18:30)
[2018-07-31] MEDS: SENNOSIDES/DOCUSATE SODIUM TAB PO SCH ×2 (11:35→20:25)
[2018-07-31] MEDS: valACYclovir 500 MG TAB PO SCH (11:35)
[2018-07-31] MEDS: PANTOPRAZOLE SODIUM 40 MG TAB PO SCH (11:35)
--- NOTE | 2018-07-31 11:47 | HOSPPROG ---
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 2/2 shock, resulting in hypervolemia from anuria, demonstrating e/o renal recovery w/ UOP 1>1L ml 24hrs - Nephrology following patient -Getting HD today # Septic Shock (PC 48) vs Cytokine Release Syndrome vs Adrenal Insufficiency resulting in profound Hypotension -Etiology unclear -cont with dual steroids (Hydrocortisone and Methylpred). Steroids have been decreased this morning. -s/p tocilizumab -cont with dual abx. BCX NGTF, would like to see no growth for 48hrs before abx deescalation -Still needing pressors partially due to HD today. Currently on both NE and Vasopressin. Wean as able to. # Acute diastolic CHF exacerbation/volume overload -volume mgmt per renal with HD -Holding Coreg 3.125 mg -not currently a candidate for an TOMMY-I # NSTEMI. Suspect Type II w/ trop 20, subtle wall motion abnl on Echo, does not recommend cath (given ATN) -most recent TTE with LVEF of 60%. No wall motion abnormalities -will need f/u with Cardiology # Acute hypoxic respiratory failure. 2/2 shock, dCHF, and cytokine release -extubated, weaned to RA, no e/o pneumonia # Anemia/ Acute hemorrhage. Bleeding at R IJ - Surgery took to OR on 07/26 for vein repair and replaced vasc catheter, s/p 1 unit PRBC - Neck U/S on 07/25 showed RIJ thrombosis, IR consulted who performed venogram which did not show any clot - Hemoglobin is 7.4. May need transfusion soon #Hyperkalemia -mgmt per nephrology with HD # Acute urinary retention. resolved # Acute metabolic encephalopathy. 2/2 metabolic effects of uremia and acidosis, resolved # Ischemic digits. Acute, 2/2 pressors, ongoing paresthesias. NO e/o acute infection. # Moderate mitral regurgitation. Dr. Tobin, does not recommend AVELINA at this time # Acute metabolic acidosis. 2/2 lactic acid (shock) and uremia (ATN),PO bicarb started # Hyperglycemia. 2/2 stress response from above, stopped insulin gtt and ordered ACHS checks # Diarrhea. D/c questran, Imodium prn # Metastatic melanoma. S/p Taflinar and Mekinist, currently holding given current condition Diet. As todd PPx. High risk, hold hep SC, SCDs Code. Full Dispo. ADD uncertain, remains severely ill total cct is 32 mins. D/W team during ICU team rounds. May consider restarting chemical dvt proph soon May consider PRBC transfusion if further drop in Hgb or persistent hypotension Subjective: no cough, no resp issues. Getting HD today. BP is soft Objective: Vital Signs Temp Pulse Resp BP Pulse Ox 36.8 C 68 15 100/65 97 07/31/18 10:00 07/31/18 10:00 07/31/18 10:00 07/31/18 10:00 07/31/18 10:00 Microbiology 07/29/18 13:10 Herpes Simplex Virus I (PCR) - Final Oral - Mouth Hsv-1 Dna Detected Herpes Simplex Virus II (PCR) - Final Hsv-2 Dna Not Detected HSV/VZV PCR Additional Information - Final Laboratory Results 07/31/18 05:00 07/31/18 05:00 07/30/18 07/31/18 08/01/18 05:59 05:59 05:59 Intake Total 4150 900 Output Total 815 385 Balance 3335 515 PT 16.8 SEC (12.0-15.0) H 07/22/18 12:45 INR 1.34 (0.83-1.16) H 07/22/18 12:45 - Physical Exam Constitutional: no apparent distress Eyes: PERRL, EOMI Ears, Nose, Mouth, Throat: moist mucous membranes, hearing normal Cardiovascular: regular rate and rhythym, edema Respiratory: no respiratory distress, no rales or rhonchi, clear to auscultation Gastrointestinal: normoactive bowel sounds, soft, non-tender abdomen Skin: warm Musculoskeletal: generalized weakness Neurologic: AAOx3 Psychiatric: interacting appropriately, not anxious, not encephalopathic Lymph, Heme, Immunologic: No petechiae ICD10 Worksheet Patient Problems: Problems Problem Status Onset Melanoma 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
[2018-07-31] MEDS ORDERED: VANCOMYCIN 1.25 GM in NS 250 ML IV ONE (13:00)
--- NOTE | 2018-07-31 13:46 | SOAPPROG ---
SO[employer] Progress Note Assessment/Plan: A/P: Assessment: * Recent hypotension, fever, resolved. Cxs neg. Rapid recovery with stress- dose steroids. Suspect due to rapid steroid taper. * Metastatic melanoma, was responding to BRAF inhibitor. * Cytokine release syndrome, tocilizumab 4 mg/kg (360 mg) 07/12. * Renal failure, acute. ATN, recovering. Assessing need for HD daily. * Oral HSV. Recs: - Maintain stress-dose HC, taper methylpred. - Cont. abx, cxs will be at 48h tonight. - Dialysis prn. - Cont. Valtrex, started 07/29. - No Rx for melanoma right now - may consider rechallenge w/ BRAF inhibitor in the future. 07/31/18 14:05 Subjective: Up in bed eating. Feeling better. Mouth improved. O: VS reviewed. AF. Gen: looks much better. Fatigued. HEENT: lip lesions improved, still with post palatal lesions. Lungs: breathing comfortably. Ext: digital ischemia unchanged. Microbiology 07/29/18 13:10 Oral - Mouth Herpes Simplex Virus I (PCR) - Final 07/29/18 13:10 Oral - Mouth HSV/VZV PCR Additional Information - Final Hsv-1 Dna Detected Hsv-2 Dna Not Detected Laboratory Tests 07/31/18 07/31/18 05:00 05:00 WBC 14.34 H Hgb 7.4 L Plt Count 94 L Sodium 132 L Potassium 5.0 Chloride 98 Carbon Dioxide 26 BUN 51 H Creatinine 5.8 H Glucose 111 H Objective: Vital Signs Temp Pulse Resp BP Pulse Ox 36.7 C 88 14 108/63 97 07/31/18 12:00 07/31/18 12:00 07/31/18 12:00 07/31/18 12:00 07/31/18 12:00 Microbiology 07/29/18 13:10 Herpes Simplex Virus I (PCR) - Final Oral - Mouth Hsv-1 Dna Detected Herpes Simplex Virus II (PCR) - Final Hsv-2 Dna Not Detected HSV/VZV PCR Additional Information - Final Laboratory Results 07/31/18 05:00 07/31/18 05:00 07/30/18 07/31/18 08/01/18 05:59 05:59 05:59 Intake Total 4150 900 Output Total 815 385 Balance 3335 515 PT 16.8 SEC (12.0-15.0) H 07/22/18 12:45 INR 1.34 (0.83-1.16) H 07/22/18 12:45 ICD10 Worksheet Patient Problems: Problems Problem Status Onset Melanoma 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
--- NOTE | 2018-07-31 15:15 | PDINTPN ---
[employer] Progress Note Assessment/Plan: 53 M with relatively recent diagnosis of malignant melanoma, treated with Tafinlar and Mekinist oral chemotherapy complicated by fever and diarrhea. He was admitted to [facility] 07/11/18 with severe lethargy as well as CONSUELO with severe hypotension requiring pressors (levophed, alhaji, vasopressin) and intubation after arrival in the ICU. The intubation was reported as difficult, requiring at first a small airway followed by upsizing the ETT to 7.5 with a tube exchanger. He was also treated with multiple antibiotics including both po and IV vanco, Zosyn, micafungin, and flagyl. He was reportedly aggressively hydrated with up to 8 liters of IVF, but his renal function and acidosis remained severely abnormal so he was transferred to [facility] for CRRT. He was sedated on a versed drip prior to transfer as well, but this was not continued as he was quite sedated. An HD catheter was placed in the right CFV by surgery without complication and a CT of his chest/abdomen/pelvis did not reveal any significant pathology. Concern was raised by heme/onc about possible cytokine release syndrome, which has been documented with various newer generation chemo agents. * Severe septic shock versus cytokine release syndrome (vs HLH variant)on admission- he received tocilizumab on admission and high dose steroids with excellent recovery, and was actively undergoing a steroid taper. 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 He developed severe hypotension on 07/29 and restarted on stress dose hydrocortisone (for adrenal disease) in addition to solumedrol (for presumed CRS). If CRP and ferritin can serve as indirect markers of IL6 levels, then the likelihood of recurrent CRS is low. Sepsis is another possibility given fever, though his wbc has not changed much from its baseline 10-12 (now to 14 on steroids) and blood cultures remain negative. His hyponatremia and hyperkalemia could indicate adrenal insufficiency, though his HD dependency complicates that evaluation. Low level troponin is insignificant and his echo shows an well-functioning heart and MV. Reduced solumedrol to 60 q 6 hrs and hydrocortisone remains at 100/8. * * CONSUELO presumably related to hypotensive related ATN and/or his chemo. he still requires intermittent dialysis. Renal resumed vasopressin and levophed today only during HD to maintain BP. No albumin given. * * Troponin- peaked at 20 at admission and 0.16 on 07/30. see above. * * Altered MS- I suspect toxic-metabolic encephalopathy on admission, and his head CT showed only improved sinusitis compared to MRI on 06/18/18 (which was normal except sinusitis). Essentially resolved compared to 2-3 weeks ago. Improved even more today 07/31 * * Acute respiratory failure with hypoxia- extubated and no current issue. Some atelectasis- continue O2, IS * * LFTs- had shock liver- now resolved. * * Digital ischemia in all four extremities likely the result from high dose pressors on admission. They all appear dry today and I expect eventual auto- amputation of tips, but no clear infection source at the moment. * * Thrombocytopenia- likely related to sepsis/DIC. Platelets were normal 06/01/18 and 120 on admission at [facility]. platelets improved initially, but are now reduced to 70s. Up to 94 on 07/31/18. * * Right IJ catheter bleeding- s/p surgical exploration with repair of arterial bleeding. This looks quite stable to me and I see no evidence of ongoing bleeding at the moment. His Hct was 18 on 07/29 when he was hypotensive, but responded well to one unit RBC. Remains stable without evidence of bleeding * * oral HSV not surprising in face of high dose steroids. No evidence to support disseminated HSV. Continue valtrex * DNR status- full code. * * critical care time 35 minutes Subjective: feels well- denies DE LEON, light headed N/V. Currently on HD Objective: Vital Signs Temp Pulse Resp BP Pulse Ox 36.9 C 95 15 93/61 L 98 07/31/18 14:00 07/31/18 14:00 07/31/18 14:00 07/31/18 14:00 07/31/18 14:00 Microbiology 07/29/18 13:10 Herpes Simplex Virus I (PCR) - Final Oral - Mouth Hsv-1 Dna Detected Herpes Simplex Virus II (PCR) - Final Hsv-2 Dna Not Detected HSV/VZV PCR Additional Information - Final Laboratory Results 07/31/18 05:00 07/31/18 05:00 07/30/18 07/31/18 08/01/18 05:59 05:59 05:59 Intake Total 4150 900 Output Total 815 385 Balance 3335 515 PT 16.8 SEC (12.0-15.0) H 07/22/18 12:45 INR 1.34 (0.83-1.16) H 07/22/18 12:45 Physical Exam - Physical Exam General Appearance: WD/WN, alert, no apparent distress, thin EENT: PERRL/EOMI, other (oral lesions decreasing), No scleral icterus (R), No scleral icterus (L) Neck: full range of motion, supple Respiratory: lungs clear, normal breath sounds, decreased breath sounds, No respiratory distress, No accessory muscle use Cardiac/Chest: regular rate, rhythm, No edema Abdomen: non-tender, soft, No distended, No guarding Skin: warm/dry Lymphatic: no adenopathy Extremities: other (digital ischemia in most digfits on all 4 extremities. RUE worst. 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
[2018-07-31] MEDS: MELATONIN 3 MG TAB PO SCH (20:25)
[2018-07-31] MEDS: oxyCODONE IR 5 MG TAB PO PRN (20:25)
[2018-08-01] MEDS: methylPREDNISolone SOD SUCC 125 MG/2 ML VIAL IVP SCH ×3 (00:26→14:21)
[2018-08-01] MEDS: HYDROCORTISONE 100 MG/2 ML VIAL IVP SCH ×3 (02:51→17:21)
[2018-08-01 05:02] LABS: PLATELET COUNT 79 10^3/uL (150-400)
[2018-08-01] MEDS: LEVOTHYROXINE 150 MCG TAB PO SCH (05:30)
[2018-08-01] MEDS: PIPERACILLIN/TAZO 2.25 GM/DEX 50 ML IV SCH ×2 (05:31→14:21)
[2018-08-01] MEDS: HEPARIN 5,000 UNIT/0.5 ML INJ SC SCH ×2 (05:31→05:37)
--- NOTE | 2018-08-01 09:50 | SOAPPROG ---
SOAP Progress Note Assessment/Plan: Assessment/Plan: CONSUELO: ATN, nonoliguric, requiring dialysis. - HD today. - Will continue to monitor daily for HD requirements and renal recovery, likely no HD on Friday. - Avoid hypotension and nephrotoxins. Anemia: Pt being transfused 2 units PRBCs today, will continue to monitor. Hyperphosphatemia: on phos binder, will continue to monitor. Shock: improved, pt off pressors. Subjective: No acute events overnight. Pt states that he feels much better today, still not able to walk around. His breathing feels comfortable. He has not had any bleeding. He is on HD this am and tolerating well. Objective: Vital Signs Temp Pulse Resp BP Pulse Ox 35.6 C L 66 14 107/74 100 08/01/18 07:53 08/01/18 07:53 08/01/18 07:53 08/01/18 07:53 08/01/18 07:53 Laboratory Results 08/01/18 04:30 08/01/18 04:30 07/31/18 08/01/18 08/02/18 05:59 05:59 05:59 Intake Total 900 1283.9 Output Total 385 450 Balance 515 833.9 PT 16.8 SEC (12.0-15.0) H 07/22/18 12:45 INR 1.34 (0.83-1.16) H 07/22/18 12:45 General: alert and oriented, no acute distress Eyes: EOMI, PERRL OP: Clear CV: RRR Resp: nonlabored respirations on NC, no crackles Abd: Soft, NT/ND Ext: +1 edema BLE Neuro: CN II-XII Grossly intact, no asterixis Psych: cooperative ICD10 Worksheet Patient Problems: Problems Problem Status Onset Melanoma 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
--- NOTE | 2018-08-01 10:05 | SOAPPROG ---
SOAP Progress Note Assessment/Plan: Assessment: This is a very pleasant 53-year-old male with history of metastatic melanoma admitted for cytokine release syndrome and that complicated hospital course including acute renal failure requiring dialysis, oral HSV, adrenal insufficiency. 1. Adrenal insufficiency: He is currently receiving stress dose hydrocortisone. He is also being tapered off of Solu-Medrol. 2. Fevers: He is currently is afebrile. Blood cultures drawn on 07/29/2018 were negative. He is on vancomycin and Zosyn. 3. Oral HSV: He is on Valtrex. 4. Acute renal failure: Secondary to ATN. He is currently receiving hemodialysis. 5. Anemia: He is being transfused 1 unit PRBCs. 6. Thrombocytopenia: Likely secondary to critical illness. He had coagulation studies drawn today. His platelet count has been stable. 08/01/18 10:02 Subjective: No acute events overnight. He feels well this morning. He is eating breakfast without any issues. Was anemic is getting transfusions currently. Objective: Vital Signs Temp Pulse Resp BP Pulse Ox 35.6 C L 66 14 107/74 100 08/01/18 07:53 08/01/18 07:53 08/01/18 07:53 08/01/18 07:53 08/01/18 07:53 Laboratory Results 08/01/18 04:30 08/01/18 04:30 07/31/18 08/01/18 08/02/18 05:59 05:59 05:59 Intake Total 900 1283.9 Output Total 385 450 Balance 515 833.9 PT 16.8 SEC (12.0-15.0) H 07/22/18 12:45 INR 1.34 (0.83-1.16) H 07/22/18 12:45 General: Pleasant conversant eating cereal. HEENT: Oropharynx is clear, lesions noted on lips, extraocular movements are intact Pulmonary: Clear to auscultation anterior. 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
[2018-08-01 10:37] LABS: INR 1.05 (0.83-1.16); PROTIME(PATIENT) 13.9 SEC (12.0-15.0)
[2018-08-01] MEDS: CALCIUM ACETATE 667 MG CAP PO SCH ×3 (11:06→17:21)
[2018-08-01] MEDS: SODIUM CITRATE 4% 4 ML in SYRINGE 0 ML DIAL PRN (11:22)
[2018-08-01] MEDS: ALLOPURINOL 100 MG TAB PO SCH (11:47)
[2018-08-01] MEDS: PANTOPRAZOLE SODIUM 40 MG TAB PO SCH (11:48)
[2018-08-01] MEDS: CARVEDILOL 3.125 MG TAB PO SCH ×2 (11:51→17:22)
[2018-08-01] MEDS: SENNOSIDES/DOCUSATE SODIUM TAB PO SCH ×2 (11:54→20:59)
[2018-08-01] MEDS: valACYclovir 500 MG TAB PO SCH (11:57)
--- NOTE | 2018-08-01 12:38 | HOSPPROG ---
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 2/2 shock, resulting in hypervolemia from anuria, demonstrating e/o renal recovery w/ UOP 1>1L ml 24hrs - Nephrology following patient -Getting HD today. No HD tomorrow # Septic Shock (PC 48) vs Cytokine Release Syndrome vs Adrenal Insufficiency resulting in profound Hypotension -Etiology unclear -cont with dual steroids (Hydrocortisone and Methylpred). Steroids have been decreased this morning. -s/p tocilizumab -cont with dual abx. BCX NGTF, would like to see no growth for 48hrs before abx deescalation -Still needing pressors. Currently on both NE and Vasopressin. Wean as able to. # Acute diastolic CHF exacerbation/volume overload -volume mgmt per renal with HD -Holding Coreg 3.125 mg -not currently a candidate for an TOMMY-I # NSTEMI. Suspect Type II w/ trop 20, subtle wall motion abnl on Echo, does not recommend cath (given ATN) -most recent TTE with LVEF of 60%. No wall motion abnormalities -will need f/u with Cardiology # Acute hypoxic respiratory failure. 2/2 shock, dCHF, and cytokine release -extubated, weaned to RA, no e/o pneumonia # Anemia/ Acute hemorrhage. Bleeding at R IJ - Surgery took to OR on 07/26 for vein repair and replaced vasc catheter, s/p 1 unit PRBC - Neck U/S on 07/25 showed RIJ thrombosis, IR consulted who performed venogram which did not show any clot - Hemoglobin is 7.4. May need transfusion soon #Hyperkalemia -mgmt per nephrology with HD # Acute urinary retention. resolved # Acute metabolic encephalopathy. 2/2 metabolic effects of uremia and acidosis, resolved # Ischemic digits. Acute, 2/2 pressors, ongoing paresthesias. NO e/o acute infection. # Moderate mitral regurgitation. Dr. Tobin, does not recommend AVELINA at this time # Acute metabolic acidosis. 2/2 lactic acid (shock) and uremia (ATN),PO bicarb started # Hyperglycemia. 2/2 stress response from above, stopped insulin gtt and ordered ACHS checks # Diarrhea. D/c questran, Imodium prn # Metastatic melanoma. S/p Taflinar and Mekinist, currently holding given current condition Diet. As todd PPx. High risk, hold hep SC, SCDs Code. Full Dispo. ADD uncertain, remains severely ill Plan: -cont with dual steroids. Decrease Solu-Medrol today -Cont with pressors as needed. Hold Coreg -Still on Vanc and Zosyn. PC has come down but still significantly elevated. Would cont both for now. No clear source of infection currently -No clear reason why the pt's Hgb cont to drop and has had a significant drop. He is getting 2 units transfused today. Cont to trend. There is some concern that he my have a retroperitoneal bleed and Pulm is considering obtaining imaging. Will also check iron studies, B12, Folate, but doubt this will be helpful. -Thrombocytopenia: holding Heparin. INR is unremarkable -cont Saldivar for strict I's and O's total cct is 35 mins. D/W team during ICU team rounds. Subjective: no cp or sob. no n/v. Still with soft BP. Hgb has decreased Objective: Vital Signs Temp Pulse Resp BP Pulse Ox 36.1 C 689 H 12 112/75 99 08/01/18 12:00 08/01/18 12:00 08/01/18 12:00 08/01/18 12:00 08/01/18 12:00 Laboratory Results 08/01/18 04:30 07/31/18 08/01/18 08/02/18 05:59 05:59 05:59 Intake Total 900 1283.9 Output Total 385 450 Balance 515 833.9 PT 13.9 SEC (12.0-15.0) 08/01/18 09:30 INR 1.05 (0.83-1.16) 08/01/18 09:30 - Physical Exam Constitutional: no apparent distress Eyes: PERRL Ears, Nose, Mouth, Throat: moist mucous membranes, hearing normal Cardiovascular: regular rate and rhythym Respiratory: no respiratory distress, no rales or rhonchi Gastrointestinal: normoactive bowel sounds, soft, non-tender abdomen Skin: warm Neurologic: AAOx3 Psychiatric: interacting appropriately, not anxious, not encephalopathic Lymph, Heme, Immunologic: No petechiae ICD10 Worksheet Patient Problems: Problems Problem Status Onset Melanoma 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
[2018-08-01 12:55] LABS: PLATELET COUNT 76 10^3/uL (150-400)
--- NOTE | 2018-08-01 15:49 | PDINTPN ---
Hotel Superintendent Progress Note Assessment/Plan: 53 M with relatively recent diagnosis of malignant melanoma, treated with Tafinlar and Mekinist oral chemotherapy complicated by fever and diarrhea. He was admitted to [facility] 07/11/18 with severe lethargy as well as CONSUELO with severe hypotension requiring pressors (levophed, alhaji, vasopressin) and intubation after arrival in the ICU. The intubation was reported as difficult, requiring at first a small airway followed by upsizing the ETT to 7.5 with a tube exchanger. He was also treated with multiple antibiotics including both po and IV vanco, Zosyn, micafungin, and flagyl. He was reportedly aggressively hydrated with up to 8 liters of IVF, but his renal function and acidosis remained severely abnormal so he was transferred to [facility] for CRRT. He was sedated on a versed drip prior to transfer as well, but this was not continued as he was quite sedated. An HD catheter was placed in the right CFV by surgery without complication and a CT of his chest/abdomen/pelvis did not reveal any significant pathology. Concern was raised by heme/onc about possible cytokine release syndrome, which has been documented with various newer generation chemo agents. * Severe septic shock versus cytokine release syndrome (vs HLH variant) on admission- he received tocilizumab on admission and high dose steroids with excellent recovery, and was actively undergoing a steroid taper on 07/29 when he again had hemodynamic compromise. 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 He developed severe hypotension on 07/29 and restarted on stress dose hydrocortisone (for adrenal disease) in addition to solumedrol (for presumed CRS ). If CRP and ferritin can serve as indirect markers of IL6 levels, then the likelihood of recurrent CRS is low. Sepsis is another possibility given fever, though his wbc has not changed much from its baseline 10-12 (now to 14 on steroids) and blood cultures remain negative. His hyponatremia and hyperkalemia could indicate adrenal insufficiency, though his HD dependency complicates that evaluation. Low level troponin is insignificant and his echo shows an well- functioning heart and MV. Reduced solumedrol to 60 q 6 hrs on 07/31 and to 60 bid on 08/01. DC antibiotics today as PCT much lower than previous. Hydrocortisone remains at 100/q8 which will stay the same until solumedrol off. . * * Anemia- his H/H was also low on 07/29 and he was given one unit RBC. His Hct fell again today despite volume loss on HD. After one unit, he had a suboptimal response so 2 more units given. No clear bleeding site obvious, including his IJ. He has mild tenderness to palp on the right flank, so potential retroperitoneal source. If he continues to require transfusions will check non- contrast abdo CT. * * CONSUELO presumably related to hypotensive related ATN and/or his chemo. he still requires intermittent dialysis. Renal resumed vasopressin and levophed today only during HD to maintain BP. No albumin given. * * Troponin- peaked at 20 at admission and 0.16 on 07/30. see above. * * Altered MS- I suspect toxic-metabolic encephalopathy on admission, and his head CT showed only improved sinusitis compared to MRI on 06/18/18 (which was normal except sinusitis). Essentially resolved compared to 2-3 weeks ago. Improved even more today 07/31 * * Acute respiratory failure with hypoxia- extubated and no current issue. Some atelectasis- continue O2, IS * * LFTs- had shock liver- now resolved. * * Digital ischemia in all four extremities likely the result from high dose pressors on admission. They all appear dry today and I expect eventual auto- amputation of tips, but no clear infection source at the moment. * * Thrombocytopenia- likely related to sepsis/DIC. Platelets were normal 06/01/18 and 120 on admission at [facility]. platelets improved initially, but are now reduced to 70s. Up to 94 on 07/31/18, but down to 76 today .No heparin products I know of. Continue to follow; discuss with heme/onc. * * Right IJ catheter bleeding- s/p surgical exploration with repair of arterial bleeding. This looks quite stable to me and I see no evidence of ongoing bleeding at the moment. His Hct was 18 on 07/29 when he was hypotensive, but responded well to one unit RBC. 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 No evidence to support disseminated HSV and continues to improve. Continue valtrex * DNR status- full code. * * 08/01/18 15:49 Subjective: continues to improve. No complaints Objective: Vital Signs Temp Pulse Resp BP Pulse Ox 36.1 C 81 13 113/77 94 08/01/18 12:00 08/01/18 14:00 08/01/18 14:00 08/01/18 14:00 08/01/18 14:00 Laboratory Results 08/01/18 12:10 08/01/18 04:30 07/31/18 08/01/18 08/02/18 05:59 05:59 05:59 Intake Total 900 1283.9 Output Total 385 450 160 Balance 515 833.9 -160 PT 13.9 SEC (12.0-15.0) 08/01/18 09:30 INR 1.05 (0.83-1.16) 08/01/18 09:30 Physical Exam - Physical Exam General Appearance: WD/WN, alert, no apparent distress EENT: PERRL/EOMI, No scleral icterus (R), No scleral icterus (L) Neck: full range of motion, supple Respiratory: lungs clear, normal breath sounds, decreased breath sounds, No respiratory distress, No accessory muscle use Cardiac/Chest: regular rate, rhythm, No edema Abdomen: non-tender, soft, No distended, No guarding Skin: normal color, warm/dry, No cyanosis Lymphatic: no adenopathy Extremities: No pedal edema Neuro/Psych: alert, normal mood/affect, oriented x 3 ICD10 Worksheet Patient Problems: Problems Problem Status Onset Melanoma 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
[2018-08-01] MEDS: MELATONIN 3 MG TAB PO SCH (20:59)
[2018-08-01] MEDS: ACETAMINOPHEN 325 MG TAB PO PRN (20:59)
[2018-08-01] MEDS ORDERED: methylPREDNISolone SOD SUCC 125 MG/2 ML VIAL IVP SCH (21:00)
[2018-08-02] MEDS: HYDROCORTISONE 100 MG/2 ML VIAL IVP SCH ×3 (01:15→17:35)
[2018-08-02 04:18] LABS: PLATELET COUNT 77 10^3/uL (150-400)
[2018-08-02] MEDS: LEVOTHYROXINE 150 MCG TAB PO SCH (06:31)
[2018-08-02] MEDS ORDERED: methylPREDNISolone SOD SUCC 125 MG/2 ML VIAL IVP SCH (09:00)
[2018-08-02] MEDS: PANTOPRAZOLE SODIUM 40 MG TAB PO SCH (09:45)
[2018-08-02] MEDS: CARVEDILOL 3.125 MG TAB PO SCH ×2 (09:48→17:35)
[2018-08-02] MEDS: CALCIUM ACETATE 667 MG CAP PO SCH ×3 (09:48→17:34)
[2018-08-02] MEDS: ALLOPURINOL 100 MG TAB PO SCH (09:48)
[2018-08-02] MEDS: valACYclovir 500 MG TAB PO SCH (09:48)
[2018-08-02] MEDS: SENNOSIDES/DOCUSATE SODIUM TAB PO SCH ×2 (09:57→20:07)
--- NOTE | 2018-08-02 11:12 | HOSPPROG ---
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 2/2 shock, resulting in hypervolemia from anuria - Nephrology following patient -No HD today -will hopefully not require HD longterm -making urine # Septic Shock (PC 48) vs Cytokine Release Syndrome vs Adrenal Insufficiency resulting in profound Hypotension -Etiology unclear -cont with dual steroids (Hydrocortisone and Methylpred). Solu-Medrol has been decreased again this morning. Cont with current dose of Hydrocortisone -s/p tocilizumab -Abx (Vanco and Zosyn) stopped on 08/01. Doing well off them -Off pressors and doing well # Acute diastolic CHF exacerbation/volume overload -volume mgmt per renal with HD -Coreg 3.125 mg -not currently a candidate for an TOMMY-I # NSTEMI. Suspect Type II w/ trop 20, subtle wall motion abnl on Echo, does not recommend cath (given ATN) -most recent TTE with LVEF of 60%. No wall motion abnormalities -will need f/u with Cardiology # Acute hypoxic respiratory failure. 2/2 shock, dCHF, and cytokine release -extubated, weaned to RA, no e/o pneumonia # Anemia/ Acute hemorrhage. Bleeding at R IJ - Surgery took to OR on 07/26 for vein repair and replaced vasc catheter, s/p 1 unit PRBC - Neck U/S on 07/25 showed RIJ thrombosis, IR consulted who performed venogram which did not show any clot - Hemoglobin is 7.4. May need transfusion soon #Hyperkalemia -mgmt per nephrology with HD # Acute urinary retention. resolved # Acute metabolic encephalopathy. 2/2 metabolic effects of uremia and acidosis, resolved # Ischemic digits. Acute, 2/2 pressors, ongoing paresthesias. NO e/o acute infection. # Moderate mitral regurgitation. Dr. Tobin, does not recommend AVELINA at this time # Acute metabolic acidosis. 2/2 lactic acid (shock) and uremia (ATN),PO bicarb started # Hyperglycemia. 2/2 stress response from above, stopped insulin gtt and ordered ACHS checks # Diarrhea. D/c questran, Imodium prn # Metastatic melanoma. S/p Taflinar and Mekinist, currently holding given current condition #Anemia: Significant drop for unclear reasons on 08/01 requiring 2 L PRBC. No current signs of active bleeding. There was concern for retroperitoneal bleed but low probability considering stable VS and decreasing back pain. Will hold off on CT for now. Repeat labs in a.m. #thrombocytopenia: holding Heparin #: cont Saldivar for strict I's and O's Diet. Regular (will change from Renal today) PPx. High risk, hold hep SC, SCDs Code. Full Dispo. ADD uncertain, remains severely ill , cont SDU. If he does well overnight , consider transfer out of SDU tomorrow. Therapies have now cleared him for home so when medically stable, he can d/c to home. Subjective: no cp or sob. walking in halls. slight drop in H/H. VS stable Objective: Vital Signs Temp Pulse Resp BP Pulse Ox 36.7 C 77 16 110/78 94 08/02/18 08:50 08/02/18 09:48 08/02/18 08:05 08/02/18 08:05 08/02/18 08:05 Laboratory Results 08/02/18 03:45 08/02/18 03:45 08/01/18 08/02/18 08/03/18 05:59 05:59 05:59 Intake Total 1583.9 1050 Output Total 450 410 Balance 1133.9 640 PT 13.9 SEC (12.0-15.0) 08/01/18 09:30 INR 1.05 (0.83-1.16) 08/01/18 09:30 - Physical Exam Constitutional: no apparent distress Eyes: PERRL Ears, Nose, Mouth, Throat: moist mucous membranes, hearing normal Cardiovascular: regular rate and rhythym Respiratory: no respiratory distress, no rales or rhonchi Gastrointestinal: normoactive bowel sounds, soft, non-tender abdomen Skin: warm Neurologic: AAOx3 Psychiatric: interacting appropriately, not anxious, not encephalopathic Lymph, Heme, Immunologic: No petechiae ICD10 Worksheet Patient Problems: Problems Problem Status Onset Melanoma 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
--- NOTE | 2018-08-02 14:42 | PDINTPN ---
Pulmonary Care Nurse Progress Note Assessment/Plan: 53 M with relatively recent diagnosis of malignant melanoma, treated with Tafinlar and Mekinist oral chemotherapy complicated by fever and diarrhea. He was admitted to [facility] 07/11/18 with severe lethargy as well as CONSUELO with severe hypotension requiring pressors (levophed, alhaji, vasopressin) and intubation after arrival in the ICU. The intubation was reported as difficult, requiring at first a small airway followed by upsizing the ETT to 7.5 with a tube exchanger. He was also treated with multiple antibiotics including both po and IV vanco, Zosyn, micafungin, and flagyl. He was reportedly aggressively hydrated with up to 8 liters of IVF, but his renal function and acidosis remained severely abnormal so he was transferred to [facility] for CRRT. He was sedated on a versed drip prior to transfer as well, but this was not continued as he was quite sedated. An HD catheter was placed in the right CFV by surgery without complication and a CT of his chest/abdomen/pelvis did not reveal any significant pathology. Concern was raised by heme/onc about possible cytokine release syndrome, which has been documented with various newer generation chemo agents. * Severe septic shock versus cytokine release syndrome (vs HLH variant) on admission- he received tocilizumab on admission and high dose steroids with excellent recovery, and was actively undergoing a steroid taper on 07/29 when he again had hemodynamic compromise. 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 Hre responded well to high dose hydrocortisone and solumedrol as well as tocilizumab with oncology guidance. * * hypotension episode #2- He developed severe hypotension on 07/29 and restarted on stress dose hydrocortisone (for adrenal disease) in addition to solumedrol ( for presumed CRS). If CRP and ferritin can serve as indirect markers of IL6 levels, then the likelihood of recurrent CRS is low. Sepsis is another possibility given fever, though his wbc has not changed much from its baseline 10-12 (now to 14 on steroids) and blood cultures remain negative. His hyponatremia and hyperkalemia could indicate adrenal insufficiency, though his HD dependency complicates that evaluation. Low level troponin is insignificant and his echo shows an well-functioning heart and MV. His hct was also low on the day of hypotension, but no clear bleeding could be found (see below for discussion). Reduced solumedrol to 60 q 6 hrs on 07/31 and to 60 bid on 08/01. DC antibiotics 08/01 as PCT much lower than previous. Hydrocortisone remains at 100/q8 which will stay the same until solumedrol off, which I changed to 60/d omn 08/02. Assuming he remains stable would dc solumedrol and taper hydrocortisone slowly * * Anemia- his H/H was also low on 07/29 and he was given one unit RBC. His Hct fell again 08/01 despite volume loss on HD. After one unit, he had a suboptimal response so 2 more units given. No clear bleeding site obvious, including his IJ. He has mild tenderness to palp on the right flank and small hematoma in right groin at site of previous line; so potential retroperitoneal source. HCT and BP stable today so held off on CT. * * CONSUELO presumably related to hypotensive related ATN and/or his chemo. he still requires intermittent dialysis and was dialyzed daily from 07/30,,. Lytes, volume, and acid base stable today so no HD. * * Troponin- peaked at 20 at admission and 0.16 on 07/30. see above. * * Altered MS- I suspect toxic-metabolic encephalopathy on admission, and his head CT showed only improved sinusitis compared to MRI on 06/18/18 (which was normal except sinusitis). Resolved compared to 2-3 weeks ago. Improved even more today 07/31 * * Acute respiratory failure with hypoxia- extubated and no current issue. Some atelectasis- continue O2, IS * * LFTs- had shock liver- now resolved. * * Digital ischemia in all four extremities likely the result from high dose pressors on admission. They all appear dry today and I expect eventual auto- amputation of tips, but no clear infection source at the moment. * * Thrombocytopenia- likely related to sepsis/DIC. Platelets were normal 06/01/18 and 120 on admission at [facility]. platelets improved initially, but are now reduced to 70s. Up to 94 on 07/31/18, but down to 76 today. No heparin products I know of. Hovering in mid to upper 70s. * * Right IJ catheter bleeding- s/p surgical exploration with repair of arterial bleeding prior to 07/29 episode. This looks quite stable to me and I see no evidence of ongoing bleeding at the moment. His Hct was 18 on 07/29 when he was hypotensive, but responded well to one unit RBC. 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 No evidence to support disseminated HSV and continues to improve. Continue valtrex * DNR status- full code. * * to med/surg in am? Subjective: feels well and ambulating without difficulty Objective: Vital Signs Temp Pulse Resp BP Pulse Ox 36.7 C 77 18 122/87 H 94 08/02/18 08:50 08/02/18 13:15 08/02/18 13:15 08/02/18 13:15 08/02/18 13:15 Laboratory Results 08/02/18 03:45 08/02/18 03:45 08/01/18 08/02/18 08/03/18 05:59 05:59 05:59 Intake Total 1583.9 1050 720 Output Total 450 410 Balance 1133.9 640 720 PT 13.9 SEC (12.0-15.0) 08/01/18 09:30 INR 1.05 (0.83-1.16) 08/01/18 09:30 Physical Exam - Physical Exam General Appearance: WD/WN, alert, no apparent distress, thin EENT: PERRL/EOMI, No scleral icterus (R), No scleral icterus (L) Neck: full range of motion, supple Respiratory: lungs clear, normal breath sounds, decreased breath sounds, No respiratory distress, No accessory muscle use Cardiac/Chest: regular rate, rhythm, No edema Abdomen: non-tender, soft, No distended Skin: normal color, warm/dry, No cyanosis Lymphatic: no adenopathy Extremities: No pedal edema Neuro/Psych: alert, normal mood/affect, motor weakness (but ambulates in halls) , No oriented x 3 ICD10 Worksheet Patient Problems: Problems Problem Status Onset Melanoma 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
--- NOTE | 2018-08-02 16:37 | SOAPPROG ---
SOAP Progress Note Assessment/Plan: Assessment/Plan: CONSUELO: ATN, nonoliguric, requiring dialysis. - Will plan on HD on Friday. - Will continue to monitor daily for renal recovery. - Avoid hypotension and nephrotoxins. Anemia: Pt transfused 2 units PRBCs yesterday, will continue to monitor. Hyperphosphatemia: on phos binder, will continue to monitor. Subjective: No acute events overnight. Pt has had 300ml UOP thus far since this morning. He has no complaints today, sitting up in chair. Objective: Vital Signs Temp Pulse Resp BP Pulse Ox 36.6 C 80 16 111/82 H 95 08/02/18 16:23 08/02/18 16:23 08/02/18 16:23 08/02/18 16:23 08/02/18 16:23 Laboratory Results 08/02/18 03:45 08/02/18 03:45 08/01/18 08/02/18 08/03/18 05:59 05:59 05:59 Intake Total 1583.9 1050 720 Output Total 450 410 Balance 1133.9 640 720 PT 13.9 SEC (12.0-15.0) 08/01/18 09:30 INR 1.05 (0.83-1.16) 08/01/18 09:30 General: alert and oriented, no acute distress Eyes: EOMI, PERRL OP: Clear CV: RRR Resp: nonlabored respirations Abd: Soft, NT/ND Ext: +1 edema BLE, noted to have multiple ischemic fingertips Neuro: CN II-XII grossly intact, no asterixis Psych: cooperative ICD10 Worksheet Patient Problems: Problems Problem Status Onset Melanoma 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
[2018-08-02] MEDS: MELATONIN 3 MG TAB PO SCH ×2 (20:06→20:07)
[2018-08-02] MEDS: oxyCODONE IR 5 MG TAB PO PRN (20:06)
[2018-08-03] MEDS: HYDROCORTISONE 100 MG/2 ML VIAL IVP SCH ×3 (01:20→18:01)
[2018-08-03 05:16] LABS: PLATELET COUNT 66 10^3/uL (150-400)
[2018-08-03] MEDS: LEVOTHYROXINE 150 MCG TAB PO SCH (06:57)
[2018-08-03] MEDS: CALCIUM ACETATE 667 MG CAP PO SCH ×3 (08:00→18:01)
--- NOTE | 2018-08-03 08:27 | SOAPPROG ---
SOAP Progress Note Assessment/Plan: Assessment: CONSUELO due to ATN (cytokine storm after chemotherapy causing shock) -initially CRRT now on intermittent HD with next run today -UOP picking up some but still poor clearance- not ready to come off HD yet but hopeful early signs of recovery. I discussed this with him today -no further significant bleeding from IJ cath-- monitor -discussed po intake- ok to liberalize diet more to encourage better intake, I reviewed high K foods he should minimize Anemia -s/p PRBCs over weekend, monitor Hct. Drifting back down and would consider imaging retroperitoneal if continues to drift downwards. IJ line ok. metastatic melanoma ischemic finger tips HSV oral lesions Marissa Patiño MD [facility] pager [phone] 08/03/18 09:35 Subjective: Pt seen on dialysis at 09:05. He is using RIJ cath, Qb 350, 3.5k/2.5ca bath, goal UF 1kg. Watching tv, notes feeling better. Still weak. Not eating great but this is improving- discussed diet restrictions. No sob. UOP improving. Received PRBCs over weekend. No bleeding from RIJ line. Objective: Vital Signs Temp Pulse Resp BP Pulse Ox 36.6 C 66 15 124/83 H 95 08/03/18 07:34 08/03/18 07:34 08/03/18 07:34 08/03/18 07:34 08/03/18 07:34 Laboratory Results 08/03/18 04:55 08/03/18 04:55 08/02/18 08/03/18 08/04/18 05:59 05:59 05:59 Intake Total 1050 1020 Output Total 410 825 Balance 640 195 PT 13.9 SEC (12.0-15.0) 08/01/18 09:30 INR 1.05 (0.83-1.16) 08/01/18 09:30 Physical Exam - Physical Exam General Appearance: alert, no apparent distress, other (lying in bed comfortably ) Neck: other (RIJ HD cath, no bleeding) Respiratory: lungs clear (ant bilat) Cardiac/Chest: regular rate, rhythm, other (no rub) Abdomen: normal bowel sounds, non-tender, soft Skin: warm/dry Extremities: other (no edmea, ischemic fingers) Neuro/Psych: alert, oriented x 3 ICD10 Worksheet Patient Problems: Problems Problem Status Onset Melanoma 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
--- NOTE | 2018-08-03 10:30 | HOSPPROG ---
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 2/2 shock, resulting in hypervolemia from anuria, uop improving - Nephrology following , HD today, hopeful for renal recovery # Shock - suspect Cytokine Release Syndrome vs septic shock vs Adrenal Insufficiency resulting in profound Hypotension. Decompensated when steroids rapidly tapered from 100 IV daily to 30 mg po daily, now back on HC and stable. Weaned off Solumedrol. Off pressors. 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 Suspect Type II w/ trop 20, subtle wall motion abnl on Echo, cards does not recommend cath given ATN. Most recent TTE with LVEF of 60%. No wall motion abnormalities -will need f/u with Cardiology # Acute hypoxic respiratory failure. 2/2 shock, dCHF, and cytokine release - extubated, weaned to RA, no e/o pneumonia # Anemia/ Acute hemorrhage. Bleeding at R IJ resolved, surgery took to OR on 07/26 for vein repair and replaced vasc catheter, s/p 1 unit PRBC - Neck U/S on 07/25 showed RIJ thrombosis, IR consulted who performed venogram which did not show any clot - s/p 6 units prbc's total (3 units 08/01) - hgb still slowly trending down, consider RP u/s if downward trend continues #Hyperkalemia -mgmt per nephrology with HD # Acute urinary retention. resolved # Acute metabolic encephalopathy. 2/2 metabolic effects of uremia and acidosis, resolved # Ischemic digits. Acute, 2/2 pressors, ongoing paresthesias. NO e/o acute infection. - anticipate auto-amputation # Moderate mitral regurgitation. Previously reviewed with cards, they do not recommend AVELINA at this time # Acute metabolic acidosis. 2/2 lactic acid (shock) and uremia (ATN) # Hyperglycemia. 2/2 stress response from above, bg's 100's off insulin drip # Diarrhea. D/c'd questran, Imodium prn # Metastatic melanoma. S/p Taflinar and Mekinist, currently holding given current condition. Discussed with onc. #thrombocytopenia: holding Heparin #: cont Saldivar for strict I's and O's Diet. Regular PPx. High risk, hold hep SC, SCDs, ambulation Code. Full Dispo. ADD uncertain, remains severely ill , cont SDU. If he does well overnight , consider transfer out of SDU tomorrow. Therapies have now cleared him for home so when medically stable, he can d/c to home. Subjective: Pt doing ok, denies bleeding. No CP or SOB. No fevers/chills. No N/V. Taking po. Currently on dialysis. Objective: Vital Signs Temp Pulse Resp BP Pulse Ox 36.6 C 66 15 124/83 H 95 08/03/18 07:34 08/03/18 07:34 08/03/18 07:34 08/03/18 07:34 08/03/18 07:34 Laboratory Results 08/03/18 04:55 08/03/18 04:55 08/02/18 08/03/18 08/04/18 05:59 05:59 05:59 Intake Total 1050 1020 Output Total 410 825 Balance 640 195 PT 13.9 SEC (12.0-15.0) 08/01/18 09:30 INR 1.05 (0.83-1.16) 08/01/18 09:30 - Physical Exam Constitutional: no apparent distress Eyes: PERRL Ears, Nose, Mouth, Throat: moist mucous membranes Cardiovascular: regular rate and rhythym Respiratory: no respiratory distress, clear to auscultation Gastrointestinal: normoactive bowel sounds, soft, non-tender abdomen Skin: warm Musculoskeletal: other (ischemic digits) Neurologic: AAOx3 Psychiatric: interacting appropriately ICD10 Worksheet Patient Problems: Problems Problem Status Onset Melanoma 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
[2018-08-03] MEDS: PANTOPRAZOLE SODIUM 40 MG TAB PO SCH (11:17)
[2018-08-03] MEDS: valACYclovir 500 MG TAB PO SCH (11:17)
[2018-08-03] MEDS: ALLOPURINOL 100 MG TAB PO SCH (11:17)
[2018-08-03] MEDS: CARVEDILOL 3.125 MG TAB PO SCH ×2 (11:17→18:00)
[2018-08-03] MEDS: SENNOSIDES/DOCUSATE SODIUM TAB PO SCH ×2 (11:34→20:16)
--- NOTE | 2018-08-03 12:41 | ASMTCMCOM ---
CM Note CM Note Notes: PT recommending HC, OT=HM. [facility] contracts with [facility]. interested in [facility]. Sent a referral. Pt still receiving dialysis. Date Signed: 08/03/2018 12:40 PM Electronically Signed By:Mariel Mariano LCSW
[2018-08-03] MEDS ORDERED: HEPARIN 50,000 UNIT/10 ML VIAL ONE (13:11)
--- NOTE | 2018-08-03 13:21 | PDINTPN ---
Medical Scribe Progress Note Assessment/Plan: Assessment: 53 M with relatively recent diagnosis of malignant melanoma, treated with Tafinlar and Mekinist oral chemotherapy complicated by fever and diarrhea. He was admitted to [facility] 07/11/18 with severe lethargy as well as CONSUELO with severe hypotension requiring pressors (levophed, alhaji, vasopressin) and intubation after arrival in the ICU. The intubation was reported as difficult, requiring at first a small airway followed by upsizing the ETT to 7.5 with a tube exchanger. He was also treated with multiple antibiotics including both po and IV vanco, Zosyn, micafungin, and flagyl. He was reportedly aggressively hydrated with up to 8 liters of IVF, but his renal function and acidosis remained severely abnormal so he was transferred to [facility] for CRRT. He was sedated on a versed drip prior to transfer as well, but this was not continued as he was quite sedated. An HD catheter was placed in the right CFV by surgery without complication and a CT of his chest/abdomen/pelvis did not reveal any significant pathology. Concern was raised by heme/onc about possible cytokine release syndrome, which has been documented with various newer generation chemo agents. * Severe septic shock versus cytokine release syndrome (vs HLH variant) on admission- he received tocilizumab on admission and high dose steroids with excellent recovery, and was actively undergoing a steroid taper on 07/29 when he again had hemodynamic compromise. 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 Hre responded well to high dose hydrocortisone and solumedrol as well as tocilizumab with oncology guidance. * hypotension episode #2- He developed severe hypotension on 07/29 and restarted on stress dose hydrocortisone (for adrenal disease) in addition to solumedrol ( for presumed CRS). If CRP and ferritin can serve as indirect markers of IL6 levels, then the likelihood of recurrent CRS is low. Sepsis is another possibility given fever, though his wbc has not changed much from its baseline 10-12 (now to 14 on steroids) and blood cultures remain negative. His hyponatremia and hyperkalemia could indicate adrenal insufficiency, though his HD dependency complicates that evaluation. Low level troponin is insignificant and his echo shows an well-functioning heart and MV. His hct was also low on the day of hypotension, but no clear bleeding could be found (see below for discussion). Reduced solumedrol to 60 q 6 hrs on 07/31 and to 60 bid on 08/01. DC antibiotics 08/01 as PCT much lower than previous. Hydrocortisone remains at 100/q8 which will stay the same until solumedrol off, which I changed to 60/d omn 08/02. Assuming he remains stable would dc solumedrol and taper hydrocortisone slowly * Anemia- his H/H was also low on 07/29 and he was given one unit RBC. His Hct fell again 08/01 despite volume loss on HD. After one unit, he had a suboptimal response so 2 more units given. No clear bleeding site obvious, including his IJ. He has mild tenderness to palp on the right flank and small hematoma in right groin at site of previous line; so potential retroperitoneal source. Hemoglobin again drifting down. * CONSUELO presumably related to hypotensive related ATN and/or his chemo. he still requires intermittent dialysis and was dialyzed daily from 07/30,,. Urine output increasing, but BUN and creatinine also rising so will require ongoing dialysis. Hopefully will see further recovery over the next few days and will no longer require hemodialysis. * Acute respiratory failure with hypoxia- extubated and no current issue. Some atelectasis, but doing well on room air * LFTs- had shock liver- now resolved. * Digital ischemia in all four extremities likely the result from high dose pressors on admission. They all appear dry today and I expect eventual auto- amputation of tips, but no clear infection source at the moment. * Thrombocytopenia- likely related to sepsis/DIC. Platelets were normal 06/01/18 and 120 on admission at [facility]. platelets improved initially, but are now reduced to 70s. Up to 94 on 07/31/18, but down to 76 today. No heparin products currently. Hovering in mid to upper 70s. * Right IJ catheter bleeding- s/p surgical exploration with repair of arterial bleeding prior to 07/29 episode. This looks quite stable to me and I see no evidence of ongoing bleeding at the moment. His Hct was 18 on 07/29 when he was hypotensive, but responded well to one unit RBC. 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 No evidence to support disseminated HSV and continues to improve. Continue valtrex Plan: Follow H/H. Increase activity as tolerated. Keep current dose of hydrocortisone, consider starting to taper down tomorrow. May be able to transfer to floor tomorrow. 08/03/18 13:37 Subjective: Feels okay, denies pain, dyspnea. Strength and appetite improving. Objective: Vital Signs Temp Pulse Resp BP Pulse Ox 36.5 C 66 18 129/85 H 95 08/03/18 11:00 08/03/18 11:00 08/03/18 11:00 08/03/18 11:00 08/03/18 11:00 Laboratory Results 08/03/18 04:55 08/03/18 04:55 08/02/18 08/03/18 08/04/18 05:59 05:59 05:59 Intake Total 1050 1020 Output Total 410 825 Balance 640 195 PT 13.9 SEC (12.0-15.0) 08/01/18 09:30 INR 1.05 (0.83-1.16) 08/01/18 09:30 Physical Exam - Physical Exam General Appearance: alert, no apparent distress EENT: normal ENT inspection Neck: normal inspection Respiratory: rales (Right base) Cardiac/Chest: regular rate, rhythm, edema Abdomen: normal bowel sounds, non-tender, soft Skin: normal color, other (Multiple ischemic digits distally) Extremities: non-tender Neuro/Psych: alert, normal mood/affect, oriented x 3 ICD10 Worksheet Patient Problems: Problems Problem Status Onset Melanoma 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
[2018-08-04] MEDS: HYDROCORTISONE 100 MG/2 ML VIAL IVP SCH ×3 (02:14→18:26)
[2018-08-04 04:21] LABS: PLATELET COUNT 71 10^3/uL (150-400)
[2018-08-04] MEDS: LEVOTHYROXINE 150 MCG TAB PO SCH (06:33)
[2018-08-04] MEDS: CALCIUM ACETATE 667 MG CAP PO SCH ×3 (08:13→18:26)
[2018-08-04] MEDS: SENNOSIDES/DOCUSATE SODIUM TAB PO SCH ×2 (08:13→20:55)
[2018-08-04] MEDS: CARVEDILOL 3.125 MG TAB PO SCH ×2 (08:13→18:26)
[2018-08-04] MEDS: ALLOPURINOL 100 MG TAB PO SCH (08:13)
[2018-08-04] MEDS: PANTOPRAZOLE SODIUM 40 MG TAB PO SCH (08:13)
[2018-08-04] MEDS: valACYclovir 500 MG TAB PO SCH (08:17)
--- NOTE | 2018-08-04 10:37 | WOCRNPDOC ---
WOCRN Advanced Assessment Note - Skin Integrity Problem, Advanced Assess Left Foot Dressing Type: Open to Air Exudate Amount: None Wound Bed Color: Black Wound Bed Constitution: Stable Eschar Skin Integrity Problem Comment: Ischemic injury to the distal phalanx of the 1st , 3rd, and 5th toes of the left foot as a result of vasopressors. No open areas noted at this time, stable black eschar present. 2nd and 4th toes appear to be improving and are lawrence in color. Addie FONSECA in room for assessment. Wound care will round again later in the week. Right Foot Dressing Type: Open to Air Exudate Amount: None Wound Bed Color: Black Wound Bed Constitution: Stable Eschar Skin Integrity Problem Comment: All toes on the right foot show signs of ischemic injury to the distal phalanx as a result of vasopressors. No open areas noted. Wound care will round again later in the week. Right Hand Dressing Type: Open to Air Exudate Amount: None Wound Bed Color: Black Wound Bed Constitution: Stable Eschar Skin Integrity Problem Comment: The tips of the 1st, 2nd, 3rd, and 4th fingers show signs of ischemic injury related to vasopressors. Ischemic area extends to the base of the nail beds. No open areas noted. Wound care will round again later in the week. Left Second Finger Dressing Type: Open to Air Exudate Amount: None Wound Bed Color: Black Wound Bed Constitution: Stable Eschar Skin Integrity Problem Comment: Ischemic injury resulting from vasopressors. Injury extends to the base of the nail bed. Wound care will round again later in the week. Left Third Finger Dressing Type: Open to Air Exudate Amount: Minimal Exudate Characteristic(s): Serosanguinous Wound Bed Color: Yellow Wound Bed Constitution: Adhered Slough Site Measurement - Head-to-Toe Length X Width X Depth (cm): 1x1x0.2 Skin Integrity Problem Comment: Resolving ischemic injury that has begun to slough off. Will begin moist wound healing. Wound care will round again later in the week.
--- NOTE | 2018-08-04 11:15 | HOSPPROG ---
Hospitalist Progress Note Assessment/Plan: Assessment: 53 yo M p/w shock 2/2 presumed cytokine release syndrome in setting of melanoma therapy with resulting respiratory failure and ATN # ATN. 2/2 shock, resulting in hypervolemia from anuria, uop improving - Nephrology following , HD yesterday, hopeful for renal recovery # Shock - suspect Cytokine Release Syndrome vs septic shock vs Adrenal Insufficiency resulting in profound Hypotension. Decompensated when steroids rapidly tapered from 100 IV daily to 30 mg po daily, now back on HC and stable. Weaned off Solumedrol. Off pressors. -start to wean hydrocortisone, note baseline dose was 30 mg daily so will likely need higher dose than this at dc -s/p tocilizumab -S/P Vanc and Zosyn # Acute diastolic CHF exacerbation/volume overload -volume mgmt per renal with HD, 1L off with HD yest -Coreg 3.125 mg -not currently a candidate for an TOMMY-I # NSTEMI. Suspect Type II w/ trop 20, subtle wall motion abnl on Echo, cards does not recommend cath given ATN. Most recent TTE with LVEF of 60%. No wall motion abnormalities -check lipid status to determine indication for statin -cont BB, not on asa -will need f/u with Cardiology # Acute hypoxic respiratory failure. 2/2 shock, dCHF, and cytokine release - extubated, weaned to RA, no e/o pneumonia # Anemia/ Acute hemorrhage. Bleeding at R IJ resolved, surgery took to OR on 07/26 for vein repair and replaced vasc catheter, s/p 1 unit PRBC - Neck U/S on 07/25 showed RIJ thrombosis, IR consulted who performed venogram which did not show any clot - s/p 6 units prbc's total (3 units 08/01) - hgb stable today, cont to follow #Hyperkalemia -mgmt per nephrology with HD # Acute urinary retention. resolved # Acute metabolic encephalopathy. 2/2 metabolic effects of uremia and acidosis, resolved # Ischemic digits. Acute, 2/2 pressors, ongoing paresthesias. NO e/o acute infection. - anticipate auto-amputation # Moderate mitral regurgitation. Previously reviewed with cards, they do not recommend AVELINA at this time # Acute metabolic acidosis. 2/2 lactic acid (shock) and uremia (ATN) # Hyperglycemia. 2/2 stress response from above, bg's 100's off insulin drip # Diarrhea. D/c'd questran, Imodium prn # Metastatic melanoma. S/p Taflinar and Mekinist, currently holding given current condition. Discussed with onc. # thrombocytopenia: holding Heparin # HSV: cont valtrex #: cont Saldivar for strict I's and O's Diet. Regular PPx. High risk, hold hep SC with low plts, SCDs, ambulation Code. Full Dispo. ADD uncertain, transfer to PCU today. Therapies have now cleared him for home so when medically stable, he can d/c to home. Subjective: Pt feels ok, still quite fatigued. Ambulating in halls. No fevers. No N/V. No pain. Objective: Vital Signs Temp Pulse Resp BP Pulse Ox 36.7 C 78 18 148/90 H 96 08/04/18 07:39 08/04/18 07:39 08/04/18 07:39 08/04/18 07:39 08/04/18 07:39 Microbiology 07/29/18 16:03 Blood Culture - Final Blood 07/29/18 16:07 Blood Culture - Final Blood Laboratory Results 08/04/18 04:10 08/04/18 04:10 08/03/18 08/04/18 08/05/18 05:59 05:59 05:59 Intake Total 1020 1430 Output Total 825 1050 175 Balance 195 380 -175 PT 13.9 SEC (12.0-15.0) 08/01/18 09:30 INR 1.05 (0.83-1.16) 08/01/18 09:30 - Physical Exam Constitutional: no apparent distress Eyes: PERRL Ears, Nose, Mouth, Throat: moist mucous membranes Cardiovascular: regular rate and rhythym Respiratory: no respiratory distress, clear to auscultation Gastrointestinal: normoactive bowel sounds, soft, non-tender abdomen Skin: warm, other (ischemic distal digits b/l hands) Musculoskeletal: full muscle strength Neurologic: AAOx3 Psychiatric: interacting appropriately ICD10 Worksheet Patient Problems: Problems Problem Status Onset Melanoma 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
--- NOTE | 2018-08-04 13:36 | PDINTPN ---
Encephalographer Progress Note Assessment/Plan: Assessment: 53 M with relatively recent diagnosis of malignant melanoma, treated with Tafinlar and Mekinist oral chemotherapy complicated by fever and diarrhea. He was admitted to [facility] 07/11/18 with severe lethargy as well as CONSUELO with severe hypotension requiring pressors (levophed, alhaji, vasopressin) and intubation after arrival in the ICU. The intubation was reported as difficult, requiring at first a small airway followed by upsizing the ETT to 7.5 with a tube exchanger. He was also treated with multiple antibiotics including both po and IV vanco, Zosyn, micafungin, and flagyl. He was reportedly aggressively hydrated with up to 8 liters of IVF, but his renal function and acidosis remained severely abnormal so he was transferred to [facility] for CRRT. He was sedated on a versed drip prior to transfer as well, but this was not continued as he was quite sedated. An HD catheter was placed in the right CFV by surgery without complication and a CT of his chest/abdomen/pelvis did not reveal any significant pathology. Concern was raised by heme/onc about possible cytokine release syndrome, which has been documented with various newer generation chemo agents. * Severe septic shock versus cytokine release syndrome (vs HLH variant) on admission- he received tocilizumab on admission and high dose steroids with excellent recovery, and was actively undergoing a steroid taper on 07/29 when he again had hemodynamic compromise. 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 Hre responded well to high dose hydrocortisone and solumedrol as well as tocilizumab with oncology guidance. * hypotension episode #2- He developed severe hypotension on 07/29 and restarted on stress dose hydrocortisone (for adrenal disease) in addition to solumedrol ( for presumed CRS). If CRP and ferritin can serve as indirect markers of IL6 levels, then the likelihood of recurrent CRS is low. Sepsis is another possibility given fever, though his wbc has not changed much from its baseline 10-12 (now to 14 on steroids) and blood cultures remain negative. His hyponatremia and hyperkalemia could indicate adrenal insufficiency, though his HD dependency complicates that evaluation. Low level troponin is insignificant and his echo shows an well-functioning heart and MV. His hct was also low on the day of hypotension, but no clear bleeding could be found (see below for discussion). Reduced solumedrol to 60 q 6 hrs on 07/31 and to 60 bid on 08/01. DC antibiotics 08/01 as PCT much lower than previous. * Anemia- his H/H was also low on 07/29 and he was given one unit RBC. His Hct fell again 08/01 despite volume loss on HD. After one unit, he had a suboptimal response so 2 more units given. No clear bleeding site obvious, including his IJ. He has mild tenderness to palp on the right flank and small hematoma in right groin at site of previous line; so potential retroperitoneal source. Hemoglobin stable today * CONSUELO presumably related to hypotensive related ATN and/or his chemo. he still requires intermittent dialysis and was dialyzed daily from 07/30,,. Urine output increasing, but BUN and creatinine also rising so will require ongoing dialysis. Hopefully will see further recovery over the next few days and will no longer require hemodialysis. * Acute respiratory failure with hypoxia- extubated and no current issue. Some atelectasis, but doing well on room air * LFTs- had shock liver- now resolved. * Digital ischemia in all four extremities likely the result from high dose pressors on admission. They all appear dry today and I expect eventual auto- amputation of tips, but no clear infection source at the moment. * Thrombocytopenia- likely related to sepsis/DIC. Platelets were normal 06/01/18 and 120 on admission at [facility]. platelets improved initially, but are now reduced to 70s. Up to 94 on 07/31/18, stable the last few days * Right IJ catheter bleeding- s/p surgical exploration with repair of arterial bleeding prior to 07/29 episode. This looks quite stable to me and I see no evidence of ongoing bleeding at the moment. His Hct was 18 on 07/29 when he was hypotensive, but responded well to one unit RBC. 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 No evidence to support disseminated HSV and continues to improve. Continue valtrex Plan: Follow H/H, platelets. Increase activity as tolerated. Reduced dose of hydrocortisone. Can probably transfer to floor. 08/04/18 13:38 Subjective: Feels well, denies pain. Strength improved. Appetite good Objective: Vital Signs Temp Pulse Resp BP Pulse Ox 36.6 C 70 16 119/82 H 98 08/04/18 12:00 08/04/18 12:00 08/04/18 12:00 08/04/18 12:00 08/04/18 12:00 Microbiology 07/29/18 16:03 Blood Culture - Final Blood 07/29/18 16:07 Blood Culture - Final Blood Laboratory Results 08/04/18 04:10 08/04/18 04:10 08/03/18 08/04/18 08/05/18 05:59 05:59 05:59 Intake Total 1020 1430 Output Total 825 1050 175 Balance 195 380 -175 PT 13.9 SEC (12.0-15.0) 08/01/18 09:30 INR 1.05 (0.83-1.16) 08/01/18 09:30 Physical Exam - Physical Exam General Appearance: alert, no apparent distress EENT: normal ENT inspection Neck: normal inspection Respiratory: lungs clear, normal breath sounds Cardiac/Chest: regular rate, rhythm, No edema Abdomen: normal bowel sounds, non-tender Skin: normal color, warm/dry Extremities: other (Distal digital necrosis unchanged.) Neuro/Psych: alert, normal mood/affect, oriented x 3 ICD10 Worksheet Patient Problems: Problems Problem Status Onset Melanoma 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
--- NOTE | 2018-08-04 15:32 | SOAPPROG ---
SOAP Progress Note Assessment/Plan: Assessment/Plan: 53 y/o M with metastatic melanoma on chemotherapy with sepsis transfer from [facility] for CONSUELO still requiring dialysis. CONSUELO due to ATN (cytokine storm after chemotherapy causing shock) -on iHD since 07/17, s/p HD yesterday -measure UO daily, still hoping for renal recovery and ATN can take up to 6 weeks -may need to consider renal biopsy pending stabilization of blood counts, d/w patient -plan for dialysis tomorrow -would place TDC on if Hb stable -needs social work consult to discuss outpt dialysis (acute), lives in [place] and would consider [facility] TTS -avoid contrast and nephrotoxins -continue to monitor HTN/vol: -BP at goal -will UF on HD -will modulate sodium as well (133 today) -keep MAP>65 BMD -phos greatly improved -continue binder with meals Anemia -s/p cauterization of IJ -Hb still trending down -usually avoid IV iron and EPO in the setting of malignancy -ordered US RP and groin to assess hematoma -would appreciated oncology input if possible Will continue to follow, please contact with ?'s #[phone]. 08/04/18 16:05 Subjective: Patient feeling a lot better. Up walking and ready to go home. Is aware that he would need TDC for continued dialysis while awaiting hopeful recovery. Still has groin hematoma. No back pain. No other evidence of bleeding. Objective: Vital Signs Temp Pulse Resp BP Pulse Ox 36.6 C 82 14 128/94 H 94 08/04/18 15:11 08/04/18 15:11 08/04/18 15:11 08/04/18 15:11 08/04/18 15:11 Microbiology 07/29/18 16:03 Blood Culture - Final Blood 07/29/18 16:07 Blood Culture - Final Blood Laboratory Results 08/04/18 04:10 08/04/18 04:10 08/03/18 08/04/18 08/05/18 05:59 05:59 05:59 Intake Total 1020 1430 750 Output Total 825 1050 175 Balance 195 380 575 PT 13.9 SEC (12.0-15.0) 08/01/18 09:30 INR 1.05 (0.83-1.16) 08/01/18 09:30 Physical Exam - Physical Exam General Appearance: WD/WN, alert, no apparent distress EENT: PERRL/EOMI Neck: non-tender, full range of motion, supple Respiratory: chest non-tender, lungs clear, normal breath sounds Cardiac/Chest: normal peripheral pulses, regular rate, rhythm Abdomen: normal bowel sounds, non-tender, soft Skin: warm/dry, pallor Extremities: normal range of motion, non-tender Neuro/Psych: normal mood/affect, oriented x 3 ICD10 Worksheet Patient Problems: Problems Problem Status Onset Melanoma 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
[2018-08-04] MEDS: MELATONIN 3 MG TAB PO SCH (20:54)
[2018-08-05] MEDS: HYDROCORTISONE 100 MG/2 ML VIAL IVP SCH ×3 (04:06→18:30)
[2018-08-05] MEDS: LEVOTHYROXINE 150 MCG TAB PO SCH (06:14)
[2018-08-05] MEDS: CALCIUM ACETATE 667 MG CAP PO SCH ×3 (08:00→19:01)
--- NOTE | 2018-08-05 08:36 | SOAPPROG ---
SOAP Progress Note Assessment/Plan: Assessment: CONSUELO due to shock from sepsis-vs- cytokine storm after chemotherapy, still needs intermittant HD, UOP reasonable respiratory failure off vent, talkative today metastatic melanoma, s/p chemotherapy edema, mild/mod volume up, seen on HD hypokalemia today hypotension, on Zosyn, generally off pressors today, vaso for low bp on HD Plan: HD today tunneled HD cath later today Assess need for HD tomorrow UOP remains marginal continue therapies/nutrition 07/15/18 08:51 07/23/18 13:15 07/29/18 07:29 07/30/18 08:50 07/31/18 09:20 08/05/18 08:32 Subjective: up to chair, doing dialysis in HD room today spirits good no cp sob nausea or vomiting pain manageable Objective: Vital Signs Temp Pulse Resp BP Pulse Ox 36.5 C 68 16 113/77 92 08/05/18 07:05 08/05/18 07:05 08/05/18 07:05 08/05/18 07:05 08/05/18 07:05 Microbiology 07/29/18 16:03 Blood Culture - Final Blood 07/29/18 16:07 Blood Culture - Final Blood Laboratory Results 08/05/18 04:15 08/05/18 04:15 08/04/18 08/05/18 08/06/18 05:59 05:59 05:59 Intake Total 1430 1100 Output Total 1050 400 650 Balance 380 700 -650 PT 13.9 SEC (12.0-15.0) 08/01/18 09:30 INR 1.05 (0.83-1.16) 08/01/18 09:30 Physical Exam - Physical Exam General Appearance: alert Neck: other (right IJ cath) Respiratory: No rhonchi, No wheezing, No pleural rub Cardiac/Chest: regular rate, rhythm, edema (trace), No friction rub Abdomen: normal bowel sounds, non-tender, soft Extremities: other (necrotic distal phalanges) Neuro/Psych: alert, normal mood/affect, oriented x 3 ICD10 Worksheet Patient Problems: Problems Problem Status Onset Melanoma 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
[2018-08-05] MEDS: CARVEDILOL 3.125 MG TAB PO SCH ×2 (12:33→19:01)
[2018-08-05] MEDS: ALLOPURINOL 100 MG TAB PO SCH (12:33)
[2018-08-05] MEDS: valACYclovir 500 MG TAB PO SCH (12:33)
[2018-08-05] MEDS: PANTOPRAZOLE SODIUM 40 MG TAB PO SCH (12:34)
[2018-08-05] MEDS: SENNOSIDES/DOCUSATE SODIUM TAB PO SCH ×2 (12:44→20:30)
[2018-08-05] MEDS ORDERED: fentaNYL 100 MCG/2 ML INJ IVP PRN (13:17)
[2018-08-05] MEDS ORDERED: NALOXONE HCL 0.4 MG/ML INJ IVP PRN (13:17)
[2018-08-05] MEDS ORDERED: FLUMAZENIL 0.5 MG/5 ML MDV IVP PRN (13:17)
[2018-08-05] MEDS ORDERED: fentaNYL 100 MCG/2 ML INJ ONE (13:18)
[2018-08-05] MEDS ORDERED: HEPARIN 50,000 UNIT/10 ML VIAL ONE (13:25)
[2018-08-05] MEDS ORDERED: LIDOCAINE 1% 300 MG/30 ML SDV ONE ×2 (13:26→13:50)
[2018-08-05] MEDS ORDERED: NS 1,000 ML IV SCH (13:30)
--- NOTE | 2018-08-05 13:52 | HOSPPROG ---
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 2/2 shock, resulting in hypervolemia from anuria, uop improved - Nephrology following , HD today and will get tunneled HD catheter # Shock - suspect Cytokine Release Syndrome vs septic shock vs Adrenal Insufficiency resulting in profound Hypotension. Decompensated when HC rapidly tapered from 100 IV daily to 30 mg po daily, now back on HC and stable. Weaned off Solumedrol. Off pressors. -starting to wean hydrocortisone, note baseline dose was 30 mg daily, may need higher dose than this at dc -he should likely remain hospitalized until steroids tapered down to stable oral dose to ensure he doesn't decompensate -s/p tocilizumab -S/P course of Vanc and Zosyn # Acute diastolic CHF exacerbation/volume overload -volume mgmt per renal with HD -Coreg 3.125 mg as tolerated -not currently a candidate for an TOMMY-I # NSTEMI. Suspect Type II w/ trop 20, subtle wall motion abnl on Echo, cards did not recommend cath given ATN. Most recent TTE with LVEF of 60%. No wall motion abnormalities -LDL 76, defer statin -cont BB, not on asa -will need f/u with Cardiology # Acute hypoxic respiratory failure. 2/2 shock, dCHF, and cytokine release - extubated, weaned to RA, no e/o pneumonia # Anemia/ Acute hemorrhage. Bleeding at R IJ resolved, surgery took to OR on 07/26 for vein repair and replaced vasc catheter, s/p 1 unit PRBC - Neck U/S on 07/25 showed RIJ thrombosis, IR consulted who performed venogram which did not show any clot - s/p 6 units prbc's total (3 units 08/01) - hgb stable today, cont to follow # right psoas hematoma. may have been factor in drop in h&h, seems stable now - cont to follow h&h - surgical consult if becoming more problematic #Hyperkalemia -mgmt per nephrology with HD # Acute urinary retention. resolved # Acute metabolic encephalopathy. 2/2 metabolic effects of uremia and acidosis, resolved # Ischemic digits. Acute, 2/2 pressors, ongoing paresthesias. NO e/o acute infection. - anticipate auto-amputation - wound care # Moderate mitral regurgitation. Previously reviewed with cards, they do not recommend AVELINA at this time # Acute metabolic acidosis. 2/2 lactic acid (shock) and uremia (ATN) # Hyperglycemia. 2/2 stress response from above, bg's 100's off insulin drip # Diarrhea. D/c'd questran, Imodium prn # Metastatic melanoma. S/p Taflinar and Mekinist, currently holding given current condition. Discussed with onc. # thrombocytopenia: holding Heparin # HSV: cont valtrex #: cont Saldivar for strict I's and O's Diet. Regular PPx. High risk, hold hep SC with low plts, SCDs, ambulation Code. Full Dispo. ADD uncertain. Therapies have now cleared him for home so when medically stable, he can d/c to home. Subjective: Pt getting tunneled catheter this afternoon, not in room. 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
[2018-08-05] MEDS: ONDANSETRON 4 MG/2 ML VIAL IVP PRN (18:30)
[2018-08-05] MEDS: MELATONIN 3 MG TAB PO SCH (20:30)
[2018-08-06] MEDS: HYDROCORTISONE 100 MG/2 ML VIAL IVP SCH ×2 (02:41→09:27)
[2018-08-06 04:57] LABS: PLATELET COUNT 76 10^3/uL (150-400)
[2018-08-06] MEDS: LEVOTHYROXINE 150 MCG TAB PO SCH (05:24)
[2018-08-06] MEDS: CALCIUM ACETATE 667 MG CAP PO SCH ×3 (09:26→18:06)
[2018-08-06] MEDS: ALLOPURINOL 100 MG TAB PO SCH (09:26)
[2018-08-06] MEDS: PANTOPRAZOLE SODIUM 40 MG TAB PO SCH (09:26)
[2018-08-06] MEDS: CARVEDILOL 3.125 MG TAB PO SCH ×2 (09:26→18:05)
[2018-08-06] MEDS: valACYclovir 500 MG TAB PO SCH (09:27)
[2018-08-06] MEDS: SENNOSIDES/DOCUSATE SODIUM TAB PO SCH ×2 (09:27→20:32)
--- NOTE | 2018-08-06 10:32 | SOAPPROG ---
SOAP Progress Note Assessment/Plan: Assessment: 1. CONSUELO Nonoliguric, but clearance lagging. Had tunneled catheter placed yesterday. HD yesterday. At this point, could DC with acute dialysis. 2. Severe Sepsis Syndrome Thought to be cytokine storm relating to chemo agent. This has resolved. Subjective: In good spirits Objective: Vital Signs Temp Pulse Resp BP Pulse Ox 36.7 C 67 18 130/81 H 93 08/06/18 08:00 08/06/18 08:00 08/06/18 08:00 08/06/18 08:00 08/06/18 08:00 Laboratory Results 08/06/18 04:30 08/06/18 04:30 08/05/18 08/06/18 08/07/18 05:59 05:59 05:59 Intake Total 1100 700 Output Total 400 2300 750 Balance 700 -1600 -750 PT 13.9 SEC (12.0-15.0) 08/01/18 09:30 INR 1.05 (0.83-1.16) 08/01/18 09:30 Physical Exam - Physical Exam General Appearance: no apparent distress Neck: other (tunneled catheter site looks ok) Respiratory: lungs clear Cardiac/Chest: regular rate, rhythm Extremities: pedal edema, other (digital ischemic changes noted, no sign of infection) Neuro/Psych: oriented x 3 ICD10 Worksheet Patient Problems: Problems Problem Status Onset Melanoma 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
--- NOTE | 2018-08-06 14:26 | PDINTPN ---
Photographic Spotter Progress Note Assessment/Plan: Assessment: 53 M with relatively recent diagnosis of malignant melanoma, treated with Tafinlar and Mekinist oral chemotherapy complicated by fever and diarrhea. He was admitted to [facility] 07/11/18 with severe lethargy as well as CONSUELO with severe hypotension requiring pressors (levophed, alhaji, vasopressin) and intubation after arrival in the ICU. The intubation was reported as difficult, requiring at first a small airway followed by upsizing the ETT to 7.5 with a tube exchanger. He was also treated with multiple antibiotics including both po and IV vanco, Zosyn, micafungin, and flagyl. He was reportedly aggressively hydrated with up to 8 liters of IVF, but his renal function and acidosis remained severely abnormal so he was transferred to [facility] for CRRT. He was sedated on a versed drip prior to transfer as well, but this was not continued as he was quite sedated. An HD catheter was placed in the right CFV by surgery without complication and a CT of his chest/abdomen/pelvis did not reveal any significant pathology. Concern was raised by heme/onc about possible cytokine release syndrome, which has been documented with various newer generation chemo agents. * Severe septic shock versus cytokine release syndrome (vs HLH variant) on admission- he received tocilizumab on admission and high dose steroids with excellent recovery, and was actively undergoing a steroid taper on 07/29 when he again had hemodynamic compromise. 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 Hre responded well to high dose hydrocortisone and solumedrol as well as tocilizumab with oncology guidance. * hypotension episode #2- He developed severe hypotension on 07/29 and restarted on stress dose hydrocortisone (for adrenal disease) in addition to solumedrol ( for presumed CRS). If CRP and ferritin can serve as indirect markers of IL6 levels, then the likelihood of recurrent CRS is low. Sepsis is another possibility given fever, though his wbc has not changed much from its baseline 10-12 (now to 14 on steroids) and blood cultures remain negative. His hyponatremia and hyperkalemia could indicate adrenal insufficiency, though his HD dependency complicates that evaluation. Low level troponin is insignificant and his echo shows an well-functioning heart and MV. His hct was also low on the day of hypotension, but no clear bleeding could be found (see below for discussion). Reduced solumedrol to 60 q 6 hrs on 07/31 and to 60 bid on 08/01. DC antibiotics 08/01 as PCT much lower than previous. * Anemia- his H/H was also low on 07/29 and he was given one unit RBC. His Hct fell again 08/01 despite volume loss on HD. After one unit, he had a suboptimal response so 2 more units given. No clear bleeding site obvious, including his IJ. He has mild tenderness to palp on the right flank and small hematoma in right groin at site of previous line; so potential retroperitoneal source. Hemoglobin stable today * CONSUELO presumably related to hypotensive related ATN and/or his chemo. he still requires intermittent dialysis and was dialyzed daily from 07/30,,. Urine output increasing, but BUN and creatinine also rising so will require ongoing dialysis. Tunneled catheter placed yesterday, and he could be discharged to outpatient dialysis. * Acute respiratory failure with hypoxia- extubated and no current issue. Some atelectasis, but doing well on room air * LFTs- had shock liver- now resolved. * Digital ischemia in all four extremities likely the result from high dose pressors on admission. They all appear dry today and I expect eventual auto- amputation of tips, but no clear infection source at the moment. * Thrombocytopenia- likely related to sepsis/DIC. Platelets were normal 06/01/18 and 120 on admission at [facility]. platelets improved initially, but are now reduced to 70s. Up to 94 on 07/31/18, stable the last few days * Right IJ catheter bleeding- s/p surgical exploration with repair of arterial bleeding prior to 07/29 episode. This looks quite stable to me and I see no evidence of ongoing bleeding at the moment. His Hct was 18 on 07/29 when he was hypotensive, but responded well to one unit RBC. 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 No evidence to support disseminated HSV and continues to improve. Continue valtrex Plan: Follow H/H, platelets. Increase activity as tolerated. Reduced dose of hydrocortisone, change to p.o.. 08/04/18 13:38 08/06/18 14:25 Subjective: Continues to feel better. Sleeping well. Energy is good and ARDS is improving. Tolerating p.o. Well. Objective: Vital Signs Temp Pulse Resp BP Pulse Ox 36.6 C 74 13 117/90 H 93 08/06/18 12:22 08/06/18 12:22 08/06/18 12:22 08/06/18 12:22 08/06/18 12:22 Laboratory Results 08/06/18 04:30 08/06/18 04:30 08/05/18 08/06/18 08/07/18 05:59 05:59 05:59 Intake Total 1100 700 Output Total 400 2300 750 Balance 700 -1600 -750 PT 13.9 SEC (12.0-15.0) 08/01/18 09:30 INR 1.05 (0.83-1.16) 08/01/18 09:30 Physical Exam - Physical Exam General Appearance: alert, no apparent distress EENT: normal ENT inspection Neck: normal inspection Respiratory: lungs clear, normal breath sounds, No respiratory distress Cardiac/Chest: regular rate, rhythm, No edema Abdomen: normal bowel sounds, non-tender, soft Skin: normal color, warm/dry Extremities: other (Peripheral digital necrosis) Neuro/Psych: alert, normal mood/affect, oriented x 3 ICD10 Worksheet Patient Problems: Problems Problem Status Onset Melanoma 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
--- NOTE | 2018-08-06 16:03 | ASMTCMCOM ---
CM Note CM Note Notes: 08/06/2018 Case Management Note Faxed initial paperwork including H&P, face sheet, Hep B results, chest x ray, and dialysis flowsheets to [facility]. . Discussed with Director of Clinics at [facility]. Laboratory Geneticist Trini from [facility] to call case management tomorrow if further documents are required and to establish a chair time. Trini can be reached at [phone]. Informed pt . Pt plans to transport pt to dialysis. Pt hoping that [facility] can provide PT on alternate days with dialysis. Discharge date is unclear. Case Management d/c poc: Dialysis at [facility] and [facility] RN PT Case Management to follow. Date Signed: 08/06/2018 04:02 PM Electronically Signed By:Chantale Her RN
--- NOTE | 2018-08-06 16:17 | HOSPPROG ---
Hospitalist Progress Note Assessment/Plan: DIAGNOSES: * shock, likely multifactorial with cytokine release from medication, question of possible infection, adrenal insufficiency, bleeding * acute kidney injury due to above * acute respiratory failure multifactorial * acute liver injury due to shock episode * ischemia of fingers and toes with dry gangrene * thrombocytopenia, probable DIC * arterial bleeding at right IJ catheter, status post surgical exploration * new large right hematoma in right ileus OS noted on CT 2 days ago, no worsening symptoms there at this time and no tenderness on abdominal exam * acute oral HSV * acute urinary retention * acute encephalopathy, multifactorial due to above * moderate mitral regurgitation * metastatic melanoma, treated with Tafinlar and Mekinist in outpatient setting PLANS: * Attempt increase in activity and diet intake; suggested more time up in chair * Does not appear he will need further dialysis but will follow closely * Follow blood cell counts closely * Gradual taper of steroid * DVT prophylaxis is ongoing High risk of further complications and setbacks in terms of infection, renal issues, skin breakdown, falls SUBJECTIVE: "I feel a little off today"describes balance is not quite as good in energy not quite as good Did walk in the hallway but less distance than yesterday, did take a shower prior to that Eating well no nausea or bili pain No short of breath or chest discomfort No fever symptoms or other new symptoms OBJECTIVE Vitals reviewed: Stable without fever today Traffic Attendant, my review: Exam: alert oriented relaxed watching TV skin warm dry color ok, all dry gangrene areas at tips of digits without signs of infection drainage or breakdown resps not labored lungs clear BSs heart regular abd soft nondistended nontender, bowel sounds present limbs warm, no edema iv site ok Laboratory data: Platelets up to 76,000 hemoglobin up over 9 today with stable white count BUN creatinine continue to improve, creatinine 3.7 today electrolytes good Objective: Vital Signs Temp Pulse Resp BP Pulse Ox 36.6 C 74 18 121/85 H 94 08/06/18 15:49 08/06/18 15:49 08/06/18 15:49 08/06/18 15:49 08/06/18 15:49 Laboratory Results 08/06/18 04:30 08/06/18 04:30 08/05/18 08/06/18 08/07/18 06:59 06:59 06:59 Intake Total 1100 700 Output Total 400 2300 1350 Balance 700 -1600 -1350 PT 13.9 SEC (12.0-15.0) 08/01/18 09:30 INR 1.05 (0.83-1.16) 08/01/18 09:30 ICD10 Worksheet Patient Problems: Problems Problem Status Onset Melanoma 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
[2018-08-06] MEDS: HYDROCORTISONE 10 MG TAB PO SCH ×2 (16:30→20:32)
--- NOTE | 2018-08-06 18:23 | SOAPPROG ---
SOAP Progress Note Assessment/Plan: Assessment/Plan: This is a 53-year-old male with history of BRAF positive metastatic melanoma treated with PD-1 followed by BRAF inhibitor/MEK who subsequently developed cytokine release syndrome. His hospitilization has been complicated by acute renal failure requiring dialysis, oral HSV, adrenal insufficiency. 1. Cytokine release syndrome: He received tocilizumab on admission and high dose steroids with excellent recovery, and was actively undergoing a steroid taper on 07/29 when he again had hemodynamic compromise. 2. Adrenal insufficiency: Developed this on anti-PD1 therapy. Has been on stress dosing of steroids and did not tolerate first taper of steroids. Currently attempting another taper. 3. Oral HSV: He is on Valtrex - renally dosed. He has been on this for 9 days, may consider stopping after tomorrow 4. Acute renal failure: Secondary to ATN. He is currently receiving hemodialysis (last 08/05/18) but making good UOP 5. Anemia: Likely related to inflammation and renal failure 6. Thrombocytopenia: Likely secondary to critical illness/DIC. His platelet counts have been relatively stable. Lorenzo Anne 08/06/18 18:38 08/06/18 18:39 Subjective: Patient reports feeling well without complaints. He had dialysis yesterday which he tolerated well. No fevers chills or sweats. No nausea or vomiting. No CP or SOB. Objective: Vital Signs Temp Pulse Resp BP Pulse Ox 36.6 C 74 18 121/85 H 94 08/06/18 15:49 08/06/18 15:49 08/06/18 15:49 08/06/18 15:49 08/06/18 15:49 Laboratory Results 08/06/18 04:30 08/06/18 04:30 08/05/18 08/06/18 08/07/18 05:59 05:59 05:59 Intake Total 1100 700 Output Total 400 2300 1350 Balance 700 -1600 -1350 PT 13.9 SEC (12.0-15.0) 08/01/18 09:30 INR 1.05 (0.83-1.16) 08/01/18 09:30 General: No acute distress appearing nontoxic HEENT: Pupils equal round and reactive to light no scleral icterus or conjunctival pallor is appreciated Pulmonary: Clear to auscultation Bilateral posterior lungs Cardiovascular: Regular rate and rhythm no murmurs gallops rubs Abdomen: Soft nontender nondistended bowel sounds present Extremities: Dry gangrene noted roughly 1 inch from the tip on each of his digits of the hand and feet bilaterally Neurologic: Cranial nerves II through XII grossly intact, alert and oriented x3 ICD10 Worksheet Patient Problems: Problems Problem Status Onset Melanoma 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
[2018-08-06] MEDS: MELATONIN 3 MG TAB PO SCH (20:32)
[2018-08-07] MEDS: LEVOTHYROXINE 150 MCG TAB PO SCH (05:17)
[2018-08-07 05:31] LABS: PLATELET COUNT 79 10^3/uL (150-400)
--- NOTE | 2018-08-07 08:51 | WOCRNPDOC ---
WOCRN Advanced Assessment Note - Skin Integrity Problem, Advanced Assess Left Foot Dressing Type: Open to Air Exudate Amount: None Wound Bed Color: Black Skin Integrity Problem Comment: Wounds remain unchanged. Continue to paint with betadine. Right Foot Dressing Type: Open to Air Exudate Amount: None Wound Bed Color: Black Wound Bed Constitution: Stable Eschar Skin Integrity Problem Comment: Wounds remain unchanged. Continue to paint with betadine. Right Hand Dressing Type: Open to Air Exudate Amount: None Wound Bed Color: Black Skin Integrity Problem Comment: Wound remain unchanged. Continue to paint with betadine. Left Second Finger Dressing Type: Open to Air Exudate Amount: None Wound Bed Color: Black Skin Integrity Problem Comment: Wound remains unchanged. Continue to paint with betadine. Left Third Finger Dressing Type: Polymem Dressing Description: Clean/Dry, Intact Exudate Amount: Scant Exudate Characteristic(s): Serous Integumentary Issue Intervention: Dressing Changed, Hydrogel Applied Wound Bed Constitution: Red/[place] - Non Granular Tissue Skin Integrity Problem Comment: Nail shows some sloughing. Discussed with patient that if the nail falls off, that most times it will grow back. Area may be tender and if patient desires, he may keep a dressing on it to protect it. Wound cleansed with NS and gauze. Dressing changed to a size 2 polymem finger dressing. Two more size 2 dressings left in the room. Wound care will round again next week.
[2018-08-07] MEDS: PANTOPRAZOLE SODIUM 40 MG TAB PO SCH (09:25)
[2018-08-07] MEDS: HYDROCORTISONE 10 MG TAB PO SCH ×3 (09:25→22:34)
[2018-08-07] MEDS: SENNOSIDES/DOCUSATE SODIUM TAB PO SCH ×2 (09:26→19:55)
[2018-08-07] MEDS: ALLOPURINOL 100 MG TAB PO SCH (09:26)
[2018-08-07] MEDS: CARVEDILOL 3.125 MG TAB PO SCH ×2 (09:26→19:07)
[2018-08-07] MEDS: CALCIUM ACETATE 667 MG CAP PO SCH ×3 (09:26→19:10)
[2018-08-07] MEDS: valACYclovir 500 MG TAB PO SCH (09:26)
--- NOTE | 2018-08-07 10:21 | SOAPPROG ---
SOAP Progress Note Assessment/Plan: Assessment: CONSUELO due to shock likely from cytokine storm after chemotherapy for metastatic melanoma, c/b multiorgan failure, now off pressors and extubated, out of ICU 1. CONSUELO - Had HD on 07/23 and again 07/24 due to concern that uremic platelet dysfunction could be contributing to oozing around temp dialysis catheter -Non-oliguric but remains azotemic -Plan for next HD today -Has R IJ TDC with placement for outpt HD, ok to go when otherwise medically stable 2. Severe Sepsis Syndrome Thought to be cytokine storm relating to chemo agent. This has resolved. 3. Anemia - -Stable, avoid SHELLEY 4. CKD-MBD - -Phos trending down, lower Phoslo from 2 to 1 tab TIDAC Plan: 08/07/18 10:18 08/07/18 10:22 Subjective: Feels well, no c/o. Objective: Vital Signs Temp Pulse Resp BP Pulse Ox 36.6 C 74 16 141/97 H 95 08/07/18 08:00 08/07/18 08:00 08/07/18 08:00 08/07/18 08:00 08/07/18 08:00 Laboratory Results 08/07/18 05:20 08/06/18 04:30 08/06/18 08/07/18 08/08/18 05:59 05:59 05:59 Intake Total 700 700 Output Total 2300 1950 Balance -1600 -1250 PT 13.9 SEC (12.0-15.0) 08/01/18 09:30 INR 1.05 (0.83-1.16) 08/01/18 09:30 Physical Exam - Physical Exam General Appearance: WD/WN, no apparent distress Neck: other (R IJ TDC in place) Respiratory: lungs clear Cardiac/Chest: regular rate, rhythm Abdomen: non-tender, soft Extremities: No swelling ICD10 Worksheet Patient Problems: Problems Problem Status Onset Melanoma 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
--- NOTE | 2018-08-07 15:23 | HOSPPROG ---
Hospitalist Progress Note Assessment/Plan: DIAGNOSES: * shock, likely multifactorial with cytokine release from medication, question of possible infection, adrenal insufficiency, bleeding * acute kidney injury due to above * acute respiratory failure multifactorial * acute liver injury due to shock episode * ischemia of fingers and toes with dry gangrene * thrombocytopenia, probable DIC * arterial bleeding at right IJ catheter, status post surgical exploration * new large right hematoma in right ileus OS noted on CT 2 days ago, no worsening symptoms there at this time and no tenderness on abdominal exam * acute oral HSV * acute urinary retention * acute encephalopathy, multifactorial due to above * moderate mitral regurgitation * metastatic melanoma, treated with Tafinlar and Mekinist in outpatient setting PLANS: * Continue attempt increase in activity and diet intake; suggested more time up in chair * Needing ongoing dialysis, scheduled for session this afternoon * Follow blood cell counts closely * Gradual taper of steroid * DVT prophylaxis is ongoing * Will review with Oncology the goals of hospitalization in way of determining discharge timing High risk of further complications and setbacks in terms of infection, renal issues, skin breakdown, falls SUBJECTIVE: Better energy today, walking more easily Does admit to a vague sense of malaise today, I suspect this is due to his renal disease as he is coming up to the end of his dialysis cycle and will have session today No shortness of breath No fever symptoms No other new pains aches or other changes in symptoms OBJECTIVE Vitals reviewed: Stable without fever today Exam: alert oriented relaxed skin warm dry color ok, all dry gangrene areas at tips of digits without signs of infection drainage or breakdown resps not labored lungs clear BSs heart regular abd soft nondistended nontender, bowel sounds present limbs warm, no edema iv site ok Laboratory data: Platelets up to 79,000 hemoglobin down slightly 8.4 today Objective: Vital Signs Temp Pulse Resp BP Pulse Ox 36.6 C 76 14 124/91 H 94 08/07/18 11:56 08/07/18 11:56 08/07/18 11:56 08/07/18 11:56 08/07/18 11:56 Laboratory Results 08/07/18 05:20 08/06/18 04:30 08/06/18 08/07/18 08/08/18 06:59 06:59 06:59 Intake Total 700 700 Output Total 2300 1950 800 Balance -1600 -1250 -800 PT 13.9 SEC (12.0-15.0) 08/01/18 09:30 INR 1.05 (0.83-1.16) 08/01/18 09:30 ICD10 Worksheet Patient Problems: Problems Problem Status Onset Melanoma 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
[2018-08-07] MEDS: MELATONIN 3 MG TAB PO SCH (19:55)
[2018-08-07] MEDS ORDERED: HEPARIN 50,000 UNIT/10 ML VIAL ONE (21:50)
[2018-08-08 05:32] LABS: PLATELET COUNT 73 10^3/uL (150-400)
[2018-08-08] MEDS: LEVOTHYROXINE 150 MCG TAB PO SCH (07:24)
[2018-08-08] MEDS: SENNOSIDES/DOCUSATE SODIUM TAB PO SCH ×2 (07:59→20:42)
[2018-08-08] MEDS: CALCIUM ACETATE 667 MG CAP PO SCH ×2 (08:00→15:39)
[2018-08-08] MEDS: PANTOPRAZOLE SODIUM 40 MG TAB PO SCH (08:00)
[2018-08-08] MEDS: HYDROCORTISONE 10 MG TAB PO SCH ×3 (08:45→20:42)
[2018-08-08] MEDS: ALLOPURINOL 100 MG TAB PO SCH (08:45)
--- NOTE | 2018-08-08 12:47 | SOAPPROG ---
SOAP Progress Note Assessment/Plan: Assessment: Assessment/Plan: This is a 53-year-old male with history of BRAF positive metastatic melanoma treated with PD-1 followed by BRAF inhibitor/MEK who subsequently developed cytokine release syndrome. His hospitilization has been complicated by acute renal failure requiring dialysis, oral HSV, adrenal insufficiency. 1. Cytokine release syndrome: He received tocilizumab on admission and high dose steroids with excellent recovery, and was actively undergoing a steroid taper on 07/29 when he again had hemodynamic compromise and fever. 2. Adrenal insufficiency: Developed this on anti-PD1 therapy. Has been on stress dosing of steroids and did not tolerate first taper of steroids. Currently attempting another taper. 3. Oral HSV: resolved 4. Acute renal failure: Secondary to ATN. He is currently receiving hemodialysis but making good UOP 5. Anemia: Likely related to inflammation and renal failure 6. Thrombocytopenia: Likely secondary to critical illness/DIC. His platelet counts have been relatively stable. Plan: consider possible d/c for outpt dialysis and heme onc follow up.Currently 50 mg hydrocortisone tid times 2 days, would plan on decreasing in 4 to 5 days to 25 tid. 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
[2018-08-08] MEDS: CARVEDILOL 3.125 MG TAB PO SCH (15:13)
[2018-08-08] MEDS: amLODIPine BESYLATE 5 MG TAB PO SCH (15:38)
--- NOTE | 2018-08-08 17:26 | SOAPPROG ---
SOAP Progress Note Assessment/Plan: Assessment: CONSUELO due to shock likely from cytokine storm after chemotherapy for metastatic melanoma, c/b multiorgan failure, now off pressors and extubated, out of ICU 1. CONSUELO - Had HD on 07/23 and again 07/24 due to concern that uremic platelet dysfunction could be contributing to oozing around temp dialysis catheter -Non-oliguric but remains azotemic -Last HD 08/07 -Has R IJ TDC with placement for outpt HD, can start there Friday, ok to go when otherwise medically stable 2. Severe Sepsis Syndrome -Thought to be cytokine storm relating to chemo agent. This has resolved. 3. Anemia - -Stable, avoid SHELLEY 4. CKD-MBD - -Phos trending down, lowered Phoslo from 2 to 1 tab TIDAC -Now below CKD goal, will hold Plan: 08/08/18 17:26 Subjective: Feels OK. No complaints. Objective: Vital Signs Temp Pulse Resp BP Pulse Ox 36.9 C 80 16 136/77 H 93 08/08/18 15:34 08/08/18 15:34 08/08/18 15:34 08/08/18 15:34 08/08/18 15:34 Laboratory Results 08/08/18 04:30 08/08/18 04:30 08/07/18 08/08/18 08/09/18 05:59 05:59 05:59 Intake Total 700 800 Output Total 1950 2100 280 Balance -1250 -1300 -280 PT 13.9 SEC (12.0-15.0) 08/01/18 09:30 INR 1.05 (0.83-1.16) 08/01/18 09:30 Physical Exam - Physical Exam General Appearance: WD/WN, no apparent distress Respiratory: lungs clear Cardiac/Chest: regular rate, rhythm, other (R IJ TDC) Abdomen: soft Extremities: No swelling ICD10 Worksheet Patient Problems: Problems Problem Status Onset Melanoma 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
--- NOTE | 2018-08-08 17:50 | HOSPPROG ---
Hospitalist Progress Note Assessment/Plan: DIAGNOSES: * shock, likely multifactorial with cytokine release from medication, question of possible infection, adrenal insufficiency, bleeding * acute kidney injury due to above * acute respiratory failure multifactorial * acute liver injury due to shock episode * ischemia of fingers and toes with dry gangrene * thrombocytopenia, probable DIC * arterial bleeding at right IJ catheter, status post surgical exploration * new large right hematoma in right ileus OS noted on CT 2 days ago, no worsening symptoms there at this time and no tenderness on abdominal exam * acute oral HSV * acute urinary retention * acute encephalopathy, multifactorial due to above * moderate mitral regurgitation * metastatic melanoma, treated with Tafinlar and Mekinist in outpatient setting PLANS: * Continue attempt increase in activity and diet intake * Needing ongoing dialysis, to begin Friday outpatient dialysis this week * Follow blood cell counts closely * Gradual taper of steroid to continue, and he will do that with Dr. Bragg in the outpatient clinic * DVT prophylaxis is ongoing * I think will be able to discharge him tomorrow, none of his family are home today to assist with him. Will arrange for him to see Dr. Bragg early this week in clinic I reviewed in detail today with doctors Susana Ochoa and Shaun Lim. The patient had many questions about his care here as well as his follow-up plans in the outpatient setting and I had extensive conversation with him to review all these questions and answered them to satisfaction. High risk of further complications and setbacks in terms of infection, renal issues, skin breakdown, falls SUBJECTIVE: Better energy today, walking more easily Does admit to a vague sense of malaise today, I suspect this is due to his renal disease as he is coming up to the end of his dialysis cycle and will have session today No shortness of breath No fever symptoms No other new pains aches or other changes in symptoms OBJECTIVE Vitals reviewed: Stable without fever today Exam: alert oriented relaxed skin warm dry color ok, all dry gangrene areas at tips of digits without signs of infection drainage or breakdown resps not labored lungs clear BSs heart regular abd soft nondistended nontender, bowel sounds present limbs warm, no edema iv site ok Laboratory data: Continued improvement in renal function with his creatinine down to 2.8 today after dialysis yesterday Stable CBC all around Objective: Vital Signs Temp Pulse Resp BP Pulse Ox 36.9 C 80 16 136/77 H 93 08/08/18 15:34 08/08/18 15:34 08/08/18 15:34 08/08/18 15:34 08/08/18 15:34 Laboratory Results 08/08/18 04:30 08/08/18 04:30 08/07/18 08/08/18 08/09/18 06:59 06:59 06:59 Intake Total 700 800 Output Total 1950 2100 280 Balance -1250 -1300 -280 PT 13.9 SEC (12.0-15.0) 08/01/18 09:30 INR 1.05 (0.83-1.16) 08/01/18 09:30 - Time Spent With Patient Time Spent with Patient: greater than 35 minutes Time Spent with Patient: Greater than 35 minutes spent on this patients care, greater than 50% of time spent counseling, educating, and coordinating care regarding the above mentioned plan. 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
[2018-08-08] MEDS: MELATONIN 3 MG TAB PO SCH (20:42)
[2018-08-09] MEDS: LEVOTHYROXINE 150 MCG TAB PO SCH (05:16)
[2018-08-09 05:32] LABS: PLATELET COUNT 84 10^3/uL (150-400)
--- NOTE | 2018-08-09 11:06 | SOAPPROG ---
SOAP Progress Note Assessment/Plan: Assessment: CONSUELO due to shock likely from cytokine storm after chemotherapy for metastatic melanoma, c/b multiorgan failure, now off pressors and extubated, out of ICU 1. CONSUELO - Had HD on 07/23 and again 07/24 due to concern that uremic platelet dysfunction could be contributing to oozing around temp dialysis catheter -Non-oliguric but remains azotemic, likely to recover but not yet -Last HD 08/07 -Has R IJ TDC with placement for outpt HD, can start there Friday, I gave him the info, ok to go when otherwise medically stable 2. Severe Sepsis Syndrome -Thought to be cytokine storm relating to chemo agent. This has resolved. 3. Anemia - -Stable, avoid SHELLEY 4. CKD-MBD - -Phos trending down, lowered Phoslo from 2 to 1 tab TIDAC -Now below CKD goal, put on hold 5. Hypokalemia - -KCL replacement today -Does not need ESRD diet Plan: 08/08/18 17:26 08/09/18 11:05 Subjective: Feels well, no c/o. Objective: Vital Signs Temp Pulse Resp BP Pulse Ox 36.8 C 95 16 123/83 H 96 08/09/18 04:00 08/09/18 08:00 08/09/18 08:00 08/09/18 08:00 08/09/18 08:00 Laboratory Results 08/09/18 05:02 08/09/18 05:20 08/08/18 08/09/18 08/10/18 05:59 05:59 05:59 Intake Total 800 150 Output Total 2100 1205 Balance -1300 -1055 PT 13.9 SEC (12.0-15.0) 08/01/18 09:30 INR 1.05 (0.83-1.16) 08/01/18 09:30 Physical Exam - Physical Exam General Appearance: WD/WN, no apparent distress Respiratory: normal breath sounds Cardiac/Chest: regular rate, rhythm, other (R IJ TDC) Abdomen: non-tender Extremities: other (necrotic fingertips), No swelling ICD10 Worksheet Patient Problems: Problems Problem Status Onset Melanoma 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
[2018-08-09] MEDS: HYDROCORTISONE 10 MG TAB PO SCH ×2 (11:07→15:14)
[2018-08-09] MEDS: PANTOPRAZOLE SODIUM 40 MG TAB PO SCH (11:08)
[2018-08-09] MEDS: SENNOSIDES/DOCUSATE SODIUM TAB PO SCH (11:08)
[2018-08-09] MEDS: amLODIPine BESYLATE 5 MG TAB PO SCH (11:08)
[2018-08-09] MEDS: ALLOPURINOL 100 MG TAB PO SCH (11:08)
[2018-08-09] MEDS ORDERED: POTASSIUM CL 20 MEQ TAB PO ONE (11:15)
[2018-08-09 11:35] VITALS: BP 118/87
--- NOTE | 2018-08-09 12:56 | PDIAF ---
- Diagnosis Diagnosis: Severe shock due to cancer medication, renal failure dialysis, skin wounds Code Status: Full Code - Medication Management Discharge Medications: electronically signed and located in the Home Medication List. - Orders Services needed: Home Care, Registered Nurse, Physical Therapy, Occupational Therapy Home Care Face to Face: I certify that this patient was under my care and that I had the required [id number] encounter meeting the encounter requirements on the discharge day. My findings support the fact that the patient is homebound as defined in Home Care Face to Face Continued: CMS Chapter 7 Medicare Benefits Manual 30.1.1 , The condition of the patient is such that there exists a normal inability to leave home and consequently, leaving home would require a considerable and taxing effort. Diet Recommendation: potassium restricted Diet Texture: Regular Texture Diet, Meds Whole w/Liquids Additional Instructions: Follow up with Dr. Jevon Bragg in clinic this week Follow-up at dialysis clinic as scheduled tomorrow Make an appointment for follow-up at [facility] Make an appointment at [facility] and follow up there for year fingers and toes - Follow Up Care Current Providers and Referrals: Jevon Bragg MD [Medical Doctor] - follow up as scheduled Patient,NotPresent [Unknown] -
--- NOTE | 2018-08-09 13:23 | PDIAF ---
- Diagnosis Diagnosis: Severe shock due to cancer medication, renal failure dialysis, skin wounds Code Status: Full Code - Medication Management Discharge Medications: electronically signed and located in the Home Medication List. - Orders Services needed: Home Care, Registered Nurse, Physical Therapy, Occupational Therapy Home Care Face to Face: I certify that this patient was under my care and that I had the required [id number] encounter meeting the encounter requirements on the discharge day. My findings support the fact that the patient is homebound as defined in Home Care Face to Face Continued: CMS Chapter 7 Medicare Benefits Manual 30.1.1 , The condition of the patient is such that there exists a normal inability to leave home and consequently, leaving home would require a considerable and taxing effort. Diet Recommendation: potassium restricted Diet Texture: Regular Texture Diet, Meds Whole w/Liquids Wound Care Instructions: Vandling left second finger tip with betadine BID. (found in back clean supply room on 3E. Wound care does not carry this product, purchasing does. Jimena Kendall CWOCN. Change dressing to left 3rd digit Q3D and prn. 1. cleanse with NS and gauze. 2. skin prep periwound. 3. apply wound gel to wound bed. 4. cover with polymem finger dressing (available from wound care, 2 sent down on 08/04/18. If you run out, may use mepilex nonbordered foam cut to size and secured with medipore tape). Vandling finger tips of right hand that are black with betadine BID. (found in back clean supply room on [facility]E. Wound care does not carry this product, purchasing does.Vandling finger tips of right hand that are black with betadine BID. (found in back clean supply room on [facility]E. Wound care does not carry this product, purchasing does. Vandling toes with black eschar with betadine BID. (found in back clean supply room on [facility]E. Wound care does not carry this product, purchasing does. Additional Instructions: Follow up with Dr. Jevon Bragg in clinic this week Follow-up at dialysis clinic as scheduled tomorrow Make an appointment for follow-up at [facility] Make an appointment at [facility] and follow up there for year fingers and toes - Follow Up Care Current Providers and Referrals: Jevon Bragg MD [Medical Doctor] - follow up as scheduled Patient,NotPresent [Unknown] -
--- NOTE | 2018-08-09 13:26 | ASMTLACE ---
LACE Length of stay for Answers: 14 days or more current admission Acuity / Level of Answers: Yes Care: Did the patient have an inpatient admission? Comorbidities - select Answers: Congestive heart failure all that apply Other Notes: Melanoma # of Emergency department Answers: 1-2 visits in the last 6 months Score: 14 Date Signed: 08/09/2018 01:25 PM Electronically Signed By:Bharati Escudero RN
--- NOTE | 2018-08-09 13:30 | ASMTDCNOTE ---
Case Management Discharge Discharge Order Complete? Answers: Yes Patient to Obtain Answers: Independently Medications Transportation Arranged Answers: Family/Friends Faxed Final Orders Answers: Yes Family Notified Answers: Yes Discharge Comments Notes: Patient to discharge home with his Raquel. He has the information to call the [facility] tomorrow to set up a chair time. [facility] will follow for PT and RN. No other needs, per patient and . Date Signed: 08/09/2018 01:29 PM Electronically Signed By:Bharati Escudero RN
--- NOTE | 2018-08-09 13:32 | PDDCSUM ---
Discharge Summary Discharge Summary: DISCHARGE DIAGNOSES: * acute shock suspected to be caused by Tafinlar/Mekinist therapy for melanoma * possible cytokine release syndrome as mechanism * acute kidney injury due to above * acute respiratory failure multifactorial * acute liver injury due to shock episode * ischemia of fingers and toes with dry gangrene mimicking frostbite * thrombocytopenia, probable DIC * arterial bleeding at right IJ catheter, status post surgical exploration * new large right hematoma in right ileus OS noted on CT 2 days ago, no worsening symptoms there at this time and no tenderness on abdominal exam * acute oral HSV * acute urinary retention * acute encephalopathy, multifactorial due to above * moderate mitral regurgitation * metastatic melanoma, treated with Tafinlar and Mekinist in outpatient setting CONSULTANTS: Dr. Dominga Sinha PROCEDURES: Endotracheal intubation mechanical ventilation PICC catheter placement Placement of dialysis catheter Hemodialysis Multiple CT scans including head chest abdomen pelvis Carotid arteriogram Surgical exploration and control of bleeding from around internal jugular vein dialysis catheter HOSPITAL COURSE SUMMARY: This patient was taking calf enlarged and mechanisms for melanoma when he presented with fevers confusion diarrhea and hypotension at [facility]. Care was started there and he was transferred here for further care. The patient was in profound shock with multiorgan failure. This was felt to be due to likely a cytokine release syndrome from his cancer medicines. There was not a definite infectious cause of shock ever identified. The the patient was treated with high-dose steroids IV fluids pressors. He has suffered renal failure to the point of requiring dialysis and he is still on dialysis will be starting outpatient dialysis at this time though there is optimism that he will recover renal function. He has significant ischemic injury of the tips of fingers and toes on all hands and feet requiring ongoing wound care. This is a dry gangrene mimicking frostbite. There was suspected DIC, acute encephalopathy , respiratory failure requiring mechanical ventilation. In the intensive care unit the patient's course was initially Luis but he gradually did get back to good blood pressures and came off of pressors. As he was weaned off the ventilator his steroid medication was tapered down however when he got down to approximately 30 mg daily of hydrocortisone he developed shock again very suddenly. There was a little bit of fever nationally but again no infection was found. He responded to reinstitution of high-dose steroids and he has been slowly tapering down steroids since then. Initially he had been at 100 three times daily hydrocortisone and is now at 50 three times daily hydrocortisone. The patient is fairly weak but is now up and walking in the hallway without any difficulty. He is now eating well and his diarrhea has ceased. His mentation is normal. His vital signs are normal. He is felt stable for discharge to home at this time. He has a PICC line in place and this will remain in place as he follows up in the Oncology Clinic until they can decide whether he will be in need of that catheter. Home nursing care is set up in part to help with PICC line management. His PICC line is in good condition without signs of clot or infection now. He is aware of the need to continue careful management of his fingers and toes, and he will be getting ongoing wound care. I have included the wound care orders currently in place here with his home nursing orders. Has had some hypertension and this was not responding to Coreg which had been started during his hospital stay at low dose. The low-dose Norvasc has been started instead and he is responding well to that and will continue the Norvasc as he goes home. PENDING TEST RESULTS: None MEDICATION CHANGES: Increase in hydrocortisone currently at 50 mg three times daily to be tapered off in the outpatient setting Norvasc 5 mg daily Allopurinol 100 mg daily FOLLOW-UP PLAN: With Dr. Bragg or 1 of his partners in the next 3 days in clinic * Tapering of his steroid dose will be directed at Oncology Clinic * Decisions regarding future therapy for his melanoma will be considered; his PICC catheter is left in place at this time in case he needs that and can be removed at the discretion of Dr. Bragg depending on whether he will require that in the future. The patient will be starting outpatient dialysis tomorrow or the next day and the unit is ready for him with orders in place He will make an appointment at [facility] for follow-up as well He is referred to our outpatient wound care clinic He is also going to have home nursing care in place Greater than 35 minutes bedside and care coordination time today
== END 2018-08-09 15:31 | disposition home health service (06) | DRG 853 ==
LOC: F2N 11:25 → F1N 07-24 16:35 → F2N 07-25 18:35 → F1N 07-29 15:23 → F2N 07-29 17:38 → F2W 08-04 15:04
PROVIDERS: ADMIT Internal Medicine Critical Care Medicine; ATTEND Internal Medicine
DX: R57.8 Other shock (principal); R65.11 Systemic inflammatory response syndrome (SIRS) of non-infectious origin with acute organ dysfunction; T45.1X5A Adverse effect of antineoplastic and immunosuppressive drugs, initial encounter; R57.0 Cardiogenic shock; N17.9 Acute kidney failure, unspecified; J96.01 Acute respiratory failure with hypoxia; I21.4 Non-ST elevation (NSTEMI) myocardial infarction; E27.40 Unspecified adrenocortical insufficiency; G93.40 Encephalopathy, unspecified; T82.858A Stenosis of other vascular prosthetic devices, implants and grafts, initial encounter; B00.2 Herpesviral gingivostomatitis and pharyngotonsillitis; C77.4 Secondary and unspecified malignant neoplasm of inguinal and lower limb lymph nodes; I50.31 Acute diastolic (congestive) heart failure; I96 Gangrene, not elsewhere classified; K52.1 Toxic gastroenteritis and colitis; C43.9 Malignant melanoma of skin, unspecified; I95.89 Other hypotension; E03.9 Hypothyroidism, unspecified; R73.9 Hyperglycemia, unspecified; T38.0X5A Adverse effect of glucocorticoids and synthetic analogues, initial encounter; D69.59 Other secondary thrombocytopenia; R33.8 Other retention of urine; I34.0 Nonrheumatic mitral (valve) insufficiency; D64.9 Anemia, unspecified; M79.81 Nontraumatic hematoma of soft tissue
CPT/HCPCS: 82435-PO; 82565-PO; 82607-90; 82947-PO; 82947-QW; 84132-PO; 84295-PO; 84520-PO; 85014-PO; 86705-90; 87529-90; 97110-GP; 97112-GP; 97116-GP; 97162-GP; 97164-GP; 97166-GO; 97530-GO; 97530-GP; 97535-GO; C1750; C1751; C1769; C1894; J0610; J0690; J1265; J1642; J1644; J1720; J1815; J1940; J2060; J2250; J2310; J2405; J2543; J2704; J2920; J2930; J3010; J3262; J3370; J3475; J3480; P9016; P9041; Q9967

== ENCOUNTER 2018-08-21 11:15 | Inpatient (IN) | payer OTHER ==
[2018-08-21] MEDS ORDERED: ONDANSETRON DISINTEGRATING 4 MG TAB PO PRN (18:04)
[2018-08-21] MEDS ORDERED: ONDANSETRON 4 MG/2 ML VIAL IVP PRN (18:04)
[2018-08-21] MEDS ORDERED: VANCOMYCIN HCL/NORMAL SALINE 250 ML IV ONE (20:00)
[2018-08-21] MEDS ORDERED: VANCOMYCIN 1 GM in NS 250 ML IV SCH (20:00)
--- NOTE | 2018-08-21 22:05 | GHP ---
DATE OF ADMISSION: 08/21/2018 CHIEF COMPLAINT: History of melanoma with fever. HISTORY OF PRESENT ILLNESS: This is a 53-year-old male, who was just discharged a couple weeks ago. He was in the hospital for about a month. He has a history of malignant melanoma and was undergoing chemotherapy. He was hospitalized for sepsis which ended up being thought to be due to cytokine rel ease. He also had acute renal failure and required dialysis. He had acute respiratory failure and i schemia of the fingers and toes. Also, with bleeding from the right IJ catheter and a hematoma over the right ileus. He was discharged 2 weeks ago and had been doing well for that time period. Last d ialysis was 2 days ago and at that time, the nephrologists wanted to see how he did off dialysis. He has been seeing Wound Care for his gangrene in toes and fingers, and there have been really no abnor malities with that. Last night, he developed a fever to 101.9. He does have a little bit of muscle aches. He also is admitting to a little bit of a sore throat. No other respiratory symptoms. He do es have chronic cough but no sputum production. This was since his intubation. He denies any abdomi nal pain. No diarrhea or constipation. He also denies any dysuria. He is not having any extending erythema or pain in his fingers or toes. He has been sent here because of his fever. In the hospita l he was up to full dose hydrocortisone but he was discharged on 50 mg t.i.d. In the beginning of , it was decreased to 40 mg t.i.d., but since the fever, has been increased back up to 50 mg t. i.d. REVIEW OF SYSTEMS: Ten-point review of systems was obtained and other than stated was negative. PAST MEDICAL HISTORY: 1. Malignant melanoma with last chemotherapy over 6 weeks ago. 2. Recent hospitalization for sepsis/cytokine release. Patient also has adrenal insufficiency relat ed to his immunotherapy for his melanoma. 3. Adrenal insufficiency thought to be due to immunotherapy. 4. Hypothyroidism. SOCIAL HISTORY: No smoking. Occasional alcohol. FAMILY HISTORY: Diabetes and coronary disease. PHYSICAL EXAM: VITAL SIGNS: Temperature is 37.1, blood pressure 116/74, heart rate 90, oxygen satur ation is 90% on room air. GENERAL: Patient is well developed, no apparent distress HEENT: Nonicter ic sclerae. Extraocular movements intact. Moist mucous membranes. No thrush. NECK: Supple. No t hyromegaly. LUNGS: Good effort. Clear to auscultation bilaterally. CARDIOVASCULAR: Regular rate and rhythm. No murmurs or gallops. ABDOMEN: Positive bowel sounds. Soft, nontender, nondistended. No hepatosplenomegaly. EXTREMITIES: Gangrenous changes in the tips of all toes bilaterally with n o surrounding erythema to suggest cellulitis. No cellulitis noted on the fingers as well. SKIN: Th ere is a faint, papular rash on his chest which has been there for some time, according to the patien t. LINES: There is a right tunneled IJ dialysis catheter. NEUROLOGIC: Alert and oriented x3. Mov ing all 4 extremities equally. PSYCH: Normal mood and affect. LABS: White blood cell count is 12, hemoglobin 10, platelets 154. Sodium 135, potassium 3.2 creatin ine is 2.0. UA does not show infection. Blood cultures are pending. ASSESSMENT: This is a 53-year-old male presenting with a history of malignant melanoma, who has not received chemotherapy for 6 weeks, presenting with fever. PLAN: 1. Fever: I do not think this is related to his chemotherapy since it has been more than 6 weeks si nce he has had chemotherapy. He does have a tunneled dialysis catheter which is a significant possib ility for the culprit. Infection is not localizing to any other system at this time. We are going t o start vancomycin empirically. We will wait for cultures. I did discuss the case with Nephrology w ho will see the patient in the morning and will probably order removal of his line. We will wait for cultures. 2. History of malignant melanoma. 3. Gangrenous melanoma: Oncology, I believe, is aware of this patient and should be seeing him in t he morning. 4. Gangrenous fingers and toes. We will get Wound Care. 5. Acute renal failure: This is getting better, and plans were to stop dialysis. 6. Adrenal insufficiency: We will continue hydrocortisone at 50 mg 3 times a day. 7. Hypokalemia: We will continue to watch. He is on potassium replacement. Patient will continue. 8. Hypothyroidism. 9. Deep venous thrombosis prophylaxis: We will start heparin. /[id number]/MODL
[2018-08-21] MEDS: HEPARIN 5,000 UNIT/0.5 ML INJ SC SCH (22:16)
[2018-08-21] MEDS: HYDROCORTISONE 10 MG TAB PO SCH (22:17)
[2018-08-21] MEDS: NS 1,000 ML IV SCH (22:19)
[2018-08-21] MEDS: POTASSIUM CL 10 MEQ TAB PO SCH (22:21)
[2018-08-21] MEDS: ACETAMINOPHEN 325 MG TAB PO PRN (22:30)
[2018-08-22 05:12] LABS: PLATELET COUNT 106 10^3/uL (150-400)
[2018-08-22] MEDS: NS 1,000 ML IV SCH (05:49)
[2018-08-22] MEDS: LEVOTHYROXINE 150 MCG TAB PO SCH (05:50)
[2018-08-22] MEDS: LEVOTHYROXINE 25 MCG TAB PO SCH (05:50)
[2018-08-22] MEDS: HEPARIN 5,000 UNIT/0.5 ML INJ SC SCH ×5 (05:50→22:32)
--- NOTE | 2018-08-22 07:43 | PDMN ---
Medical Necessity Medical necessity: [facility] [place] fever: fever in pt with dialysis catheter-last HD 2 days ago, also with muscle aches, sore throat, cough, PMHx malignant melanoma , recent hospitalization for sepsis/cytokine release , adrenal insuff., hypothyroidism, , pt with gangrenous fingers and toes- wound care will see, oncology to see anticipate > 2MN ongoing med nec care
[2018-08-22] MEDS: POTASSIUM CL 10 MEQ TAB PO SCH ×2 (07:59→21:59)
[2018-08-22] MEDS: ALLOPURINOL 100 MG TAB PO SCH (07:59)
[2018-08-22] MEDS: ACETAMINOPHEN 325 MG TAB PO PRN ×3 (07:59→23:09)
[2018-08-22] MEDS: HYDROCORTISONE 10 MG TAB PO SCH ×3 (09:13→21:59)
--- NOTE | 2018-08-22 12:59 | HOSPPROG ---
Hospitalist Progress Note Assessment/Plan: 1. Fever - Patient reports TMax 101.9 at home, denies symptoms including cough, diarrhea , rash, dysuria, headache - Blood cultures drawn as outpatient- NGTD, f/u results - CXR negative on admission - Started on Vancomycin empirically in ED, will continue for now - Patient has tunneled dialysis catheter which may be the source, I have discussed with Nephrology this morning who gave okay for line removal - Consulted ID to further evaluate, discussed with Dr. Jorgensen who recommends holding abx for now and monitoring patient - Patient has been afebrile since admission, with no other SIRS criteria other than subjective fever at home (Tmax 37.7 today), it may be prudent at this time to removal tunneled dialysis catheter as he has intermittently required HD, will f/u blood culture results, will consult surgery for line removal if decided on Acute Renal Failure - Hx of Cytokine release syndrome, requiring intermittent HD - Last HD session on Friday, outpatient [employer] holding on dialysis pending labs on Friday per patient - Nephrology consulted, will f/u recommendations Adrenal Insufficiency - Continue Hydrocortisone 50 mg TID, he was tapering down to 40 mg TID per oncology when become febrile - Oncology consulted as above Hx of Gangrenous Melanoma - Oncology consulted, >6 week since last chemo Dry Gangrene of Digits/Toes - Wound care consulted, do not appear actively infected Hypothyroidism - Continue home synthroid DVT PPx: SubQ Heparin Diet: Regular Code: FULL Dispo: Pending clinical course Subjective: Patient reports no complaints this AM Objective: Vital Signs Temp Pulse Resp BP Pulse Ox 36.8 C 85 16 115/76 94 08/22/18 11:06 08/22/18 11:06 08/22/18 11:06 08/22/18 11:06 08/22/18 11:06 Laboratory Results 08/22/18 04:43 08/22/18 04:43 08/21/18 08/22/18 08/23/18 05:59 05:59 05:59 Intake Total 1253 120 Balance 1253 120 - Physical Exam Constitutional: chronically ill appearing Eyes: PERRL Ears, Nose, Mouth, Throat: moist mucous membranes Cardiovascular: regular rate and rhythym Respiratory: no respiratory distress Gastrointestinal: soft, non-tender abdomen Genitourinary: no bladder tenderness Skin: warm, other (dry gangrene digits/toes) Musculoskeletal: full muscle strength Neurologic: AAOx3 Psychiatric: interacting appropriately ICD10 Worksheet Patient Problems: Problems Problem Status Onset Melanoma 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
--- NOTE | 2018-08-22 14:34 | GCON ---
ONCOLOGY CONSULTATION NOTE REASON FOR CONSULTATION: Fever in patient with metastatic melanoma and recent cytokine release syndrome. HISTORY OF PRESENT ILLNESS: The patient is a very pleasant 53-year-old male, who has a complicated past medical history, who was admitted yesterday from the office with a temperature of 101.9. The patient's oncology history dates back to November 2017, when he was diagnosed with a nodular melanoma near his umbilicus. The Breslow depth was 8 mm. [place] lymph node showed 2 positive sentinel lymph nodes, and an additional 8 lymph nodes were removed that were negative. He was initially staged as a stage IIIC (T4a N2a M0). He was found to have a BRAF mutation and PD-L1 positive at 5%. He received adjuvant nivolumab for stage IIIC melanoma from December to May 2018, when he developed a recurrence of lymph nodes in the right groin region along with dermal metastases and some intramuscular metastases. He developed hypothyroidism and Bandar's as sequelae of the treatment from the nivolumab. He had a brain MRI at that time that was negative. He then was started on Mekinist 2 mg daily along with Tafinlar 150 mg b.i.d. on June 23. One week later, he had a fever and then when that resolved resumed the medication at a lower dose. On July 11, he became acutely ill with confusion and was admitted to the ICU for what appeared to be septic shock. He was intubated. He developed multiorgan failure and was thought to have a cytokine release syndrome from the Tafinlar and Mekinist. He was treated with high doses of steroids and pressors. He suffered renal failure and has required dialysis sense. He had significant ischemia on the tips of his fingers and toes. He eventually was weaned off the ventilator, and his hydrocortisone was dropped to 30 mg, but then he developed shock symptoms again and high doses of steroids were reinstituted with resolution of his symptoms. He was discharged from the hospital on August 09, and his hydrocortisone dose at that time was 50 mg t.i.d. He has been receiving intermittent dialysis. On August 17, his hydrocortisone dose was dropped from 50 mg t.i.d. to 40 mg t.i.d. He did not notice any adverse symptoms related to that, however, described night a relatively rapid onset of fever to 101.9. He has the tunneled dialysis catheter in his right neck and has not noted any erythema or tenderness associated with it. His hydrocortisone has been increased to 50 mg t.i.d. He was seen in the office yesterday and underwent blood cultures. They are thus far negative. He received 1 dose of vancomycin. Currently, Ash feels well. He denies any symptoms of shortness of breath or cough. No abdominal pain. No diarrhea. No tenderness at the tunneled catheter site. PAST MEDICAL HISTORY: Unremarkable, other than noted in HPI. PAST SURGICAL HISTORY: Tonsillectomy and adenoidectomy, placement of a tunneled dialysis catheter. FAMILY HISTORY: Noncontributory. SOCIAL HISTORY: He is to his . He has 3 sons. 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 He drinks alcohol occasionally. REVIEW OF SYSTEMS: 10-point review of systems is negative, other than HPI. PHYSICAL EXAM: GENERAL: He is alert, appropriate, very comfortable appearing, sitting in bed, in no distress. VITAL SIGNS: Blood pressure 115/76, heart rate 85, O2 sat 94% on room air. He is afebrile. HEENT: Pupils equal. Sclerae are anicteric. Oropharynx is clear. NECK: Supple with tunneled catheter in the right chest and neck. No exudate. No erythema or tenderness. LUNGS: Clear to auscultation. HEART: Regular rate. ABDOMEN: Soft, nontender. EXTREMITIES: He has digital ischemia and gangrene in several of his fingertips, right hand more so than the left. It is less severe in his toes. NEUROLOGIC: Nonfocal. LABORATORY DATA: White blood cell count 7.9, hematocrit 22.7, platelets 106, creatinine 2.0. Transaminases normal. IMPRESSION: This is a 53-year-old male, with metastatic melanoma, recovering from prior cytokine release syndrome from dual BRAF and MEK inhibition, who now presents with fever. The dialysis catheter is an obvious concern, however, does not have any clinical signs of infection. He had a minimal decrease in the hydrocortisone on the , which theoretically could have precipitated the fever. However, this seems somewhat less likely to me. Currently, the patient is hemodynamically stable on hydrocortisone 50 mg t.i.d. Infectious Disease will be seeing the patient. Cultures remain negative. His melanoma is thought to be under control at the moment. We will continue to follow along with you. /[id number]/MODL MTDD
--- NOTE | 2018-08-22 16:35 | SOAPPROG ---
SOAP Progress Note Assessment/Plan: Assessment: #CONSUELO- -recent admit last month with suspected ATN in setting of shock/cytokine storm -was on HD as outpt with last treatment Friday- notes significant increase in UOP, Cr stable at 2.0 and no uremic symptoms. Volume status ok. Hold on further dialysis for now. -removing TDC given fevers and hope he won't need further dialysis -I advised him to see what labs look like again tomorrow and then will check again mid week. #fever -recommend removing TDC, cultures are pending and started on Vanco overnight- I asked surgery to send tip of cath for culture as well -has gangrene of fingers but do not look infected -other work up in progress- oncology seeing as well -check UA #hypokalemia -gently replaced -discussed liberalizing diet more #adrenal insuff- tapering hydrocortisone, may need stress dose #dry gangrene fingertips #metastatic melanoma #anemia with recent retroperitoneal bleed- Hb 7.9, monitor I discussed with hospitalist and surgery Marissa Patiño MD [facility] pager [phone] 08/22/18 18:23 Subjective: Pt well known to our group from recent prolonged admission. History of metasatic melanoma. Had CONSUELO requiring dialysis, etiology felt ATN In setting of shock/cytokine storm- has been at [facility]. Recovering and last HD was Fri. Cr now 2.0 with good UOP. Spiked fever at home. Cultures drawn- NGTD and started on Vanco. Has gangrene in fingers but he reports these are improving. No cough, n/v, dysuria, sob. Objective: Vital Signs Temp Pulse Resp BP Pulse Ox 37.2 C 91 18 117/80 96 08/22/18 15:40 08/22/18 15:40 08/22/18 15:40 08/22/18 15:40 08/22/18 15:40 Laboratory Results 08/22/18 04:43 08/22/18 04:43 08/21/18 08/22/18 08/23/18 05:59 05:59 05:59 Intake Total 1253 370 Balance 1253 370 ICD10 Worksheet Patient Problems: Problems Problem Status Onset Melanoma 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
[2018-08-22] MEDS ORDERED: LIDOCAINE 1% 300 MG/30 ML SDV ONE (17:15)
--- NOTE | 2018-08-22 17:41 | POSTOPPROG ---
Post Op Note Date of Operation: 08/22/18 Surgeon: Alexis Mcdonald Anesthesia: Local (Specify) (10 ml 1% lidocaine) Pre-op Diagnosis: fever/indwelling right IJ dialysis cath Procedure: removal tunneled cath right IJ Inf/Abcess present in the surg proc area at time of surgery?: No Specimen(s): catheter tip for culture
[2018-08-22] MEDS ORDERED: NIACINAMIDE 500 MG PO SCH (18:00)
--- NOTE | 2018-08-23 04:44 | GOP ---
DATE OF OPERATION: 08/22/2018 SURGEON: Alexis Mcdonald MD, FACS ANESTHESIA: Local. PREOPERATIVE DIAGNOSIS: 1. Indwelling right internal jugular dialysis catheter. 2. Fever. POSTOPERATIVE DIAGNOSIS: 1. Indwelling right internal jugular dialysis catheter. 2. Fever. PROCEDURE PERFORMED: Removal of tunneled catheter, right internal jugular vein. FINDINGS: Uncomplicated catheter removal. ESTIMATED BLOOD LOSS: 1 mL or less. DESCRIPTION OF PROCEDURE: After discussing the procedure with the patient and his physicians, he was placed in supine position. The dressings were removed from the catheter, the site was prepped with chlorhexidine, and a sterile field was established. The sutures holding the catheter in place were removed and the exit site of the catheter was liberally infiltrated with 1% lidocaine plain , approximately 10 mL. Sharp dissection was used to free up the subcutaneous anchor that was holding the catheter in place, and it was gently backed out and removed from the field. Direct pressure was applied to the exit site. The catheter tip was cut off and placed into a culture swab for aerobes and anaerobes. Sterile dressings were applied. Patient tolerated the procedure well. COMPLICATIONS: None. /[id number]/MODL MTDD
[2018-08-23] MEDS: LEVOTHYROXINE 150 MCG TAB PO SCH (05:16)
[2018-08-23] MEDS: LEVOTHYROXINE 25 MCG TAB PO SCH (05:16)
[2018-08-23 06:10] LABS: PLATELET COUNT 118 10^3/uL (150-400)
[2018-08-23 07:26] VITALS: BP 121/89
--- NOTE | 2018-08-23 08:42 | SOAPPROG ---
SOAP Progress Note Assessment/Plan: Assessment:s/p dialysis cath removal, uncomplicated afebrile off abx x 36 hours renal function improving, creat 1.8 today Plan: management to be determined by blood/cath cultures 08/23/18 08:40 Subjective: feeling well, still weak Objective: Vital Signs Temp Pulse Resp BP Pulse Ox 36.8 C 69 16 121/89 H 97 08/23/18 07:25 08/23/18 07:25 08/23/18 07:25 08/23/18 07:25 08/23/18 07:25 Microbiology 08/22/18 17:45 Gram Stain - Final Catheter Site - Swab Laboratory Results 08/23/18 05:16 08/23/18 05:16 08/22/18 08/23/18 08/24/18 05:59 05:59 05:59 Intake Total 1253 820 Balance 1253 820 Physical Exam - Physical Exam General Appearance: alert, no apparent distress Cardiac/Chest: other (right infraclavicular dressing dry/intact, no signficant tenderness chest or neck) Neuro/Psych: alert, normal mood/affect, oriented x 3 ICD10 Worksheet Patient Problems: Problems Problem Status Onset Melanoma 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
[2018-08-23] MEDS: ALLOPURINOL 100 MG TAB PO SCH (08:57)
[2018-08-23] MEDS: HYDROCORTISONE 10 MG TAB PO SCH (08:57)
[2018-08-23] MEDS: POTASSIUM CL 10 MEQ TAB PO SCH (08:58)
--- NOTE | 2018-08-23 11:28 | SOAPPROG ---
SOAP Progress Note Assessment/Plan: Assessment: 1. Fever-resolved. No clear source. dialysis catheter pulled. 2. Acute renal failure-last dialysis was friday. creat spontaneously down to 1.8. 3. Metastatic BRAF mutated melanoma s/p cytokine syndrome-continues on hydrocortisone 50 mg TID-has scheduled appt tomorrow in the office as well as . 4. Anemia-multifactorial. Tolerating well. Suspect it will improve with time. No indication for transfusion today. will discuss with hospitalist. From oncology standpoint, ok to discharge. has prearranged close follow up already scheduled. Can transfuse as an outpatient if needed. Subjective: feels well. hoping to be discharged Objective: Vital Signs Temp Pulse Resp BP Pulse Ox 36.8 C 69 16 121/89 H 97 08/23/18 07:25 08/23/18 07:25 08/23/18 07:25 08/23/18 07:25 08/23/18 07:25 Microbiology 08/22/18 17:45 Gram Stain - Final Catheter Site - Swab Laboratory Results 08/23/18 05:16 08/23/18 05:16 08/22/18 08/23/18 08/24/18 05:59 05:59 05:59 Intake Total 1253 820 Balance 1253 820 Physical Exam - Physical Exam General Appearance: alert, no apparent distress Neck: supple, other (no erythema or tenderness at line site) Respiratory: lungs clear Abdomen: soft Extremities: other (ischemic digits unchanged) Neuro/Psych: alert, normal mood/affect ICD10 Worksheet Patient Problems: Problems Problem Status Onset Melanoma 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
--- NOTE | 2018-08-23 12:59 | PDDCSUM ---
Discharge Summary Discharge Summary: Date of Admission: 08/21/2018 Date of Discharge: 08/23/2018 Consults: Oncology, Surgery, ID Procedures: Tunneled dialysis catheter removal Followup: Oncology, Surgery Hospital Course Problem List: 1. Fever - Patient reports TMax 101.9 at home, afebrile during admission - Blood cultures drawn as outpatient- NGTD, f/u results - No localizing infectious signs or symptoms other than fever - Started on Vancomycin empirically in ED, discontinued and monitored overnight with no recurrence of fever - Patient had tunneled dialysis catheter, I discussed with Nephrology who recommended removing indwelling line, removed by Dr. Mcdonald on 08/22 Acute Renal Failure - Hx of Cytokine release syndrome, requiring intermittent HD - Last HD session on Friday, outpatient [employer] holding on dialysis pending labs on Friday per patient - Nephrology consulted, will f/u as outpatient for further management - Cr improved to 1.8 on day of discharge, urine output good as well - Removal of tunneled dialysis catheter as above Adrenal Insufficiency - Continue Hydrocortisone 50 mg TID, he was tapering down to 40 mg TID per oncology when become febrile - Oncology consulted as above Hx of Gangrenous Melanoma - Oncology consulted, >6 week since last chemo Dry Gangrene of Digits/Toes - Wound care consulted, do not appear actively infected Hypothyroidism - Continue home synthroid Time spent on discharge was >35 minutes with >50% of time spent on patient education and counseling
--- NOTE | 2018-08-23 13:00 | PDIAF ---
- Diagnosis Code Status: Full Code - Medication Management Discharge Medications: electronically signed and located in the Home Medication List. - Orders Services needed: Registered Nurse, Physical Therapy, Occupational Therapy - Follow Up Care Current Providers and Referrals: Sarath Hurley MD [Primary Care Provider] -
--- NOTE | 2018-08-23 18:04 | ASMTLACE ---
LACE Length of stay for Answers: 2 days current admission Acuity / Level of Answers: Yes Care: Did the patient have an inpatient admission? Comorbidities - select Answers: Any tumor (including all that apply lymphoma or leukemia) Moderate or severe liver or renal disease Other Notes: Gangrene, hx of sepsis # of Emergency department Answers: 3-4 visits in the last 6 months Score: 15 Date Signed: 08/23/2018 06:04 PM Electronically Signed By:Carele Santana RN
--- NOTE | 2018-08-23 18:07 | ASMTCMCOM ---
CM Note CM Note Notes: CM Note from Friday08/22/18 - previously entered under notes in [facility] d/t [employer] downtime: Reviewed chart, spoke with Dr. Hunter and RAYMUNDO Zhao regarding discharge plan of care, pt's progress. Per Dr. Hunter, pt was recently discharged following a long hospitalization at [facility] for sepsis, renal failure, gangrene. Pt has an extensive history including metastatic melanoma. Pt is and lives with his , Raquel. ID and Nephrology are consulting. Pt is to receive dialysis; schedule to be determined. Pt is also receiving wound care for his gangrene. Discharge needs remain unclear at this time. Pt was recently open with [facility] (RN/PT). CM will continue to follow. Discharge Plan: To be determined Date Signed: 08/23/2018 06:07 PM Electronically Signed By:Carlee Santana RN
--- NOTE | 2018-08-23 18:13 | ASMTDCNOTE ---
Case Management Discharge Discharge Order Complete? Answers: Yes Patient to Obtain Answers: Independently Medications Transportation Arranged Answers: Family/Friends Transport will Pick (Date 08/23/2018 12:00 AM & Time) EMTALA Complete Answers: No Notes: N/A Case Management Transport Answers: No Notes: N/A Form Complete Faxed Final Orders Answers: Yes Notes: Sent via [employer]; confirmed receipt with [facility] Agency/Facility Transfer Answers: Yes Notes: Sent via Report Printed & Faxed to [employer]; confirmed Receiving Agency receipt with [facility] Family Notified Answers: Yes Notes: Family at bedside Discharge Comments Notes: Reviewed chart, spoke with Dr. Hunter, regarding discharge plan of care, pt's progress. Per Dr. Hunter, pt to discharge home today. Met with pt to discuss potential needs. Pt was previously open with [facility] (RN/PT/OT). Pt and family wishing to resume services. Pt also previously open with [facility] wound clinic. Orders requested from Dr. Hunter for [facility]. Call placed to Maru, on-call RN with [facility]; update provided. Referral sent; confirmed receipt. Per [facility], able to accept with start of care for Friday08/24/18. Update provided to pt and family. CM business card provided for questions or concerns. No IM/TAMAYO forms signed, not applicable. Pt to follow up as directed. CM available for any further issues or concerns. Discharge Plan: Home with [facility] (RN/PT/OT), wound care clinic follow up Date Signed: 08/23/2018 06:13 PM Electronically Signed By:Carlee Santana RN
--- NOTE | 2018-08-23 18:14 | ASDISCHSUM ---
Discharge Information Plan Status:Home with Home Health Medically Cleared to Leave:08/22/2018 Discharge Date:08/23/2018 11:11 AM CM D/C Disposition:Home Health Service ADT D/C Disposition:Home, Routine, Self-Care Projected Discharge Date:08/23/2018 11:00 AM Transportation at D/C:Family Discharge Delay Reason: Follow-Up Date:08/23/2018 11:00 AM Discharge Slot:1 - 8:01 am - 12:00 noon Final Diagnosis:Tunneled dialysis catheter removal, fever, acute renal failure, adrenal insufficienc y, gangrenous melanoma Placement Information Referral Type:*Home Health Care Services Referral ID:[id number] Provider Name:[facility] Care Address 1:[address] [place] [address] [address] [address] Address 2: City:[place] Selection Factors:Patient/Family Choice; Retur timothy to Facility State:[place] Patient Contact Information Contact Name:CECILE Relationship: Address:[address] Work Phone: [facility]:[place] Alternate Phone: [facility]/Zip Code:[place] [address] Email: Financial Information Financial Class:[employer] [facility] Primary Plan Number:[id number] Secondary Plan Desc: Secondary Plan Number: Assessment Information LACE LACE Length of stay for Answers: 2 days current admission Acuity / Level of Answers: Yes Care: Did the patient have an inpatient admission? Comorbidities - select Answers: Any tumor (including all that apply lymphoma or leukemia) Moderate or severe liver or renal disease Other Notes: Gangrene, hx of sepsis # of Emergency department Answers: 3-4 visits in the last 6 months Score: 15 Date Signed: 08/23/2018 06:04 PM Electronically Signed By:Carlee Santana RN [facility] CM Progress Note CM Note CM Note Notes: CM Note from Friday08/22/18 - previously entered under notes in [employer] d/t [employer] downtime: Reviewed chart, spoke with Dr. Hunter and Cece RN regarding discharge plan of care, pt's progress. Per Dr. Hunter, pt was recently discharged following a long hospitalization at [facility] for sepsis, renal failure, gangrene. Pt has an extensive history including metastatic melanoma. Pt is and lives with his , Raquel. ID and Nephrology are consulting. Pt is to receive dialysis; schedule to be determined. Pt is also receiving wound care for his gangrene. Discharge needs remain unclear at this time. Pt was recently open with [facility] (RN/PT). CM will continue to follow. Discharge Plan: To be determined Date Signed: 08/23/2018 06:07 PM Electronically Signed By:Carlee Santana RN Case Management Discharge Plan Note Case Management Discharge Discharge Order Complete? Answers: Yes Patient to Obtain Answers: Independently Medications Transportation Arranged Answers: Family/Friends Transport will Pick (Date 08/23/2018 12:00 AM & Time) EMTALA Complete Answers: No Notes: N/A Case Management Transport Answers: No Notes: N/A Form Complete Faxed Final Orders Answers: Yes Notes: Sent via [employer]; confirmed receipt with [facility] Agency/Facility Transfer Answers: Yes Notes: Sent via Report Printed & Faxed to [employer]; confirmed Receiving Agency receipt with [facility] Family Notified Answers: Yes Notes: Family at bedside Discharge Comments Notes: Reviewed chart, spoke with Dr. Hunter, regarding discharge plan of care, pt's progress. Per Dr. Hunter, pt to discharge home today. Met with pt to discuss potential needs. Pt was previously open with [facility] (RN/PT/OT). Pt and family wishing to resume services. Pt also previously open with [facility] wound clinic. Orders requested from Dr. Hunter for [facility]. Call placed to [facility]u on-call RN with [facility]; update provided. Referral sent; confirmed receipt. Per [facility], able to accept with start of care for Friday08/24/18. Update provided to pt and family. business card provided for questions or concerns. No IM/TAMAYO forms signed, not applicable. Pt to follow up as directed. CM available for any further issues or concerns. Discharge Plan: Home with [facility] (RN/PT/OT), wound care clinic follow up Date Signed: 08/23/2018 06:13 PM Electronically Signed By:Carlee Santana RN Intervention Information
== END 2018-08-23 11:11 | disposition home health service (06) | DRG 683 ==
LOC: FIMAGING 11:15 → EDSTATUS 16:12 → F1N 17:07 → OBSVTOIN 17:07
PROVIDERS: ADMIT Internal Medicine; ATTEND Internal Medicine
PROC: 0JPS33Z Removal of Infusion Device from Head and Neck Subcutaneous Tissue and Fascia, Percutaneous Approach (ICD-10-PCS; principal; 2018-08-22)
DX: N17.9 Acute kidney failure, unspecified (principal); E27.40 Unspecified adrenocortical insufficiency; I96 Gangrene, not elsewhere classified; R50.9 Fever, unspecified; E03.9 Hypothyroidism, unspecified; Z85.820 Personal history of malignant melanoma of skin
CPT/HCPCS: 97165-GO; J1644; J3370

== ENCOUNTER → 2018-10-01 | Outpatient (CLI) | payer OTHER | LOC: FIMAGING 11:51 | PROVIDERS: ATTEND Internal Medicine Hematology & Oncology | DX: C43.59 Malignant melanoma of other part of trunk (principal); C77.4 Secondary and unspecified malignant neoplasm of inguinal and lower limb lymph nodes; C79.2 Secondary malignant neoplasm of skin | CPT/HCPCS: A9585 ==

== ENCOUNTER 2018-11-11 11:30 | Inpatient (IN) | payer OTHER ==
[2018-11-11] MEDS ORDERED: NS 1,000 ML IV ONE ×3 (11:50→12:28)
--- NOTE | 2018-11-11 12:10 | EDPHY ---
H & P Time Seen by Provider: 11/11/18 11:48 HPI/ROS: Chief complaint. Fever HPI. Patient is a 53-year-old male with history metastatic melanoma presents with fever that began last night. This morning it fever to 102 degrees. He had chills. Nausea and vomiting but no diarrhea. No cough or shortness of breath. No abdominal pain no urinary symptoms. No rash. Currently undergoing chemotherapy. Several months ago he had cytokine storm and multiorgan failure following chemotherapy. It began with fever. He lost the tips of his fingers and his toes due to the cytokine storm ROS 10 systems were reviewed and negative with the exception of the elements mentioned in the history of present illness Past Medical/Surgical History: Metastatic melanoma and history of cytokine storm Social History: , nonsmoker, no alcohol Smoking Status: Never smoked Physical Exam: General Appearance: Alert well-developed male mild distress vital signs show temp 38.3 degrees, heart rate 112, initial blood pressure 97/81 Eyes: Pupils equal and round no pallor or injection. ENT, Mouth: Mucous membranes are moist. Respiratory: There are no retractions, lungs are clear to auscultation. Cardiovascular: Regular rate and rhythm. Gastrointestinal: Abdomen is soft and nontender, no masses, bowel sounds normal. Neurological: Awake and alert, sensory and motor exams grossly normal. Skin: Warm and dry, no rashes. Musculoskeletal: Neck is supple nontender. Extremities tips of fingers and toes show necrosis and healing necrosis. No obvious infection Psychiatric: Patient is oriented X 3, there is no agitation. Constitutional: Initial Vital Signs Temperature (C) 38.3 C 11/11/18 11:38 Heart Rate 112 H 11/11/18 11:38 Respiratory Rate 18 11/11/18 11:38 Blood Pressure 97/81 H 11/11/18 11:38 O2 Sat (%) 98 11/11/18 11:38 O2 Delivery Mode Room Air Allergies/Adverse Reactions: codeine Allergy (Verified 11/11/18 11:37) "VIOLENT NIGHTMARES" Home Medications: Medication Instructions Recorded Acetaminophen [Mapap] 1,000 mg PO Q8H PRN 07/12/18 Cobimetinib Fumarate [Cotellic] 20 mg PO DAILY 11/11/18 Hydrocortisone [Cortef 10 mg (*)] 10 mg PO DAILY14 11/11/18 Hydrocortisone [Cortef 10 mg (*)] 20 mg PO DAILY 11/11/18 Levothyroxine [Synthroid 75 mcg 75 mcg PO DAILY06 11/11/18 (*)] Metoprolol Succinate Xr [Toprol Xl 12.5 mg PO DAILY 11/11/18 25 mg (*)] Ondansetron Odt [Zofran Odt 4 mg 4 mg PO Q4 PRN 11/11/18 (*)] Vemurafenib [Zelboraf] 240 mg PO BID@0930,2130 11/11/18 Medical Decision Making - Diagnostics Imaging Results: Imaging Impressions Chest X-Ray 11/11/18 12:58 Impression: 1. No active cardiac pulmonary disease seen. Chest x-ray interpreted by me is normal Procedures: IV normal saline. Septic workup. ED Course/Re-evaluation: Re-evaluation 1:20 p.m. Patient is stable. Heart rate 66. Blood pressure 122/ 70 for Patient and I discussed laboratory evaluation, treatment plan including recommendation for admission. He expresses understanding and agreement Dr. Anne has seen the patient in the emergency department for Oncology. He recommends no antibiotics at this time I consulted and discussed the case with Dr. Bell who agrees to the admission Differential Diagnosis: I considered sepsis, pneumonia, urinary tract infection. This may be viral syndrome. It may be early cytokine storm. - Data Points Laboratory Results: Laboratory Results 11/11/18 11:53 11/11/18 11:53 11/11/18 11/11/18 11/11/18 11:53 11:53 11:53 WBC 7.59 10^3/uL 10^3/uL (3.80-9.50) RBC 3.46 10^6/uL L 10^6/uL (4.40-6.38) Hgb 9.9 g/dL L g/dL (13.7-17.5) Hct 30.9 % L % (40.0-51.0) MCV 89.3 fL fL (81.5-99.8) MCH 28.6 pg pg (27.9-34.1) MCHC 32.0 g/dL L g/dL (32.4-36.7) RDW 13.9 % % (11.5-15.2) Plt Count 191 10^3/uL 10^3/uL (150-400) MPV 9.7 fL fL (8.7-11.7) Neut % (Auto) 74.5 % H % (39.3-74.2) Lymph % (Auto) 12.0 % L % (15.0-45.0) [place] % (Auto) 10.5 % % (4.5-13.0) Eos % (Auto) 2.2 % % (0.6-7.6) Baso % (Auto) 0.4 % % (0.3-1.7) Nucleat RBC Rel Count 0.0 % % (0.0-0.2) Absolute Neuts (auto) 5.65 10^3/uL 10^3/uL (1.70-6.50) Absolute Lymphs (auto) 0.91 10^3/uL L 10^3/uL (1.00-3.00) Absolute Monos (auto) 0.80 10^3/uL 10^3/uL (0.30-0.80) Absolute Eos (auto) 0.17 10^3/uL 10^3/uL (0.03-0.40) Absolute Basos (auto) 0.03 10^3/uL 10^3/uL (0.02-0.10) Absolute Nucleated RBC 0.00 10^3/uL 10^3/uL (0-0.01) Immature Gran % 0.4 % % (0.0-1.1) Immature Gran # 0.03 10^3/uL 10^3/uL (0.00-0.10) PT 13.6 SEC SEC (12.0-15.0) INR 1.02 (0.83-1.16) APTT 31.4 SEC SEC (23.0-38.0) VBG Lactic Acid Sodium Potassium Chloride Carbon Dioxide Anion Gap BUN Creatinine Estimated GFR Glucose Calcium Total Bilirubin C-Reactive Protein Procalcitonin 0.29 ng/mL H ng/mL (0.02-0.10) 11/11/18 11/11/18 11/11/18 11:53 11:53 11:30 WBC RBC Hgb Hct MCV MCH MCHC RDW Plt Count MPV Neut % (Auto) Lymph % (Auto) [place] % (Auto) Eos % (Auto) Baso % (Auto) Nucleat RBC Rel Count Absolute Neuts (auto) Absolute Lymphs (auto) Absolute Monos (auto) Absolute Eos (auto) Absolute Basos (auto) Absolute Nucleated RBC Immature Gran % Immature Gran # PT INR APTT VBG Lactic Acid 1.3 mmol/L mmol/L (0.7-2.1) Sodium 134 mEq/L L mEq/L (135-145) Potassium 3.9 mEq/L mEq/L (3.5-5.2) Chloride 106 mEq/L mEq/L (97-110) Carbon Dioxide 20 mEq/l L mEq/l (22-31) Anion Gap 8 mEq/L mEq/L (6-14) BUN 18 mg/dL mg/dL (7-23) Creatinine 1.4 mg/dL H mg/dL (0.7-1.3) Estimated GFR 53 Glucose 85 mg/dL mg/dL (70-100) Calcium 9.2 mg/dL mg/dL (8.5-10.4) Total Bilirubin 0.4 mg/dL mg/dL (0.1-1.4) C-Reactive Protein 35.2 mg/L H mg/L (<10.0) Procalcitonin Microbiology Results: MICROBIOLOGY 11/11/18 12:09 Nasal, Sinus - Swab Respiratory Panel (PCR) - Final No Organism Detected By Pcr Medications Given: Discontinued Medications Acetaminophen (Tylenol) 1,000 mg PO EDNOW ONE Stop: 11/11/18 12:15 Last Admin: 11/11/18 12:16 Dose: 1,000 mg Sodium Chloride (Ns) 1,000 mls @ 0 mls/hr IV EDNOW ONE; Wide Open PRN Reason: Protocol Stop: 11/11/18 11:51 Last Admin: 11/11/18 13:28 Dose: 1,000 mls Sodium Chloride (Ns) 1,000 mls @ 0 mls/hr IV EDNOW ONE; Wide Open PRN Reason: Protocol Stop: 11/11/18 11:51 Last Admin: 11/11/18 11:56 Dose: 1,000 mls Sodium Chloride (Ns) 1,000 mls @ 0 mls/hr IV EDNOW ONE; Wide Open PRN Reason: Protocol Stop: 11/11/18 12:29 Last Admin: 11/11/18 12:47 Dose: 1,000 mls Departure - Departure Disposition: [facility] Inpatient Acute Clinical Impression: Fever Condition: Good
[2018-11-11] MEDS ORDERED: ACETAMINOPHEN 500 MG TAB PO ONE (12:14)
[2018-11-11 12:20] LABS: PLATELET COUNT 191 10^3/uL (150-400)
[2018-11-11 12:35] LABS: INR 1.02 (0.83-1.16); PROTIME(PATIENT) 13.6 SEC (12.0-15.0)
[2018-11-11] MEDS ORDERED: ONDANSETRON 4 MG/2 ML VIAL IVP PRN (17:12)
--- NOTE | 2018-11-11 17:12 | PDGENHP ---
History and Physical - Chief Complaint fever - History of Present Illness Patient is a 53-year-old male with history metastatic melanoma presents with fever that began last night. This morning it fever to 102 degrees. He had chills. Nausea and vomiting but no diarrhea. No cough or shortness of breath. No abdominal pain no urinary symptoms. No rash. Currently undergoing chemotherapy. Several months ago he had cytokine storm and multiorgan failure following chemotherapy. It began with fever. He lost the tips of his fingers and his toes due to the cytokine storm NO leukocytosis given IVF in the ER. VSS NO fever since arrival labs yesterday do not indicate active cytokine storm CRP is elevated Past Medical/Surgical History: Metastatic melanoma and history of cytokine storm Social History: , nonsmoker, no alcohol FmHx: non contributory History Information - Allergies/Home Medication List Allergies/Adverse Reactions: codeine Allergy (Verified 11/11/18 11:37) "VIOLENT NIGHTMARES" Home Medications: Acetaminophen [Mapap] 1,000 mg PO Q8H PRN 07/12/18 [Last Taken Unknown] Cobimetinib Fumarate [Cotellic] 20 mg PO DAILY 11/11/18 [Last Taken 11/10/18] Hydrocortisone [Cortef 10 mg (*)] 10 mg PO DAILY14 11/11/18 [Last Taken 11/10/18 ] Hydrocortisone [Cortef 10 mg (*)] 20 mg PO DAILY 11/11/18 [Last Taken 11/10/18] Levothyroxine [Synthroid 75 mcg (*)] 75 mcg PO DAILY06 11/11/18 [Last Taken ] Metoprolol Succinate Xr [Toprol Xl 25 mg (*)] 12.5 mg PO DAILY 11/11/18 [Last Taken 11/10/18] Ondansetron Odt [Zofran Odt 4 mg (*)] 4 mg PO Q4 PRN 11/11/18 [Last Taken Unknown] Vemurafenib [Zelboraf] 240 mg PO BID@0930,2130 11/11/18 [Last Taken 11/10/18 21: 30] I have personally reviewed and updated: medical history, social history - Surgical History Additional surgical history: wide excision umbilical melanoma/right inguinal node dissection - Social History Smoking Status: Never smoked 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 Review of Systems Review of Systems: ROS: 10pt was reviewed & negative except for what was stated in HPI & below Physical Exam Physical Exam: Temp Pulse Resp BP Pulse Ox 37.2 C 92 16 114/71 96 11/11/18 16:08 11/11/18 16:08 11/11/18 16:08 11/11/18 16:08 11/11/18 16:08 Constitutional: no apparent distress Eyes: PERRL, EOMI Ears, Nose, Mouth, Throat: moist mucous membranes, hearing normal Cardiovascular: regular rate and rhythym, No edema Respiratory: no respiratory distress, no rales or rhonchi, clear to auscultation , reduced air movement Gastrointestinal: normoactive bowel sounds, soft, non-tender abdomen Skin: warm Neurologic: AAOx3 Psychiatric: interacting appropriately, not anxious, not encephalopathic Lymph, Heme, Immunologic: No petechiae Lab Data & Imaging Review 11/11/18 11:53 11/11/18 11:53 WBC 7.59 10^3/uL (3.80-9.50) 11/11/18 11:53 RBC 3.46 10^6/uL (4.40-6.38) L 11/11/18 11:53 Hgb 9.9 g/dL (13.7-17.5) L 11/11/18 11:53 Hct 30.9 % (40.0-51.0) L 11/11/18 11:53 MCV 89.3 fL (81.5-99.8) 11/11/18 11:53 MCH 28.6 pg (27.9-34.1) 11/11/18 11:53 MCHC 32.0 g/dL (32.4-36.7) L 11/11/18 11:53 RDW 13.9 % (11.5-15.2) 11/11/18 11:53 Plt Count 191 10^3/uL (150-400) 11/11/18 11:53 MPV 9.7 fL (8.7-11.7) 11/11/18 11:53 Neut % (Auto) 74.5 % (39.3-74.2) H 11/11/18 11:53 Lymph % (Auto) 12.0 % (15.0-45.0) L 11/11/18 11:53 [place] % (Auto) 10.5 % (4.5-13.0) 11/11/18 11:53 Eos % (Auto) 2.2 % (0.6-7.6) 11/11/18 11:53 Baso % (Auto) 0.4 % (0.3-1.7) 11/11/18 11:53 Nucleat RBC Rel Count 0.0 % (0.0-0.2) 11/11/18 11:53 Absolute Neuts (auto) 5.65 10^3/uL (1.70-6.50) 11/11/18 11:53 Absolute Lymphs (auto) 0.91 10^3/uL (1.00-3.00) L 11/11/18 11:53 Absolute Monos (auto) 0.80 10^3/uL (0.30-0.80) 11/11/18 11:53 Absolute Eos (auto) 0.17 10^3/uL (0.03-0.40) 11/11/18 11:53 Absolute Basos (auto) 0.03 10^3/uL (0.02-0.10) 11/11/18 11:53 Absolute Nucleated RBC 0.00 10^3/uL (0-0.01) 11/11/18 11:53 Immature Gran % 0.4 % (0.0-1.1) 11/11/18 11:53 Immature Gran # 0.03 10^3/uL (0.00-0.10) 11/11/18 11:53 PT 13.6 SEC (12.0-15.0) 11/11/18 11:53 INR 1.02 (0.83-1.16) 11/11/18 11:53 APTT 31.4 SEC (23.0-38.0) 11/11/18 11:53 VBG Lactic Acid 1.3 mmol/L (0.7-2.1) 11/11/18 11:53 Sodium 134 mEq/L (135-145) L 11/11/18 11:53 Potassium 3.9 mEq/L (3.5-5.2) 11/11/18 11:53 Chloride 106 mEq/L (97-110) 11/11/18 11:53 Carbon Dioxide 20 mEq/l (22-31) L 11/11/18 11:53 Anion Gap 8 mEq/L (6-14) 11/11/18 11:53 BUN 18 mg/dL (7-23) 11/11/18 11:53 Creatinine 1.4 mg/dL (0.7-1.3) H 11/11/18 11:53 Estimated GFR 53 11/11/18 11:53 Glucose 85 mg/dL (70-100) 11/11/18 11:53 Calcium 9.2 mg/dL (8.5-10.4) 11/11/18 11:53 Total Bilirubin 0.4 mg/dL (0.1-1.4) 11/11/18 11:53 C-Reactive Protein 35.2 mg/L (<10.0) H 11/11/18 11:30 Procalcitonin 0.29 ng/mL (0.02-0.10) H 11/11/18 11:53 Urine Color YELLOW 11/11/18 14:08 Urine Appearance CLEAR 11/11/18 14:08 Urine pH 5.0 (5.0-7.5) 11/11/18 14:08 Ur Specific [place] 1.012 (1.002-1.030) 11/11/18 14:08 Urine Protein NEGATIVE (NEGATIVE) 11/11/18 14:08 Urine Ketones NEGATIVE (NEGATIVE) 11/11/18 14:08 Urine Blood NEGATIVE (NEGATIVE) 11/11/18 14:08 Urine Nitrate NEGATIVE (NEGATIVE) 11/11/18 14:08 Urine Bilirubin NEGATIVE (NEGATIVE) 11/11/18 14:08 Urine Urobilinogen NEGATIVE EU (0.2-1.0) 11/11/18 14:08 Ur Leukocyte Esterase NEGATIVE (NEGATIVE) 11/11/18 14:08 Urine Glucose NEGATIVE (NEGATIVE) 11/11/18 14:08 Assessment & Plan Assessment: #Fever #Immunocompromised #Metastatic Melanoma on chemotherapy #N/V, resolving #Hx of Cytokine storm following chemo #Hypothyroidism #Chronic steroid use #anemia Plan: hold off on abx cont home steroids, have not given stress dose at this time labs obtained yesterday do not reveal cytokine storm, no transaminitis. Will repeat in a.m. . Also check other indicator including Ferretin, Coags, Triglyceride, Fibrinogen. But early storm is not rule out cont home meds no need for additional IVF for now SCD's. chem DVT proph pending coags
[2018-11-11] MEDS: ACETAMINOPHEN 325 MG TAB PO PRN ×2 (18:36→22:25)
[2018-11-11 19:51] LABS: INR 1.05 (0.83-1.16); PROTIME(PATIENT) 13.9 SEC (12.0-15.0)
[2018-11-11] MEDS ORDERED: ACETAMINOPHEN 325 MG TAB PO ONE (20:01)
--- NOTE | 2018-11-11 20:30 | PDMN ---
Medical Necessity Medical necessity: [facility] General Admission: 53 yo w/ fever/chills in setting of metastatic melanoma on chemo w/ hx cytokine storm and multiorgan failure following chemo which began with fever, pt lost tips of fingers/toes due to cytokine storm. Anticipate>2MN and make pt IP status for fever in high risk pt, immunocompromised, w/ hx cytokine storm requiring close monitoring. Pt hypotensive and tachycardic on admit. BC pending.
[2018-11-11] MEDS: ONDANSETRON DISINTEGRATING 4 MG TAB PO PRN (20:40)
--- NOTE | 2018-11-11 22:14 | PDCONSULT ---
B[facility]er Note: History of Present Illness: Patient is a 53-year-old male with history of BRAF mutated metastatic melanoma with recent admission with shock and multiorgan failure presumably from CRS secondary to BRAF/MEK inhibitor after PD1 therapy who presents for evaluation of isolated fever without other symptoms after recent re-administration of different BRAF/MEK inhibitors concerning for cytokine release syndrome. Patient had recent traumatic hospitalization from 07/12/2018 to 08/09/2018 for shock and multiorgan failure felt to be secondary to Tafinlar and Mekinist therapy for his BRAF mutated melanoma. Unfortunately a PET CT scan on September showed widespread occurrence of metastatic disease. Decision was to treat patient was Zelboraf and Cotellic. Patient reports that he really only has a symptom of a fever when he checked his temperature was 102. He denies any diarrhea, dysuria, rash, sore throat, cough or shortness of breath or rhinorrhea. 2 of his children reported some nausea and vomiting but no systemic symptoms. No other sick contacts. In the emergency room he was evaluated extensively for source of fever with a negative chest x-ray urinalysis and respiratory viral panel. 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 Past surgical history: Removal of tips of some of his digits impacted by high doses of pressors Tonsillectomy and adenoidectomy Social History: Patient is without any history of alcohol drugs or tobacco Family history: Noncontributory Review of systems: Complete 12 point review of systems is obtained and found to be negative unless indicated in the history of present illness Physical Examination: Vital Signs Reviewed General: pale but non toxic HEENT: PERRL, no icterus or pallor, oral mucosa is moist without lesions CV: tachycardic rate and normal rhythm without rubs thrills or gallops Chest: CTA in bilateral posterior lungs Abdomen: soft nontender nondistended without HSM, some palpable subcutaneous nodules ~4cm in left and right lower quadrant Extremities: dry gangrene on tips of toes bilaterally with some erythematous scale/plaque, dry gangrene tip of left index finger with some blanching erythema , no purulence or warmth Neurologic: alert and oriented x 3, CN II-XII grossly intact Medications and Allergies Reviewed WBC 7.59 10^3/uL (3.80-9.50) 11/11/18 11:53 RBC 3.46 10^6/uL (4.40-6.38) L 11/11/18 11:53 Hgb 9.9 g/dL (13.7-17.5) L 11/11/18 11:53 Hct 30.9 % (40.0-51.0) L 11/11/18 11:53 MCV 89.3 fL (81.5-99.8) 11/11/18 11:53 MCH 28.6 pg (27.9-34.1) 11/11/18 11:53 MCHC 32.0 g/dL (32.4-36.7) L 11/11/18 11:53 RDW 13.9 % (11.5-15.2) 11/11/18 11:53 Plt Count 191 10^3/uL (150-400) 11/11/18 11:53 MPV 9.7 fL (8.7-11.7) 11/11/18 11:53 Neut % (Auto) 74.5 % (39.3-74.2) H 11/11/18 11:53 Lymph % (Auto) 12.0 % (15.0-45.0) L 11/11/18 11:53 [place] % (Auto) 10.5 % (4.5-13.0) 11/11/18 11:53 Eos % (Auto) 2.2 % (0.6-7.6) 11/11/18 11:53 Baso % (Auto) 0.4 % (0.3-1.7) 11/11/18 11:53 Nucleat RBC Rel Count 0.0 % (0.0-0.2) 11/11/18 11:53 Absolute Neuts (auto) 5.65 10^3/uL (1.70-6.50) 11/11/18 11:53 Absolute Lymphs (auto) 0.91 10^3/uL (1.00-3.00) L 11/11/18 11:53 Absolute Monos (auto) 0.80 10^3/uL (0.30-0.80) 11/11/18 11:53 Absolute Eos (auto) 0.17 10^3/uL (0.03-0.40) 11/11/18 11:53 Absolute Basos (auto) 0.03 10^3/uL (0.02-0.10) 11/11/18 11:53 Absolute Nucleated RBC 0.00 10^3/uL (0-0.01) 11/11/18 11:53 Immature Gran % 0.4 % (0.0-1.1) 11/11/18 11:53 Immature Gran # 0.03 10^3/uL (0.00-0.10) 11/11/18 11:53 PT 13.9 SEC (12.0-15.0) 11/11/18 19:20 INR 1.05 (0.83-1.16) 11/11/18 19:20 APTT 34.1 SEC (23.0-38.0) 11/11/18 19:20 Fibrinogen 520 mg/dL (214-456) H 11/11/18 19:20 VBG Lactic Acid 1.3 mmol/L (0.7-2.1) 11/11/18 11:53 Sodium 134 mEq/L (135-145) L 11/11/18 11:53 Potassium 3.9 mEq/L (3.5-5.2) 11/11/18 11:53 Chloride 106 mEq/L (97-110) 11/11/18 11:53 Carbon Dioxide 20 mEq/l (22-31) L 11/11/18 11:53 Anion Gap 8 mEq/L (6-14) 11/11/18 11:53 BUN 18 mg/dL (7-23) 11/11/18 11:53 Creatinine 1.4 mg/dL (0.7-1.3) H 11/11/18 11:53 Estimated GFR 53 11/11/18 11:53 Glucose 85 mg/dL (70-100) 11/11/18 11:53 Calcium 9.2 mg/dL (8.5-10.4) 11/11/18 11:53 Total Bilirubin 0.4 mg/dL (0.1-1.4) 11/11/18 11:53 C-Reactive Protein 35.2 mg/L (<10.0) H 11/11/18 11:30 Triglycerides 212 mg/dL (40-150) H 11/11/18 19:20 Procalcitonin 0.29 ng/mL (0.02-0.10) H 11/11/18 11:53 Urine Color YELLOW 11/11/18 14:08 Urine Appearance CLEAR 11/11/18 14:08 Urine pH 5.0 (5.0-7.5) 11/11/18 14:08 Ur Specific [place] 1.012 (1.002-1.030) 11/11/18 14:08 Urine Protein NEGATIVE (NEGATIVE) 11/11/18 14:08 Urine Ketones NEGATIVE (NEGATIVE) 11/11/18 14:08 Urine Blood NEGATIVE (NEGATIVE) 11/11/18 14:08 Urine Nitrate NEGATIVE (NEGATIVE) 11/11/18 14:08 Urine Bilirubin NEGATIVE (NEGATIVE) 11/11/18 14:08 Urine Urobilinogen NEGATIVE EU (0.2-1.0) 11/11/18 14:08 Ur Leukocyte Esterase NEGATIVE (NEGATIVE) 11/11/18 14:08 Urine Glucose NEGATIVE (NEGATIVE) 11/11/18 14:08 Assessment and Plan: Patient is a 53-year-old male with history of BRAF mutated metastatic melanoma with recent admission with shock and multiorgan failure presumably from CRS secondary to BRAF/MEK inhibitor after PD1 therapy who presents for evaluation of isolated fever without other symptoms after recent re-administration of different BRAF/MEK inhibitors concerning for cytokine release syndrome. #Fever Without any other symptoms, concerning for recurrence of CRS. While fever/ symptoms mild currently, this is how things started before previous circulatory collapse and multiorgan failure. Pharmacy has obtained 3 doses of tocilizumab, will have low threshold to use. Will trend CRP, follow-up on infectious studies which are currently unremarkable. #Metastatic melanoma Currently on BRAF/MEK inhibitor which we are holding given concerns for CRS. He has failed PD1 (nivolumab) therapy at this point. Could consider induction with nivolumab and ipilimumab but otherwise unknown what options exist for his melanoma if he has recurrence of CRS. Will continue to follow patient.
[2018-11-12] MEDS: LEVOTHYROXINE 75 MCG TAB PO SCH (05:31)
[2018-11-12] MEDS: ACETAMINOPHEN 325 MG TAB PO PRN (05:41)
[2018-11-12] MEDS: ONDANSETRON DISINTEGRATING 4 MG TAB PO PRN (05:41)
[2018-11-12 05:42] LABS: PLATELET COUNT 162 10^3/uL (150-400)
[2018-11-12] MEDS: METOPROLOL SUCCINATE XR 25 MG TAB PO SCH (08:29)
[2018-11-12] MEDS ORDERED: NS IV ONE (08:30)
[2018-11-12] MEDS ORDERED: TOCILIZUMAB IV ONE (08:30)
[2018-11-12] MEDS ORDERED: HYDROCORTISONE 10 MG TAB PO SCH ×2 (09:00→14:00)
--- NOTE | 2018-11-12 09:09 | ASMTCMCOM ---
CM Note CM Note Notes: Patient with metastatic melanoma on chemo admitted for fever. He has a recent history of prolonged hospitalization last Jun/Jul d/t cytokine storm and multiorgan failure following chemo. He lives with his Raquel and is normally independent. Has been followed by [facility] for RN/PT in the past. They are happy to see him again if necessary. CM will follow for d/c planning. Date Signed: 11/12/2018 09:08 AM Electronically Signed By:Bharati Escudero RN
[2018-11-12] MEDS ORDERED: NS 1,000 ML IV SCH (09:45)
--- NOTE | 2018-11-12 10:55 | WOCRNPDOC ---
[facility] Advanced Assessment Note - Skin Integrity Problem, Advanced Assess Bilateral Toe Dressing Type: Open to Air Closure Description: Approximated Krystle Wound Tissue: Dry Wound Bed Color: Black Wound Bed Constitution: Stable Eschar Wound Edges: Attached, Well Defined Skin Integrity Problem Comment: Per MD reports from this hospitalization, patient experienced circulatory collapse and multi-organ failure in the fall which left him with necrotic digits. Patient states that toes have been dry since. Patient's socks removed bilaterally. He reports some pain to the area but mostly a dull ache. Skin is dry and blackened over all toes as well as in between toes where there is skin on skin contact. Recommend keeping area clean and dry. Patient in agreement with this plan. All questions answered. Wound care will not continue to round. Please reconsult if wound needs change. Left First Finger Dressing Type: Open to Air Exudate Amount: None Krystle Wound Tissue: Intact, Dry Wound Bed Color: Black Wound Bed Constitution: Stable Eschar Site Measurement - Head-to-Toe Length X Width X Depth (cm): [id number] Skin Integrity Problem Comment: Patient with dry, stable eschar to the tip of left first finger since fall 2017. Patient states that he was scheduled to have this area amputated tomorrow but due to hospitalization, the procedure likely won't happen. Continue to keep area dry and clean.
--- NOTE | 2018-11-12 14:46 | HOSPPROG ---
Hospitalist Progress Note Assessment/Plan: #Fever #Immunocompromised #Metastatic Melanoma on chemotherapy #N/V, resolving #Hx of Cytokine storm, concern for recurrence -s/p Tocilizumab x 1 on 11/12 #Hypothyroidism #hx of Adrenal insufficiency on home steroids #Acute on chronic renal failure with worsening Cr #anemia Plan: hold off on abx start IVF increase steroids await Onc reccs SCD's Subjective: had fever overnight. no cp or sob. Objective: Vital Signs Temp Pulse Resp BP Pulse Ox 37.2 C 74 14 99/66 L 94 11/12/18 11:07 11/12/18 11:07 11/12/18 11:07 11/12/18 11:07 11/12/18 11:07 Laboratory Results 11/12/18 04:52 11/12/18 04:52 11/11/18 11/12/18 11/13/18 05:59 05:59 05:59 Intake Total 750 Balance 750 PT 13.9 SEC (12.0-15.0) 11/11/18 19:20 INR 1.05 (0.83-1.16) 11/11/18 19:20 - Physical Exam Constitutional: no apparent distress Eyes: PERRL, EOMI Ears, Nose, Mouth, Throat: moist mucous membranes, hearing normal, ears appear normal Cardiovascular: regular rate and rhythym, no murmur, rub, or gallop, systolic murmur Respiratory: no respiratory distress, no rales or rhonchi, clear to auscultation Gastrointestinal: normoactive bowel sounds Skin: warm Neurologic: AAOx3 Psychiatric: interacting appropriately, not anxious, not encephalopathic Lymph, Heme, Immunologic: No petechiae ICD10 Worksheet Patient Problems: Problems Problem Status Onset Fever Acute Melanoma 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
[2018-11-12] MEDS: HYDROCORTISONE 10 MG TAB PO SCH ×2 (15:54→22:01)
[2018-11-13] MEDS: LEVOTHYROXINE 75 MCG TAB PO SCH (03:38)
[2018-11-13 04:48] LABS: PLATELET COUNT 179 10^3/uL (150-400)
[2018-11-13] MEDS: METOPROLOL SUCCINATE XR 25 MG TAB PO SCH (10:20)
[2018-11-13] MEDS: HYDROCORTISONE 10 MG TAB PO SCH (10:20)
--- NOTE | 2018-11-13 10:51 | SOAPPROG ---
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 #Fever Without any other symptoms, concerning for recurrence of CRS. While fever/ symptoms mild currently, this is how things started before previous circulatory collapse and multiorgan failure. CRP and fever rising today, will treat wit tocilizumab and monitor #Metastatic melanoma Currently on BRAF/MEK inhibitor which we are holding given concerns for CRS. He has failed PD1 (nivolumab) therapy at this point. Could consider induction with nivolumab and ipilimumab but otherwise unknown what options exist for his melanoma if he has recurrence of CRS. Will continue to follow patient. Subjective: patient feels okay, fevers up to 39 overnight and soaked pillow with sweat. no new infectious symptoms. Objective: Vital Signs Temp Pulse Resp BP Pulse Ox 36.6 C 80 18 109/74 98 11/13/18 08:00 11/13/18 10:20 11/13/18 08:00 11/13/18 10:20 11/13/18 08:00 Laboratory Results 11/13/18 00:43 11/13/18 00:43 11/12/18 11/13/18 11/14/18 05:59 05:59 05:59 Intake Total 750 2353 Balance 750 2353 PT 13.9 SEC (12.0-15.0) 11/11/18 19:20 INR 1.05 (0.83-1.16) 11/11/18 19:20 Physical Examination: Vital Signs Reviewed General: pale but non toxic HEENT: PERRL, no icterus or pallor, oral mucosa is moist without lesions CV: tachycardic rate and normal rhythm without rubs thrills or gallops Chest: CTA in bilateral posterior lungs Abdomen: soft nontender nondistended without HSM, some palpable subcutaneous nodules ~4cm in left and right lower quadrant Extremities: dry gangrene on tips of toes bilaterally with some erythematous scale/plaque, dry gangrene tip of left index finger with some blanching erythema , no purulence or warmth Neurologic: alert and oriented x 3, CN II-XII grossly intact ICD10 Worksheet Patient Problems: Problems Problem Status Onset Fever Acute Melanoma 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
--- NOTE | 2018-11-13 10:54 | SOAPPROG ---
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 #Fever/CRS Without any other symptoms, concerning for recurrence of CRS. While fever/ symptoms mild currently, this is how things started before previous circulatory collapse and multiorgan failure. CRP and fever rising yesterday so given dose of tocilizumab - symptomatic improvement and decrease in CRP level -okay with discharge, will see early next week as outpatient #Metastatic melanoma Currently on BRAF/MEK inhibitor which we are holding given concerns for CRS. He has failed PD1 (nivolumab) therapy at this point. Could consider induction with nivolumab and ipilimumab but otherwise unknown what options exist for his melanoma if he has recurrence of CRS. - I don't think we can return to BRAF/MEK inhibitor as had CRS on two diff. combinations, will need other plan as outpatient Subjective: received tocilizumab yesterday - one dose 8mg/kg - patient feels excellent this AM, no fevers since toci, no new symptoms Objective: Vital Signs Temp Pulse Resp BP Pulse Ox 36.6 C 80 18 109/74 98 11/13/18 08:00 11/13/18 10:20 11/13/18 08:00 11/13/18 10:20 11/13/18 08:00 Laboratory Results 11/13/18 00:43 11/13/18 00:43 11/12/18 11/13/18 11/14/18 05:59 05:59 05:59 Intake Total 750 2353 Balance 750 2353 PT 13.9 SEC (12.0-15.0) 11/11/18 19:20 INR 1.05 (0.83-1.16) 11/11/18 19:20 Physical Examination: Vital Signs Reviewed General: pale but non toxic HEENT: PERRL, no icterus or pallor, oral mucosa is moist without lesions CV: tachycardic rate and normal rhythm without rubs thrills or gallops Chest: CTA in bilateral posterior lungs Abdomen: soft nontender nondistended without HSM, some palpable subcutaneous nodules ~4cm in left and right lower quadrant Extremities: dry gangrene on tips of toes bilaterally with some erythematous scale/plaque, dry gangrene tip of left index finger with some blanching erythema , no purulence or warmth Neurologic: alert and oriented x 3, CN II-XII grossly intact ICD10 Worksheet Patient Problems: Problems Problem Status Onset Fever Acute Melanoma 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
[2018-11-13 11:49] VITALS: BP 108/79
[2018-11-13] MEDS ORDERED: BISACODYL 5 MG EC TAB PO PRN (12:37)
[2018-11-13] MEDS ORDERED: LEVOTHYROXINE 100 MCG TAB PO ONE (15:00)
--- NOTE | 2018-11-13 15:28 | PDDCSUM ---
Discharge Summary Discharge Summary: HPI/Hospital Course This is a 53 yo male with hx of met melanoma on chemotherapy with hx of cytokine storm who was admitted with Fever likely related to early recurrence of cytokine storm. The pt was seen by Oncology and treated accordingly with Tocilizumab x 1. CRP remains elevated but is trending down. He no longer has a fever. He was started on IVF. Steroids were increased slightly and need to be tapered. If additional Tocilizumab is needed, it is in the Oncology floor. He will have f/u with Oncology early this coming week (3-4 days) DDX #Fever #Immunocompromised #Metastatic Melanoma on chemotherapy #N/V, resolving #Hx of Cytokine storm, concern for recurrence -s/p Tocilizumab x 1 on 11/12 #Hypothyroidism #hx of Adrenal insufficiency on home steroids #Acute on chronic renal failure with worsening Cr #anemia Exam: NAD AAOX3 RRR CTA B S/NT/ND MEDS: SEE MED REC TOTAL TIME SPENT ON D/C IS 35 MINS. D/W ONCOLOGY
--- NOTE | 2018-11-13 16:07 | ASDISCHSUM ---
Discharge Information Plan Status:Home with Home Health Medically Cleared to Leave:11/12/2018 Discharge Date:11/13/2018 02:37 PM CM D/C Disposition:Home, Routine, Self-Care ADT D/C Disposition:Home, Routine, Self-Care Projected Discharge Date:11/13/2018 12:00 AM Transportation at D/C:Family Discharge Delay Reason: Follow-Up Date:11/13/2018 12:00 AM Discharge Slot:2 - 12:01 pm - 18:00 pm Final Diagnosis:Fever on Chemotherapy Placement Information Patient Contact Information Contact Name:CECILE Relationship: Address:[address] [place] Work Phone: [facility]:[employer] Alternate Phone: State/Zip Code:[place] [address] Email: Financial Information Financial Class:Courtney Alves Primary Plan Desc:[facility] Primary Plan Number:[id number] Secondary Plan Desc: Secondary Plan Number: Assessment Information [facility] CM Progress Note CM Note CM Note Notes: Patient with metastatic melanoma on chemo admitted for fever. He has a recent history of prolonged hospitalization last d/t cytokine storm and multiorgan failure following chemo. He lives with his Raquel and is normally independent. Has been followed by [facility] for RN/PT in the past. They are happy to see him again if necessary. CM will follow for d/c planning. Date Signed: 11/12/2018 09:08 AM Electronically Signed By:Bharati Escudero RN Case Management Discharge Plan Note Case Management Discharge Discharge Order Complete? Answers: Yes Patient to Obtain Answers: Independently Medications Transportation Arranged Answers: Family/Friends Family Notified Answers: Yes Discharge Comments Notes: Patient discussed during clinical rounds and will follow up with Oncology as recommended, discharge today to home with support of family. Patient to consider Palliative care. Date Signed: 11/13/2018 04:05 PM Electronically Signed By:Marlen Chen Intervention Information
[2018-11-14] MEDS ORDERED: LEVOTHYROXINE 25 MCG TAB PO SCH (06:00)
[2018-11-14] MEDS ORDERED: LEVOTHYROXINE 150 MCG TAB PO SCH (06:00)
== END 2018-11-13 14:37 | disposition home or self-care (01) | DRG 864 ==
LOC: F1N 16:07
PROVIDERS: ADMIT Family Medicine; ATTEND Family Medicine
DX: R50.9 Fever, unspecified (principal); R65.11 Systemic inflammatory response syndrome (SIRS) of non-infectious origin with acute organ dysfunction; T45.1X5A Adverse effect of antineoplastic and immunosuppressive drugs, initial encounter; C43.9 Malignant melanoma of skin, unspecified; E27.40 Unspecified adrenocortical insufficiency; N17.9 Acute kidney failure, unspecified; N18.9 Chronic kidney disease, unspecified; E03.9 Hypothyroidism, unspecified; D64.9 Anemia, unspecified; Z79.52 Long term (current) use of systemic steroids
CPT/HCPCS: J2405; J3262

== ENCOUNTER → 2019-01-06 | Outpatient (CLI) | payer OTHER | LOC: FIMAGING 10:25 | DX: C43.59 Malignant melanoma of other part of trunk (principal); C79.89 Secondary malignant neoplasm of other specified sites; M51.37 Other intervertebral disc degeneration, lumbosacral region | CPT/HCPCS: A9585 ==

== ENCOUNTER 2019-01-21 09:05 | Emergency (ER) | payer OTHER ==
[2019-01-21] MEDS ORDERED: NS 1,000 ML IV ONE ×2 (09:56→11:44)
[2019-01-21 10:03] LABS: PLATELET COUNT 264 10^3/uL (150-400)
--- NOTE | 2019-01-21 10:04 | EDPHY ---
H & P Stated Complaint: immunotherapy for melnoma yesterday now with fever/tachy/ hypotension - Personal History Current Tetanus Diphtheria and Acellular Pertussis (TDAP): Yes - Medical/Surgical History Hx Asthma: No Hx Chronic Respiratory Disease: No Hx Diabetes: No Hx Cardiac Disease: No Hx Renal Disease: No Hx Cirrhosis: No Hx Alcoholism: No Hx HIV/AIDS: No Hx Splenectomy or Spleen Trauma: No Other PMH: melonoma- excision/lymph node dissection 11/2017, R hand digit amputations 09/2018 - Social History Smoking Status: Never smoked Time Seen by Provider: 01/21/19 09:47 HPI/ROS: CHIEF COMPLAINT: Fever, abdominal pain, history of metastatic melanoma HISTORY OF PRESENT ILLNESS: 53-year-old male history of metastatic melanoma, primary malignant melanoma of skin of abdomen, receives primary oncology [facility], primary oncologist Dr. Jessica Erazo at [facility] , was at [facility] received immunotherapy yesterday, returned home and notes fever and abdominal pain and cramping throughout the night. He lives in [place]. Denies: Vomiting, headache, rigor, cough, urinary abnormality REVIEW OF SYSTEMS: 10 systems reviewed and negative with the exception of the elements mentioned in the history of present illness PAST MEDICAL & SURGICAL HISTORY: Metastatic melanoma with primary melanoma skin of the abdomen. SOCIAL HISTORY: PHYSICAL EXAM (Prior to examination, patient consented to physical exam, hands were washed and my usual and customary physical exam procedures followed) 1) GENERAL: Awake alert oriented person place, alert and oriented. Appears nontoxic.] 2) HEAD: Normocephalic, atraumatic 3) HEENT: Pupils equal, round, reactive to light bilaterally. Sclera anicteric. Nasopharynx, oropharynx, clear, no lesions. Dry mucous membranes. 4) NECK: Full range of motion, no meningeal signs. 5) LUNGS: Clear auscultation bilaterally, no wheezes, no rhonchi, no retractions. 6) HEART: Regular rate and rhythm, no murmur, no heave, no gallop. 7) ABDOMEN: Multiple scars noted. Soft. Minimal pain.. Multiple subcutaneous lesions noted., negative peritoneal sign, 8) MUSCULOSKELETAL: Moving all extremities, no focal areas of tenderness, no obvious trauma. No peripheral edema or discoloration. 9) BACK: Multiple lesions noted. No CVA tenderness, no midline vertebral tenderness, no fluctuance, no step-off, no obvious trauma, no visual or palpable abnormality. 10) SKIN: No rash, no petechiae. 11) Psychiatric: Patient is oriented X 3, there is no agitation. DIFFERENTIAL DIAGNOSIS: In no particular order including but not limited to bowel obstruction, intussusception, metastatic lesion (Chas Baugh) Constitutional: Initial Vital Signs Temperature (C) 37.5 C 01/21/19 09:12 Heart Rate 112 H 01/21/19 09:12 Respiratory Rate 20 01/21/19 09:12 Blood Pressure 84/65 L 01/21/19 09:12 O2 Sat (%) 96 01/21/19 09:12 O2 Delivery Mode Room Air Allergies/Adverse Reactions: codeine Allergy (Verified 01/21/19 09:11) "VIOLENT NIGHTMARES" Home Medications: Medication Instructions Recorded Acetaminophen [Mapap] 1,000 mg PO Q8H PRN 07/12/18 Levothyroxine [Synthroid 150 mcg 150 mcg PO DAILY06 11/13/18 (*)] Gabapentin [Neurontin 300 MG (*)] 300 mg PO HS 01/21/19 Herbals/Supplements -Info Only 1 ea PO DAILY 01/21/19 Hydrocortisone [Cortef 10 mg (*)] 20 mg PO BID@,15 01/21/19 Ipilimumab [Yervoy] 0 mg IV .[id number] 01/21/19 Nivolumab [Opdivo] 0 mg IV .[id number] 01/21/19 Ondansetron Odt [Zofran Odt 4 mg 8 mg PO TID PRN 01/21/19 (*)] Sennosides [Senna Lax] 8.6 mg PO BID PRN 01/21/19 Medical Decision Making - Diagnostics Imaging Results: Images reviewed myself (Chas Baugh) ED Course/Re-evaluation: 11:13 a.m.: Consultation with staff radiologist Dr. Francois No regarding patient's abdominal CT indicating numerous metastases however patient is noted to have an ileal ileal intussusception. 11:18 a.m.: Consultation with Dr. Alexis Mcdonald recommend the patient be transferred to [facility] 11:37 a.m.: Patient has been re-evaluated with serial exams. He request to be transferred [facility] for further care coordination. Consultation with on-call oncology [facility] Dr. Carrie Peralta has accepted patient for direct admission, EMTALA paperwork completed. 3:28 p.m.: Patient had been accepted for admission however due to current census at [facility] was unable to be transferred as of yet. We were formed at this time by [facility] that the patient's bed is being cleaned. Patient has been resting comfortably in the ER. I have performed serial exams on him. His abdomen is soft with no guarding. 5:00 p.m.: Nursing staff has spoken with the [facility] informs us that there is currently no bed availability in [facility]. Plan will therefore be admission to [facility]. Spoke with Dr. Bell at this time who will admit patient. The patient was initially scheduled for outpatient transfusion of blood today. After consulting with hospitalist, initiate transfusion from the emergency department as he will likely be boarded in the emergency depart for several more hours. Dr. Basil Mcdonald has consulted as well regarding his ileus feels this is non surgical at this time. (Chas Baugh) Other Provider: Patient was not personally evaluated by myself. Assumed care of the patient at 5:00 p.m., transferred to [place] as had been arranged prior to my assuming care. (Bob Ferrara) - Data Points Laboratory Results: Laboratory Results 01/21/19 09:38 01/21/19 09:38 Medications Given: Discontinued Medications Sodium Chloride (Ns) 1,000 mls @ 0 mls/hr IV ONCE ONE PRN Reason: Wide Open Stop: 01/21/19 09:57 Last Admin: 01/21/19 10:37 Dose: 1,000 mls Sodium Chloride (Ns) 1,000 mls @ 0 mls/hr IV ONCE ONE PRN Reason: Wide Open Stop: 01/21/19 11:45 Last Admin: 01/21/19 11:56 Dose: 1,000 mls Ondansetron HCl (Zofran) 4 mg IVP EDNOW ONE Stop: 01/21/19 10:13 Last Admin: 01/21/19 10:36 Dose: 4 mg Promethazine HCl (Phenergan) 12.5 mg IVP EDNOW ONE Stop: 01/21/19 11:45 Last Admin: 01/21/19 11:54 Dose: 12.5 mg Point of Care Test Results: Chemistry 01/21/19 10:42 POC Sodium 131 mEq/L L mEq/L (135-145) POC Potassium 3.5 mEq/L mEq/L (3.3-5.0) POC Chloride 97 mEq/L mEq/L (97-110) POC Total CO2 20 mEq/L L mEq/L (22-31) POC BUN 8 mg/dL mg/dL (7-23) POC Creatinine 1.3 mg/dL mg/dL (0.7-1.3) POC Glucose 86 mg/dL mg/dL (70-100) ISTAT H&H 01/21/19 10:42 POC Hgb 8.8 gm/dL L gm/dL (13.7-17.5) POC Hct 26 % L % (40-51) Departure - Departure Disposition: [facility] Acute Clinical Impression: Ileal intussusception, Metastatic melanoma Condition: Fair
[2019-01-21] MEDS ORDERED: ONDANSETRON 4 MG/2 ML VIAL IVP ONE (10:12)
[2019-01-21 10:13] LABS: INR 1.1 (0.83-1.16); PROTIME(PATIENT) 13.8 SEC (12.0-15.0)
[2019-01-21] MEDS ORDERED: IOPAMIDOL (ISOVUE-300) 100 ML BTL ONE (10:37)
[2019-01-21] MEDS ORDERED: PROMETHAZINE HCL 25 MG/ML INJ IVP ONE (11:44)
--- NOTE | 2019-01-21 11:52 | PDCONSULT ---
Finisher Machine Note: Ash is a 53y/o male with stage IV melanoma on chem and a BRAF inhibitor at [facility]. He was initially diagnosed and treated in [place], but failed Novilimab therapy and is now on a clinical trial. He last received chemo this past weekend and his targeted therapy yesterday. He has had abdominal pain for the past couple of weeks, and had a neg EGD within the past week. His symptoms worsened today and he came to the ED for evaluation and was found to have an intussusception on CT. Surgical consult was requested to determine safety of transport to [facility] PMH: stage IV melanoma 2017 all: codeine non-smoker SH: to [place]/3 sons FH: [place] ROS: + abd pain, nausea, occasional dark black stool PE: BP 85/65 P 110 R 18 T 37.5 HEENT: no scleral icterus Lungs: decreased breath sounds CVS: RRR Abd: soft, mild diffuse tenderness without guarding or rebound. hypoactive bowel sounds multiple soft tissue tumors c/w known metastatic disease CT: distal ileal, ileal intussusception, no extraluminal air or fluid, bowel wall tumor or lead point not identified venous lactate 1.7 wbc 8.8 Hct 25.4% Imp: stage IV melanoma intussusception with likely bowel wall met as lead point Rec: Ash is stable for transport to [facility] and was advised that he may need surgery to resect the intussusceptum Cayetano Mcdonald MD, FACS
[2019-01-21 18:22] VITALS: BP 119/77
[2019-01-21] MEDS ORDERED: ONDANSETRON 4 MG/2 ML VIAL ONE (18:53)
== END 2019-01-21 19:05 | disposition still patient (30) ==
LOC: UNDOADMOB 17:01
DX: K56.1 Intussusception (principal); C43.59 Malignant melanoma of other part of trunk
CPT/HCPCS: 82435-PO; 82565-PO; 82947-PO; 84132-PO; 84295-PO; 84520-PO; 85014-ER; 96374; J2405; J2550; Q9967